=== PATIENT | male | born 1940 | race Caucasian/White ===

== ENCOUNTER 2018-10-21 11:49 | Observation (INO) | payer OTHER, MEDICARE ==
--- OUTSIDE RECORDS SUMMARY | 2018-10-21 11:51 | XMS REPORT | Clinical Summary ---
:1940 Author Organization [facility] Address [address] [place] [id number] Care Team Providers Name Role Phone Nisa Cedillo DO Primary Care Provider Allergies No Known Allergies Medications Medication Sig Dispensed Refills Start Date End Date Status metFORMIN 0 09/11/2016 Active (GLUCOPHAGE) 1000 MG tablet lisinopril 0 08/07/2016 Active (PRINIVIL,ZESTRIL) 10 MG tablet glipiZIDE (GLUCOTROL) 0 08/10/2016 Active 5 MG tablet omega-3 fatty Take by mouth. 0 Active acids-vitamin E (FISH OIL) 1,000 mg capsule cholecalciferol, Take 1,000 Units by 0 Active vitamin D3, (VITAMIN mouth daily. D3) 1,000 unit tablet FOLIC Take by mouth. 0 Active ACID/MULTIVIT-MIN/LUT EIN (CENTRUM SILVER ORAL) diclofenac (VOLTAREN) Apply topically 3 1 Tube 2 09/23/2017 Active 1 % gel (three) times a day. Apply 2 gms to affected area 3 TIMES DAILY Active Problems No known active problems Encounters Date Type Specialty Care Team Description 10/04/2018 Orders Only Orthopedic Surgery Navya Harrison, Achilles tendinitis of MA right lower extremity (Primary Dx) 09/27/2018 Office Visit Orthopedic Surgery Shai Mix II, Achilles tendinitis of right lower extremity (Primary Dx); Hx of total ankle replacement, right; Tenosynovitis of right foot after 10/20/2017 Family History Medical History Relation Name Comments Diabetes Father Heart disease Father Relation Name Status Comments Father Mother Social History Tobacco Use Types Packs/Day Years Used Date Never Smoker Smokeless Tobacco: Never Used Alcohol Use Drinks/Week oz/Week Comments No Sex Assigned at Date Recorded Not on file Job Start Date Occupation Industry Not on file Not on file Not on file Travel History Travel Start Travel End No recent travel history available. Last Filed Vital Signs Not on file Plan of Treatment Date Type Specialty Care Team Description 09/26/2019 Office [place] [address] [place] [address] [phone] Health Maintenance Due Date Last Done Comments SHINGRIX VACCINE (1 of 2) 1991 ZOSTER VACCINE 2001 PNEUMOCOCCAL POLYSACCHARIDE VACCINE AGE 65 AND OVER 2006 PNEUMOCOCCAL-13 2006 INFLUENZA VACCINE 06/23/2018 Procedures Procedure Name Priority Date/Time Associated Diagnosis Comments XR ANKLE 3+ VW Routine 09/27/2018 10:21 AM Chronic pain of Results for this RIGHT [employer] right ankle procedure are in Hx of total ankle the results replacement, right section. after 10/20/2017 Results XR Ankle 3+ Vw Right (09/27/2018 10:21 AM [employer]) Narrative Performed At Three-view images of the right ankle reveals evidence of a stemmed total HM [facility] ankle arthroplasty implant.Medial distal tibia buttressing plate and screw construct appreciated.Intramedullary Steinmann pin appreciated in the right fibula.There is a retained staple in the calcaneus. 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 Performing Organization Address City/State/Zipcode Phone Number [facility] [address] [place] [address] after 10/20/2017 Insurance Payer Benefit Plan / Group Subscriber ID Type Phone Address MEDICARE MEDICARE PART A AND B xxxxxxxxxx Medicare [place], [place] AARP AARP SUPPLEMENT xxxxxxxxxxx Commercial
[2018-10-21 12:30] LABS: Absolute Lymphocytes (CBC) 2.5 K/uL (0.7-4.9); Absolute Monocytes 0.5 K/uL (0.1-1.3); Absolute Neutrophil 2.8 K/uL (1.8-8.0); Eosinophils % 9.2 % (0-4.4); Hematocrit 34.1 % (39.6-49.0); Lymphocytes % 38.6 % (15.3-44.8); MCH 31.4 pg (27.0-35.0); MCV 91.8 fL (80-100); MPV 8.5 fL (7.6-11.3); Monocytes % 7.8 % (3.3-12.3); Protime INR 0.92; RBC Red Blood Cell Count 3.72 M/uL (4.33-5.43)
[2018-10-21 12:48] LABS: ALT/SGPT 24 U/L (12-78); AST/SGOT 14 U/L (15-37); Albumin 3.4 g/dL (3.4-5.0); Alkaline Phosphatase 53 U/L (45-117); BUN Blood Urea Nitrogen 44 mg/dL (7-18); Bicarbonate 21 mmol/L (21-32); Bilirubin Direct 0.1 mg/dL (0-0.2); Bilirubin Total 0.4 mg/dL (0.2-1.0); Glucose Level 152 mg/dL (74-106); Magnesium 1.7 mg/dL (1.8-2.4); NT PRO-BNP 23 pg/mL (<450); Potassium 5.2 mmol/L (3.5-5.1); Protein, Total 7.3 g/dL (6.4-8.2); Sodium Level 140 mmol/L (136-145); Troponin (Emerg Dept Use Only) < 0.02 ng/mL (0.0-0.045)
--- NOTE | 2018-10-21 12:58 | RAD REPORT ---
EXAM DESCRIPTION: Raissa Single View10/21/2018 12:42 pm CLINICAL HISTORY: Chest pain COMPARISON: 2007 FINDINGS: Left lateral costophrenic sulcus is not visualized and not evaluated. Visualized lungs appear clear of acute infiltrate. The heart is normal size IMPRESSION: No acute abnormalities displayed
--- NOTE | 2018-10-21 14:08 | EDPHYS ---
Physician Documentation [facility] Name: Dev Olguin Age: 78 yrs Sex: Male : 1940 Arrival Date: 10/21/2018 Time: 11:50 Bed 5 Private MD: Nisa Cedillo H ED Physician Karan Sherman HPI: 10/22 07:31 This 78 yrs old Male presents to ER via Wheelchair with complaints of Chest kdr Pain. 07:31 The patient or guardian reports chest pain that is located primarily in the substernal kdr area, anterior chest wall, left. Onset: suddenly, This has been intermittent for the past two months. He appears to get relief when he drinks soda mixture. The pain is normally preceded by pain in his left face, jaw and maxilla.. The pain radiates to left jaw. Associated signs and symptoms: Pertinent positives:. The chest pain is described as aching, burning, dull. Duration: The patient or guardian reports multiple episodes, that are intermittent, that wax and wane, with no pattern. Severity of pain: At its worst the pain was moderate in the emergency department the pain has resolved. The patient has experienced similar episodes in the past, multiple times, chronically. Today, the patient was at PT for his ankle when he had recurrence of the pain and near syncope which had not happened before.. Historical: - Allergies: 10/21 12:13 No Known Allergies; iw - Home Meds: 12:13 Metformin Oral [Active]; glipizide Oral [Active]; lisinopril 5 mg Oral tab 1 tab once iw daily [Active]; - PMHx: 12:13 Diabetes - NIDDM; iw - PSHx: 12:13 R ankle replacement; Hernia repair; iw - Immunization history:: Adult Immunizations up to date. - Social history:: Smoking status: Patient/guardian denies using tobacco. - Ebola Screening: : Patient negative for fever greater than or equal to 101.5 degrees Fahrenheit, and additional compatible Ebola Virus Disease symptoms Patient denies exposure to infectious person Patient denies travel to an Ebola-affected area in the 21 days before illness onset No symptoms or risks identified at this time. ROS: 10/22 07:31 Constitutional: Negative for fever, chills, and weight loss, Eyes: Negative for injury, kdr pain, redness, and discharge, Neck: Negative for injury, pain, and swelling, Respiratory: Negative for shortness of breath, cough, wheezing, and pleuritic chest pain, Abdomen/GI: Negative for abdominal pain, nausea, vomiting, diarrhea, and constipation, Back: Negative for injury and pain, : Negative for injury, bleeding, discharge, and swelling, MS/Extremity: Negative for injury and deformity, Skin: Negative for injury, rash, and discoloration, Neuro: Negative for headache, weakness, numbness, tingling, and seizure activity. Psych: Negative for depression, anxiety, suicide ideation, homicidal ideation, and hallucinations, Allergy/Immunology: Negative for hives, rash, and allergies, Endocrine: Negative for neck swelling, polydipsia, polyuria, polyphagia, and marked weight changes, Hematologic/Lymphatic: Negative for swollen nodes, abnormal bleeding, and unusual bruising. Cardiovascular: Positive for chest pain, Negative for edema, orthopnea, palpitations, paroxysmal nocturnal dyspnea. Neuro: Positive for near syncope, weakness, Negative for altered mental status, dizziness, gait disturbance, headache, hearing loss. Exam: 07:31 Constitutional: This is a well developed, well nourished patient who is awake, alert, kdr and in no acute distress. Head/Face: Normocephalic, atraumatic. Eyes: Pupils equal round and reactive to light, extra-ocular motions intact. Lids and lashes normal. Conjunctiva and sclera are non-icteric and not injected. Cornea within normal limits. Periorbital areas with no swelling, redness, or edema. Neck: Trachea midline, no thyromegaly or masses palpated, and no cervical lymphadenopathy. Supple, full range of motion without nuchal rigidity, or vertebral point tenderness. No Meningismus. Chest/axilla: Normal chest wall appearance and motion. Nontender with no deformity. No lesions are appreciated. Cardiovascular: Regular rate and rhythm with a normal S1 and S2. No gallops, murmurs, or rubs. Normal PMI, no JVD. No pulse deficits. Respiratory: Lungs have equal breath sounds bilaterally, clear to auscultation and percussion. No rales, rhonchi or wheezes noted. No increased work of breathing, no retractions or nasal flaring. Abdomen/GI: Soft, non-tender, with normal bowel sounds. No distension or tympany. No guarding or rebound. No evidence of tenderness throughout. Back: No spinal tenderness. No costovertebral tenderness. Full range of motion. Skin: Warm, dry with normal turgor. Normal color with no rashes, no lesions, and no evidence of cellulitis. MS/ Extremity: Pulses equal, no cyanosis. Neurovascular intact. Full, normal range of motion. Neuro: Awake and alert, GCS 15, oriented to person, place, time, and situation. Cranial nerves II-XII grossly intact. Motor strength 5/5 in all extremities. Sensory grossly intact. Cerebellar exam normal. Normal gait. Psych: Awake, alert, with orientation to person, place and time. Behavior, mood, and affect are within normal limits. Vital Signs: 10/21 12:13 BP 142 / 53; Pulse 71; Resp 16 S; Pulse Ox 100% on R/A; Weight 82.19 kg; Height 5 ft. iw 10 in. (177.80 cm); Pain 0/10; 13:04 BP 135 / 63; Pulse 69; Resp 17; Pulse Ox 100% ; bp 14:00 BP 128 / 65; Pulse 70; Resp 19; Pulse Ox 100% ; bp 16:00 BP 113 / 64; Pulse 69; Resp 17; Pulse Ox 99% ; bp 12:13 Body Mass Index 26.00 (82.19 kg, 177.80 cm) iw MDM: 14:07 Patient medically screened. kdr 10/22 07:31 Differential diagnosis: acute myocardial infarction, acute pericarditis, anxiety, kdr coronary artery disease gastroesophageal reflux disease (GERD). HEART Score: History: Highly Suspicious (2), ECG: Non specific repolarization disturbance / LBTB / PM (1), Age: > or = 65 years (2), Risk Factors: 1 or 2 risk factors (1), Troponin: < or = 1 x Normal Limit (0), Total Score =. Data reviewed: vital signs, nurses notes. Counseling: I had a detailed discussion with the patient and/or guardian regarding: the historical points, exam findings, and any diagnostic results supporting the discharge/admit diagnosis, lab results, radiology results, the need for further work-up and treatment in the hospital. 10/21 12:00 Order name: Basic Metabolic Panel; Complete Time: 13:54 kdr 10/21 12:00 Order name: CBC with Diff; Complete Time: 13:54 [facility] 10/21 12:00 Order name: LFT's; Complete Time: 13:54 [facility] 10/21 12:00 Order name: Magnesium; Complete Time: 13:54 [facility] 10/21 12:00 Order name: NT PRO-BNP; Complete Time: 13:54 [facility] 10/21 12:00 Order name: PT-INR; Complete Time: 13:54 [facility] 10/21 12:00 Order name: Troponin (emerg Dept Use Only); Complete Time: 13:54 [facility] 10/21 12:00 Order name: XRAY Chest (1 view); Complete Time: 13:54 [facility] 10/21 12:00 Order name: EKG; Complete Time: 12:01 [facility] 10/21 12:00 Order name: Cardiac monitoring; Complete Time: 12:14 [facility] 10/21 12:00 Order name: EKG - Nurse/Tech; Complete Time: 12:14 [facility] 10/21 12:00 Order name: IV Saline Lock; Complete Time: 12:28 [facility] 10/21 12:00 Order name: Labs collected and sent; Complete Time: 12:28 [facility] 10/21 12:00 Order name: O2 Per Protocol; Complete Time: 12:14 [facility] 10/21 12:00 Order name: O2 Sat Monitoring; Complete Time: 12:14 kdr Administered Medications: No medications were administered Disposition: 10/21/18 14:07 Hospitalization ordered by Yuan Cortés for Observation. Preliminary diagnosis are Chest pain, unspecified, Hyperkalemia, Renal Insufficiency. - Bed requested for Telemetry/MedSurg (observation). - Status is Observation. iw - Condition is Stable. - Problem is new. - Symptoms have improved. UTI on Admission? No Signatures: Dispatcher [employer] EDMS Karan Sherman MD MD kdr Alcira Mendoza RN RN iw Corrections: (The following items were deleted from the chart) 10/21 16: 14:07 Hospitalization Ordered by Yuan Cortés MD for Observation. Preliminary diagnosis iw is Chest pain, unspecified; Hyperkalemia; Renal Insufficiency. Bed requested for Telemetry/MedSurg (observation). Status is Observation. Condition is Stable. Problem is new. Symptoms have improved. UTI on Admission? No. kdr 17:38 16:29 10/21/2018 14:07 Hospitalization Ordered by Yuan Cortés MD for Observation. iw Preliminary diagnosis is Chest pain, unspecified; Hyperkalemia; Renal Insufficiency. Bed requested for Telemetry/MedSurg (observation). Status is Observation. Condition is Stable. Problem is new. Symptoms have improved. UTI on Admission? No. iw
--- NOTE | 2018-10-21 14:08 | ER ---
Nurse's Notes [facility] Name: Dev Olguin Age: 78 yrs Sex: Male : 1940 Arrival Date: 10/21/2018 Time: 11:50 Bed 5 Private MD: Nisa Cedillo H Diagnosis: Chest pain, unspecified;Hyperkalemia;Renal Insufficiency Presentation: 10/21 12:08 Presenting complaint: Patient states: has had episodes of CP that started several iw months ago, not every day, pt states his left tooth/jaw starts hurting and then the pain moves into his chest, pt usually can drink a diet 7up and the pain goes away, today was PT and was on the exercise machine and had a bad episode of chest pain that lasted about 10 minutes, got dizzy, went to Dr. Cedillo's office and was sent here. Transition of care: patient was not received from another setting of care. Onset of symptoms was October 21, 2018. Risk Assessment: Do you want to hurt yourself or someone else? Patient reports no desire to harm self or others. Initial Sepsis Screen: Does the patient meet any 2 criteria? No. Patient's initial sepsis screen is negative. Does the patient have a suspected source of infection? No. Patient's initial sepsis screen is negative. Care prior to arrival: None. 12:08 Method Of Arrival: Wheelchair iw 12:08 Acuity: [place] 3 iw Triage Assessment: 12:29 General: Appears in no apparent distress. comfortable, Behavior is cooperative, bp appropriate for age, anxious. Pain: Denies pain. Cardiovascular: Rhythm is sinus rhythm. Historical: - Allergies: 12:13 No Known Allergies; iw - Home Meds: 12:13 Metformin Oral [Active]; glipizide Oral [Active]; lisinopril 5 mg Oral tab 1 tab once iw daily [Active]; - PMHx: 12:13 Diabetes - NIDDM; iw - PSHx: 12:13 R ankle replacement; Hernia repair; iw - Immunization history:: Adult Immunizations up to date. - Social history:: Smoking status: Patient/guardian denies using tobacco. - Ebola Screening: : Patient negative for fever greater than or equal to 101.5 degrees Fahrenheit, and additional compatible Ebola Virus Disease symptoms Patient denies exposure to infectious person Patient denies travel to an Ebola-affected area in the 21 days before illness onset No symptoms or risks identified at this time. Screenin:14 Abuse screen: Denies threats or abuse. Denies injuries from another. Nutritional iw screening: No deficits noted. Tuberculosis screening: No symptoms or risk factors identified. Fall Risk IV access (20 points). Assessment: 12:10 General: Appears in no apparent distress. comfortable, Behavior is cooperative, bp appropriate for age, anxious. Pain: Pain radiates to left jaw Pain began CURRENTLY RESOLVED. Neuro: Level of Consciousness is awake, alert, obeys commands, Oriented to person, place, time, situation, Appropriate for age. Cardiovascular: Rhythm is sinus rhythm. Respiratory: Airway is patent Respiratory effort is even, unlabored, Respiratory pattern is regular, symmetrical. GI: No signs and/or symptoms were reported involving the gastrointestinal system. : No signs and/or symptoms were reported regarding the genitourinary system. EENT: No deficits noted. Derm: No deficits noted. Musculoskeletal: Circulation, motion, and sensation intact. Range of motion: intact in all extremities. 13:03 Reassessment: ALL CURRENT ORDERS COMPLETED, DISPO PENDING. bp 16:13 Reassessment: Patient appears in no apparent distress at this time. Patient and/or iw family updated on plan of care and expected duration. Pain level reassessed. Patient is alert, oriented x 3, equal unlabored respirations, skin warm/dry/pink. pt assisted to bathroom, placed back in bed, family at bedside, waiting on room assignment. Vital Signs: 12:13 BP 142 / 53; Pulse 71; Resp 16 S; Pulse Ox 100% on R/A; Weight 82.19 kg; Height 5 ft. iw 10 in. (177.80 cm); Pain 0/10; 13:04 BP 135 / 63; Pulse 69; Resp 17; Pulse Ox 100% ; bp 14:00 BP 128 / 65; Pulse 70; Resp 19; Pulse Ox 100% ; bp 16:00 BP 113 / 64; Pulse 69; Resp 17; Pulse Ox 99% ; bp 12:13 Body Mass Index 26.00 (82.19 kg, 177.80 cm) ED Course: 11:50 Patient arrived in ED. rg4 11:50 Karan Sherman MD is Attending Physician. kdr 11:50 Nisa Cedillo DO is Private Physician. rg4 12:02 Amarjit Middleton, RN is Primary Nurse. bp 12:09 EKG done, by quick service technician. reviewed by Karan Sherman MD. at1 12:12 Triage completed. iw 12:13 Arm band placed on. iw 12:33 No provider procedures requiring assistance completed. Patient maintains SpO2 bp saturation greater than 95% on room air. 12:33 Patient has correct armband on for positive identification. telegraphic instrument supervisor on. Pulse bp ox on. NIBP on. 12:37 X-ray completed. Portable x-ray completed in exam room. Patient tolerated procedure jb2 well. 12:40 XRAY Chest (1 view) In Process Unspecified. EDMS 14:00 Yuan Cortés MD is Hospitalizing Provider. kdr 16:53 Patient admitted, IV remains in place. bp 17:05 Inserted saline lock: 20 gauge in right forearm, using aseptic technique. bp Administered Medications: No medications were administered Outcome: 14:07 Decision to Hospitalize by Provider. kdr 16:52 Admitted to Med/surg accompanied by malaika, family with patient, via wheelchair, with bp chart, Report called to BEN RN 16:52 Condition: stable 16:52 Instructed on the need for admit. 17:38 Patient left the ED. iw Signatures: Dispatcher [employer] EDCT Karan Sherman MD MD kdr Buechter, Jesse jb2 Alcira Mendoza, RN RN iw Ara Buckley, network security engineer EKG Tat1 Josee Blue rg4 Amarjit Middleton, RN RN bp Corrections: (The following items were deleted from the chart) 12:35 12:08 Presenting complaint: Patient states: has had episodes of CP that started several iw months ago, not every day, pt states his left tooth/jaw starts hurting and then the pain moves into his chest, pt usually can drink a diet 7up and the pain goes away, today was PT and was on the machine and had a bad episode of PC that lasted about 10 minutes, got dizzy, went to Dr. Cedillo's office and was sent here iw
--- NOTE | 2018-10-21 14:34 | EKG ---
Test Date: 2018-10-21 Test Time: 11:58:53 [employer] Ax Consultant: PARMJIT MEASUREMENT RESULTS: Intervals: Rate: 71 NH: 186 QRSD: 88 QT: 348 QTc: 378 Martha: P: 28 NH: 186 QRS: 62 T: 58 INTERPRETIVE STATEMENTS: Normal sinus rhythm Normal ECG Compared to ECG 12/09/2014 20:11:19 No significant changes Electronically Signed On 10-21-18 14:33:53 FLOW NURSE by Kael Dumont
[2018-10-21] MEDS: INSULIN -REGULAR HUMAN 50 UNIT/0.5 ML ML SQ SCH ×2 (17:06→21:00)
[2018-10-21] MEDS ORDERED: D50W 25 GM/50 ML SYRINGE IV PRN (17:06)
[2018-10-21] MEDS ORDERED: GLUCAGON 1 MG/VIAL IM PRN (17:06)
[2018-10-21] MEDS ORDERED: ACETAMINOPHEN 500 MG TAB PO PRN (17:06)
[2018-10-21] MEDS: NA CHLORIDE 0.9% 1,000 ML IV SCH (17:06)
[2018-10-21 17:37] VITALS: BMI 25.9
[2018-10-21] MEDS ORDERED: SOD POLYSTYREN SUL 15 GM/60 ML UCUP PO ONE (18:00)
[2018-10-21] MEDS ORDERED: NITROGLYCERIN 0.4 MG/TAB SL PRN (18:02)
[2018-10-21] MEDS ORDERED: MORPHINE 2 MG/ML SYR IV PRN (18:07)
[2018-10-21 19:34] LABS: HDL Cholesterol 41 mg/dL (40-60); LDL Cholesterol, Calculated 89 (<130); Troponin I < 0.02 ng/mL (0.0-0.045)
[2018-10-21] MEDS: ENOXAPARIN 40 MG/0.4 ML SQ SCH ×2 (21:00→22:52)
[2018-10-21] MEDS ORDERED: ATORVASTATIN 40 MG TAB PO SCH (21:00)
[2018-10-21] MEDS: METOPROLOL TAR 25 MG TAB PO SCH (22:51)
--- NOTE | 2018-10-22 04:01 | HP ---
Date of Admission: 10/21/2018 Primary Care Physician: Dr. Cedillo. Consultants: Cardiology, Dr. Peace. Chief Complaint: Chest pain radiating to the jaw. Code Status: Full. History Of Present Illness: The patient is a 78-year-old male with past medical history of right ank le and knee repair, currently undergoing physical therapy as well as diabetes and hypertension, who w as in his usual state of health until a week prior to admission, when the patient had sudden onset of chest pain which was substernal, associated with some nausea and radiating to his jaw. The patient states that his symptoms were intermittent, mild, however, kept progressing. The patient sought a re ferral to agricultural extension agent through his primary care physician, Dr. Cedillo and was to be seen by Dr. Peace n ext week. The patient did try some 7up along with G-tube, Gatorade drink, cocktail and states that h is pain improved, however, would return promptly. The patient was at the rehab center today and afte r using the exercise bike, the patient became dizzy and had a near syncopal episode. The patient was attended to by the therapist. The patient was laid flat on the ground. His blood pressure was in t he 130s systolic. EKG was done and the patient was referred to the emergency department for further evaluation. In the ER, his vital signs were stable. He was afebrile. The patient's workup did show potassium level of 5.2. His creatinine was 1.9. Initial EKG and cardiac enzymes were negative. Ch est x-ray did not show any changes. The patient was then referred for admission. When seen in the E R, he was awake, alert, and oriented x3, in some mild distress. Past Medical History: Hypertension; diabetes mellitus, type 2, [id number]. Past Surgical History: Cholecystectomy, 25 years ago; previous heart cath, several years ago with no intervention; umbilical hernia repair in 2007; right ankle surgery, 4 years ago, using 3D printer an kle replacement. Allergies: NO KNOWN DRUG ALLERGIES. Medications: List reviewed. Social History: The patient denies any tobacco use. Will drink alcohol on rare occasion. The patie nt is , has a daughter, essentially independent in his activities of daily living. Family History: Father had first OH at age of 35, of OH at age of 75, also had diabetes. Review of Systems: Negative except as above. Physical Examination: Vital Signs: Blood pressure 142/53, pulse 71, respirations 16, O2 100% on room air. General: Awake, alert, and oriented x3, in some mild distress. Elderly male, ill appearing. HEENT: Normocephalic, atraumatic. PERRLA. EOMI. Dry mucous membranes. Oropharynx is clear. Conj unctivae are anicteric. Neck: Supple. No JVD. Trachea midline. CV: S1, S2. Regular rate and rhythm. Peripheral pulses are present. No murmurs. Respiratory: Moving air well bilaterally. No wheezing or stridor. No use of accessory muscles. Gastrointestinal: Abdomen is soft, nontender, and nondistended. Positive bowel sounds. Extremities: No clubbing, cyanosis, or edema. No calf tenderness. Neuro: Cranial nerves 2-12 intact grossly. No focal neurological deficit. Speech is normal. Stren gth is 5/5 in bilateral upper and lower extremities. Sensation intact to light touch. Skin: No rashes. Normal skin turgor. Psych: Mood is okay. Affect is full. Insight and judgment are fair. Laboratory Data: Sodium 140, potassium 5.2, chloride 112, CO2 21, BUN 44, creatinine 1.9, glucose 15 2, calcium 8.9, and magnesium 1.7. WBC 6.5, H and H 11.7 and 34.1, platelets 166, and neutrophils 43 %. INR 0.92. Chest x-ray, personally reviewed, shows no acute infiltrates or other abnormalities. EKG shows rate of 71, normal sinus rhythm, no changes from previous EKG. Assessment And Plan: A 78-year-old male with: 1.Chest pain, rule out ACS. We will start on chest pain guidelines. Hold CHAU inhibitor due to elev ated creatinine and hyperkalemia. Continue beta-nancy, aspirin, and statin. Serial cardiac enzyme s and EKG. Consult Dr. Peace with Cardiology. The patient was scheduled to see him next week. 2.Presyncopal episode. We will obtain a carotid artery ultrasound. We will check orthostatic vital signs. PT evaluation. 3.Essential hypertension. Resume home medications as appropriate. 4.GI and DVT prophylaxis addressed. 5.Diabetes mellitus, type 2, ply-dippzjg-cmbbeaebu with hyperglycemia. We will start on sliding sca le insulin and monitor Accu-Cheks. 6.Hyperkalemia. We will give Kayexalate and monitor potassium level. 7.Acute kidney injury. We will start on IV fluids. Baseline creatinine is normal. Admit the patient to Med-Surg, place as observation. /KARLA Voice ID: [id number]
[2018-10-22 05:59] LABS: Absolute Lymphocytes (CBC) 2.9 K/uL (0.7-4.9); Absolute Monocytes 0.5 K/uL (0.1-1.3); Absolute Neutrophil 2.7 K/uL (1.8-8.0); Basophils % 0.8 % (0-1.3); Eosinophils % 9.1 % (0-4.4); Hematocrit 31.9 % (39.6-49.0); Lymphocytes % 42.8 % (15.3-44.8); MCH 31.5 pg (27.0-35.0); MPV 8.2 fL (7.6-11.3); Monocytes % 6.9 % (3.3-12.3); RBC Red Blood Cell Count 3.51 M/uL (4.33-5.43)
[2018-10-22] MEDS: NA CHLORIDE 0.9% 1,000 ML IV SCH (06:12)
[2018-10-22 06:19] LABS: Potassium 5.1 mmol/L (3.5-5.1)
[2018-10-22] MEDS: INSULIN -REGULAR HUMAN 50 UNIT/0.5 ML ML SQ SCH ×2 (07:30→11:30)
[2018-10-22] MEDS ORDERED: glipiZIDE 5 MG TAB PO SCH ×2 (08:00→16:30)
[2018-10-22] MEDS ORDERED: METFORMIN HCL 500 MG TAB PO SCH (08:00)
[2018-10-22 08:03] LABS: Platelet Estimate ADEQ
[2018-10-22 08:04] LABS: Blood Morphology Comment NOT SEEN (NOT SEEN)
[2018-10-22] MEDS: METOPROLOL TAR 25 MG TAB PO SCH (08:47)
[2018-10-22] MEDS: ENOXAPARIN 40 MG/0.4 ML SQ SCH (08:48)
[2018-10-22] MEDS ORDERED: LISINOPRIL 10 MG TAB PO SCH (09:00)
[2018-10-22] MEDS ORDERED: ASPIRIN EC 81 MG TAB PO SCH (09:00)
[2018-10-22 09:40] VITALS: O2SAT 96
--- NOTE | 2018-10-22 09:45 | RAD REPORT ---
EXAM DESCRIPTION: USCarotid Artery Ngmkbrtkm20/29/2018 9:50 pm CLINICAL HISTORY: Syncope COMPARISON: None FINDINGS: The velocity of the right internal carotid artery equals 90 cm/sec. The right ICA/CCA ratio 1.3 The velocity of the left internal carotid artery equals 80 cm/sec. The left ICA/CCA ratio 1.2 Minimal plaque within the carotid arteries. Vertebral arteries demonstrate antegrade flow IMPRESSION: Minimal plaque within the carotid arteries without evidence of a hemodynamically signifi cant stenosis NASCET criteria used. Mild 0-49% stenosis Moderate 50-69% stenosis Severe 70-99% stenosis
[2018-10-22] MEDS ORDERED: REGADENOSON 0.4 MG/5 ML SYR IV ONE (10:47)
--- NOTE | 2018-10-22 12:41 | RAD REPORT ---
EXAM DESCRIPTION: NM - Rest Stress Cardiac Imaging - 10/22/2018 12:28 pm CLINICAL HISTORY: Chest pain. COMPARISON: None. TECHNIQUE: The patient was administered approximately 10mCi of Tc 99m Sestamibi prior to resting SPE CT imaging of the heart. The patient was then administered approximately 30 mCi of Tc 99m Sestamibi f ollowing exercise or pharmacologic stress. Multiplanar SPECT images were reviewed. FINDINGS: Small area of diminished radiotracer activity involves the inferior left ventricular myoc ardium on rest and stress images. The left ventricular ejection fraction equals 52% IMPRESSION: Small apparent defect involving the inferior left ventricular myocardium most likely re presents attenuation from the diaphragm. No convincing evidence of stress-induced ischemia
--- NOTE | 2018-10-22 13:07 | CON ---
Chief Complaint: Chest pain. History Of Present Illness: The patient has been having these symptoms for upwards of a year. The p ain starts in his tooth, in the left side of his jaw within a few seconds of getting it in the tooth, then he will feel it in the chest. If he drinks a diet lemon carpenter soda, about 3 swallows, it goes away immediately. The patient has never had myocardial infarction or stroke. Outpatient medication s are glipizide, metformin, and lisinopril. He has no allergies. Uses no tobacco. Quit more than 2 0 years ago. No illegal drugs. Occasional alcohol. Physical Examination: General: He is alert, oriented, pleasant, 5 feet 10 inches, 181 pounds. HEENT: Normal. Lungs: Clear. Cardiac: Normal. Abdomen: Soft. Extremities: Normal. Laboratory Data: His electrocardiogram is normal. Troponins are normal. Mildly anemic, normochromi c. Creatinine 1.9, 1.4 this morning. Total cholesterol 165, HDL 41, triglycerides 177. Impression And Plan: Mr. Olguin has very atypical chest pain. We will do a pharmacologic nuclear s tress test and echo to see if there are any findings that would warrant further workup. He is unable to walk. He has had an injury to his right leg. 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 ESTELLA/KARLA Voice ID: [id number] Report ID: [id number]
--- NOTE | 2018-10-22 13:23 | TREADPHA ---
DX: CHEST PAIN Date of Study: 10/22/18 Ht: 5 10 Wt: 181 lb 0 oz Consulting Physician: WAN MEDICATIONS: TYLENOL, ASPIRIN, LIPITOR, DEXTROSE, LOVENOX, NOVOLINE-R HISTORY: 78 YEAR OLD MALE WITH COMPLAINTS OF CHEST PAIN, HYPERKALEMIA, RENAL INSUFFIENCY, HERNIA REPAIR, NON INSULINE DEPENDENT DIABETES MELLITUS. PHYSICIAL EXAMINATION: RESTING B.P.: 156/91 RESTING H.R.: 61 RESTING EKG: NORMAL PROTOCOL: LEXISCAN EXERCISE TIME: 3:30 B.P. AT PEAK STRESS: 129/69 IMPRESSION: LEXISCAN INJECTED PER PROTOCOL, FOLLOWED BY CARDIOLITE PER PROTOCOL, SEE NUCLEAR MEDICINE REPORT. NO SUPRA VENTRICLAR TACHYCARDIA, NO VENTRICULAR TACHYCARDIA, NO CHEST PAIN REPORTED, NO PREMATURE ATRIAL COMPLEXES, NO PREMATURE VENTRICULAR COMPLEXES. NON DIAGNOSTIC EKG LEXISCAN STRESS.
--- NOTE | 2018-10-22 13:34 | ECHO ---
HEIGHT: 5 ft 10 in WEIGHT: 181 lb 0 oz DATE OF STUDY: 10/22/[address]: Yuan Cortés MD 2-DIMENSIONAL: YES M.MODE: YES DOPPLER: YES COLOR FLOW: YES TDS: PORTABLE: DEFINITY: BUBBLE STUDY: DIAGNOSIS: CHEST PAIN CARDIAC HISTORY: CATHERIZATION: NO SURGERY: NO PROSTHETIC VALVE: NO PACEMAKER: NO MEASUREMENTS (cm) DIASTOLIC (NORMALS) SYSTOLIC (NORMALS) IVSd 1.0 (0.6-1.2) LA Diam 4.0 (1.9-4.0) LVEF 60% LVIDd 4.9 (3.5-5.7) LVIDs 3.3 (2.0-3.5) %FS 32% LVPWd 1.2 (0.6-1.2) Ao Diam 3.3 (2.0-3.7) 2 DIMENSIONAL ASSESSMENT: RIGHT ATRIUM: NORMAL LEFT ATRIUM: NORMAL RIGHT VENTRICLE: NORMAL LEFT VENTRICLE: NORMAL TRICUSPID VALVE: NORMAL MITRAL VALVE: NORMAL PULMONIC VALVE: NORMAL AORTIC VALVE: NORMAL PERICARDIAL EFFUSION: NONE AORTIC ROOT: NORMAL LEFT VENTRICULAR WALL MOTION: NORMAL DOPPLER/COLOR FLOW: TRACE MITRAL REGURGITATION. COMMENTS: NORMAL TWO DIMENSIONAL ECHOCARDIOGRAM. TRACE MITRAL REGURGITATION. TECHNOLOGIST: ARJUN MUÑOZ
[2018-10-22] MEDS ORDERED: PANTOPRAZOLE 40MG TABLET PO SCH (14:00)
[2018-10-22 16:57] VITALS: BP 114/61; TEMP 97.8
--- NOTE | 2018-10-23 14:25 | DS ---
Date of Discharge: 10/22/2018 Consultants: Dr. Peace with Cardiology. Procedures: Nuclear stress test, which showed a small apparent defect involving the inferior left ve ntricular myocardium, most likely represents attenuation from the diaphragm. No convincing evidence of stress-induced ischemia. Discharge Diagnoses: 1.Chest pain, acute coronary syndrome ruled out, likely atypical chest pain. 2.Presyncopal episode. Carotid artery ultrasound negative. No further episodes likely related to d ehydration. 3.Essential hypertension, stable. 4.Diabetes mellitus type 2, non-insulin requiring with hyperglycemia. 5.Hyperkalemia, corrected. 6.Acute kidney injury, improved. 7.Hypertriglyceridemia. Hospital Course: The patient is a 78-year-old male with past medical history of diabetes, hypertensi on, comes in with presyncopal episode and chest tightness radiating to the jaw. The patient was brou ght in from physical therapy, where he had the episode for further evaluation. The patient was admit reese to rule out ACS and cardiac enzymes were negative. EKG did not show any acute changes. Cardiac stress test was done and the patient was seen by Dr. Peace, Cardiology. Stress test was negative fo r any stress-induced ischemia. His echocardiogram showed ejection fraction of 60%. Trace mitral reg urgitation. The patient was then cleared for discharge from business analyst consultant's standpoint. He did well ov era. His symptoms resolved. A carotid artery ultrasound was done, which did not show any flow-saravia iting stenosis. The patient was able to ambulate without any difficulty. The patient was then disch arged in a stable condition. Activity: As tolerated. Medications: As per medication reconciliation list. He will be discharge on trial of Protonix for 3 0 days. If he has improvement, he will need to see a GI physician for a possible scope to rule out a ny ulcers and to check for H. pylori. Followup: Follow up with saturator operator, Dr. Peace in 2 weeks. Return to ER for worsening condition. Follow up with GI in 4 weeks. Diet: Heart healthy. Activity: Fall precautions. Physical Examination: General: Awake, alert, oriented, no acute distress. CV: S1 and S2. No murmurs. Respiratory: Moving air well bilaterally. Abdomen: Abdomen is soft, nontender, nondistended. Positive bowel sounds. Extremities: No clubbing, cyanosis, edema. Neurologic: Nonfocal. SA/MODL Voice ID: [id number] Report ID: [id number]
== END 2018-10-22 15:01 | disposition home or self-care (01) ==
LOC: ER 11:49 → ERHOLD 15:18 → 4TH 17:01
PROVIDERS: ADMIT Family Medicine; ATTEND Family Medicine
DX: R07.9 Chest pain, unspecified (principal); R55 Syncope and collapse; I10 Essential (primary) hypertension; E11.65 Type 2 diabetes mellitus with hyperglycemia; E87.5 Hyperkalemia; N17.9 Acute kidney failure, unspecified; E78.1 Pure hyperglyceridemia
CPT/HCPCS: 36415; 71045; 78452; 80048 ×2; 80061; 80076; 82962 ×3; 83735; 83880; 84484 ×2; 85025 ×2; 85610; 93005; 93017; 93306; 93880; 94760 ×3; 97163; 99285; A9500; G0378 ×2; J1650; J2785; J7030 ×2

== ENCOUNTER 2019-08-02 12:08 | Emergency (ER) | payer OTHER, MEDICARE ==
--- OUTSIDE RECORDS SUMMARY | 2019-08-02 12:11 | XMS REPORT | Clinical Summary ---
:1940 Author Organization [facility] Address [address] [place] [address] Care Team Providers Name Role Phone Nisa Cedillo Primary Care Provider Allergies No Known Allergies Medications Medication Sig Dispensed Refills Start Date End Date Status metFORMIN 0 09/11/2016 Active (GLUCOPHAGE) 1000 MG tablet lisinopril 0 08/07/2016 Active (PRINIVIL,ZESTRI L) 10 MG tablet glipiZIDE 0 08/10/2016 Active (GLUCOTROL) 5 MG tablet omega-3 fatty Take by mouth. 0 Active acids-vitamin E (FISH OIL) 1,000 mg capsule cholecalciferol, Take 1,000 0 Active vitamin D3, Units by mouth (VITAMIN D3) daily. 1,000 unit tablet FOLIC Take by mouth. 0 Active ACID/MULTIVIT-IN N/LUTEIN (CENTRUM SILVER ORAL) diclofenac APPLY 2 GRAMS 1 Tube 0 02/14/2019 Active (VOLTAREN) 1 % TO AFFECTED gelIndications: AREA(S) 3 TIMES Achilles A DAY tendinitis of right lower extremity diclofenac Apply topically 1 Tube 2 09/23/2017 Discontinued (VOLTAREN) 1 % 3 (three) times 9 (Reorder) gel a day. Apply 2 gms to affected area 3 TIMES DAILY Active Problems No known active problems Encounters Date Type Specialty Care Team Description 07/27/2019 Refill Orthopedic Surgery Shai Mix II, Achilles tendinitis of right lower extremity 02/15/2019 Telephone Orthopedic Surgery Lubna Burger LVN 02/14/2019 Refill Orthopedic Surgery [facility] Achilles tendinitis of CASPER Nguyen right lower extremity (Primary Dx) 10/04/2018 Orders Only Orthopedic Surgery Navya Harrison, Achilles tendinitis of [place] right lower extremity (Primary Dx) 09/27/2018 Office Visit Orthopedic Surgery Shai Mix II, Achilles tendinitis of right lower extremity (Primary Dx); Hx of total ankle replacement, right; Tenosynovitis of right foot after 08/01/2018 Family History Medical History Relation Name Comments [...] Office Visit Orthopedic [place], [address] [place], [place] [id number] Health Maintenance Due Date Last Done Comments SHINGLES VACCINES (#1) 1991 65+ PNEUMOCOCCAL VACCINE (1 of 2 - PCV13) 2006 INFLUENZA VACCINE 06/23/2019 Procedures Procedure Name Priority Date/Time Associated Diagnosis Comments XR ANKLE 3+ VW Routine 09/27/2018 10:21 AM Chronic pain of Results for this RIGHT RECREATION INSTRUCTOR right ankle procedure are in Hx of total ankle the results replacement, right section. after 08/01/2018 Results XR Ankle 3+ Vw Right (09/27/2018 10:21 AM RECREATION INSTRUCTOR) Specimen Narrative Performed At Three-view images of the right ankle reveals evidence of a stemmed total HM [facility] ankle arthroplasty implant.Medial distal tibia buttressing plate and screw construct appreciated.Intramedullary Steinmann pin appreciated in the right fibula.There is a retained staple in the calcaneus. 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 Performing Organization Address City/State/Zipcode Phone Number [facility] [address] [place] [address] after 08/01/2018 Insurance Payer Benefit Plan / Subscriber ID Effective Dates Phone Address Type Group MEDICARE MEDICARE PART A xxxxxxxxxx 2009-Present [place], [place] Medicare AND B AARP AARP SUPPLEMENT xxxxxxxxxxx 2003-Present Commercial
--- OUTSIDE RECORDS SUMMARY | 2019-08-02 12:11 | XMS REPORT | Summary of Care ---
:1940 Author Name Mercy Najera M.A. Address Unavailable Unavailable , Care Team Providers Name Role Phone NATASHA CLARK M.D. 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 RIGHT [id number] XR FINGER(S) - 2 VWS MIN. RIGHT Images acquired, not reported on this accession number. Plan of Care Name Dates Details Planned Observations Planned Goals not documented Interventions Provided Labs/Procedures/Imaging[U] XRAY FINGER(S) - 2 VWS MIN. RIGHT [id number]; Done: 01 Mar 2019 Instructions Name Dates Details Instructions not documented Encounters Appointment; NATASHA CLARK M.D. On: 01-Mar-2019 10:00 Encounter Diagnosis: Problem not documented
[2019-08-02] MEDS ORDERED: HYDROCODONE/APAP 10/325 TAB ONE (13:41)
[2019-08-02 13:57] LABS: Absolute Lymphocytes (CBC) 1.6 K/uL (0.7-4.9); Basophils % 0.7 % (0-1.3); Hematocrit 31.8 % (39.6-49.0); Lymphocytes % 20.2 % (15.3-44.8); MPV 8.2 fL (7.6-11.3); RBC Red Blood Cell Count 3.46 M/uL (4.33-5.43)
[2019-08-02 14:14] LABS: Albumin 3.5 g/dL (3.4-5.0); Bilirubin Direct 0.1 mg/dL (0-0.2); Bilirubin Total 0.4 mg/dL (0.2-1.0); Potassium 4.8 mmol/L (3.5-5.1)
--- NOTE | 2019-08-02 14:41 | RAD REPORT ---
EXAM DESCRIPTION: CT - Pelvis Wo Cont - 08/02/2019 2:26 pm CLINICAL HISTORY: left groin pain ;Abd pain COMPARISON: None. TECHNIQUE: Axial 5 millimeter thick images of the pelvis were obtained without oral or IV contrast. The CT scan was performed using dose optimization techniques as appropriate to a performed exam incl uding one or more of the following: Automated exposure control, adjustment of the mA and/or kV accord ing to patient size (this includes techniques or standardized protocols for targeted exams where dose is matched to indication/reason for exam) and use of iterative reconstruction technique. FINDINGS: No acute bowel findings. Patient has sigmoid diverticulosis without diverticulitis. No donell e air, free fluid or inflammatory stranding. No peritoneal or retroperitoneal mass or bulky lymphaden opathy. Urinary bladder is contracted. No bladder calculus. Prostate gland is enlarged measuring 4.5 cm AP x 6.0 cm TR. No invasion of adjacent structures. Seminal vesicles are normal. Lower lumbar and SI joint degenerative changes are present. Minimal hip joint degenerative change not ed. No acute bone findings seen. Minimal fat only left inguinal hernia is present. No bowel involvement. No congested or edematous fat . No inguinal mass or lymphadenopathy. No skeletal musculature abnormality seen. IMPRESSION: Small fat only left inguinal hernia is present. No congestion or edema of the herniated fat. No left lower quadrant mass, lymphadenopathy or other suspicious finding. Enlarged prostate gland. No bladder abnormality seen. No acute GI finding. Bony degenerative change as detailed. No acute bone finding.
[2019-08-02 14:54] LABS: Urine Amorphous Sediment 1+ /HPF (NONE SEEN); Urine Bacteria 20-50 /HPF (NONE SEEN); Urine Culture Reflex Order REFLEXED; Urine RBC >50 /HPF (NONE SEEN)
[2019-08-02 15:20] LABS: Urine Blood 3+ (NEG); Urine Glucose NEGATIVE (NEG); Urine Protein 2+ (NEG); Urine Specific Gravity 1.025 (1.005-1.030)
--- NOTE | 2019-08-02 16:33 | EDPHYS ---
Physician Documentation [facility] Name: Dev Olguin Age: 79 yrs Sex: Male : 1940 Arrival Date: 08/02/2019 Time: 12:12 Bed 24 Private MD: Nisa Cedillo H ED Physician Rosibel Rae HPI: 08/02 16:29 This 79 yrs old Male presents to ER via Wheelchair with complaints of Left ma2 side pain. 16:29 Onset: The symptoms/episode began/occurred gradually, 2 day(s) ago. Associated signs ma2 and symptoms: Pertinent negatives: diarrhea, dysuria. Severity of symptoms: At their worst the symptoms were mild, in the emergency department the symptoms have resolved. The patient has not experienced similar symptoms in the past. left inguinal pain . Historical: - Allergies: 12:25 No Known Allergies; la1 - PMHx: 12:25 Diabetes - NIDDM; la1 - Immunization history:: Adult Immunizations up to date. - Social history:: Smoking status: Patient/guardian denies using tobacco, Patient/guardian denies using alcohol, street drugs, The patient lives with family. - Ebola Screening: : No symptoms or risks identified at this time. - Family history:: not pertinent. ROS: 16:29 Constitutional: Negative for fever, chills, and weight loss, Cardiovascular: Negative ma2 for chest pain, palpitations, and edema, Respiratory: Negative for shortness of breath, cough, wheezing, and pleuritic chest pain, Abdomen/GI: + left inguinal hernia that is reducible, mildly tender, no skin changes. otherwise Negative for abdominal pain, nausea, diarrhea, and constipation, Back: Negative for injury and pain, : Negative for injury, bleeding, discharge, and swelling, MS/Extremity: Negative for injury and deformity, Neuro: Negative for headache, weakness, numbness, tingling, and seizure, Psych: Negative for depression, anxiety, suicide ideation, homicidal ideation, and hallucinations. Exam: 16:29 Constitutional: This is a well developed, well nourished patient who is awake, alert, ma2 and in no acute distress. Chest/axilla: Normal chest wall appearance and motion. Nontender with no deformity. No lesions are appreciated. Cardiovascular: Regular rate and rhythm with a normal S1 and S2. No gallops, murmurs, or rubs. Normal PMI, no JVD. No pulse deficits. Respiratory: Lungs have equal breath sounds bilaterally, clear to auscultation and percussion. No rales, rhonchi or wheezes noted. No increased work of breathing, no retractions or nasal flaring. Abdomen/GI: left inguinal hernia, skin wnl, reducible, non tender Soft, non-tender, with normal bowel sounds. No distension or tympany. No guarding or rebound. No evidence of tenderness throughout. Male : Normal genitalia with no discharge or lesions. Skin: Warm, dry with normal turgor. Normal color with no rashes, no lesions, and no evidence of cellulitis. MS/ Extremity: Pulses equal, no cyanosis. Neurovascular intact. Full, normal range of motion. Neuro: Awake and alert, GCS 15, oriented to person, place, time, and situation. Cranial nerves II-XII grossly intact. Motor strength 5/5 in all extremities. Sensory grossly intact. Cerebellar exam normal. Normal gait. Vital Signs: 12:25 BP 138 / 67; Pulse 65; Resp 16; Temp 97.8; Pulse Ox 100% on R/A; Weight 79.38 kg; la1 Height 5 ft. 10 in. (177.80 cm); 13:30 BP 132 / 65; Pulse 57; Resp 17 S; Pulse Ox 97% on R/A; ca1 14:30 BP 134 / 64; Pulse 65; Resp 18 S; Pulse Ox 97% on R/A; ca1 15:30 BP 131 / 63; Pulse 65; Resp 17 S; Pulse Ox 98% on R/A; ca1 16:12 BP 123 / 61; Pulse 65; Resp 18 S; Pulse Ox 98% on R/A; ca1 12:25 Body Mass Index 25.11 (79.38 kg, 177.80 cm) la1 MDM: 12:47 Patient medically screened. ma2 16:29 Differential diagnosis: UTI, prostatitis, hernia. Data reviewed: vital signs, nurses ma2 notes. Counseling: I had a detailed discussion with the patient and/or guardian regarding: the historical points, exam findings, and any diagnostic results supporting the discharge/admit diagnosis, the presence of at least one elevated blood pressure reading (>120/80) during this emergency department visit, the need for outpatient follow up. Response to treatment: the patient's symptoms have mildly improved after treatment. 08/02 13:09 Order name: Basic Metabolic Panel; Complete Time: 15:24 ma2 08/02 13:09 Order name: CBC with Diff; Complete Time: 15:24 ma2 08/02 13:09 Order name: Creatinine for Radiology; Complete Time: 15:24 ma2 08/02 13:09 Order name: Hepatic Function; Complete Time: 15:24 ma2 08/02 13:09 Order name: Lipase; Complete Time: 15:24 ma2 08/02 14:05 Order name: Urine Microscopic Only ca1 08/02 13:09 Order name: IV Saline Lock; Complete Time: 13:49 ma2 08/02 13:09 Order name: Labs collected and sent; Complete Time: 13:49 ma2 08/02 14:09 Order name: Urine Dipstick--Ancillary (enter results); Complete Time: 15:24 bd 08/02 14:56 Order name: Urine Microscopic Only; Complete Time: 15:24 EDMS 08/02 15:25 Order name: Pelvis Wo Cont; Complete Time: 16:32 EDMS 08/02 15:42 Order name: Urine Culture EDMS 08/02 13:09 Order name: Urine Dipstick-Ancillary (obtain specimen); Complete Time: 14:36 ma2 Administered Medications: 13:20 Drug: [place] 10 mg-325 mg 1 tabs {Note: RASs - 0.} Route: PO; ca1 14:30 Follow up: Response: No adverse reaction; Pain is decreased; RASS: Alert and Calm (0) ca1 Disposition: 08/02/19 16:32 Discharged to Home. Impression: Unilateral inguinal hernia, without obstruction or gangrene. - Condition is Stable. - Discharge Instructions: Inguinal Hernia, Adult. - Prescriptions for Tylenol- Codeine #3 300-30 mg Oral Tablet - take 2 tablet by ORAL route every 6 hours As needed; 30 tablet. - Medication Reconciliation Form, Thank You Letter, Antibiotic Education, Prescription Opioid Use form. - Follow up: Antoine Marcos MD; When: Tomorrow; Reason: Continuance of care. Signatures: Dispatcher [employer] EDLA Alcira Mendoza RN RN iw Vinnie Park RN RN la1 Rosibel Rae MD MD ma2 Mira Donovan RN RN ca1 Corrections: (The following items were deleted from the chart) 15:23 13:10 Pelvis W/Cont+CT.RAD.BRZ ordered. EDMS EDMS 16:33 16:32 08/02/2019 16:32 Discharged to Home. Impression: Unilateral inguinal hernia, ma2 without obstruction or gangrene. Condition is Stable. Forms are Medication Reconciliation Form, Thank You Letter, Antibiotic Education, Prescription Opioid Use. ma2 17:38 16:33 08/02/2019 16:32 Discharged to Home. Impression: Unilateral inguinal hernia, iw without obstruction or gangrene. Condition is Stable. Discharge Instructions: Inguinal Hernia, Adult. Prescriptions for Tylenol-Codeine #3 300-30 mg Oral Tablet - take 2 tablet by ORAL route every 6 hours As needed; 30 tablet. and Forms are Medication Reconciliation Form, Thank You Letter, Antibiotic Education, Prescription Opioid Use. Follow up: Antoine Marcos; When: Tomorrow; Reason: Continuance of care. ma2
--- NOTE | 2019-08-02 16:33 | ER ---
Nurse's Notes [facility] Name: Dev Olguin Age: 79 yrs Sex: Male : 1940 Arrival Date: 08/02/2019 Time: 12:12 Bed 24 Private MD: Nisa Cedillo H Diagnosis: Unilateral inguinal hernia, without obstruction or gangrene Presentation: 08/02 12:25 Presenting complaint: Patient states: left groin area pain since this morning. la1 Transition of care: patient was not received from another setting of care. Onset of symptoms was August 02, 2019. Risk Assessment: Do you want to hurt yourself or someone else? Patient reports no desire to harm self or others. Initial Sepsis Screen: Does the patient meet any 2 criteria? No. Patient's initial sepsis screen is negative. Does the patient have a suspected source of infection? No. Patient's initial sepsis screen is negative. Care prior to arrival: None. 12:25 Method Of Arrival: Wheelchair la1 12:25 Acuity: [place] 3 la1 Historical: - Allergies: 12:25 No Known Allergies; la1 - PMHx: 12:25 Diabetes - NIDDM; la1 - Immunization history:: Adult Immunizations up to date. - Social history:: Smoking status: Patient/guardian denies using tobacco, Patient/guardian denies using alcohol, street drugs, The patient lives with family. - Ebola Screening: : No symptoms or risks identified at this time. - Family history:: not pertinent. Screenin:00 Abuse screen: Denies threats or abuse. Denies injuries from another. Nutritional ca1 screening: No deficits noted. Tuberculosis screening: No symptoms or risk factors identified. Fall Risk IV access (20 points). Assessment: 13:00 General: Appears in no apparent distress. comfortable, Behavior is calm, cooperative, ca1 appropriate for age. Pain: Complains of pain in left femoral area Pain radiates to left leg Pain currently is 8 out of 10 on a pain scale. Quality of pain is described as sharp, Pain began 4 hours ago. Is intermittent. Neuro: Level of Consciousness is awake, alert, obeys commands, Oriented to person, place, time, situation. Cardiovascular: Heart tones S1 S2 present Capillary refill < 3 seconds Patient's skin is warm and dry. Pulses are all present. Respiratory: Airway is patent Respiratory effort is even, unlabored, Respiratory pattern is regular, symmetrical, Breath sounds are clear bilaterally. GI: Abdomen is flat, non-distended, Bowel sounds present X 4 quads. Abd is soft and non tender X 4 quads. : No deficits noted. No signs and/or symptoms were reported regarding the genitourinary system. EENT: No deficits noted. No signs and/or symptoms were reported regarding the EENT system. Derm: Skin is intact, is healthy with good turgor, Skin is pink, warm \T\ dry. Musculoskeletal: Circulation, motion, and sensation intact. Capillary refill < 3 seconds, Range of motion: intact in all extremities. 14:12 Reassessment: Patient appears in no apparent distress at this time. Patient and/or ca1 family updated on plan of care and expected duration. Pain level reassessed. Patient is alert, oriented x 3, equal unlabored respirations, skin warm/dry/pink. 15:02 Reassessment: Patient appears in no apparent distress at this time. Patient and/or ca1 family updated on plan of care and expected duration. Pain level reassessed. Patient is alert, oriented x 3, equal unlabored respirations, skin warm/dry/pink. 16:10 Reassessment: Patient appears in no apparent distress at this time. Patient and/or ca1 family updated on plan of care and expected duration. Pain level reassessed. Patient is alert, oriented x 3, equal unlabored respirations, skin warm/dry/pink. Family at bedside. Vital Signs: 12:25 BP 138 / 67; Pulse 65; Resp 16; Temp 97.8; Pulse Ox 100% on R/A; Weight 79.38 kg; la1 Height 5 ft. 10 in. (177.80 cm); 13:30 BP 132 / 65; Pulse 57; Resp 17 S; Pulse Ox 97% on R/A; ca1 14:30 BP 134 / 64; Pulse 65; Resp 18 S; Pulse Ox 97% on R/A; ca1 15:30 BP 131 / 63; Pulse 65; Resp 17 S; Pulse Ox 98% on R/A; ca1 16:12 BP 123 / 61; Pulse 65; Resp 18 S; Pulse Ox 98% on R/A; ca1 12:25 Body Mass Index 25.11 (79.38 kg, 177.80 cm) la1 ED Course: 12:12 Patient arrived in ED. mr 12:13 Nisa Cedillo DO is Private Physician. mr 12:25 Triage completed. la1 12:25 Arm band placed on right wrist. la1 12:47 Rosibel Rae MD is Attending Physician. ma2 12:47 Puja Gasca, RN is Primary Nurse. aj1 13:00 Patient has correct armband on for positive identification. Placed in gown. Bed in low ca1 position. Call light in reach. Side rails up X2. Pulse ox on. NIBP on. Warm blanket given. 13:00 No provider procedures requiring assistance completed. ca1 13:49 Missed attempt(s): 20 gauge in right forearm. lt1 13:49 Initial lab(s) drawn, by me, sent to lab. Inserted saline lock: 22 gauge in left lt1 forearm, using aseptic technique. 16:33 Antoine Marcos MD is Referral Physician. ma2 17:38 IV discontinued, intact, bleeding controlled, No redness/swelling at site. Pressure iw dressing applied. Administered Medications: 13:20 Drug: Hunters 10 mg-325 mg 1 tabs {Note: RASs - 0.} Route: PO; ca1 14:30 Follow up: Response: No adverse reaction; Pain is decreased; RASS: Alert and Calm (0) ca1 Outcome: 16:32 Discharge ordered by . ma2 17:38 Discharged to home via wheelchair, with family. iw 17:38 Condition: good 17:38 Discharge instructions given to patient, family, Instructed on discharge instructions, follow up and referral plans. medication usage, Demonstrated understanding of instructions, follow-up care, medications, Prescriptions given X 1. 17:38 Patient left the ED. iw Signatures: Puja Gasca, RN RN ajLinda Dejesus mr Alcira Mendoza RN RN iw Attema, Lee, RN RN la1 Alzahri, Mohammad, MD MD flMira Brian RN RN ca1 Tran, Leah lt1
[2019-08-02 18:05] VITALS: BP 123/61; O2SAT 98
[2019-08-02 19:41] VITALS: TEMP 97.8
== END 2019-08-02 17:38 | disposition home or self-care (01) ==
LOC: ER 12:08
DX: K40.90 Unilateral inguinal hernia, without obstruction or gangrene, not specified as recurrent (principal)
CPT/HCPCS: 36415; 72192; 80048; 80076; 81003; 81015; 83690; 85025; 87077; 87086; 87088; 87186; 99284

== ENCOUNTER 2019-08-12 06:19 | Day surgery (SDC) | payer OTHER, MEDICARE ==
[2019-08-11 15:34] LABS: Hematocrit 32.3 % (39.6-49.0); Lymphocytes % 36.9 % (15.3-44.8); MPV 8.1 fL (7.6-11.3); RBC Red Blood Cell Count 3.52 M/uL (4.33-5.43)
--- NOTE | 2019-08-11 15:40 | RAD REPORT ---
EXAM DESCRIPTION: RAD - Chest Pa And Lat (2 Views) - 08/11/2019 3:33 pm CLINICAL HISTORY: preoppatient pending hernia repair COMPARISON: September 2018 TECHNIQUE: PA and lateral views of the chest were obtained. FINDINGS: The lungs are clear. Interstitial pattern is similar to comparison. Heart size is normal and central vasculature is within normal limits. No pleural effusion or pneumothorax seen. No acute bony finding noted. No aortic abnormality. IMPRESSION: No acute cardiopulmonary process. No significant interval change.
[2019-08-11 15:51] LABS: Potassium 4.7 mmol/L (3.5-5.1)
--- OUTSIDE RECORDS SUMMARY | 2019-08-12 06:27 | XMS REPORT | Clinical Summary ---
:1940 Author Organization [facility] Address [address] [place] [address] Care Team Providers Name Role Phone Nisa [...] tablet FOLIC Take by mouth. 0 Active ACID/MULTIVIT-CO N/LUTEIN (CENTRUM SILVER ORAL) diclofenac APPLY 2 [...] lower extremity 02/15/2019 Telephone Orthopedic Surgery Lubna Bugrer LVN 02/14/2019 Refill Orthopedic Surgery [place] Achilles tendinitis of CASPER Nguyen right lower extremity (Primary Dx) 10/04/2018 Orders Only Orthopedic Surgery Navya Harrison, Achilles tendinitis of [place] right lower extremity (Primary Dx) 09/27/2018 Office Visit Orthopedic Surgery Shai Mix II, Achilles tendinitis of right lower extremity (Primary Dx); Hx of total ankle replacement, right; Tenosynovitis of right foot after 08/11/2018 Family History Medical History Relation Name Comments [...] [place], [address] [place], [place] [id number] Health Maintenance Due Date Last Done Comments SHINGLES VACCINES (#1) 1991 65+ PNEUMOCOCCAL VACCINE (1 of 2 - PCV13) 2006 INFLUENZA VACCINE 06/23/2019 Procedures Procedure Name Priority Date/Time Associated Diagnosis Comments XR ANKLE 3+ VW Routine 09/27/2018 10:21 AM Chronic pain of Results for this RIGHT [employer] right ankle procedure are in Hx of total ankle the results replacement, right section. after 08/11/2018 Results XR Ankle 3+ Vw Right (09/27/2018 10:21 AM [employer]) Specimen Narrative Performed At Three-view images of the right ankle reveals evidence of a stemmed total HM [facility] ankle arthroplasty implant.Medial distal tibia buttressing plate and screw construct appreciated.Intramedullary Steinmann pin appreciated in the right fibula.There is a retained staple in the calcaneus. 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 Performing Organization Address City/State/Zipcode Phone Number [facility] [address] [place] [address] after 08/11/2018 Insurance Payer Benefit Plan / Subscriber ID Effective Dates Phone Address Type Group MEDICARE MEDICARE PART A xxxxxxxxxx 2009-Present [place], [place] Medicare AND B AARP AARP SUPPLEMENT xxxxxxxxxxx 2003-Present Commercial
[2019-08-12] MEDS ORDERED: NA CHLORIDE 0.9% 1,000 ML ONE ×2 (06:36→10:12)
[2019-08-12] MEDS ORDERED: CEFAZOLIN/SWI 1gm 1 GM/10 ML SYR ONE (06:36)
[2019-08-12] MEDS ORDERED: ROCURONIUM 50 MG/5 ML VIAL IV ONE (06:50)
[2019-08-12] MEDS ORDERED: PROPOFOL 200 MG/20 ML VIAL IV ONE (06:50)
[2019-08-12] MEDS ORDERED: MIDAZOLAM HCL 2 MG/2 ML INJ ONE (06:50)
[2019-08-12] MEDS ORDERED: ONDANSETRON 4 MG/2 ML VIAL ONE (06:50)
[2019-08-12] MEDS ORDERED: FENTANYL CITR 100 MCG/2 ML ONE (06:50)
[2019-08-12] MEDS ORDERED: LIDOCAINE 2% MPF 5 ML VIAL ONE (06:50)
[2019-08-12] MEDS ORDERED: GLYCOPYRROLATE 0.2 MG/ML SYR ONE ×2 (07:45→08:24)
[2019-08-12] MEDS ORDERED: Phenylephrine HCl 10 MG/ML 1 ML VIAL ONE (07:57)
[2019-08-12] MEDS ORDERED: NS 0.9% VIAL 30 ML ONE (07:58)
[2019-08-12] MEDS ORDERED: NEOSTIGMINE 1 MG/ML -10 ML VIAL ONE (08:24)
--- NOTE | 2019-08-12 08:28 | P.BOP ---
Preoperative diagnosis: incarcerated tender left inguinal hernia Postoperative diagnosis: same Primary procedure: Laparoscopic repair of incarcerated tender left inguinal hernia with mesh Digester Capper: Ya De Los Santos) Estimated blood loss: <10cc Specimen: none Findings: left inguinal hernia Anesthesia: General Complications: None Transferred to: Recovery Room Condition: Good
[2019-08-12] MEDS: FENTANYL CITR 100 MCG/2 ML ONE ×4 (09:31→09:48)
--- NOTE | 2019-08-12 10:33 | EKG ---
Test Date: 2019-08-11 Test Time: 15:13:43 Entry Level Software Engineer: JOSE EDUARDO MEASUREMENT RESULTS: Intervals: Rate: 63 [place]: 196 QRSD: 82 QT: 380 QTc: 388 [place]: P: 27 [place]: 196 QRS: 50 T: 54 INTERPRETIVE STATEMENTS: Normal sinus rhythm Normal ECG Compared to ECG 10/21/2018 11:58:53 No significant changes Electronically Signed On 08-12-19 10:31:40 CDT by Kael Dumont
[2019-08-12 10:36] VITALS: TEMP 97.5
[2019-08-12] MEDS ORDERED: CODEINE 30MG/APAP 300MG TAB ONE (10:51)
[2019-08-12 13:58] VITALS: O2SAT 99
[2019-08-12 13:59] VITALS: BP 122/64
[2019-08-12] MEDS ORDERED: TAMSULOSIN 0.4 MG SR CAP PO ONE (14:00)
--- NOTE | 2019-08-14 09:25 | OP ---
Surgeon: Antoine Marcos MD Dealer Sales Rep: Ya Sharpe. Preoperative Diagnosis: Incarcerated tender left inguinal hernia. Postoperative Diagnosis: Incarcerated tender left inguinal hernia. Procedures: Laparoscopic repair of incarcerated tender left inguinal hernia with mesh. Estimated Blood Loss: Less than 10 cc. Specimen: None. Findings: Left inguinal hernia. Anesthesia: General plus local. Indications: This is a case of a 79-year-old patient, comes to us with above diagnosis. Fully expla ined the benefits, alternative risks of laparoscopic, possible open left inguinal hernia repair with mesh which include, but not limited to infection, bleeding, damage to adjacent structures, anesthesia complication, recurrence, chronic pain, chronic numbness, AR, even . He also understands this may not relieve the symptoms. He might need more than one surgical intervention. He understood, sig marie a consent. Description Of Procedure: The patient was brought to the operating room, placed in supine position. Anesthesia was done without complication. Abdominal area was prepped and draped in a sterile fashio n. Marcaine 0.5% was injected for local anesthetic to every area to be incised. First incision was done in the infraumbilical region. Incision was carried down to the subcutaneous tissue until we fou nd the external oblique aponeurosis. It was opened on the left side. The anterior rectus sheath, af ter it was opened we proceeded to retract the muscle laterally to expose the posterior rectus sheath. The extraperitoneal space was developed with the blunt dissection. Then, a balloon tipped catheter was placed over the area. The space maker and then it was directed towards the previous symphysis. A laparoscope was placed in and then the balloon was inflated under direct visualization to create t he extraperitoneal space. After that, the balloon was deflated, removed, the area was insufflated. A 5 mm trocar was placed just above the pubis symphysis and another one mid way between the first and the second one. The preperitoneal space was further developed by exposing the inferior epigastric v essels and keeping them anterior. Scott's ligament was dissected laterally to the junction with the iliac veins. We continued our dissection inferiorly to the ileopubic tract avoiding damage to the f emoral branch of the genitofemoral nerve and lateral femoral cutaneous nerve. The cord structures we re identified. The hernia sac was identified, it looked like there was omentum in that area, that wa s visualized through the sac, it looks viable. It was easily reduced into the abdominal cavity. The hernia sac was then removed from the cord structures and reduced back into the abdominal cavity sreedhar pearce sure the spermatic cord structures are intact. A 3D mesh was placed through the working space thr ough one of the trocar sites. There was a line to cover direct and indirect spaces. The mesh was se cured in place with SorbaFix, tacked laterally and superior to the iliopubic tract and inferior media l to the Scott ligament. After assuring adequate hemostasis, we proceeded then to remove the trocar s under direct visualization as we also looked at the insufflation and held the mesh in place. The a nterior rectus sheath was closed with #1 Vicryl and then the skin approximated with 3-0 chromic. Eyad ri-Strips placed over the area. The patient tolerated the procedure well. At the end of the case, t he testicles were in the scrotum. The patient was sent to Recovery in stable condition. ULISES/KARLA Voice ID: [id number] Report ID: [id number]
--- NOTE | 2019-08-15 10:24 | DS ---
Date of Discharge: 08/12/2019 Diagnosis: Incarcerated tender left inguinal hernia. Procedure: Laparoscopic repair of incarcerated tender left inguinal hernia with mesh. Disposition: Home. Activity: As tolerated. No heavy lifting. Followup: Follow up in my office in 1 week. Call for appointment [phone]. Keep area dry for 48 ho urs, then may shower. Medications: See orders. ULISES/KARLA Voice ID: [id number] Report ID: [id number]
== END 2019-08-12 14:17 | disposition home or self-care (01) ==
LOC: OR 06:19
PROVIDERS: ATTEND Surgery
PROC: 0YU64JZ Supplement Left Inguinal Region with Synthetic Substitute, Percutaneous Endoscopic Approach (ICD-10-PCS; principal; 2019-08-12 07:30)
DX: K40.30 Unilateral inguinal hernia, with obstruction, without gangrene, not specified as recurrent (principal); E11.9 Type 2 diabetes mellitus without complications; I10 Essential (primary) hypertension; Z90.49 Acquired absence of other specified parts of digestive tract; Z83.3 Family history of diabetes mellitus; Z82.49 Family history of ischemic heart disease and other diseases of the circulatory system
CPT/HCPCS: 93005; 85025; 80048; 36415; 82962 ×2; 71046; 49650; J2704; J2710; J2370; J2250; J3010 ×2; J0690; J7030 ×2; J2405

== ENCOUNTER 2021-12-12 12:37 | Observation (INO) | payer OTHER, MEDICARE ==
--- OUTSIDE RECORDS SUMMARY | 2021-12-12 12:52 | XMS REPORT | Continuity of Care Document ---
:1940 Author Organization [facility] t Address [address] [place] [address] Care Team Providers Name Role Phone [place] Attending Clinician Unavailable AMBER Attending Clinician Unavailable Problems Condition Condition Condition Status Onset Resolution Last Treating Co mments Source Name Details Category Date Date Treatment Clinician Date Pain of Pain of Problem Active [facility] finger of finger of it[place] of right hand right hand [place] Phys[facility] Sprain of Sprain of Problem Active Uni vers interphala interphala it y of ngeal ngeal [place] joint of joint of Physic i right ring right ring an s finger, finger, initial initial encounter encounter Arthritis Arthritis Problem Active Uni vers of finger of finger ity of of right of right [place] hand hand Physici ans Allergies, Adverse Reactions, Alerts This patient has no known allergies or adverse reactions. Medications This patient has no known medications. Procedures This patient has no known procedures. Encounters Start End Encounter Admission Attending Care Care Encounter Source Date/Time Date/Time Type Type Clinicians Facility Department ID 2021-12-06 2021-12-06 Outpatient LADI CHOWDHURY [facility] [id number] [place] 00:00:00 00:00:[address] 2021-12-06 2021-12-06 Outpatient LADI CHOWDHURY [facility] [id number] [place] 00:00:00 00:00:[address] 2020-09-24 2020-09-24 Outpatient LADI CHOWDHURY [facility] [id number] [place] 00:00:00 00:00:[address] 2020-09-24 2020-09-24 Outpatient LADI CHOWDHURY [facility] [id number] [place] 00:00:00 00:00:[address] 2019-03-01 2019-03-01 [facility] [id number] [facility] 10:00:00 10:00:00 doroteo [facility] Martha Damon Physici M.D. ans Results Test Description Test Time Test Comments Results Result [facility] e Comments [U] XRAY 2019-03-01 Images [facility](S) - 2 VWS 09:27:00 [place]. [place] [id number] reported on [facility] ans this accession number.
[2021-12-12] MEDS ORDERED: ASPIRIN 81 MG CHEWABLE TABLET ONE (12:54)
[2021-12-12] MEDS ORDERED: METOPROLOL TAR 50 MG TAB ONE (12:54)
[2021-12-12] MEDS ORDERED: MORPHINE 2 MG/ML SYR ONE (12:55)
[2021-12-12] MEDS ORDERED: FAMOTIDINE 20 MG/2 ML VIAL IV ONE (12:55)
[2021-12-12] MEDS ORDERED: ONDANSETRON 4 MG/2 ML VIAL ONE (12:55)
[2021-12-12] MEDS ORDERED: NA CHLORIDE 0.9% 500 ML ONE (12:55)
--- NOTE | 2021-12-12 13:00 | ER ---
Nurse's Notes [facility] Name: Dev Olguin Age: 81 yrs Sex: Male : 1940 Arrival Date: 12/12/2021 Time: 12:39 Bed 5 Private MD: Diagnosis: Chest pain, unspecified;Essential (primary) hypertension;Unspecified kidney failure-chronic;Type 2 diabetes mellitus with hyperglycemia;Hypomagnesemia Presentation: 12/12 13:08 Chief complaint: Spouse and/or significant other states: chest pain that began this vg1 morning. Denies SOB or difficulty breathing. Coronavirus screen: Vaccine status: Patient reports receiving the 2nd dose of the covid vaccine. Client denies travel out of the [place] in the last 14 days. Ebola Screen: Patient negative for fever greater than or equal to 101.5 degrees Fahrenheit, and additional compatible Ebola Virus Disease symptoms. Initial Sepsis Screen: Does the patient meet any 2 criteria? No. Patient's initial sepsis screen is negative. Does the patient have a suspected source of infection? No. Patient's initial sepsis screen is negative. Risk Assessment: Do you want to hurt yourself or someone else? Patient reports no desire to harm self or others. Onset of symptoms was December 12, 2021. 13:08 Method Of Arrival: Ambulatory vg1 13:08 Acuity: INDIA 2 vg1 Historical: - Allergies: 13:00 No Known Allergies; vg1 - Home Meds: 13:00 Glipizide Oral [Active]; lisinopril 5 mg Oral tab 1 tab once daily [Active]; Metformin vg1 Oral [Active]; Fish Oil oral [Active]; - PMHx: 13:00 Diabetes - NIDDM; vg1 - PSHx: 13:00 Hernia Repair; vg1 - Immunization history:: Client reports receiving the 2nd dose of the Covid vaccine. - Family history:: pertinent for. - Social history:: Smoking status: Patient denies any tobacco usage or history of. Screenin:08 Abuse screen: Denies threats or abuse. Nutritional screening: No deficits noted. vg1 Tuberculosis screening: No symptoms or risk factors identified. Fall Risk No fall in past 12 months (0 pts). No secondary diagnosis (0 pts). IV access (20 points). Ambulatory Aid- None/Bed Rest/Nurse Assist (0 pts). Gait- Normal/Bed Rest/Wheelchair (0 pts) Mental Status- Oriented to own ability (0 pts). Total Turner Fall Scale indicates No Risk (0-24 pts). Assessment: 12:48 Reassessment: asked pt to rate level of pain from 0-10, zero being no pain and 10 being vg1 the worst pain, pt state pain 'neutral'. Asked pt to provide a number from 0-10, pt stated 'its a neutral pain'. General: Appears in no apparent distress. uncomfortable, Behavior is cooperative, anxious. Pain: Complains of pain in chest, epigastric area, right upper quadrant and left upper quadrant Pain radiates to abdomen Pain Pain began this morning. Neuro: Level of Consciousness is awake, alert, obeys commands, Oriented to person, place, time, situation. Cardiovascular: Patient's skin is warm and dry. Respiratory: Airway is patent Respiratory effort is even, unlabored, Denies shortness of breath or difficulty breathing. GI: Abdomen is flat, non-distended, Abdomen is tender to palpation in epigastric area, right upper quadrant and left upper quadrant Patient currently denies diarrhea, nausea, vomiting. : No signs and/or symptoms were reported regarding the genitourinary system. EENT: No signs and/or symptoms were reported regarding the EENT system. Derm: Skin is pink, warm \T\ dry. Musculoskeletal: Circulation, motion, and sensation intact. 14:00 Reassessment: Patient appears in no apparent distress at this time. Patient and/or vg1 family updated on plan of care and expected duration. Pain level reassessed. Patient is alert, oriented x 3, equal unlabored respirations, skin warm/dry/pink. Patient denies pain at this time. 14:39 Reassessment: Dr Shaw at bedside. vg1 Vital Signs: 12:54 BP 164 / 90 LA; Pulse 88; Resp 19; Temp 97.6; Pulse Ox 98% ; Weight 79.38 kg; Height 5 vg1 ft. 11 in. (180.34 cm); 13:00 BP 190 / 92 RA; Pulse 87; Resp 18; Pulse Ox 100% on R/A; vg1 13:01 BP 177 / 93 LA; Pulse 84; Resp 15; Pulse Ox 99% ; vg1 13:30 BP 126 / 72; Pulse 75; Resp 16; Pulse Ox 98% ; vg1 14:00 BP 130 / 67; Pulse 66; Resp 17; Pulse Ox 99% ; vg1 16:00 BP 127 / 64; Pulse 64; Resp 17; Pulse Ox 98% ; Pain 0/10; jh6 12:54 Body Mass Index 24.41 (79.38 kg, 180.34 cm) vg1 ED Course: 12:39 Patient arrived in ED. ds1 12:41 Andrew Urias MD is Attending Physician. alberto 12:44 Arm band placed on Patient placed in an exam room, on a stretcher. ll1 12:48 Daysi Blue, RN is Primary Nurse. vg1 12:48 Initial lab(s) drawn, by ny, sent to lab. Inserted saline lock: 20 gauge in right vg1 forearm, using aseptic technique. Blood collected. 12:57 Tae Shaw MD is Hospitalizing Provider. alberto 13:06 COVID swab sent to lab. vg1 13:08 Patient has correct armband on for positive identification. Placed in gown. Call light vg1 in reach. Side rails up X2. Adult w/ patient. 13:09 Triage completed. vg1 13:31 XRAY Chest (1 view) In Process Unspecified. EDMS 13:49 CT Stone Protocol In Process Unspecified. EDMS 16:16 No provider procedures requiring assistance completed. jh6 16:17 IV is intact, jh6 Administered Medications: 13:10 Drug: NS 0.9% 500 ml Route: IV; Rate: bolus; Site: right forearm; jh6 13:53 Follow up: IV Status: Completed infusion; IV Intake: 500ml vg1 13:10 Drug: Aspirin Chewable Tablet 324 mg Route: PO; jh6 13:10 Drug: morphine 2 mg Route: IVP; Site: right forearm; jh6 13:10 Drug: Zofran (Ondansetron) 4 mg Route: IVP; Site: right forearm; jh6 13:10 Drug: Lopressor (metoprolol TARTRATE) 50 mg Route: PO; jh6 13:11 Drug: Pepcid (famotidine) 20 mg Route: IVP; Site: right forearm; jh6 14:03 Drug: NS 0.9% 1000 ml Route: IV; Rate: 125 ml/hr; Site: right antecubital; jh6 14:04 Drug: Lovenox (enoxaparin) 80 mg Route: Sub-Q; Site: right lower abdomen; 6 14:04 Drug: Insulin Regular Human 8 units {Co-Signature: vg1 (Daysi Blue RN).} Route: jh6 IVP; Site: right upper arm; 14:15 Drug: LanTUS (insulin glargine) 25 units Route: Sub-Q; Site: left lower abdomen; vg1 14:20 Drug: Magnesium Sulfate 1 grams Route: IVPB; Infused Over: 1 hrs; Site: right forearm; vg1 15:04 Drug: NS 0.9% 1000 ml Route: IV; Rate: 1 bolus; Site: right forearm; 1 Intake: 13:53 IV: 500ml; Total: 500ml. vg1 Outcome: 12:59 Decision to Hospitalize by Provider. alberto 16:16 Admitted to Tele family with patient, via wheelchair, Report called to [facility] 16:16 Condition: stable 16:16 Instructed on the need for admit. 16:24 Patient left the ED. vg1 Signatures: Dispatcher [employer] EDAndrew Oneill MD MD cha Sanford, Demi ds1 Daysi Blue RN RN vg1 Prashanth Landeros RN RN Celia Norris RN RN jh6 Daysi Blue RN vg1 Corrections: (The following items were deleted from the chart) 13:02 12:54 BP 164 / 90; Pulse 88bpm; Resp 19bpm; Pulse Ox 98%; Temp 97.6F; 79.38 kg; Height vg1 5 ft. 11 in.; BMI: 24.4; vg1 15:05 14:20 Magnesium Sulfate 1 grams IVPB in left forearm over 1 hrs vg1 vg1 15:05 15:04 NS 0.9% 1000 ml IV at 1 bolus in left forearm vg1 vg1
--- NOTE | 2021-12-12 13:00 | EDPHYS ---
Physician Documentation [facility] Name: Dev Olguin Age: 81 yrs Sex: Male : 1940 Arrival Date: 12/12/2021 Time: 12:39 Bed 5 Private MD: ED Physician Andrew Urias HPI: 12/12 12:47 This 81 yrs old Male presents to ER via Unassigned with complaints of chest alberto pain. 12:47 The patient or guardian reports chest pain that is located primarily in the substernal alberto area. Onset: this morning. The pain does not radiate. Associated signs and symptoms: Pertinent positives: nausea. The chest pain is described as a pressure, squeezing. Duration: The patient or guardian reports a single episode, that is still ongoing. Severity of pain: At its worst the pain was moderate in the emergency department the pain has resolved. The patient has not experienced similar symptoms in the past. Historical: - Allergies: 13:00 No Known Allergies; vg1 - Home Meds: 13:00 Glipizide Oral [Active]; lisinopril 5 mg Oral tab 1 tab once daily [Active]; Metformin vg1 Oral [Active]; Fish Oil oral [Active]; - PMHx: 13:00 Diabetes - NIDDM; vg1 - PSHx: 13:00 Hernia Repair; vg1 - Immunization history:: Client reports receiving the 2nd dose of the Covid vaccine. - Family history:: pertinent for. - Social history:: Smoking status: Patient denies any tobacco usage or history of. ROS: 12:47 Constitutional: Negative for fever, chills, and weight loss, Eyes: Negative for injury, alberto pain, redness, and discharge, ENT: Negative for injury, pain, and discharge, Neck: Negative for injury, pain, and swelling, Respiratory: Negative for shortness of breath, cough, wheezing, and pleuritic chest pain, Abdomen/GI: Negative for abdominal pain, nausea, vomiting, diarrhea, and constipation, Back: Negative for injury and pain, : Negative for injury, bleeding, discharge, and swelling, MS/Extremity: Negative for injury and deformity, Skin: Negative for injury, rash, and discoloration, Neuro: Negative for headache, weakness, numbness, tingling, and seizure, Psych: Negative for depression, anxiety, suicide ideation, homicidal ideation, and hallucinations, Allergy/Immunology: Negative for hives, rash, and allergies, Endocrine: Negative for neck swelling, polydipsia, polyuria, polyphagia, and marked weight changes, Hematologic/Lymphatic: Negative for swollen nodes, abnormal bleeding, and unusual bruising. 12:47 Cardiovascular: Positive for chest pain, of the chest. Exam: 12:47 Constitutional: This is a well developed, well nourished patient who is awake, alert, alberto and in no acute distress. Head/Face: Normocephalic, atraumatic. Eyes: Pupils equal round and reactive to light, extra-ocular motions intact. Lids and lashes normal. Conjunctiva and sclera are non-icteric and not injected. Cornea within normal limits. Periorbital areas with no swelling, redness, or edema. ENT: Nares patent. No nasal discharge, no septal abnormalities noted. Tympanic membranes are normal and external auditory canals are clear. Oropharynx with no redness, swelling, or masses, exudates, or evidence of obstruction, uvula midline. Mucous membranes moist. Neck: Trachea midline, no thyromegaly or masses palpated, and no cervical lymphadenopathy. Supple, full range of motion without nuchal rigidity, or vertebral point tenderness. No Meningismus. Chest/axilla: Normal chest wall appearance and motion. Nontender with no deformity. No lesions are appreciated. Respiratory: Lungs have equal breath sounds bilaterally, clear to auscultation and percussion. No rales, rhonchi or wheezes noted. No increased work of breathing, no retractions or nasal flaring. Abdomen/GI: Soft, non-tender, with normal bowel sounds. No distension or tympany. No guarding or rebound. No evidence of tenderness throughout. Back: No spinal tenderness. No costovertebral tenderness. Full range of motion. Male : Normal genitalia with no discharge or lesions. Skin: Warm, dry with normal turgor. Normal color with no rashes, no lesions, and no evidence of cellulitis. MS/ Extremity: Pulses equal, no cyanosis. Neurovascular intact. Full, normal range of motion. Neuro: Awake and alert, GCS 15, oriented to person, place, time, and situation. Cranial nerves II-XII grossly intact. Motor strength 5/5 in all extremities. Sensory grossly intact. Cerebellar exam normal. Normal gait. Psych: Awake, alert, with orientation to person, place and time. Behavior, mood, and affect are within normal limits. 12:47 Cardiovascular: Rate: normal, Rhythm: regular, Pulses: Pulses are 4+ in bilateral radial, brachial, femoral, popliteal, posterior tibial and and dorsalis pedis arteries.. Heart sounds: normal, normal S1and S2, no S3 or S4, no murmur, no rub, no gallop, Edema: is not appreciated, JVD: is not appreciated. 12:47 ECG was reviewed by the Attending Physician. Vital Signs: 12:54 BP 164 / 90 LA; Pulse 88; Resp 19; Temp 97.6; Pulse Ox 98% ; Weight 79.38 kg; Height 5 vg1 ft. 11 in. (180.34 cm); 13:00 BP 190 / 92 RA; Pulse 87; Resp 18; Pulse Ox 100% on R/A; vg1 13:01 BP 177 / 93 LA; Pulse 84; Resp 15; Pulse Ox 99% ; vg1 13:30 BP 126 / 72; Pulse 75; Resp 16; Pulse Ox 98% ; vg1 14:00 BP 130 / 67; Pulse 66; Resp 17; Pulse Ox 99% ; vg1 16:00 BP 127 / 64; Pulse 64; Resp 17; Pulse Ox 98% ; Pain 0/10; jh6 12:54 Body Mass Index 24.41 (79.38 kg, 180.34 cm) vg1 MDM: 12:41 Patient medically screened. alberto 12:53 Differential diagnosis: abnormal EKG, acute myocardial infarction, acute pericarditis, alberto cholecystitis, Cholelithiasis pancreatitis, pneumothorax, pulmonary embolus, stable angina, thoracic aortic disection, unstable angina. HEART Score: History: Moderately Suspicious (1), ECG: Normal (0), Age: > or = 65 years (2). The patient was given aspirin in the Emergency Department. The patient's deep vein thrombosis risk score was calculated as follows: Total Score: 1 to 2 points. This patient was found to be at moderate risk for a deep vein thrombosis by using the Well's assessment criteria. The patient's pulmonary embolism risk score was calculated as follows: Total Score: 0-2 points. This patient was found to be at low risk for a pulmonary embolism by using the Well's assessment criteria. MATT Risk Score: 1 - patient's age is greater or equal to 65 years, 1 - Three or more CAD risk factors, 1- Known CAD, 1 - ASA use in past 7 days. Data reviewed: vital signs, nurses notes, lab test result(s), EKG, radiologic studies, plain films. Data interpreted: night monitor: rate is 90 beats/min, rhythm is regular, Pulse oximetry: on room air is 100 %. Test interpretation: by ED physician or midlevel provider: ECG, plain radiologic studies. Counseling: I had a detailed discussion with the patient and/or guardian regarding: the historical points, exam findings, and any diagnostic results supporting the discharge/admit diagnosis, lab results, radiology results, the need for further work-up and treatment in the hospital. 12/12 12:46 Order name: Basic Metabolic Panel; Complete Time: 13:32 [facility] 12/12 12:46 Order name: CBC with Diff; Complete Time: 13:32 12/12 12:46 Order name: LFT's; Complete Time: 13:32 [facility] 12/12 12:46 Order name: Magnesium; Complete Time: 13:32 [facility] 12/12 12:46 Order name: NT PRO-BNP; Complete Time: 13:32 [facility] 12/12 12:46 Order name: PT-INR; Complete Time: 13:32 [facility] 12/12 12:46 Order name: Troponin HS; Complete Time: 13:32 [facility] 12/12 12:46 Order name: XRAY Chest (1 view); Complete Time: 14:31 [facility] 12/12 12:46 Order name: Lipase; Complete Time: 13:32 [facility] 12/12 12:46 Order name: SARS-COV-2 RT PCR (Document "Date of Onset" if Symptomatic); Complete Time: [facility] 14:12/12 13:34 Order name: CT Stone Protocol; Complete Time: 14:31 [facility] 12/12 12:46 Order name: EKG; Complete Time: 12:47 [facility] 12/12 12:46 Order name: Cardiac monitoring; Complete Time: 12:48 [facility] 12/12 12:46 Order name: EKG - Nurse/Tech; Complete Time: 12:48 [facility] 12/12 12:46 Order name: IV Saline Lock; Complete Time: 12:48 [facility] 12/12 12:46 Order name: Labs collected and sent; Complete Time: 12:48 [facility] 12/12 12:46 Order name: O2 Per Protocol; Complete Time: 12:48 [facility] 12/12 12:46 Order name: O2 Sat Monitoring; Complete Time: 12:48 [facility] 12/12 12:46 Order name: Bilateral blood pressure; Complete Time: 13:09 [facility] EC:47 Rate is 90 beats/min. Rhythm is regular. QRS [place] is Normal. MI interval is normal. QRS alberto interval is normal. QT interval is normal. No Q waves. T waves are Normal. ST Segment is depressed in leads III, aVF. Interpreted by me. Reviewed by me. Administered Medications: 13:10 Drug: NS 0.9% 500 ml Route: IV; Rate: bolus; Site: right forearm; 6 13:53 Follow up: IV Status: Completed infusion; IV Intake: 500ml vg1 13:10 Drug: Aspirin Chewable Tablet 324 mg Route: PO; 6 13:10 Drug: morphine 2 mg Route: IVP; Site: right forearm; 6 13:10 Drug: Zofran (Ondansetron) 4 mg Route: IVP; Site: right forearm; 6 13:10 Drug: Lopressor (metoprolol TARTRATE) 50 mg Route: PO; 6 13:11 Drug: Pepcid (famotidine) 20 mg Route: IVP; Site: right forearm; 6 14:03 Drug: NS 0.9% 1000 ml Route: IV; Rate: 125 ml/hr; Site: right antecubital; jh6 14:04 Drug: Lovenox (enoxaparin) 80 mg Route: Sub-Q; Site: right lower abdomen; jh6 14:04 Drug: Insulin Regular Human 8 units {Co-Signature: vg1 (Daysi Blue RN).} Route: jh6 IVP; Site: right upper arm; 14:15 Drug: LanTUS (insulin glargine) 25 units Route: Sub-Q; Site: left lower abdomen; vg1 14:20 Drug: Magnesium Sulfate 1 grams Route: IVPB; Infused Over: 1 hrs; Site: right forearm; vg1 15:04 Drug: NS 0.9% 1000 ml Route: IV; Rate: 1 bolus; Site: right forearm; vg1 Disposition Summary: 12/12/21 12:59 Hospitalization Ordered Hospitalization Status: Observation [facility] Provider: Tae Shaw cha Location: Telemetry/MedSurg (observation) alberto Condition: Stable alberto Problem: new alberto Symptoms: have improved alberto Bed/Room Type: Standard alberto Room Assignment: 212(12/12/21 15:59) bd Diagnosis - Chest pain, unspecified alberto - Essential (primary) hypertension alberto - Unspecified kidney failure - chronic alberto - Type 2 diabetes mellitus with hyperglycemia alberto - Hypomagnesemia alberto Forms: - Medication Reconciliation Form alberto - SBAR form alberto Signatures: Dispatcher [employer] EDChaparrita Mitchell Corey, MD MD cha Garcia, Victoria RN RN vg1 Celia Owusu RN RN jh6 Daysi Blue RN vg1 Corrections: (The following items were deleted from the chart) 15:59 12:59 alberto bd
[2021-12-12 13:01] LABS: Absolute Lymphocytes (CBC) 2.9 K/uL (0.7-4.9); Hematocrit 41.3 % (39.6-49.0); Lymphocytes % 32.6 % (15.3-44.8); MPV 8.1 fL (7.6-11.3); Protime INR 0.92; RBC Red Blood Cell Count 4.47 M/uL (4.33-5.43)
[2021-12-12 13:23] LABS: ALT/SGPT 21 U/L (12-78); AST/SGOT 9 U/L (15-37); Albumin 3.2 g/dL (3.4-5.0); Alkaline Phosphatase 67 U/L (45-117); BUN Blood Urea Nitrogen 56 mg/dL (7-18); Bicarbonate 18 mmol/L (21-32); Bilirubin Direct < 0.1 mg/dL (0-0.2); Bilirubin Total 0.5 mg/dL (0.2-1.0); Glucose Level 326 mg/dL (74-106); Lipase 447 U/L (73-393); Magnesium 1.6 mg/dL (1.8-2.4); NT PRO-BNP 57 pg/mL (<450); Protein, Total 7.7 g/dL (6.4-8.2); Sodium Level 134 mmol/L (136-145)
--- NOTE | 2021-12-12 13:37 | RAD REPORT ---
EXAM DESCRIPTION: RAD - Chest Single View - 12/12/2021 1:31 pm CLINICAL HISTORY: CHEST PAIN Chest pain. COMPARISON: Chest Pa And Lat (2 Views) dated 08/11/2019; Chest Single View dated 10/21/2018; CHEST PA AND LAT 2 VIEW dated 03/06/2008; CHEST PA AND LAT 2 VIEW dated 11/09/1996 FINDINGS: Portable technique limits examination quality. Mild interstitial prominence is present bilaterally suggesting a viral infection. The heart is normal in size. No displaced fractures.
[2021-12-12] MEDS ORDERED: ENOXAPARIN 80 MG/0.8 ML SQ ONE (13:54)
[2021-12-12] MEDS ORDERED: NA CHLORIDE 0.9% 1,000 ML ONE ×2 (13:54→14:37)
[2021-12-12] MEDS ORDERED: INSULIN -REGULAR HUMAN 50 UNIT/0.5 ML ML ONE (13:54)
--- NOTE | 2021-12-12 13:58 | RAD REPORT ---
EXAM DESCRIPTION: CT - Stone Protocol - 12/12/2021 1:49 pm CLINICAL HISTORY: Flank pain. FLANK PAIN COMPARISON: CTSTONE PROTOCOL dated 06/17/2012 TECHNIQUE: Axial images were obtained without oral or IV contrast. Lack of contrast limits solid org an and vascular assessment. The [id number] spans the entirety of the system partially obscuring uppermost abdomen and lung bases. Coronal reformatted images were obtained and reviewed. All CT scans are performed using dose optimization technique as appropriate and may include automated exposure control or mA/KV adjustment according to patient size. FINDINGS: The lower lung gallo are clear. Cholecystectomy clips. Imaged portions of the liver and spleen show no suspicious findings on non-contrast imaging. Symmetri c adrenal glands bilaterally. Mild inflammatory changes is seen in the region of the duodenal C-loop with several small surrounding lymph nodes. This raises suspicion for possible duodenal ulcer disease or mass. Pancreatitis is anot her possibility in this region and may be clinically correlated. Pancreas contains several punctate c alcifications. Bilateral renal stones are present without hydronephrosis. No ureter stones. No bowel obstruction, free air, free fluid or abscess. Normal appendix noted.Sigmoid diverticulosis c brandin without diverticulitis. Mild lumbar degenerative changes. IMPRESSION: Mild inflammatory changes in the region of the duodenal C-loop with thickening of the wa lls of the duodenal bulb. This may indicate ulcer disease in this region or a duodenal mass. Upper en doscopy would be recommended for followup. Chronic pancreatitis is suspected. Acute pancreatitis could result in mild duodenal inflammation and thus correlation with amylase/ lipase would be recommended. Bilateral nephrolithiasis is present without hydronephrosis.
[2021-12-12] MEDS ORDERED: INSULIN GLARGINE 100 UNIT/ML SQ ONE (14:14)
[2021-12-12] MEDS ORDERED: MAGNESIUM SULFATE 1 gm IVPB 1 GM/100 ML BAG IV ONE (14:15)
--- NOTE | 2021-12-12 15:31 | P.HP ---
Certification for Inpatient Patient admitted to: Observation With expected LOS: <2 Midnights Practitioner: I am a practitioner with admitting privileges, knowledge of patient current condition, hospital course, and medical plan of care. Services: Services provided to patient in accordance with Admission requirements found in Title 42 Section 412.3 of the Code of Federal Regulations Patient History Date of Service: 12/12/21 Reason for admission: Duodenal ulcer, pancreatitis History of Present Illness: 81yo M, PMH: NIDDM2, CKD Presents to ED due to discomfort/pain from his mid chest down to his lower abdomen. Has felt his "stomach is screwed up" over the last 3-4 days. He is unable to elaborate more on his symptoms. He states the pain this morning woke him up around 3 AM, he felt like he was having a bad case of indigestion. Denies nausea/vomiting, no diarrhea. No fever/chills, no palpitations. Nothing in particular seems to worsen or alleviate the pain. Pain improved / mostly resolved on presentation to the ED. In the ED, lipase was mildly elevated and CT revealed inflammation of duodenal bulb and pancreas - concerning for ulcer vs pancreatitis. Patient reports taking >3 advil/day for > 1 month due to R foot/ankle pain - up until 1 week ago. Saw Ortho and received steroid injection and has not needed advil. ER physician requests admission for further management. Allergies No Known Drug Allergies Allergy (Verified 08/11/19 15:02) unknown Home Medications: glipiZIDE [Glipizide] 5 mg PO BID 12/12/21 lisinopriL [Lisinopril] 5 mg PO BEDTIME 12/12/21 - Past Medical/Surgical History Diabetic: Yes -: NIDDM -: Kidney Stone -: Arthritis -: R ankle surgery -: Cataract surgery -: Hernia Repair - Family History Family History: Reviewed- Non-Contributory - Social History Smoking Status: Never smoker Alcohol use: No CD- Drugs: No Caffeine use: No Place of Residence: Home Review of Systems 10-point ROS is otherwise unremarkable Physical Examination - Physical Exam General: Alert, In no apparent distress, Oriented x3 HEENT: EOMI, Sclerae nonicteric Neck: Supple, No LAD Respiratory: Clear to auscultation bilaterally, Normal air movement Cardiovascular: No edema, Regular rate/rhythm, Normal S1 S2, No murmurs Gastrointestinal: Soft and benign, Non-distended, Tenderness (mild RUQ/Epigastric tenderness) Musculoskeletal: No swelling Integumentary: No rashes Neurological: Normal speech, Normal strength at 5/5 x4 extr, Normal affect - Studies Laboratory Data (last 24 hrs) 12/12/21 12:45: PT 10.6, INR 0.92 12/12/21 12:45: WBC 8.80, Hgb 13.5 L, Hct 41.3, Plt Count 165 12/12/21 12:45: Sodium 134 L, Potassium 5.0, BUN 56 H, Creatinine 2.07 H, Glucose 326 H, Magnesium 1.6 L, Total Bilirubin 0.5, AST 9 L, ALT 21, Alkaline Phosphatase 67, Lipase 447 H Assessment and Plan - Advance Directives Does patient have a Living Will: Yes Does patient have a Durable POA for Healthcare: Yes Physician Review Additional Text: Problem List Suspected duodenal ulcer acute vs chronic pancreatitis NIDDM2 CKD3 patient with improvement of pain bring in as obs, protonix BID, carafate ordered clear liquids tonight has been taking a lot of ibuprofen for > 1 month, likely cause/contributed to ulcer possible acute pancreatitis leading to surrounding duodenal inflammation denies alcohol use, lipase minimally elevated trend lipase IVF GI consulted - Dr. Philip to see tomorrow VTE: SCDs / ambulatory Code: full Dispo: anticipate dc home tomorrow if tolerating PO Time Spent Managing Pts Care (In Minutes): 60
[2021-12-12] MEDS: NA CHLORIDE 0.9% 1,000 ML IV SCH (16:00)
[2021-12-12] MEDS ORDERED: ACETAMINOPHEN 500 MG TAB PO PRN (16:28)
[2021-12-12] MEDS ORDERED: ONDANSETRON 4 MG/2 ML VIAL IV PRN (16:28)
[2021-12-12] MEDS: INSULIN -REGULAR HUMAN 50 UNIT/0.5 ML ML SQ SCH ×2 (16:30→21:00)
[2021-12-12 16:59] VITALS: BMI 24.4
[2021-12-12] MEDS: PANTOPRAZOLE 40MG TABLET PO SCH (17:44)
[2021-12-12] MEDS: SUCRALFATE 1 GM TABLET PO SCH ×2 (17:44→21:42)
[2021-12-12] MEDS ORDERED: PNEUMOCOCCAL VACCINE 0.5 ML IMVAC ONE (19:00)
[2021-12-12 20:56] VITALS: O2SAT 99
[2021-12-13] MEDS: NA CHLORIDE 0.9% 1,000 ML IV SCH (02:00)
--- NOTE | 2021-12-13 05:56 | P.PN ---
Date of Service: 12/13/21
[2021-12-13 06:18] LABS: Absolute Lymphocytes (CBC) 2.7 K/uL (0.7-4.9); Hematocrit 31.9 % (39.6-49.0); Lymphocytes % 34.5 % (15.3-44.8); RBC Red Blood Cell Count 3.43 M/uL (4.33-5.43)
[2021-12-13 06:30] VITALS: TEMP 97.5
[2021-12-13 06:34] LABS: Albumin 2.3 g/dL (3.4-5.0); Bilirubin Total 0.6 mg/dL (0.2-1.0); Magnesium 1.7 mg/dL (1.8-2.4); Potassium 5.1 mmol/L (3.5-5.1); Protein, Total 5.8 g/dL (6.4-8.2)
[2021-12-13] MEDS ORDERED: MAGNESIUM SULFATE 1 gm IVPB 1 GM/100 ML BAG IV ONE ×2 (07:23→07:25)
[2021-12-13] MEDS ORDERED: NA CHLORIDE 0.9% 1,000 ML IV SCH (08:33)
[2021-12-13 08:39] VITALS: BP 165/78
[2021-12-13 09:58] LABS: Magnesium 1.8 mg/dL (1.8-2.4); Potassium 4.7 mmol/L (3.5-5.1)
[2021-12-13] MEDS: PANTOPRAZOLE 40MG TABLET PO SCH (10:22)
[2021-12-13] MEDS: SUCRALFATE 1 GM TABLET PO SCH (10:22)
--- NOTE | 2021-12-13 13:08 | P.DS ---
Admission Date: 12/12/21 Discharge Date: 12/13/21 Disposition: ROUTINE DISCHARGE Discharge Condition: GOOD Reason for Admission: Duodenal ulcer, pancreatitis Procedures: CT Abd/Plvis FINDINGS: The lower lung gallo are clear. Cholecystectomy clips. Imaged portions of the liver and spleen show no suspicious findings on non- contrast imaging. Symmetric adrenal glands bilaterally. Mild inflammatory changes is seen in the region of the duodenal C-loop with several small surrounding lymph nodes. This raises suspicion for possible duodenal ulcer disease or mass. Pancreatitis is another possibility in this region and may be clinically correlated. Pancreas contains several punctate calcifications. Bilateral renal stones are present without hydronephrosis. No ureter stones. No bowel obstruction, free air, free fluid or abscess. Normal appendix noted.Sigmoid diverticulosis coli without diverticulitis. Mild lumbar degenerative changes. IMPRESSION: Mild inflammatory changes in the region of the duodenal C-loop with thickening of the grewal of the duodenal bulb. This may indicate ulcer disease in this region or a duodenal mass. Upper endoscopy would be recommended for followup. Chronic pancreatitis is suspected. Acute pancreatitis could result in mild duodenal inflammation and thus correlation with amylase/ lipase would be recommended. Bilateral nephrolithiasis is present without hydronephrosis. Brief History of Present Illness: 81yo M, PMH: NIDDM2, CKD Presents to ED due to discomfort/pain from his mid chest down to his lower abdomen. Has felt his "stomach is screwed up" over the last 3-4 days. He is unable to elaborate more on his symptoms. He states the pain this morning woke him up around 3 AM, he felt like he was having a bad case of indigestion. Denies nausea/vomiting, no diarrhea. No fever/chills, no palpitations. Nothing in particular seems to worsen or alleviate the pain. Pain improved / mostly resolved on presentation to the ED. In the ED, lipase was mildly elevated and CT revealed inflammation of duodenal bulb and pancreas - concerning for ulcer vs pancreatitis. Patient reports taking >3 advil/day for > 1 month due to R foot/ankle pain - up until 1 week ago. Saw Ortho and received steroid injection and has not needed advil. ER physician requests admission for further management. Vital Signs/Physical Exam: Temp Pulse Resp BP Pulse Ox 97.5 F 76 18 165/78 H 100 12/13/21 08:00 12/13/21 08:00 12/13/21 08:00 12/13/21 08:00 12/13/21 08:00 Laboratory Data at Discharge: WBC 7.80 K/uL (4.3-10.9) 12/13/21 05:50 Hgb 10.7 g/dL (13.6-17.9) L D 12/13/21 05:50 Hct 31.9 % (39.6-49.0) L D 12/13/21 05:50 Plt Count 133 K/uL (152-406) L 12/13/21 05:50 PT 10.6 SECONDS (9.5-12.5) 12/12/21 12:45 INR 0.92 12/12/21 12:45 Sodium 137 mmol/L (136-145) 12/13/21 09:29 Potassium 4.7 mmol/L (3.5-5.1) 12/13/21 09:29 BUN 39 mg/dL (7-18) H 12/13/21 09:29 Creatinine 1.67 mg/dL (0.55-1.3) H 12/13/21 09:29 Glucose 136 mg/dL (74-106) H 12/13/21 09:29 Magnesium 1.8 mg/dL (1.8-2.4) 12/13/21 09:29 Total Bilirubin 0.6 mg/dL (0.2-1.0) 12/13/21 05:50 AST 9 U/L (15-37) L 12/13/21 05:50 ALT 16 U/L (12-78) 12/13/21 05:50 Alkaline Phosphatase 48 U/L (45-117) 12/13/21 05:50 Lipase 1012 U/L (73-393) H 12/13/21 05:50 Home Medications: glipiZIDE [Glipizide] 5 mg PO BID 12/12/21 lisinopriL [Lisinopril] 5 mg PO BEDTIME 12/12/21 Pantoprazole [Protonix Tab*] 40 mg PO BIDAC 30 Days #60 tab 12/13/21 Sucralfate [Carafate*] 1 gm PO ACHS 30 Days #120 tab 12/13/21 New Medications: Sucralfate [Carafate*] 1 gm PO ACHS 30 Days #120 tab Pantoprazole [Protonix Tab*] 40 mg PO BIDAC 30 Days #60 tab Physician Discharge Instructions: Found to have duodenal ulcer and mild pancreatitis (inflammation of your pancreas). You were able to tolerate clear liquid diet without pain/nausea. You are discharged home with prescriptions for pantoprazole and carafate to help with your ulcer Continue with liquids and slowly build back up to eating soft foods, bland. Avoid use of NSAIDs - advil/aleve Follow up with Dr. Philip - you will need to have an EGD performed in near future Diet: [place] Activity: Ad keysha Followup: Nisa Cedillo DO, DO [Primary Care Provider] - (Call to schedule appoint ment) Jignesh Philip MD [ASSOCIATE-ACTIVE - CAN ADMIT] - (Call to schedule appointment) Time spent managing pt's care (in minutes): 45
--- NOTE | 2021-12-13 16:11 | CON ---
Date of Consultation: 12/13/2021 Reason For Consultation: Acute pancreatitis and possible duodenitis, duodenal ulcer. History Of Present Illness: This patient is an 81-year-old white male with history of diabetes, arth ritis. Patient admitted to the hospital due to dyspepsia, discomfort in his chest down to his lower abdomen. Said his stomach has been bothering him over the past 3 to 4 days prior to admission. CT s can revealed possible duodenal ulcer with duodenitis versus pancreatitis or both. The patient report s using Advil 3 tablets a day for the past month for right foot and ankle pain up until 1 week ago, a lso received a steroid injection and has not needed Advil since that time. Patient was unable to div ert clearly on his symptoms describing well probably due to his early-onset dementia the patient seem s to exhibit on the interview, cannot remember multiple things like names of people and family, where he is, things of short-term memory seems to be limited. Past Medical History: Significant for diabetes, arthritis, kidney stones, right ankle surgery, catar act surgery, hernia repair, and early dementia as stated above. Hypertension. Medications: At home include glipizide, lisinopril. Allergies: NKDA. Social History: He is . He had 1 daughter. She 6 months ago for unknown reasons. The patient is very sad and has crying and remembers of his daughter. He adopted a son who is still aliv e. No tobacco. No alcohol. Family History: Father of unknown causes, though he was an alcoholic and heavy use tobacco. Hi s memories of his father that his father never improved to him and always thought he was doing someth ing wrong and can "never do anything right." His mother of unknown causes. The patient cannot remember due to his dementia. The patient does remember being sent off to school for 6th, 7 th and 8th grade in [place], [place], very traumatic for him with his relationship with his father, but he was very happy to get away from home. He said he had run away from home many times before be ing sent off, but the [employer] business analysis professional had recommended him go to the school in [facility] run by some nuns and may be some monks as well. Review of Systems: The patient states he feels totally normal now. He has no complaints, but on admission, he had pain in the abdomen at the top and bottom right and left and going into his chest. He had no nausea, vomi ting, fevers, chills, night sweats, melena, hematochezia, hematemesis, coffee-ground hematuria, dysur ia, polydipsia. 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 The patient is sad about his daughter 6 months ago and does not know why she no r why his mother , very forgetful. Physical Examination: Vital Signs: Patient is 5 foot 11 inches, 135 pounds. BMI 24.4 kg/m2. Temperature 97.5 degrees Fah renheit, pulse 76, respiratory rate 18, blood pressure 165/70, O2 saturation 100%. General: He is an elderly male lying in bed, in no acute distress with poor memory. HEENT: Normocephalic, atraumatic. Anicteric. Pupils equal, round, and reactive to light. Extraocu lar movements intact. Oropharynx clear. Neck: Supple. No masses. Respirations: Clear to auscultation bilaterally. Cardiac: Regular rate and rhythm. No gallops. Gastrointestinal: Positive bowel sounds. Soft, nontender, nondistended. No hepatosplenomegaly. No peritoneal or Meyers sign. No rebound. No guarding. Extremities: No clubbing, cyanosis, or edema. 2+ pulses. Neuro: Alert and oriented times 1-2 is to person, just took him a while but he finally got it and li mited on place, but otherwise, he seems to have limited memory and capabilities. HCG negative. Laboratory Data: The patient has a white count of 7.8, hemoglobin of 10.7, hematocrit 31.9, MCV of 9 3, platelet count of 133, polys of 52%, lymphocytes 35%, monocytes 7%, eosinophils 5%. The patient h as a PT of 10.6, INR of 1.92. The patient has sodium 137, potassium 4.7, chloride 112, bicarb 21, BU N 39, creatinine of 1.67, down from 2.07 yesterday, glucose 136, calcium 8.6, magnesium 1.8, total bi lirubin of 3.6, AST 9, ALT 16, and alkaline phosphatase 48, and troponin I was elevated at 9.7 yester day. B-type natriuretic peptide normal at 57, total protein 5.8, albumin 2.3, lipase 1112. COVID-19 testing, negative. CT abdomen pelvis revealed duodenitis and possible duodenal ulcer in the C-loop with pancreatitis. Upper endoscopy may be recommended for further evaluation. Chronic pancreatitis suspected with possible acute pancreatitis as well and has bilateral nephrolithiasis present without hydronephrosis. Impression: 1.Acute pancreatitis midepigastric. The patient feels fine now. He did have a CT scan revealed inf lammation in the C-loop of pancreas. 2.Duodenitis or duodenal ulcer. CT scan reveals duodenitis with possible ulcer in the bulb, C-loop of duodenum with possible slight pancreatitis unclear which was first pancreatitis or duodenitis or d uodenal ulcer back in the pancreas. He was on Advil 3 times a day for right ankle and foot pain, how ever, stopped 1 week ago with injection by Ortho, steroids. Need to investigate either inpatient or outpatient EGD. 3.History of diabetes, hypertension, arthritis, kidney stones, right ankle surgery, cataract surgery , hernia repair and dementia. 4.Acute on chronic renal failure with a creatinine of 2.07, improving to 1.67 since admission. Recommendation: 1.Continue IV fluids. 2.P.r.n. pain medicines and antiemetics. 3.PPI therapy. 4.GI Clinic followup and EGD. BLAKE/KARLA Voice ID: [id number] Report ID: [id number]
--- NOTE | 2021-12-14 15:19 | EKG ---
Test Date: 2021-12-12 Test Time: 12:39:17 Russian Teacher: TP MEASUREMENT RESULTS: Intervals: Rate: 90 [place]: 176 QRSD: 76 QT: 318 QTc: 389 [place]: P: 49 [place]: 176 QRS: 52 T: 9 INTERPRETIVE STATEMENTS: Normal sinus rhythm Minimal voltage criteria for LVH, may be normal variant Borderline ECG Compared to ECG 08/11/2019 15:13:43 Left ventricular hypertrophy now present Electronically Signed On 12-14-21 15:15:07 [employer] DEL[employer] by Kael Dumont
== END 2021-12-13 13:41 | disposition home or self-care (01) ==
LOC: ER 12:37 → ERHOLD 15:20 → 2ND 16:14
PROVIDERS: ADMIT Hospitalist; ATTEND Hospitalist
DX: K26.9 Duodenal ulcer, unspecified as acute or chronic, without hemorrhage or perforation (principal); K85.90 Acute pancreatitis without necrosis or infection, unspecified; K29.80 Duodenitis without bleeding; E11.22 Type 2 diabetes mellitus with diabetic chronic kidney disease; I12.9 Hypertensive chronic kidney disease with stage 1 through stage 4 chronic kidney disease, or unspecified chronic kidney disease; N18.30 Chronic kidney disease, stage 3 unspecified; N17.9 Acute kidney failure, unspecified; E11.65 Type 2 diabetes mellitus with hyperglycemia; N20.0 Calculus of kidney; E83.42 Hypomagnesemia; F03.90 Unspecified dementia, unspecified severity, without behavioral disturbance, psychotic disturbance, mood disturbance, and anxiety; M19.90 Unspecified osteoarthritis, unspecified site; Z20.822 Contact with and (suspected) exposure to COVID-19
CPT/HCPCS: 93005; 85025 ×2; 80048 ×2; 36415; 83735 ×3; 85610; 82947 ×3; 80076; 84484; 83690 ×2; 80053; 83880; 76377; 74176; 71045; 94760; 96372; 99285; U0003; J3475 ×2; J2270; J7040; J7030 ×4; J2405; G0378 ×3

== ENCOUNTER 2022-06-23 20:18 | Inpatient (IN) | payer OTHER, MEDICARE ==
[2022-06-23] MEDS ORDERED: ONDANSETRON 4 MG/2 ML VIAL ONE (20:53)
[2022-06-23] MEDS ORDERED: MORPHINE 4 MG/ML SYR ONE ×2 (20:53→21:45)
[2022-06-23 21:16] LABS: Hematocrit 31.2 % (39.6-49.0); Lymphocytes % 31.8 % (15.3-44.8); MPV 7.9 fL (7.6-11.3); RBC Red Blood Cell Count 3.43 M/uL (4.33-5.43)
[2022-06-23 21:17] LABS: Protime INR 1.04
[2022-06-23 21:23] LABS: Potassium 5.1 mmol/L (3.5-5.1)
--- NOTE | 2022-06-23 21:57 | RAD REPORT ---
EXAM DESCRIPTION: RAD - Pelvis - 06/23/2022 9:30 pm CLINICAL HISTORY: hip pain COMPARISON: No comparisons FINDINGS: Proximal right femur fracture is seen with varus angulation. No additional fracture eviden t.
--- NOTE | 2022-06-23 21:58 | RAD REPORT ---
EXAM DESCRIPTION: RAD - Hip Right 2 View - 06/23/2022 9:30 pm CLINICAL HISTORY: PAIN COMPARISON: No comparisons FINDINGS: Proximal right femur fracture is identified predominately involving base of and with signi ficant varus angulation.
[2022-06-23 22:00] LABS: SARS-CoV-2 Antigen Rapid Res Negative (Negative)
[2022-06-23] MEDS ORDERED: FENTANYL CITR 100 MCG/2 ML ONE (22:07)
--- NOTE | 2022-06-23 23:14 | P.HP ---
Certification for Inpatient Patient admitted to: Inpatient With expected LOS: >2 Midnights Patient will require the following post-hospital care: None Practitioner: I am a practitioner with admitting privileges, knowledge of patient current condition, hospital course, and medical plan of care. Services: Services provided to patient in accordance with Admission requirements found in Title 42 Section 412.3 of the Code of Federal Regulations <Vinnie Park - Last Filed: 06/23/22 23:07> Patient History Date of Service: 06/23/22 Primary Care Provider: Dr. Benjamin Reason for admission: Right hip fracture History of Present Illness: 82-year-old male with history of diabetes mellitus type [id number] presents emergency department after mechanical fall with injury to his right lower extremity. He reports that he was pushing a garrison when he lost his footing and sustained an injury to that leg. He was evaluated in the emergency department his labs were significant for creatinine of 1.88 GFR 35, glucose 159 hemoglobin 10.7 hematocrit 31.2 he had an x-ray of his right hip as well as p roxy which identified intertrochanteric fracture with significant varus angulation. ED provider discussed case with orthopedics who will see patient in the hospital, wishes to admit under hospitalist service. - Past Medical/Surgical History Diabetic: Yes -: NIDDM -: Kidney Stone -: Arthritis -: R ankle surgery -: Cataract surgery -: Hernia Repair Psychosocial/ Personal History: Patient lives at home with his - Family History Father -: Diabetes - Social History Smoking Status: Never smoker Alcohol use: No CD- Drugs: No Caffeine use: No Place of Residence: Home <Vinnie Park - Last Filed: 06/23/22 23:07> Date of Service: 06/24/22 <Jabari Voss - Last Filed: 06/24/22 17:59> Allergies No Known Drug Allergies Allergy (Verified 06/24/22 01:53) unknown Home Medications: RX: glipiZIDE [Glipizide] 10 mg PO BID 12/12/21 RX: lisinopriL [Lisinopril] 10 mg PO BEDTIME 12/12/21 RX: Pantoprazole [Protonix Tab*] 40 mg PO BIDAC 30 Days #60 tab 12/13/21 RX: Sucralfate [Carafate*] 1 gm PO ACHS 30 Days #120 tab 12/13/21 RX: Donepezil [Aricept*] 5 mg PO BEDTIME 06/24/22 RX: Famotidine 20 mg PO BEDTIME 06/24/22 RX: Pregabalin 75 mg PO BEDTIME 06/24/22 Review of Systems 10-point ROS is otherwise unremarkable Musculoskeletal: Leg Pain (Right leg pain) <Vinnie Park - Last Filed: 06/23/22 23:07> Physical Examination - Physical Exam General: Alert, In no apparent distress, Oriented x3 HEENT: Atraumatic, PERRLA, Mucous membr. moist/pink, EOMI, Sclerae nonicteric Neck: Supple, 2+ carotid pulse no bruit, No LAD, Without JVD or thyroid abnormality Respiratory: Clear to auscultation bilaterally, Normal air movement Cardiovascular: Regular rate/rhythm, Normal S1 S2 Capillary refill: <2 Seconds Gastrointestinal: Normal bowel sounds, No tenderness Musculoskeletal: No tenderness, Other (Deformity Right Hip/thigh with internal rotation of RLE, CMS intact, 2+ PT/DP pulses. ) Integumentary: No rashes Neurological: Normal speech, Normal strength at 5/5 x4 extr, Normal tone, Normal affect - Studies Laboratory Data (last 24 hrs) 06/23/22 20:54: PT 11.4, INR 1.04 06/23/22 20:54: Sodium 143, Potassium 5.1, BUN 36 H, Creatinine 1.88 H, Glucose 159 H 06/23/22 20:54: WBC 6.2, Hgb 10.7 L, Hct 31.2 L, Plt Count 104 L <Vinnie Park - Last Filed: 06/23/22 23:07> - Studies Laboratory Data (last 24 hrs) 06/23/22 20:54: PT 11.4, INR 1.04 06/23/22 20:54: Sodium 143, Potassium 5.1, BUN 36 H, Creatinine 1.88 H, Glucose 159 H 06/23/22 20:54: WBC 6.2, Hgb 10.7 L, Hct 31.2 L, Plt Count 104 L <Jabari Voss - Last Filed: 06/24/22 17:59> Assessment and Plan - Plan Assessment: Right intertrochanteric femur fracture Diabetes mellitus type [id number]-[id number] Plan: Right intertrochanteric femur fracture: N.p.o., IVF, orthopedic consult in place notified in the emergency department. Continue gentle IV fluids, as needed pain medications, CMS intact 2+ PT/DP pulses. EKG, troponin, chest x-ray ordered. Diabetes mellitus type [id number]: Every 6 hours Accu-Chek, mild sliding scale insulin. Takes glyburide at home, will hold at this time. DVT PPX: SCD Code status: Full Discharge Plan: Home Plan to discharge in: Greater than 2 days - Advance Directives Does patient have a Living Will: Yes Does patient have a Durable POA for Healthcare: Yes - Code Status/Comfort Care Code Status Assessed: Yes (Full code) Critical Care: No Time Spent Managing Pts Care (In Minutes): 70 <Vinnie Park - Last Filed: 06/23/22 23:07> Physician Review: Patient Assessed, Agree with Above Assessment and Plan <Jabari Voss - Last Filed: 06/24/22 17:59>
[2022-06-23] MEDS ORDERED: HYDROMORPHONE HCL 0.5 MG/0.5 ML INJ ONE (23:49)
[2022-06-24] MEDS ORDERED: NA CHLORIDE 0.9% 1,000 ML IV SCH (00:30)
[2022-06-24 01:51] VITALS: BMI 24.3
[2022-06-24 02:54] LABS: Absolute Lymphocytes (CBC) 1.9 K/uL (0.7-4.9); Hematocrit 32.5 % (39.6-49.0); Lymphocytes % 19.2 % (15.3-44.8); MCV 91.5 fL (80-100); MPV 8.4 fL (7.6-11.3); RBC Red Blood Cell Count 3.55 M/uL (4.33-5.43)
[2022-06-24] MEDS ORDERED: ONDANSETRON 4 MG/2 ML VIAL IV PRN (03:00)
[2022-06-24 03:10] LABS: Albumin 3.5 g/dL (3.4-5.0); Bilirubin Total 0.4 mg/dL (0.2-1.0); Protein, Total 7.2 g/dL (6.4-8.2)
[2022-06-24 03:12] LABS: Potassium 5.9 mmol/L (3.5-5.1)
[2022-06-24] MEDS ORDERED: GLUCAGON 1 MG/VIAL IM PRN (03:52)
[2022-06-24] MEDS ORDERED: FUROSEMIDE 20 MG/ 2ML VIAL IV ONE (03:52)
[2022-06-24] MEDS ORDERED: CALCIUM GLUC 10% INJ 4.65 MEQ in NA CHLORIDE 0.9% 100 ML IV ONE (03:52)
[2022-06-24] MEDS ORDERED: D50W 25 GM/50 ML SYRINGE IV PRN (03:52)
[2022-06-24] MEDS ORDERED: INSULIN -REGULAR HUMAN 50 UNIT/0.5 ML ML IV ONE (03:54)
[2022-06-24] MEDS ORDERED: D10W 250 ML IV SCH (04:00)
[2022-06-24] MEDS ORDERED: NACHLORIDE 0.45% 1,000 ML IV SCH (04:00)
[2022-06-24] MEDS: INSULIN -REGULAR HUMAN 50 UNIT/0.5 ML ML SQ SCH ×4 (04:00→22:00)
[2022-06-24] MEDS ORDERED: DEXTROSE 10%-WATER 500 ML IV ONE (04:28)
[2022-06-24] MEDS ORDERED: INSULIN -REGULAR HUMAN 50 UNIT/0.5 ML ML ONE (04:32)
[2022-06-24] MEDS ORDERED: NA CHLORIDE 0.9% 100 ML ONE (04:33)
[2022-06-24] MEDS ORDERED: FUROSEMIDE 20 MG/ 2ML VIAL ONE (04:33)
[2022-06-24] MEDS ORDERED: CALCIUM GLUCONATE 1 GM IVPB 1 GM/50 ML BAG IV ONE (04:33)
[2022-06-24] MEDS ORDERED: NACHLORIDE 0.45% 1,000 ML IV ONE (05:19)
[2022-06-24] MEDS ORDERED: INSULIN -REGULAR HUMAN 50 UNIT/0.5 ML ML SQ SCH (07:30)
[2022-06-24] MEDS: MORPHINE 2 MG/ML SYR IV PRN ×4 (08:24→23:22)
[2022-06-24] MEDS ORDERED: MORPHINE 2 MG/ML SYR ONE ×3 (08:28→16:40)
--- NOTE | 2022-06-24 08:48 | EKG ---
Test Date: 2022-06-23 Test Time: 23:51:51 Instrument Lens Generator: MEASUREMENT RESULTS: Intervals: Rate: 72 IN: 190 QRSD: 92 QT: 368 QTc: 402 [place]: P: 52 IN: 190 QRS: 53 T: 7 INTERPRETIVE STATEMENTS: Sinus rhythm with occasional premature ventricular complexes Otherwise normal ECG Compared to ECG 12/12/2021 12:39:17 Ventricular premature complex(es) now present Left ventricular hypertrophy no longer present Electronically Signed On 06-24-22 08:46:37 CDT by Kael Dumont
--- NOTE | 2022-06-24 09:58 | RAD REPORT ---
EXAM DESCRIPTION: CT - CTHCSPWOC - 06/24/2022 4:08 am CLINICAL HISTORY: 82 years Male, fall r hip pain TECHNIQUE: Helical CT axial images are obtained of the brain and cervical spine without IV contrast. Multiplanar reconstruction. This exam was performed according to our departmental dose-optimization program, which includes automated exposure control, adjustment of the mA and/or kV according to patie nt size and/or use of iterative reconstruction technique. COMPARISON: CT brain 12/09/2014 FINDINGS: Motion artifact limits this exam. BRAIN: BRAIN: No infarcts. No parenchymal hemorrhage, intra-axial mass, mass effect, or midline shift. No ab normal extra-axial fluid collections. VENTRICLES: Ventricles are normal in size and configuration for patient's stated age. No hydrocephalu s. CALVARIUM: Bone windows show no skull fracture or calvarial lesions. PARANASAL SINUSES AND MASTOIDS: Mild right maxillary sinus disease. Remaining paranasal sinuses are clear. Mastoid air cells are clear. CERVICAL SPINE: VERTEBRA: A 2 mm anterolisthesis C7 upon T1. Remainder of the cervical alignment is otherwise within normal limits. No acute fracture or subluxation. Cervical vertebra are normal in height. Craniocervic al junction is intact. Moderate to severe anterior marginal osteophytes C3-C7. Severe degenerative changes atlantodental interval. Posterior discogenic osteophytosis C2-C3, C3-C4 and moderate posteri or discogenic osteophytosis C5-C6 level. DISCS: Moderate disc space during C5-C6. LEVELS: From the C2-C3 through the C7-T1 levels, no critical/acute canal or foraminal stenosis. SOFT TISSUES: Paravertebral soft tissues are unremarkable. IMPRESSION: 1. No acute intracranial disease. 2. Mild right maxillary sinus disease. 3. No acute fracture or CT evidence of traumatic injury to cervical spine. 4. Moderate cervical spondylosis most pronounced at C5-C6 levels.. Electronically signed by: Chase Guzman MD 06/23/2022 10:58 PM CDT Due to temporary technical issues with the PACS/Fluency reporting system, reports are being signed by the in house radiologists without review as a courtesy to insure prompt reporting. The interpreting radiologist is fully responsible for the content of the report.
--- NOTE | 2022-06-24 10:18 | RAD REPORT ---
EXAM DESCRIPTION: RAD - Chest Single View - 06/23/2022 11:25 pm CLINICAL HISTORY: 2 years Male, fall, cardiac clearance COMPARISON: Chest radiograph dated 12/12/2021 FINDINGS: No focal lung consolidation. No pleural effusion. No pneumothorax. Cardiomediastinal silhouette is within normal limits. No acute osseous abnormality. IMPRESSION: No acute cardiopulmonary disease. Electronically signed by: Alpesh Mcarthur DO 06/23/2022 11:47 PM CDT Due to temporary technical issues with the PACS/Fluency reporting system, reports are being signed by the in house radiologists without review as a courtesy to insure prompt reporting. The interpreting radiologist is fully responsible for the content of the report.
--- OUTSIDE RECORDS SUMMARY | 2022-06-24 11:18 | XMS REPORT | Continuity of Care Document ---
:1940 Author Organization [facility] t Address [address] [place] [address] Care Team Providers Name Role Phone LADI CHOWDHURY Attending Clinician Unavailable NATASHA CLARK M.D. Attending Clinician Unavailable Problems Condition Condition Condition Status Onset Resolution Last Treating Co mments Source Name Details Category Date Date Treatment Clinician Date Pain of Pain of Problem Active [facility] finger of finger of Phys ici right hand right hand an s Sprain of Sprain of Problem Active [facility] interphala interphala Ph ysici ngeal ngeal ans joint of joint of right ring right ring finger, finger, initial initial encounter encounter Arthritis Arthritis Problem Active [facility] of finger of finger Phys ici of right of right ans hand hand Allergies, Adverse Reactions, Alerts This patient has no known allergies or adverse reactions. Medications This patient has no known medications. Procedures This patient has no known procedures. Encounters Start End Encounter Admission Attending Care Care Encounter Source Date/Time Date/Time Type Type Clinicians Facility Department ID 2022-01-20 2022-01-20 Outpatient LADI CHOWDHURY [facility] [id number] [place] 00:00:00 00:00:[address] 2022-01-20 2022-01-20 Outpatient LADI CHOWDHURY [facility] [id number] [place] 00:00:00 00:00:[address] 2022-01-20 2022-01-20 Outpatient LADI CHOWDHURY [facility] [id number] [place] 00:00:00 00:00:[address] 2021-12-06 2021-12-06 Outpatient LADI CHOWDHURY [facility] [id number] [place] 00:00:00 00:00:[address] 2021-12-06 2021-12-06 Outpatient LADI CHOWDHURY [facility] [id number] [place] 00:00:00 00:00:[address] 2020-09-24 2020-09-24 Outpatient LADI CHOWDHURY [facility] [id number] [place] 00:00:00 00:00:[address] 2020-09-24 2020-09-24 Outpatient LADI CHOWDHURY [facility] [id number] [place] 00:00:00 00:00:[address] 2019-03-01 2019-03-01 [facility] [id number] [place] 10:00:00 10:00:00 t; doroteo [facility] Martha Jones M.D. Results Test Description Test Time Test Comments Results Result Sour e Comments [U] XRAY FINGER(S) 2019-03-01 [facility] - 2 VWS MIN. RIGHT 09:27:00 acquired, not [id number] reported on this accession number.
[2022-06-24 11:39] LABS: Potassium 5.5 mmol/L (3.5-5.1)
--- NOTE | 2022-06-24 12:38 | RAD REPORT ---
EXAM DESCRIPTION: US - Renal Ultrasound-Complete - 06/24/2022 12:28 pm CLINICAL HISTORY: decreased renal function Flank pain COMPARISON: No comparisons FINDINGS: Both kidneys are normal in size, shape and echotexture. The right kidney measures 8.8 x 4.8 x 4.0 cm. No hydronephrosis, focal mass or perinephric fluid. The left kidney measures 9.2 x 4.6 x 4.1 cm. No hydronephrosis, focal mass or perinephric fluid. The urinary bladder is incompletely distended without gross abnormality seen. IMPRESSION: Unremarkable renal sonogram.
[2022-06-24] MEDS: NACHLORIDE 0.45% 1,000 ML IV SCH ×2 (13:00→23:00)
[2022-06-24 13:08] LABS: Uric Acid 6.9 mg/dL (3.5-7.2)
[2022-06-24 13:42] LABS: UR PROTEIN 96.8 mg/dL (<11.9); Urine Protein/Creatinine Ratio 0.39 ratio (<0.15)
--- NOTE | 2022-06-24 14:00 | CON ---
Date of Consultation: 06/24/2022 Reason For Consultation: Elevated BUN and creatinine, fluid management. History Of Present Illness: This is a pleasant 82-year-old gentleman with significant past medical history of diabetes for more than 15 years, complicated with neuropathy, no retinopathy, hypertension, hyperlipidemia, obstructive uropathy status post procedure 1 and half years ago, complicated with incident of bad Costello placement required Costello with leg bag and then self-catheterization for almost 6 months, recovered, the patient came to the hospital that he tripped and fell down. For that reason, brought to the hospital. Upon arrival to the hospital, found to have elevation in BUN and creatinine and hyperkalemia. For that reason, we have been consulted. The patient admits that he used to take nonsteroidal 3-4 tablets daily, stopped 6 month ago. According to the family, the patient had acute kidney injury when the obstruction happened and at that time was treated, recovered. They do not know the baseline creatinine after. The patient denied change in his medications. The patient upon arrival to the hospital found to have low blood pressure and hyperkalemia, received the cocktail for the hyperkalemia, and received hydration and Lasix. The patient received total of 1 L. Past Medical History: Includes; 1. Diabetes complicated with neuropathy, no retinopathy. 2. Hypertension. 3. Hyperlipidemia. 4. Kidney stone. 5. Obstructive uropathy with prostate enlargement, status post surgery and self-catheterization. 6. Acute kidney injury 1 and half year ago. Home Medications: Include glipizide, lisinopril, pantoprazole, Carafate. Allergies: NO KNOWN DRUGS ALLERGY. Past Surgical History: Includes prostate surgery, cataract, cystoscopy, hernia repair, right ankle surgery. Family History: Positive for diabetes. Social History: Denied smoking, denied drinking, denied drug abuse. Review of Systems: Head and Neck: No red eye. No ear pain. GI: No nausea. No vomiting. : No polyuria. No dysuria. No hematuria. Foundation Relations Manager: Not applicable. Respiratory: No shortness of breath. Cardiovascular: No chest pain. Endocrine: No polydipsia. Skin: No rash. Neuro: Has fall. Musculoskeletal: Has leg pain. Has a fracture. Physical Examination: General: When I saw the patient; the patient lying in bed, comfortable. Mild pain distress. Vital Signs: Blood pressure 121/53, pulse of 76, afebrile. Chest: Clear to auscultation. Heart: S1, S2. Regular. Abdomen: Soft, nontender. Extremity: No edema. Neuro: Alert, oriented. No focality. Laboratory Data: WBC 10.1, H and H 11/32.5. Sodium 141, potassium down to 5.5, bicarb 22, BUN 40, creatinine 2.1, GFR of 30, calcium 8.6. Upon presentation to the hospital; creatinine 1.8, potassium 5.9. Reviewing the data for the patient back in 2019; creatinine 1.5, GFR 45. Assessment And Plan: 1. Acute kidney injury on chronic kidney disease. The acute kidney injury is secondary to poor perfusion, ATN secondary to low blood pressure, superimposed with CHAU inhibitor. The patient looked to me still on the dry side. I am going to continue IV hydration. I am going to go ahead and increase the rate to 100 and we will continue to monitor the patient. 2. Hypertension with the presence of low blood pressure and hyperkalemia and acute kidney injury. Hold CHAU inhibitor and we will monitor. 3. Hyperkalemia secondary to renal failure, superimposed with CHAU inhibitor. Hold CHAU inhibitor. Continue hydration. Place the patient on low-potassium diet. 4. Chronic kidney disease, multifactorial, secondary to obstructive uropathy, BRENDA secondary to nonsteroidal use and diabetes nephropathy. We will send for renal ultrasound and we will get PC ratio and we will get protein and creatinine, and we will follow up with the patient. 5. Fall with a fracture. We will follow up with Orthopedic. We will try to avoid any surgery given the presence of hyperkalemia. Currently after resolving the hyperkalemia, the patient may be cleared for general anesthesia if needed. 6. Diabetes as by primary. Time spent examining the patient [id number], reviewing the data, placing order, discussing with by bedside, discussing with staff member including charge nurse and nursing and hospitalist 35 minutes. ANNETTE Voice ID: [id number] Report ID: [id number] CHEO
[2022-06-24] MEDS: HYDROCODONE/APAP 7.5/325 MG TAB PO PRN (17:07)
[2022-06-24] MEDS ORDERED: D10W 125 ML IV PRN (17:13)
--- NOTE | 2022-06-24 18:05 | P.PN ---
Subjective Date of Service: 06/24/22 Primary Care Provider: Dr. Benjamin Chief Complaint: Right hip fracture Subjective: No new changes No new changes since admission. Reports significant pain in his right thigh. Denies any other symptoms at this time. Review of Systems 10-point ROS is otherwise unremarkable Musculoskeletal: Leg Pain (right thigh) Physical Examination - Vital Signs Temperature: 99.0 F Blood Pressure: 130/52 Pulse: 85 Respirations: 18 Pulse Ox (%): 100 - Physical Exam General: Alert, Oriented x3, Mild distress HEENT: Atraumatic, PERRLA, Mucous membr. moist/pink, EOMI, Sclerae nonicteric Neck: Supple, JVD not distended Respiratory: Clear to auscultation bilaterally, Normal air movement Cardiovascular: Regular rate/rhythm, Normal S1 S2, No gallops, No rubs, No murmurs Gastrointestinal: Normal bowel sounds, Soft and benign, Non-distended, No tenderness, No rebound, No guarding Musculoskeletal: No clubbing, Swelling, Tenderness (right thigh) Integumentary: No rashes Neurological: Normal speech, Normal affect - Studies Laboratory Data (last 24 hrs) 06/23/22 20:54: PT 11.4, INR 1.04 06/23/22 20:54: Sodium 143, Potassium 5.1, BUN 36 H, Creatinine 1.88 H, Glucose 159 H 06/23/22 20:54: WBC 6.2, Hgb 10.7 L, Hct 31.2 L, Plt Count 104 L Assessment And Plan - Plan # Traumatic Ground-Level Fall complicated by Right Intertrochanteric Femur Fracture with Significant Varus Angulation # Mild Thrombocytopenia, unclear etiology - Consulted Orthopedic Surgery and spoke with Dr. Sanchez - recommendations appreciated - Plan for surgery tomorrow if potassium and creatinine are stabilized - NPO after midnight - Hold VTE pharmacologic anticoagulation - ordered SCDs - Ordered pre-op type & screen - Anticipate that he will need PT post-op # KDIGO Stage I Acute Kidney Injury on Chronic Kidney Disease Stage III # Mild Hyperkalemia - Creatinine = 2.17 (baseline creatinine ~1.6-1.7) - Urinalysis = pending - Renal Ultrasound = "unremarkable renal sonogram." - Nephrology consulted - recommendations appreciated - Monitor creatinine and urine output - Renally dose medications # Type II Diabetes Mellitus - Correction scale insulin # 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 Discharge Plan: Home Plan to discharge in: Greater than 2 days Physician Review: Patient Assessed, Agree with Above Assessment and Plan
[2022-06-24] MEDS ORDERED: methocarbamoL 500 MG TAB PO PRN (19:46)
[2022-06-25] MEDS: HYDROCODONE/APAP 7.5/325 MG TAB PO PRN ×3 (02:24→22:38)
[2022-06-25] MEDS: NACHLORIDE 0.45% 1,000 ML IV SCH ×2 (02:36→15:18)
[2022-06-25 03:20] LABS: Absolute Lymphocytes (CBC) 1.7 K/uL (0.7-4.9); Hematocrit 25.9 % (39.6-49.0); Lymphocytes % 20.2 % (15.3-44.8); MCV 92.8 fL (80-100); RBC Red Blood Cell Count 2.79 M/uL (4.33-5.43)
--- NOTE | 2022-06-25 03:27 | CON ---
Date of Consultation: 06/24/2022 Reason For Consultation: Right hip pain. History Of Present Illness: Dev is an 82-year-old male who presented to the ER yesterday after sustaining a fall onto his right side with subsequent pain at the right hip and inability to bear weight. Prior to the fall, the patient did not use any assist devices. He denies any other musculoskeletal complaints at this time. He reports pain in the right groin at this time. Review of Systems: As above, otherwise negative. Past Medical History: Includes chronic kidney disease and diabetes. Past Surgical History: Includes right ankle replacement, cataract surgery, and hernia repair. Family History: Reviewed and noncontributory. Social History: Denies tobacco or alcohol use. Lives at home. Physical Examination: General: No apparent distress. HEENT: Normocephalic, atraumatic. Neck: Supple. Cardiovascular: Brisk cap refill to all digits. Chest: Nonlabored breathing. Abdomen: Nondistended. Psychiatric: Responsive to exam. Musculoskeletal: Bilateral upper extremities with functional range of motion without pain. No gross deformities. No obvious dislocations. Left lower extremity with functional range of motion without pain. No gross deformities. No obvious dislocations. Right lower extremity with pain with range of motion of the right hip. Tenderness to palpation over the right hip. No tenderness to palpation over the knee, tibia or ankle. Neurovascularly intact distally. Imaging: X-rays of the right hip demonstrate a right intertrochanteric femur fracture with displacement. Assessment And Plan: Dev is an 82-year-old male with a right intertrochanteric femur fracture. I discussed with the patient and his at length his diagnosis as well as treatment plan. We will proceed with operative treatment including cephalomedullary fixation tomorrow. He will be n.p.o. after midnight. The risks and benefits associated with the procedure were discussed with the patient at length and they expressed understanding. Physical Therapy will be consulted to aid with mobilization postoperatively. CV/MODL Voice ID: [id number] Report ID: [id number] CHEO
[2022-06-25] MEDS: MORPHINE 2 MG/ML SYR IV PRN ×3 (03:42→14:43)
[2022-06-25] MEDS: INSULIN -REGULAR HUMAN 50 UNIT/0.5 ML ML SQ SCH ×4 (04:00→20:27)
[2022-06-25 04:12] LABS: ALT/SGPT 18 U/L (12-78); AST/SGOT 19 U/L (15-37); Albumin 3.1 g/dL (3.4-5.0); Alkaline Phosphatase 40 U/L (45-117); BUN Blood Urea Nitrogen 43 mg/dL (7-18); Bicarbonate 20 mmol/L (21-32); Bilirubin Total 0.5 mg/dL (0.2-1.0); Ferritin 58.1 ng/mL (26-388); Folic Acid, (Folate) > 20.0 ng/mL (3.1-17.5); Glomerular Filtration Rate 26 ml/min (=/>90); Glucose Level 230 mg/dL (74-106); Protein, Total 6.5 g/dL (6.4-8.2); Sodium Level 140 mmol/L (136-145); Transferrin 218 mg/dL (200-360)
[2022-06-25 04:29] LABS: Potassium 5.7 mmol/L (3.5-5.1)
[2022-06-25] MEDS ORDERED: FUROSEMIDE 20 MG/ 2ML VIAL IV ONE (04:47)
[2022-06-25] MEDS ORDERED: D50W 25 GM/50 ML SYRINGE IV PRN (04:47)
[2022-06-25] MEDS ORDERED: INSULIN -REGULAR HUMAN 50 UNIT/0.5 ML ML IV ONE (04:47)
[2022-06-25] MEDS ORDERED: CALCIUM GLUC 10% INJ 4.65 MEQ in NA CHLORIDE 0.9% 100 ML IV ONE (04:47)
[2022-06-25 04:58] LABS: Blood Morphology Comment NOT SEEN (NOT SEEN); Platelet Estimate DECR
[2022-06-25] MEDS ORDERED: CALCIUM GLUCONATE 1 GM IVPB 1 GM/50 ML BAG IV ONE (05:00)
[2022-06-25] MEDS ORDERED: NA CHLORIDE 0.9% 1,000 ML IV ONE (09:13)
--- NOTE | 2022-06-25 09:51 | EDPHYS ---
Physician Documentation [facility] Name: Dev Olguin Age: 82 yrs Sex: Male : 1940 Arrival Date: 06/23/2022 Time: 20:28 Bed 19 Private MD: ED Physician Karan Sherman HPI: 06/23 23:43 This 82 yrs old Male presents to ER via EMS with complaints of Hip pain right. kdr 23:43 Patient was pushing a cart earlier today along a sidewalk when he fell on his right kdr hip. Subsequently has been unable to stand or bear weight. He is neurologically intact distally. He is otherwise. nonacute and nontoxic.. Onset: The symptoms/episode began/occurred suddenly, just prior to arrival, today. Severity of symptoms: At their worst the symptoms were severe incapacitating. The patient has not experienced similar symptoms in the past. The patient has not recently seen a physician. Historical: - Allergies: 20:33 No Known Allergies; ll3 - PMHx: 20:33 Diabetes - NIDDM; ll3 - PSHx: 20:33 hernia repair; ll3 - Immunization history:: Client reports receiving the 2nd dose of the Covid vaccine. - Social history:: Smoking status: Patient/guardian denies using tobacco. ROS: 23:43 Constitutional: Negative for fever, chills, and weight loss, Eyes: Negative for injury, kdr pain, redness, and discharge, ENT: Negative for injury, pain, and discharge, Neck: Negative for injury, pain, and swelling, Cardiovascular: Negative for chest pain, palpitations, and edema, Respiratory: Negative for shortness of breath, cough, wheezing, and pleuritic chest pain, Abdomen/GI: Negative for abdominal pain, nausea, vomiting, diarrhea, and constipation, Back: Negative for injury and pain, : Negative for injury, bleeding, discharge, and swelling, Skin: Negative for injury, rash, and discoloration, Neuro: Negative for headache, weakness, numbness, tingling, and seizure activity. Psych: Negative for depression, anxiety, suicide ideation, homicidal ideation, and hallucinations, Allergy/Immunology: Negative for hives, rash, and allergies, Endocrine: Negative for neck swelling, polydipsia, polyuria, polyphagia, and marked weight changes, Hematologic/Lymphatic: Negative for swollen nodes, abnormal bleeding, and unusual bruising. 23:43 MS/extremity: Positive for injury or acute deformity, decreased range of motion, pain, tenderness, of the right hip. Exam: 23:43 Constitutional: This is a well developed, well nourished patient who is awake, alert, kdr and in no acute distress. Head/Face: Normocephalic, atraumatic. Eyes: Pupils equal round and reactive to light, extra-ocular motions intact. Lids and lashes normal. Conjunctiva and sclera are non-icteric and not injected. Cornea within normal limits. Periorbital areas with no swelling, redness, or edema. Neck: Trachea midline, no thyromegaly or masses palpated, and no cervical lymphadenopathy. Supple, full range of motion without nuchal rigidity, or vertebral point tenderness. No Meningismus. Chest/axilla: Normal chest wall appearance and motion. Nontender with no deformity. No lesions are appreciated. Cardiovascular: Regular rate and rhythm with a normal S1 and S2. No gallops, murmurs, or rubs. Normal PMI, no JVD. No pulse deficits. Respiratory: Lungs have equal breath sounds bilaterally, clear to auscultation and percussion. No rales, rhonchi or wheezes noted. No increased work of breathing, no retractions or nasal flaring. Abdomen/GI: Soft, non-tender, with normal bowel sounds. No distension or tympany. No guarding or rebound. No evidence of tenderness throughout. Back: No spinal tenderness. No costovertebral tenderness. Full range of motion. Skin: Warm, dry with normal turgor. Normal color with no rashes, no lesions, and no evidence of cellulitis. Neuro: Awake and alert, GCS 15, oriented to person, place, time, and situation. Cranial nerves II-XII grossly intact. Motor strength 5/5 in all extremities. Sensory grossly intact. Cerebellar exam normal. Normal gait. Psych: Awake, alert, with orientation to person, place and time. Behavior, mood, and affect are within normal limits. 23:43 Musculoskeletal/extremity: Extremities: grossly normal except: noted in the right hip: decreased ROM, pain, swelling, tenderness. 23:59 ECG was reviewed by the Attending Physician. kdr Vital Signs: 20:30 BP 192 / 87; Pulse 77; Resp 20; Temp 98.3(O); Pulse Ox 97% on R/A; Weight 72.57 kg (R); ll3 Height 5 ft. 8 in. (172.72 cm) (R); Pain 10/10; 21:46 BP 162 / 82; Pulse 70; Resp 17; Pulse Ox 97% on R/A; ll3 23:59 BP 155 / 59; Pulse 71; Resp 20; Pulse Ox 95% on R/A; ll3 20:30 Body Mass Index 24.33 (72.57 kg, 172.72 cm) ll3 MDM: 22:17 Patient medically screened. kdr 23:43 Data reviewed: vital signs, nurses notes, lab test result(s). Counseling: I had a kdr detailed discussion with the patient and/or guardian regarding: the historical points, exam findings, and any diagnostic results supporting the discharge/admit diagnosis, lab results, radiology results, the need for further work-up and treatment in the hospital. 06/23 20:41 Order name: CBC with Diff; Complete Time: 22:04 kdr 06/23 20:41 Order name: Chem 7; Complete Time: 22:04 kdr 06/23 20:41 Order name: PT-INR; Complete Time: 22:04 kdr 06/23 21:23 Order name: SARS RAPID; Complete Time: 22:04 ll3 06/23 23:02 Order name: Troponin High Sensitivity; Complete Time: 03:52 la1 06/24 01:52 Order name: Glucose, Ancillary Testing; Complete Time: 03:52 EDMS 06/24 02:57 Order name: CBC with Automated Diff; Complete Time: 03:52 EDMS 06/24 03:13 Order name: Comprehensive Metabolic Panel; Complete Time: 03:52 EDMS 06/24 03:15 Order name: Potassium ll3 06/24 03:44 Order name: Potassium; Complete Time: 03:52 EDMS 06/24 04:45 Order name: Glucose, Ancillary Testing EDMS 06/24 11:40 Order name: Basic Metabolic Panel EDMS 06/24 13:09 Order name: Uric Acid EDMS 06/24 13:09 Order name: Creatine Phosphokinase EDMS 06/23 20:41 Order name: Pelvis XRAY; Complete Time: 22:04 kdr 06/23 20:41 Order name: Hip Right 2 View XRAY; Complete Time: 22:18 kdr 06/23 21:03 Order name: CT Head C Spine kdr 06/23 23:02 Order name: Chest Single View XRAY la1 06/23 23:02 Order name: EKG - Nurse/Tech; Complete Time: 23:46 la1 06/24 12:39 Order name: US EDMS 06/24 13:43 Order name: [facility] EDMS EC:59 Rate is 72 beats/min. Rhythm is regular, Sinus Rhythm with PACs. QRS [place] is Normal. [place] kdr interval is normal. QRS interval is normal. Clinical impression: NSR w/ Non-specific ST/T Changes and Sinus arrythmia. Administered Medications: 21:00 Drug: morphine 4 mg Route: IVP; Infused Over: 4 mins; Site: right forearm; ll3 21:00 Drug: Zofran (Ondansetron) 4 mg Route: IVP; Site: right forearm; ll3 21:41 Drug: morphine 4 mg Route: IVP; Infused Over: 4 mins; Site: right forearm; ll3 22:03 Drug: fentaNYL (PF) 25 mcg Route: IVP; Site: right forearm; ll3 22:53 Drug: fentaNYL (PF) 50 mcg Route: IVP; Site: right forearm; ll3 23:45 Drug: Dilaudid (HYDROmorphone) 0.5 mg Route: IVP; Site: right forearm; ll3 0802 02:29 Drug: Dilaudid (HYDROmorphone) 0.5 mg Route: IVP; Site: right forearm; ll3 Disposition Summary: 06/23/22 22:17 Hospitalization Ordered Hospitalization Status: Inpatient Admission kdr Provider: Jabari Voss Condition: Fair kdr Problem: new kdr Symptoms: have improved kdr Bed/Room Type: Standard kdr Location: Telemetry/MedSurg (Inpatient)(06/24/22 16:26) bd Room Assignment: 220(06/24/22 16:26) bd Diagnosis - Right hip fracture - closed kdr Forms: - Medication Reconciliation Form kdr - SBAR form kdr Signatures: Dispatcher [employer] EDMS Chaparrita Le Kevin, MD MD kdr Therese Michael, CHIQUITA RN bb Vinnie Park, CHILD DEVELOPMENT CONSULTANT-C CHILD DEVELOPMENT CONSULTANT-Jesica Todd RN RN ll3 Corrections: (The following items were deleted from the chart) 06/23 23: 22:17 Telemetry/MedSurg (observation) kdr bb 22:17 kdr bb 06/24 16:26 06/23 23:04 [facility] ER HOLD [facility] 06/24 16:06/23 23:04 ERHOLD- [facility]
--- NOTE | 2022-06-25 09:51 | ER ---
Nurse's Notes [facility] Name: Dev Olguin Age: 82 yrs Sex: Male : 1940 Arrival Date: 06/23/2022 Time: 20:28 Bed 19 Private MD: Diagnosis: Right hip fracture - closed Presentation: 06/23 20:30 Chief complaint: EMS states: Toned out for fall, pt states he was pushing a wagon and ll3 fell on right side, denies LOC, denies hitting head, denies taking blood thinners. Coronavirus screen: Vaccine status: Patient reports receiving the 2nd dose of the covid vaccine. At this time, the client does not indicate any symptoms associated with coronavirus-19. Ebola Screen: No symptoms or risks identified at this time. Initial Sepsis Screen: Does the patient meet any 2 criteria? No. Patient's initial sepsis screen is negative. Does the patient have a suspected source of infection? No. Patient's initial sepsis screen is negative. Risk Assessment: Do you want to hurt yourself or someone else? Patient reports no desire to harm self or others. Onset of symptoms was June 23, 2022. 20:30 Method Of Arrival: EMS: [facility] 20:30 Acuity: [place] 2 ll3 20:33 Care prior to arrival: Medication(s) given: Fentanyl 100 MCG IM. Mechanism of Injury: ll3 Fall from standing position. Triage Assessment: 20:33 General: Appears uncomfortable, Behavior is cooperative, anxious. Pain: Complains of ll3 pain in right femoral area Pain currently is 10 out of 10 on a pain scale. Pain began 30 min ago. Is continuous. Neuro: Level of Consciousness is awake, alert, obeys commands, Oriented to person, place, time, situation. Respiratory: Respiratory effort is even, unlabored, Respiratory pattern is regular, symmetrical. Derm: Skin is pink, warm \T\ dry. Musculoskeletal: Reports pain in right femoral area since fall. Pain is 10 out of 10 on a pain scale. Historical: - Allergies: 20:33 No Known Allergies; ll3 - PMHx: 20:33 Diabetes - NIDDM; ll3 - PSHx: 20:33 hernia repair; ll3 - Immunization history:: Client reports receiving the 2nd dose of the Covid vaccine. - Social history:: Smoking status: Patient/guardian denies using tobacco. Screenin/02 00:00 Abuse screen: Denies threats or abuse. Nutritional screening: No deficits noted. ll3 Tuberculosis screening: No symptoms or risk factors identified. Fall Risk Fall in past 12 months (25 points). No secondary diagnosis (0 pts). IV access (20 points). Ambulatory Aid- None/Bed Rest/Nurse Assist (0 pts). Gait- Impaired (20 pts.). Mental Status- Oriented to own ability (0 pts). Total Turner Fall Scale indicates High Risk Score (45 or more points). Fall prevention measures have been instituted. Side Rails Up X 2 Placed Close to Nursing Station Frequent Obs/Assessments Occuring Family Present and informed to notify staff if the need to leave the bedside As available patient and family educated on Fall Prevention Program and Strategies. Assessment: 06/23 20:36 General: See triage assessment. ll3 21:46 Reassessment: Pt c/o of pelvic pain after xray, ERP notified, medicated as ordered. ll3 22:36 Reassessment: No changes from previously documented assessment. Patient and/or family ll3 updated on plan of care and expected duration. Pain level reassessed. Patient is alert, oriented x 3, equal unlabored respirations, skin warm/dry/pink. 23:59 Reassessment: No changes from previously documented assessment. Patient and/or family ll3 updated on plan of care and expected duration. Pain level reassessed. Patient is alert, oriented x 3, equal unlabored respirations, skin warm/dry/pink. Vital Signs: 20:30 BP 192 / 87; Pulse 77; Resp 20; Temp 98.3(O); Pulse Ox 97% on R/A; Weight 72.57 kg (R); ll3 Height 5 ft. 8 in. (172.72 cm) (R); Pain 10/10; 21:46 BP 162 / 82; Pulse 70; Resp 17; Pulse Ox 97% on R/A; ll3 23:59 BP 155 / 59; Pulse 71; Resp 20; Pulse Ox 95% on R/A; ll3 20:30 Body Mass Index 24.33 (72.57 kg, 172.72 cm) ll3 ED Course: 20:28 Patient arrived in ED. mw2 20:30 Jesica Garay RN is Primary Nurse. ll3 20:33 Triage completed. ll3 20:34 Karan Sherman MD is Attending Physician. kdr 20:36 Arm band placed on Patient placed in an exam room, on a stretcher, on pulse oximetry. ll3 21:31 Pelvis XRAY In Process Unspecified. EDMS 21:32 Hip Right 2 View XRAY In Process Unspecified. EDMS 22:16 Jabari Voss MD is Hospitalizing Provider. kdr 22:24 CT Head C Spine In Process Unspecified. EDMS 23:27 Chest Single View XRAY In Process Unspecified. EDMS 06/24 00:00 Patient has correct armband on for positive identification. Bed in low position. Call ll3 light in reach. Side rails up X 1. 03:12 Notified ED physician of Notified the Hospitalist of a critical lab result(s), ll3 Potassium 5.9. 07:44 Primary Nurse role handed off by Jesica Garay RN bd Administered Medications: 06/23 21:00 Drug: morphine 4 mg Route: IVP; Infused Over: 4 mins; Site: right forearm; ll3 21:00 Drug: Zofran (Ondansetron) 4 mg Route: IVP; Site: right forearm; ll3 21:41 Drug: morphine 4 mg Route: IVP; Infused Over: 4 mins; Site: right forearm; ll3 22:03 Drug: fentaNYL (PF) 25 mcg Route: IVP; Site: right forearm; ll3 22:53 Drug: fentaNYL (PF) 50 mcg Route: IVP; Site: right forearm; ll3 23:45 Drug: Dilaudid (HYDROmorphone) 0.5 mg Route: IVP; Site: right forearm; ll3 06/24 02:29 Drug: Dilaudid (HYDROmorphone) 0.5 mg Route: IVP; Site: right forearm; ll3 Medication: 00:00 VIS not applicable for this client. ll3 Outcome: 06/23 22:17 Decision to Hospitalize by Provider. kdr 06/24 17:10 Patient left the ED. jd3 Signatures: Dispatcher [employer] EDMS Chaparrita Le bd Karan Sherman MD MD kdr Ken Gnozalez RN RN jd3 Lalitha Chaney mw2 Jesica Garay, RN RN ll3
[2022-06-25] MEDS ORDERED: FUROSEMIDE 40 MG/4 ML VIAL IV ONE (10:00)
[2022-06-25 10:27] LABS: Potassium 5.6 mmol/L (3.5-5.1)
--- NOTE | 2022-06-25 13:48 | PN ---
Date of Progress Note: 06/25/2022 Subjective: The patient was admitted with acute kidney injury on chronic kidney disease. His acute kidney injury was secondary to prerenal, poor perfusion, ATN, complicated with hyperkalemia. The patient had melena. The patient supposed to have surgery today, but because of the hyperkalemia, surgery has been postponed. The patient denied any nausea, any vomiting. More awake today. The patient had a traumatic mechanical fall and hip fracture. Physical Examination: General: When I saw the patient; the patient lying in bed comfortable. Vital Signs: Blood pressure 114/60, pulse of 83, afebrile. Chest: Clear to auscultation. Heart: S1, S2. Regular. Abdomen: Soft, nontender. Extremities: No edema. Neurologic: Alert. No focality. Laboratory Data: Sodium 140, potassium 5.7, bicarb 20, BUN 43, creatinine 2.4. Iron saturation 7.9, ferritin 58. Serum protein electrophoresis not done. Vitamin D still pending. PTH 78. H and H 8.8/25.9, dropped from 10.7. Urinalysis; PC ratio 0.3. Current Medications: The patient on include; 1. IV fluid. 2. Methocarbamol. 3. Morphine. Assessment And Plan: 1. Acute kidney injury on chronic kidney disease. No recent baseline on the patient. Obstructive uropathy has been ruled out. Back in November 2021, creatinine 1.6. Chronic kidney disease 8.8/9.2, small size kidney secondary to hypertension nephrosclerosis, proteinuric, nonnephrotic secondary to hypertension nephrosclerosis with acute kidney injury secondary to prerenal, complicated with hyperkalemia. I am going to go ahead and increase IV fluid to 100 per hour. We will bolus the patient with 1 L and we will give a dose of Lasix to establish better potassium diuresis and we will follow up. We will start the patient on Lokelma for better control of the hyperkalemia. 2. Hypertension, currently blood pressure on the lower side. Keep holding all blood pressure medications. 3. Hyperkalemia secondary to renal failure, questionable secondary to CHAU inhibitor. Keep holding CHAU inhibitor, especially with the presence of acute kidney injury and hyperkalemia. We will bolus the patient with 1 L normal saline. We will send for fecal occult given the presence of iron deficiency anemia. We will monitor the patient. 4. Iron deficiency anemia secondary to blood loss. We will send for fecal occult. We will follow up with the primary. Start the patient on IV iron. 5. Hip fracture, unfortunately could not clear for surgery because of the hyperkalemia. We will treat the hyperkalemia. If potassium normalized, the patient cleared from the Renal standpoint for surgery under general anesthesia. 6. Diabetes as by primary. Time spent examining the patient [id number], reviewing the data, placing order, discussing with by bedside, discussing with staff member including charge nurse and nursing and hospitalist 35 minutes. ANNETTE Voice ID: [id number] Report ID: [id number] MTDStacy
--- NOTE | 2022-06-25 14:45 | P.PN ---
Subjective Date of Service: 06/25/22 Primary Care Provider: Dr. Benjamin Chief Complaint: Right hip fracture Subjective: No new changes No acute events overnight. He reports that he continues to have significant pain in his right thigh. His current pain medication regimen does appear to alleviate his symptoms. Review of Systems 10-point ROS is otherwise unremarkable Musculoskeletal: Leg Pain (right thigh) Physical Examination - Vital Signs Temperature: 98.5 F Blood Pressure: 137/59 Pulse: 94 Respirations: 16 Pulse Ox (%): 98 Assessment And Plan - Plan - Physical Exam General: Alert, Oriented x3, Mild distress HEENT: Atraumatic, PERRLA, Mucous membr. moist/pink, EOMI, Sclerae nonicteric Neck: Supple, JVD not distended Respiratory: Clear to auscultation bilaterally, Normal air movement Cardiovascular: Regular rate/rhythm, Normal S1 S2, No gallops, No rubs, No murmurs Gastrointestinal: Normal bowel sounds, Soft and benign, Non-distended, No tenderness, No rebound, No guarding Musculoskeletal: No clubbing, Swelling, Tenderness (right thigh) Integumentary: No rashes Neurological: Normal speech, Normal affect # Traumatic Ground-Level Fall complicated by Right Intertrochanteric Femur Fracture with Significant Varus Angulation # Mild Thrombocytopenia, unclear etiology - Consulted Orthopedic Surgery and spoke with Dr. Sanchez - recommendations appreciated - Surgery delayed today due to worsening creatiunine and persistent hyperkalemia - Plan for surgery tomorrow if potassium and creatinine are stabilized - NPO after midnight - Hold VTE pharmacologic anticoagulation - ordered SCDs - Anticipate that he will need PT post-op # KDIGO Stage I Acute Kidney Injury on Chronic Kidney Disease Stage III # Mild Hyperkalemia - Creatinine = 2.44 (baseline creatinine ~1.6-1.7) - Urinalysis = pending - Renal Ultrasound = "unremarkable renal sonogram." - Nephrology consulted - recommendations appreciated - Monitor creatinine and urine output - Renally dose medications # Type II Diabetes Mellitus - Correction scale insulin # 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 Physician Review: Patient Assessed, Agree with Above Assessment and Plan
[2022-06-25] MEDS: SOD FERRIC GLUC COMPLX/SUCROSE 250 MG in NA CHLORIDE 0.9% 250 ML IV SCH (15:16)
[2022-06-25 16:16] LABS: Potassium 5.3 mmol/L (3.5-5.1)
[2022-06-26] MEDS: MORPHINE 2 MG/ML SYR IV PRN ×5 (02:42→23:51)
[2022-06-26] MEDS: NACHLORIDE 0.45% 1,000 ML IV SCH ×3 (02:48→23:52)
[2022-06-26 03:41] LABS: Absolute Lymphocytes (CBC) 1.2 K/uL (0.7-4.9); Hematocrit 23.1 % (39.6-49.0); MPV 8.3 fL (7.6-11.3); RBC Red Blood Cell Count 2.51 M/uL (4.33-5.43)
[2022-06-26 03:59] LABS: Albumin 2.7 g/dL (3.4-5.0); Bilirubin Total 0.5 mg/dL (0.2-1.0); Phosphorus 2.6 mg/dL (2.5-4.9); Protein, Total 6.1 g/dL (6.4-8.2)
[2022-06-26] MEDS: INSULIN -REGULAR HUMAN 50 UNIT/0.5 ML ML SQ SCH ×4 (04:00→23:46)
[2022-06-26 04:07] LABS: Potassium 5.6 mmol/L (3.5-5.1)
[2022-06-26] MEDS ORDERED: SODIUM ZIRCONIUM CYCLOSILICATE 10 GM/PKT PO ONE (06:43)
[2022-06-26] MEDS ORDERED: FUROSEMIDE 40 MG/4 ML VIAL IV ONE (06:43)
[2022-06-26] MEDS ORDERED: NA CHLORIDE 0.9% 1,000 ML IV ONE (06:43)
--- NOTE | 2022-06-26 07:37 | P.PN ---
Subjective Date of Service: 06/26/22 Primary Care Provider: Dr. Benjamin Chief Complaint: Right hip fracture Overnight, he has had worsening pain in his right thigh. His Hgb and platelet count have been downtrended. His potassium has remained elevated, but his creatinine has improved. Review of Systems 10-point ROS is otherwise unremarkable Musculoskeletal: Leg Pain (right thigh pain) Physical Examination - Vital Signs Temperature: 97.7 F Blood Pressure: 137/64 Pulse: 104 Respirations: 18 Pulse Ox (%): 97 Assessment And Plan - Plan - Physical Exam General: Alert, Oriented x3, Mild distress HEENT: Atraumatic, PERRLA, Mucous membr. moist/pink, EOMI, Sclerae nonicteric Neck: Supple, JVD not distended Respiratory: Clear to auscultation bilaterally, Normal air movement Cardiovascular: Regular rate/rhythm, Normal S1 S2, No gallops, No rubs, No murmurs Gastrointestinal: Normal bowel sounds, Soft and benign, Non-distended, No tenderness, No rebound, No guarding Musculoskeletal: No clubbing, Swelling, Tenderness (right thigh), Thigh is soft without evidence of compartment syndrome Integumentary: No rashes Neurological: Normal speech, Normal affect # Traumatic Ground-Level Fall complicated by Right Intertrochanteric Femur Fracture with Significant Varus Angulation # Concern for Acute Blood Loss Anemia with possible Right Thigh Hematoma # Slightly Worsening Thrombocytopenia, unclear etiology - Consulted Orthopedic Surgery and spoke with Dr. Sanchez - recommendations appreciated - Plan for surgery today - Ordered STAT RLE ultrasound to evaluate for hematoma - 1 unit pRBC ordered per Ortho recs - In regards, to his hyperkalemia, spoke with Nephrology, he recommended Lokelma, 1 L NS, and furosemide 40 mg x 1 - Hold VTE pharmacologic anticoagulation - ordered SCDs - Anticipate that he will need PT post-op # KDIGO Stage I Acute Kidney Injury on Chronic Kidney Disease Stage III # Mild Hyperkalemia - Creatinine = 1.85 (baseline creatinine ~1.6-1.7) - Urinalysis = pending - Renal Ultrasound = "unremarkable renal sonogram." - Nephrology consulted - recommendations appreciated - Monitor creatinine and urine output - Renally dose medications # Type II Diabetes Mellitus - Correction scale insulin # 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 Discharge Plan: Transfer Physician Review: Patient Assessed, Agree with Above Assessment and Plan
[2022-06-26 07:50] LABS: Creatine Phosphokinase 534 U/L (39-308)
--- NOTE | 2022-06-26 08:50 | RAD REPORT ---
EXAM DESCRIPTION: US - Extremity Nonvascular Complete - 06/26/2022 8:17 am CLINICAL HISTORY: Right Thigh Hematoma? Pain and swelling right thigh COMPARISON: EXT VENOUS W COMPRESSION RACHELE dated 12/09/2014 TECHNIQUE: Real-time sonographic evaluation of the area of interest was performed. FINDINGS: Skin and subcutaneous tissues appear edematous. No localized fluid collection is seen.
[2022-06-26 09:59] LABS: Potassium 5.3 mmol/L (3.5-5.1)
[2022-06-26] MEDS ORDERED: NA CHLORIDE 0.9% 0 ML ONE (10:47)
[2022-06-26] MEDS ORDERED: NA CHLORIDE 0.9% 250 ML ONE (11:08)
[2022-06-26] MEDS ORDERED: NA CHLORIDE 0.9% 1,000 ML ONE (11:08)
[2022-06-26] MEDS ORDERED: LIDOCAINE 1% W/EPI 1:100,000 MDV 50 ML VIAL ONE (11:11)
[2022-06-26] MEDS ORDERED: LIDOCAINE 1% MPF 5 ML VIAL ONE (11:17)
[2022-06-26] MEDS ORDERED: BUPIVACAINE 0.75% (PF) 2 ML SP ONE (11:18)
[2022-06-26] MEDS ORDERED: EPINEPHRINE/PF 1 MG/ML AMP ONE (11:18)
[2022-06-26] MEDS ORDERED: NS 0.9% VIAL 20 ML ONE (11:19)
[2022-06-26] MEDS ORDERED: KETAMINE HCL 500 MG/5 ML VIAL ONE (11:19)
[2022-06-26] MEDS ORDERED: FENTANYL CITR 100 MCG/2 ML ONE (11:22)
[2022-06-26] MEDS ORDERED: propofoL 200 MG/20 ML VIAL IV ONE ×3 (11:22→12:49)
[2022-06-26] MEDS ORDERED: LIDOCAINE 2% MPF 5 ML VIAL ONE (11:22)
[2022-06-26] MEDS ORDERED: TRANEXAMIC ACID 1,000 MG/10 ML VIAL IV ONE (11:41)
[2022-06-26] MEDS ORDERED: Phenylephrine HCl 10 MG/ML 1 ML VIAL ONE ×2 (11:52→13:53)
[2022-06-26] MEDS ORDERED: NS 0.9% VIAL 10 ML ONE (11:52)
[2022-06-26] MEDS ORDERED: CEFAZOLIN SODIUM 1 GM/VIAL ONE (12:02)
[2022-06-26] MEDS ORDERED: NA CHLORIDE 0.9% 500 ML ONE (13:00)
--- NOTE | 2022-06-26 13:34 | P.BOP ---
Preoperative diagnosis: right intertrochanteric femur fracture Postoperative diagnosis: same Primary procedure: cephallomedullary fixation of right intertrochanteric femur fracture Accountant Controller: NONE,NONE Estimated blood loss: 100 cc Findings: see dictation Anesthesia: Spinal Drain(s): Urinary catheter Implants: Biomet Affixus nail, 11 x 180 mm 130 degree nail Fluids & blood products: per anesthesia Transferred to: Recovery Room Condition: Good
[2022-06-26] MEDS ORDERED: TRAMADOL HCL 50 MG TAB PO PRN (13:58)
[2022-06-26] MEDS ORDERED: ALBUMIN HUM 5% 250 ML IV ONE (14:00)
--- NOTE | 2022-06-26 14:02 | RAD REPORT ---
EXAM DESCRIPTION: - Hip in OR Right 2 View - 06/26/2022 1:56 pm FINDINGS: There were 18 portable C-arm views obtained during fluoroscopic assisted placement of righ t hip fracture fixation hardware. Images show cereal placement of the hardware with no suspicious or unexpected finding. Fluoro time was 1.8 minutes with a 29.3 mGy cumulative dose.
[2022-06-26 14:40] LABS: Hematocrit 23.3 % (39.6-49.0)
--- NOTE | 2022-06-26 14:55 | RAD REPORT ---
EXAM DESCRIPTION: RAD - Hip Right 2 View - 06/26/2022 2:41 pm CLINICAL HISTORY: postopright femur fracture fixation COMPARISON: Hip Right 2 View dated 06/23/2022 FINDINGS: Postop AP and cross-table lateral views were obtained following placement of surgical frac ture fixation hardware. Hardware appears well positioned with no suspicious or unexpected finding.
--- NOTE | 2022-06-26 16:00 | PN ---
Date of Progress Note: 06/26/2022 Subjective: The patient was admitted with fall, fracture, had acute kidney injury and hyperkalemia. The patient was initiated on treatment. Kidney function has been improved, but hyperkalemia persisted. The patient found to have iron deficiency anemia, was started on IV iron. Physical Examination: Vital Signs: When I saw the patient; blood pressure 153/84, pulse of 103, afebrile. Chest: Clear to auscultation. Heart: S1, S2. Systolic murmur. Abdomen: Soft, nontender. Extremities: No edema. Laboratory Data: WBC 6.1, H and H 7.8/23.1. Sodium 141, potassium 5.3, earlier was 5.6, bicarb 23, BUN 37, creatinine 1.7 trending down, calcium 7.6, phosphorus 2.6. Albumin 2.7. Corrected calcium is 8.5. Current Medications: The patient received bolus with Lasix and normal saline and IV fluid, IV iron, hydromorphone, pain medication. Assessment And Plan: 1. Acute kidney injury secondary to prerenal, dehydration, superimposed with rhabdomyolysis secondary to the fracture and fall. The patient is getting closer to his baseline. His baseline is 1.6, currently down to 1.7. I am going to continue to monitor the patient. 2. Hyperkalemia, resolved. I am going to start the patient on Lokelma as maintenance to avoid further hyperkalemia and we will monitor. 3. Hypertension, controlled, optimal. Continue current treatment. 4. Diabetes as by primary. 5. Hip fracture, currently potassium on acceptable range. Okay from the Renal standpoint for general anesthesia. We will follow up with Ortho. 6. Persistent hyperkalemia secondary to CHAU inhibitor, renal failure. We will send for TSH and LDH with repeated CK to evaluate if persistent rhabdomyolysis. We will follow up. Time spent examining the patient [id number], reviewing the data, placing order, discussing with by bedside, discussing with staff member including charge nurse and nursing and hospitalist 35 minutes. ANNETTE Voice ID: [id number] Report ID: [id number] CHEO
[2022-06-26] MEDS: CEFAZOLIN SODIUM 2 GM in NA CHLORIDE 0.9% 100 ML IVPB SCH ×2 (17:46→23:45)
[2022-06-26] MEDS ORDERED: HYDROMORPHONE HCL 0.5 MG/0.5 ML INJ IV ONE (19:00)
[2022-06-27] MEDS: HYDROCODONE/APAP 7.5/325 MG TAB PO PRN ×2 (02:22→20:52)
[2022-06-27] MEDS: INSULIN -REGULAR HUMAN 50 UNIT/0.5 ML ML SQ SCH ×4 (04:00→20:51)
[2022-06-27] MEDS: MORPHINE 2 MG/ML SYR IV PRN ×3 (06:14→14:37)
[2022-06-27] MEDS: CEFAZOLIN SODIUM 2 GM in NA CHLORIDE 0.9% 100 ML IVPB SCH (06:15)
[2022-06-27 06:21] LABS: Absolute Lymphocytes (CBC) 1.5 K/uL (0.7-4.9); Hematocrit 21.4 % (39.6-49.0); Lymphocytes % 23.9 % (15.3-44.8); MCV 92.5 fL (80-100); MPV 8.5 fL (7.6-11.3); RBC Red Blood Cell Count 2.31 M/uL (4.33-5.43)
[2022-06-27 06:50] LABS: Albumin 2.4 g/dL (3.4-5.0); Bilirubin Total 0.5 mg/dL (0.2-1.0); Phosphorus 2.8 mg/dL (2.5-4.9); Potassium 4.5 mmol/L (3.5-5.1); Protein, Total 5.5 g/dL (6.4-8.2)
--- NOTE | 2022-06-27 09:23 | P.PN ---
Subjective Date of Service: 06/27/22 Primary Care Provider: Dr. Benjamin Chief Complaint: s/p R hip nail Subjective: Doing well pain controlled Physical Examination - Vital Signs Temperature: 99.2 F Blood Pressure: 134/60 Pulse: 84 Respirations: 16 Pulse Ox (%): 94 - Physical Exam General: Alert, In no apparent distress Musculoskeletal: Other (RLE: dressing c/d/i; +EHL/FHL/GSC/TA; sensation grossly intact distally) Assessment And Plan - Plan Dev is an 82 yo male s/p IMN of right hip fracture POD#1 -PT to mobilize; WBAT RLE -acute expected postoperative blood loss anemia on chronic anemia; continue to monitor H/H -IPR consult -lovenox for DVT prophylaxis Physician Review: Patient Assessed, Agree with Above Assessment and Plan
[2022-06-27] MEDS: ENOXAPARIN 30 MG/0.3 ML SQ SCH (10:04)
[2022-06-27] MEDS: NACHLORIDE 0.45% 1,000 ML IV SCH ×2 (10:04→20:19)
[2022-06-27] MEDS: SODIUM ZIRCONIUM CYCLOSILICATE 10 GM/PKT PO SCH (10:05)
--- NOTE | 2022-06-27 12:45 | P.PN ---
Subjective Date of Service: 06/27/22 Primary Care Provider: Dr. Benjamin Chief Complaint: s/p R hip nail Subjective: No new changes Physical Examination - Vital Signs Temperature: 99.1 F Blood Pressure: 151/86 Pulse: 113 Respirations: 18 Pulse Ox (%): 98 - Physical Exam General: Other (appears as his stated age) HEENT: Atraumatic, Normocephalic Neck: Supple, JVD not distended Respiratory: Other (symmetric chest expansion) Cardiovascular: No rubs, No murmurs Gastrointestinal: Soft and benign, No rebound Musculoskeletal: No clubbing Integumentary: No warmth Neurological: Normal tone Urinary: Other (no bladder distention) External genitalia: Deferred Rectal: Deferred Assessment And Plan - Plan 1. Acute kidney injury secondary to prerenal, dehydration, superimposed with rhabdomyolysis secondary to the fracture and fall. The patient is getting closer to his baseline. His baseline SCr is 1.6. SCr improved to 1.7. Monitor renal panel. 2. Hyperkalemia 2/2 renal failure + ACEI, improved. Continue Lokelma. 3. Hypertension. BP controlled. Cont current med regimen. 4. DM2. Mngt per primary team. Physician Review: Patient Assessed, Agree with Above Assessment and Plan
--- NOTE | 2022-06-27 13:04 | P.PN ---
Subjective Date of Service: 06/27/22 Primary Care Provider: Dr. Benjamin Chief Complaint: s/p R hip nail Physical Examination - Vital Signs Temperature: 99.1 F Blood Pressure: 151/86 Pulse: 113 Respirations: 18 Pulse Ox (%): 98 Assessment And Plan - Plan 1. Acute kidney injury secondary to prerenal, dehydration, superimposed with rhabdomyolysis secondary to the fracture and fall. The patient is getting closer to his baseline. His baseline is 1.6, currently down to 1.7. I am going to continue to monitor the patient. 2. Hyperkalemia, resolved. I am going to start the patient on Lokelma as maintenance to avoid further hyperkalemia and we will monitor. 3. Hypertension, controlled, optimal. Continue current treatment. 4. Diabetes as by primary. 5. Hip fracture, currently potassium on acceptable range. Okay from the Renal standpoint for general anesthesia. We will follow up with Ortho. 6. Persistent hyperkalemia secondary to CHAU inhibitor, renal failure. We will send for TSH and LDH with repeated CK to evaluate if persistent rhabdomyolysis. We will follow up. Physician Review: Patient Assessed, Agree with Above Assessment and Plan
[2022-06-27] MEDS: DOCUSATE NA 100 MG CAP PO PRN (14:37)
--- NOTE | 2022-06-27 16:19 | P.PN ---
Subjective Date of Service: 06/27/22 Primary Care Provider: Dr. Benjamin Chief Complaint: s/p R hip nail He underwent cephalic medullary fixation of his right intertrochanteric femur fracture yesterday, without any apparent complications. He states that his pain is well controlled on his current pain regimen. He was able to ambulate from the bed to the chair today, with minimal difficulty. Review of Systems 10-point ROS is otherwise unremarkable Musculoskeletal: Leg Pain (right hip) Physical Examination - Vital Signs Temperature: 99.6 F Blood Pressure: 150/68 Pulse: 105 Respirations: 16 Pulse Ox (%): 94 Assessment And Plan - Plan - Physical Exam General: Alert, Oriented x3, Mild distress HEENT: Atraumatic, PERRLA, Mucous membr. moist/pink, EOMI, Sclerae nonicteric Neck: Supple, JVD not distended Respiratory: Clear to auscultation bilaterally, Normal air movement Cardiovascular: Regular rate/rhythm, Normal S1 S2, No gallops, No rubs, No murmurs Gastrointestinal: Normal bowel sounds, Soft and benign, Non-distended, No tenderness, No rebound, No guarding Musculoskeletal: No clubbing, Swelling, Tenderness (right thigh), Thigh is soft without evidence of compartment syndrome Integumentary: No rashes Neurological: Normal speech, Normal affect # Traumatic Ground-Level Fall complicated by Right Intertrochanteric Femur Fracture with Significant Varus Angulation s/p Cephallomedullary Fixation of Right Intertrochanteric Femur Fracture (06/26/2022) # Concern for Acute Blood Loss Anemia, stable # Thrombocytopenia, unclear etiology - Consulted Orthopedic Surgery and spoke with Dr. Sanchez - recommendations appreciated - RLE ultrasound to evaluate for hematoma = "skin and subcutaneous tissues appear edematous. 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 Discharge Plan: Transfer (Inpatient Rehab) Plan to discharge in: 24 Hours
[2022-06-27 16:30] LABS: Hematocrit 22.6 % (39.6-49.0)
[2022-06-28] MEDS: NACHLORIDE 0.45% 1,000 ML IV SCH ×4 (05:57→19:25)
[2022-06-28 06:18] LABS: Absolute Lymphocytes (CBC) 1.5 K/uL (0.7-4.9); Hematocrit 19.5 % (39.6-49.0); Lymphocytes % 24.4 % (15.3-44.8); MCV 91.1 fL (80-100); MPV 8.4 fL (7.6-11.3); RBC Red Blood Cell Count 2.14 M/uL (4.33-5.43)
[2022-06-28 06:40] LABS: Albumin 2.2 g/dL (3.4-5.0); Bilirubin Total 0.8 mg/dL (0.2-1.0); Phosphorus 1.9 mg/dL (2.5-4.9); Potassium 4.1 mmol/L (3.5-5.1); Protein, Total 5.5 g/dL (6.4-8.2)
[2022-06-28] MEDS ORDERED: NA CHLORIDE 0.9% 250 ML IV SCH (07:00)
[2022-06-28] MEDS: INSULIN -REGULAR HUMAN 50 UNIT/0.5 ML ML SQ SCH ×4 (07:30→21:08)
[2022-06-28] MEDS: ENOXAPARIN 30 MG/0.3 ML SQ SCH (07:41)
[2022-06-28] MEDS: SODIUM ZIRCONIUM CYCLOSILICATE 10 GM/PKT PO SCH (07:49)
[2022-06-28] MEDS: DOCUSATE NA 100 MG CAP PO PRN (07:49)
[2022-06-28] MEDS: MORPHINE 2 MG/ML SYR IV PRN ×3 (07:49→20:49)
[2022-06-28 08:07] LABS: Blood Morphology Comment NOT SEEN (NOT SEEN); Platelet Estimate DECR; White Blood Cell Scan OK (OK)
--- NOTE | 2022-06-28 16:01 | P.PN ---
Subjective Date of Service: 06/28/22 Primary Care Provider: Dr. Benjamin Chief Complaint: s/p R hip nail Subjective hb <7.0, plan for 2 PRBC Cr down to 1.3, will reduce IVF pain control Physical exam General: AAOx3, in distress HEENT PERRLA, moist mucose membrane neck: supple, no elevated JVD CHEST; CTAB, no wheezes or rales HEART : RRR. Normal S1,2 no murmur or rub Abd: soft, Nt Ext: no edema , Rt leg pain Skin : No rash 1.Acute kidney injury secondary to prerenal, dehydration, + rhabdomyolysis baseline SCr is 1.6. Monitor renal panel. avoid NSAID will reduce IVF rate, cont for one more day 2.Hyperkalemia resolved 2/2 renal failure + ACEI, improved. Continue Lokelma. 3> anemia of chronic disease cont IV iron plan for 2 PRBC today 4. rt femur fracture S/p ORIF pain control Total time spent 45 minutes including documentation, reviewing labs , placing orders and discussing with medical team Physical Examination - Vital Signs Temperature: 98.2 F Blood Pressure: 169/72 Pulse: 82 Respirations: 18 Pulse Ox (%): 96 Assessment And Plan Physician Review: Patient Assessed, Agree with Above Assessment and Plan
--- NOTE | 2022-06-28 17:47 | P.PN ---
Subjective Date of Service: 06/28/22 Primary Care Provider: Dr. Benjamin Chief Complaint: s/p R hip nail Subjective: Improving Post-op day # 1 from cephallomedullary fixation of his right intertrochanteric femur fracture. He is doing well this morning. He states that his pain is well controlled on his current pain regimen. Review of Systems 10-point ROS is otherwise unremarkable Musculoskeletal: Leg Pain (right thigh) Physical Examination - Vital Signs Temperature: 98.2 F Blood Pressure: 169/72 Pulse: 82 Respirations: 18 Pulse Ox (%): 97 Assessment And Plan - Plan - Physical Exam General: Alert, Oriented x3, Mild distress HEENT: Atraumatic, PERRLA, Mucous membr. moist/pink, EOMI, Sclerae nonicteric Neck: Supple, JVD not distended Respiratory: Clear to auscultation bilaterally, Normal air movement Cardiovascular: Regular rate/rhythm, Normal S1 S2, No gallops, No rubs, No murmurs Gastrointestinal: Normal bowel sounds, Soft and benign, Non-distended, No tenderness, No rebound, No guarding Musculoskeletal: No clubbing, Swelling, Tenderness (right thigh), Thigh is soft without evidence of compartment syndrome Integumentary: No rashes Neurological: Normal speech, Normal affect # Traumatic Ground-Level Fall complicated by Right Intertrochanteric Femur Fracture with Significant Varus Angulation s/p Cephallomedullary Fixation of Right Intertrochanteric Femur Fracture (06/26/2022) # Thrombocytopenia, unclear etiology - Consulted Orthopedic Surgery and spoke with Dr. Sanchez - recommendations appreciated - POD#1 - RLE ultrasound to evaluate for hematoma = "skin and subcutaneous tissues appear edematous. No localized fluid collection is seen." - Consult PT - recommendations appreciated - Plan for acute inpatient rehab once hemoglobin stabilized # Acute Blood Loss Anemia likely due to recent surgery # Post-Operative Anemia - Ordered 2 units pRBCs - Monitor H&H and transfuse for Hgb < 7.0 # KDIGO Stage I Acute Kidney Injury on Chronic Kidney Disease Stage III, resolved # Mild Hyperkalemia - Creatinine today = 1.38 (lab error?) - (baseline creatinine ~1.6-1.7) - Urinalysis = pending - Renal Ultrasound = "unremarkable renal sonogram." - Nephrology consulted - recommendations appreciated - Monitor creatinine and urine output - Renally dose medications # Type II Diabetes Mellitus - Correction scale insulin # 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 Discharge Plan: Transfer (inpatient rehab) Plan to discharge in: 24 Hours
[2022-06-28] MEDS: SOD FERRIC GLUC COMPLX/SUCROSE 250 MG in NA CHLORIDE 0.9% 250 ML IV SCH (19:26)
[2022-06-28] MEDS: HYDROCODONE/APAP 7.5/325 MG TAB PO PRN (19:26)
[2022-06-28 21:15] LABS: Hematocrit 24.8 % (39.6-49.0)
[2022-06-28 22:10] VITALS: O2SAT 97
[2022-06-29] MEDS: HYDROCODONE/APAP 7.5/325 MG TAB PO PRN ×2 (03:22→09:47)
[2022-06-29] MEDS: MORPHINE 2 MG/ML SYR IV PRN (04:03)
[2022-06-29 06:09] LABS: Absolute Lymphocytes (CBC) 1.3 K/uL (0.7-4.9); Hematocrit 24.5 % (39.6-49.0); Lymphocytes % 22.3 % (15.3-44.8); MCV 85.6 fL (80-100); MPV 8.1 fL (7.6-11.3); RBC Red Blood Cell Count 2.86 M/uL (4.33-5.43)
[2022-06-29 06:28] LABS: Albumin 2.2 g/dL (3.4-5.0); Bilirubin Total 0.9 mg/dL (0.2-1.0); Phosphorus 2.1 mg/dL (2.5-4.9); Potassium 3.7 mmol/L (3.5-5.1); Protein, Total 5.5 g/dL (6.4-8.2)
--- NOTE | 2022-06-29 06:38 | P.DS ---
Admission Date: 06/24/22 Discharge Date: 06/29/22 Primary Care Provider: Dr. Cedillo Disposition: TRANSFER TO INPATIENT REHAB Discharge Condition: GOOD Reason for Admission: s/p R hip nail Consultations: 1. Orthopedic Surgery 2. 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 Dev Olguin is a pleasant 82 year old male with a past medical history significant for chronic kidney disease stage III and type II diabetes mellitus who was admitted to the [facility] on 06/24/2022 following a traumatic-ground level mechanical fall. Upon further evaluation, he was found to have a proximal right intertrochanteric femur fracture with significant varus angulation as well as an acute kidney injury and hyperkalemia. He was admitted to the Medicine service and Orthopedic Surgery was consulted. CT of his cervical spine revealed, "no acute fracture or CT evidence of traumatic injury to cervical spine." Orthopedic Surgery planned on surgery but wanted to optimize his creatinine and potassium prior. With Nephrology assistance, he was stabilized for surgery. On 06/26/2022, he underwent successful cephallomedually fixation of his right intertrochanteric femur fracture. Post-operatively, he was cleared for discharge to inpatient rehab; however, he developed anemia, requiring 2 units of pRBCs. His H&H was monitored and he was cleared for discharge from an Orthopedic standpoint. With the assistance of case management, he was accepted to [facility] facility. On 06/29/2022, he was seen on morning rounds and deemed medically stable for discharge. He was discharged with instructions to schedule follow-up appointments with his PCP (Dr. Cedillo) and Orthopedic Surgery (Dr. Sanchez) about 1 week following discharge from rehab. He and his were given the opportunity to ask questions and reported no further questions. Furthermore, all questions were answered to the best of my ability. Today, I personally spent 20 minutes on his case, of which greater than 50% of the time was spent in patient education, counseling, and coordination of care as described above. - Physical Exam General: Alert, Oriented x3, In no acute distress HEENT: Atraumatic, PERRLA, Mucous membr. moist/pink, EOMI, Sclerae nonicteric Neck: Supple, JVD not distended Respiratory: Clear to auscultation bilaterally, Normal air movement Cardiovascular: Regular rate/rhythm, Normal S1 S2, No gallops, No rubs, No murmurs Gastrointestinal: Normal bowel sounds, Soft and benign, Non-distended, No tenderness, No rebound, No guarding Musculoskeletal: No clubbing, Swelling, Minimal tenderness (right thigh) Integumentary: No rashes Neurological: Normal speech, Normal affect Vital Signs/Physical Exam: Temp Pulse Resp BP Pulse Ox 98.8 F 79 16 153/95 H 95 06/29/22 05:00 06/29/22 05:00 06/29/22 05:00 06/29/22 05:00 06/29/22 05:00 Laboratory Data at Discharge: WBC 5.8 K/uL (4.3-10.9) 06/29/22 05:20 Hgb 8.5 g/dL (13.6-17.9) L 06/29/22 05:20 Hct 24.5 % (39.6-49.0) L 06/29/22 05:20 Plt Count 91 K/uL (152-406) L 06/29/22 05:20 PT 11.4 SECONDS (9.5-12.5) 06/23/22 20:54 INR 1.04 06/23/22 20:54 Sodium 140 mmol/L (136-145) 06/29/22 05:20 Potassium 3.7 mmol/L (3.5-5.1) 06/29/22 05:20 BUN 25 mg/dL (7-18) H 06/29/22 05:20 Creatinine 1.23 mg/dL (0.55-1.3) 06/29/22 05:20 Glucose 196 mg/dL (74-106) H 06/29/22 05:20 Uric Acid 6.9 mg/dL (3.5-7.2) 06/24/22 10:42 Phosphorus 2.1 mg/dL (2.5-4.9) L 06/29/22 05:20 Total Bilirubin 0.9 mg/dL (0.2-1.0) 06/29/22 05:20 AST 18 U/L (15-37) 06/29/22 05:20 ALT 14 U/L (12-78) 06/29/22 05:20 Alkaline Phosphatase 33 U/L (45-117) L 06/29/22 05:20 Home Medications: RX: glipiZIDE [Glipizide] 10 mg PO BID 12/12/21 RX: lisinopriL [Lisinopril] 10 mg PO BEDTIME 12/12/21 RX: Cetirizine HCl 10 mg PO DAILY 06/28/22 RX: Cholecalciferol (Vitamin D3) [Vitamin D3] 1,000 unit PO DAILY 06/28/22 RX: Donepezil [Aricept*] 5 mg PO BEDTIME 06/28/22 RX: Multivit,Ther Iron,Ca,FA & Min [Centrum Tablet*] 1 tab PO DAILY 06/28/22 RX: [place]-3S/Dha/Epa/Fish Oil [Fish Oil 1,200 mg Softgel] 2 cap PO BID 06/28/22 RX: Docusate [Colace Cap*] 200 mg PO DAILY PRN cap 06/29/22 RX: Hydrocodone 7.5/APAP 325 [[place] 7.5/325 mg*] 1 tab PO Q6H PRN tab 06/29/22 RX: methocarbamoL [Robaxin*] 500 mg PO TID PRN tab 06/29/22 RX: traMADol HCL [Ultram*] 50 mg PO Q6H PRN tab 06/29/22 Physician Discharge Instructions: You are being discharged to [facility]. Following discharge from rehab: 1. Please schedule a follow-up with your PCP (Dr. Cedillo) in 3-5 days 2. Please schedule a follow-up with Orthopedic Surgery (Dr. Sanchez) in 1-2 weeks Diet: Regular Activity: Ad keysha Followup: Nisa Cedillo DO, DO [Primary Care Provider] - (call to schedule appointment) Time spent managing pt's care (in minutes): 20
[2022-06-29] MEDS: INSULIN -REGULAR HUMAN 50 UNIT/0.5 ML ML SQ SCH (07:30)
[2022-06-29] MEDS ORDERED: POTASSIUM CL SA 10 MEQ TAB PO ONE (09:00)
[2022-06-29] MEDS: SODIUM ZIRCONIUM CYCLOSILICATE 10 GM/PKT PO SCH (09:00)
[2022-06-29 09:21] VITALS: BP 152/73; TEMP 98.6
[2022-06-29] MEDS: ENOXAPARIN 30 MG/0.3 ML SQ SCH (09:37)
--- NOTE | 2022-06-29 11:14 | P.PN ---
Subjective Date of Service: 06/29/22 Primary Care Provider: Dr. Benjamin Chief Complaint: s/p R hip nail Subjective: Improving, Working w/ PT pain controlled Physical Examination - Vital Signs Temperature: 98.6 F Blood Pressure: 152/73 Pulse: 71 Respirations: 20 Pulse Ox (%): 94 - Physical Exam General: Alert, In no apparent distress Musculoskeletal: Other (RLE: dressing c/d/i; mild swelling of thigh; +EHL/FHL/GSC/TA; sensation grossly intact distally) Assessment And Plan - Plan Dev is an 82 yo male s/p IMN of right hip fracture POD#3 -PT to mobilize; WBAT RLE -acute expected postoperative blood loss anemia on chronic anemia; h/h stabilized -d/c [facility] -[facility] Physician Review: Patient Assessed, Agree with Above Assessment and Plan
--- NOTE | 2022-06-29 21:39 | OP ---
Date of Procedure: 06/26/2022 Surgeon: Jose Sanchez MD Preoperative Diagnosis: Right intertrochanteric femur fracture. Postoperative Diagnosis: Right intertrochanteric femur fracture. Procedure Performed: Cephalomedullary fixation of right intertrochanteric femur fracture. Anesthesia: Spinal. Implants: A [employer]omet Affixus nail, 11 x 180 mm, 130 degree nail, 105 mm lag screw. Complications: None. Indication For Procedure: Dev is an 82-year-old male presented to the ER after sustaining a fall onto his right side with subsequent pain to the right hip and inability to bear weight. X-rays demo nstrated a right intertrochanteric femur fracture. He was admitted to the floor for pain control whe re hospitalist and Nephrology was consulted given his chronic kidney disease. The patient was noted to have hyperkalemia on admission and surgery was held until the hyperkalemia was better controlled a nd safe to proceed with surgery. I discussed with the patient and his family risks and benefits asso ciated with operative and nonoperative treatment. He expressed understanding and elected to proceed with operative treatment. Description Of Procedure: After informed consent was obtained, the patient was identified in the pre operative holding area. The right lower extremity was marked. The patient was then brought back to the operating room, transferred to the operating table in a supine fashion, was then placed under spi nal anesthesia for his right lower extremity. He was then placed on the fracture table with his extr emities well padded. The right lower extremity was then gently manipulated with traction and interna l rotation and adduction to help reduce the fracture. Fluoroscopy was used to ensure proper reductio n of the fracture. The right lower extremity was then prepped and draped in usual sterile fashion. A time-out was initiated. The correct patient and procedure were confirmed and identified. The ari ent did receive his preoperative prophylactic antibiotics. Attention was first taken to, approximate ly a 6 cm longitudinal incision was made just proximal to the greater trochanter. Dissection was the n taken down through the tensor fascia riccardo. A guide pin was placed in the tip of the greater trocha nter, placed on the femoral shaft in an antegrade fashion. Once in the center-center position confir med by fluoroscopy, was then placed followed by a ball-tip guidewire down the femoral deborah l. The femoral canal was then reamed from size 8 mm reamer to a size 13 mm reamer. X-rays were then reviewed and 130-degree nail was selected with 11 mm. It was placed over the guidewire. The guidew keena was removed. Once in proper position, a triple sleeve was then placed over the lateral thigh and a second incision was made and a guide pin was placed in a center-center position of the femoral hea d. It was measured and a size 105 mm lag screw was then selected. The lag screw was then ranged ove r the guide pin, 105 mm lag screw was then placed. There was compression placed on the jig and there was compression was noted at the fracture site. It was then locked into position and a distal inter locking screw was placed without complication. Wounds were then irrigated thoroughly with normal deon ine. Traction was removed. Deep tissue was approximated using 0 Vicryl. Subcutaneous tissue was ap proximated using a 2-0 Vicryl. Skin was approximated using david. Sterile dressings applied. The patient was awakened and transferred to PACU in stable condition. Postoperative Plan: The patient will be weightbearing as tolerated. Physical Therapy will be consul reese for immobilization. He will likely be transferred to inpatient rehab after his vital signs remai n stable. CV/MODL Voice ID: [id number] Report ID: [id number]
[2022-06-30 23:58] LABS: Vitamin D 1,25-Dihydroxy Total 21 pg/mL (18-72); Vitamin D,1,25-OH2, D2 <8 pg/mL
== END 2022-06-29 11:45 | DRG 480 ==
LOC: ER 20:18 → ERHOLD 06-24 00:16 → 2ND 06-24 16:47
PROVIDERS: ADMIT Internal Medicine; ATTEND Internal Medicine
PROC: 30233N1 Transfusion of Nonautologous Red Blood Cells into Peripheral Vein, Percutaneous Approach (ICD-10-PCS; 2022-06-26)
PROC: 0QH606Z Insertion of Intramedullary Internal Fixation Device into Right Upper Femur, Open Approach (ICD-10-PCS; principal; 2022-06-26 11:30)
DX: S72.141A Displaced intertrochanteric fracture of right femur, initial encounter for closed fracture (principal); N17.0 Acute kidney failure with tubular necrosis; M62.82 Rhabdomyolysis; D62 Acute posthemorrhagic anemia; E87.5 Hyperkalemia; E11.40 Type 2 diabetes mellitus with diabetic neuropathy, unspecified; E78.5 Hyperlipidemia, unspecified; D69.6 Thrombocytopenia, unspecified; I12.9 Hypertensive chronic kidney disease with stage 1 through stage 4 chronic kidney disease, or unspecified chronic kidney disease; E11.22 Type 2 diabetes mellitus with diabetic chronic kidney disease; N18.30 Chronic kidney disease, stage 3 unspecified; J32.0 Chronic maxillary sinusitis; M47.812 Spondylosis without myelopathy or radiculopathy, cervical region; W01.0XXA Fall on same level from slipping, tripping and stumbling without subsequent striking against object, initial encounter; Y92.009 Unspecified place in unspecified non-institutional (private) residence as the place of occurrence of the external cause; Z20.822 Contact with and (suspected) exposure to COVID-19
CPT/HCPCS: 36415; 36430; 70450; 71045; 72125; 72170; 76770; 76881; 80048; 80053; 80069; 82550; 82570; 82607; 82652; 82728; 82746; 82947; 83540; 83615; 83970; 84132; 84156; 84443; 84466; 84484; 84550; 85014; 85018; 85025; 85044; 85610; 86850; 86900; 86901; 87811; 93005; 94010; 96374; 96375; 97110; 97161; 97530; 99284; J0171; J0610; J0690; J1170; J1650; J1815; J1940; J2270; J2370; J2405; J2704; J2916; J3010; J7030; J7040; J7050; P9016; P9045; U0003

== ENCOUNTER 2022-06-28 12:00 | Inpatient (IN) | payer OTHER, MEDICARE ==
--- NOTE | 2022-06-27 13:38 | R.PREADM ---
PRE-ADMISSION SCREENING FORM SCREENING DATE AND TIME 06/27/2022 12:14 (CDT) ANTICIPATED REHAB ADMISSION DATE 06/29/2022 REFERRING FACILITY [facility] REFERRAL DATE AND TIME 06/27/2022 12:14 (CDT) ACUTE ADMIT DATE 06/24/2022 Previous Rehabilitation(s): No. REFERRING PHYSICIAN Jabari Voss REHAB FACILITY [facility] PHYSICIAN REVIEWER Dr. Rosibel Geiger MR# [id number] NAME SONIA BARRIENTOS ADDRESS [address] [facility] [place], [facility] BY [facility] PHONE [facility] [address] DATE OF 1940 AGE 82 SSN# [id number] GENDER male MARITAL STATUS unknown race ADMIT FROM 02 - [facility] PRE-HOSPITAL LIVING SETTING 01 - Home (private home/apt. board/care, assisted living, fdc, transitional living) HOME TYPE AND DETAILS Type of home: single family house # of levels in the residence: 1 # of steps within the residence: 0 # of steps to enter the residence: 0 PRE-HOSPITAL LIVING WITH Family/Relatives FAMILY SUPPORT Yes PHONE PRIMARY FAMILY CONTACT ON ADM.? no IS PRIMARY FAMILY CONTACT AUTH. REP.? no PHONE 1ST CONTACT ON ADM. no IS 1ST CONTACT AUTH. REP.? no PHONE 2ND CONTACT ON ADM.? no PATIENT EMPLOYMENT STATUS Retired (for age) PATIENT EMPLOYER No Employer PAYOR INFORMATION: 1ST PAYOR NAME MEDICARE 1ST PAYOR PHONE INJURY/ILLNESS DUE TO ACCIDENT? No ANOTHER CONSTITUTION PARTY RESPONSIBLE? No PRIMARY REHAB/ACUTE DIAGNOSIS: Right Femur Fracture ONSET DATE 06/24/2022 REHAB IMPAIRMENT CATEGORY (IRASEMA): 07 Fracture of LE (FracLE) MEETS 60% rule AFFECTED EXTREMITIES: RLE PRIMARY DIAGNOSIS-RELATED SURGERIES: Emergency Unilateral Hip Fracture - performed by Jose Sanchez on 06/26/2022 COMORBID REHAB/ACUTE DIAGNOSES: - Tier 3 Acute kidney failure, unspecified (N17.9) - Non-Tiered Hyperkalemia (E87.5) Iron deficiency anemia (D50) Essential (primary) hypertension (I10) Type 2 diabetes mellitus (E11) Rhabdomyolysis (M62.82) INTERVENTIONS: - Rhabdomyolysis Administer prescribed medications to alleviate muscular pain Assess patient's degree of fatigability and explore limitations to physical activity Assess pt v/s and characteristics of pain after administration of medication Educate patient on relaxation techniques and deep breathing - Type 2 Diabetes Assess LE for temperature, pulses, color, and sensation. Monitor blood glucose and effectiveness of medications/Insulin Weight daily. Promote proper diet Monitor pt BP - Hyperkalemia Assess/Monitor cardiac, respiratory, neuromuscular, renal, and GI status Administer medications as indicated Monitor pt labs - Anemia Monitor for bleeding Treat with IV medications and PENNIE Monitor pt labs - Hypertension Assess/ Monitor patient B/P and treat with prescribed medications Implement healthy diet Increase physical activity - Right Hip Fracture Aggressive PT/OT RISK FOR COMPLICATIONS: - DVT Active and Passive ROM exercises Administer medications per MD order Assist patient with frequent position changes Elevate BLE - Skin Breakdown Encourage ambulation as tolerated Repositioning q 2 hours Use of pillows or foam wedges while in bed - Pain Anticipate the need for pain medication for optimal pain managment Assess pt for pain and Administer prescribed pain medication as needed Assist patient with frequent position changes at least every 2 hours Educate patient on relaxation and deep breathing techniques - Falls Assess for medication side effects Maintain call light within patient reach for easy access to nursing assistance Provide assistance getting out of bed and with ambulation Provide assistive devices - Stroke Assess/ Monitor and maintain patient pain level Assess/ Monitor patient blood pressure - Seizure Identify risk factors Monitor for headaches Provide safety measures SUMMARY OF ACUTE HOSPITALIZATION: On 06/24/2022 he was admitted to [facility] and underwent emergency surgery for Right Femu r Fracture (Unilateral Hip Fracture) by Jabari Voss. Pt. is a 82 yo male of unknown race. Pre-morbidly, Pt. was independent/mod-I in Locomotion and Self-Care; and he had good Safety Awareness , Balance, Transfers Control, and Endurance. Currently, he has deficits of Locomotion, Safety Awareness, Balance, Transfers Control, Self-Care, an d Endurance. Pt. is now referred to [facility] for acute in-patient rehabilitation in order to maximize patient's functional independence in activities of daily living, strength, ROM, and mobi lity. Patient has realistic goal of being discharged at assistance level 6-Waqar to reside at Home with Fam lucia/Relatives. PAST MEDICAL HISTORY Acute kidney failure, unspecified (N17.9) Essential (primary) hypertension (I10) Hyperkalemia (E87.5) Iron deficiency anemia (D50) Rhabdomyolysis (M62.82) Type 2 diabetes mellitus (E11) PAST SURGICAL HISTORY: Right Ankle Replacement Hernia Repair Cataract Surgery MEDICATION ALLERGIES: No Known Drug Allergies (NKDA) ENVIRONMENTAL ALLERGIES: - Substance Allergies None Known - Other Allergies None Known CODE STATUS: Full code WEIGHT/HEIGHT/BMI: WEIGHT 160 lbs HEIGHT 5' 8" BMI 24.3 DIET: - Diet Type Regular - Diet - Solid Texture Regular - Diet - Liquid Texture Regular - Tube Feed N/A SKIN DIAGRAM: Incision on Right hip; extent - small; stage - NS(Not Stageable). Treatment - Per Physician's Orders. Unknown Right hip pain; level - 5. REVIEW OF SYSTEMS: - Gen Alert and awake Lying in bed No apparent distress Oriented to: person, time, and place - Vital Signs Temperature: 99.2 F SBP/DBP: 134/60 Pulse: 84 Resp: 16 Vital signs stable, afebrile - CVS RRR VITAL SIGNS Temperature: 99.2 F SBP/DBP: 134/60 Pulse: 84 Resp: 16 Vital signs stable, afebrile 06/27/22 MEDICATIONS/TREATMENT: Other- See attached MAR (Medication Administration Record). CURRENT SPHINCTER CONTROL: Pre-hospital bladder status: unspecified # of bladder accidents in the last 7 days prior to screenin Pre-hospital bowel status: unspecified # of bowel accidents in the last 7 days prior to screenin Last Bowel Movement Date: 06/27/2022 CURRENT LOCOMOTION STATUS: distance walked 0 feet DETAILED CURRENT FUNCTIONAL STATUS: - Bladder accident frequency: 7-Ind - No accidents in the past 7 days - Bowel accident frequency: 7-Ind - No accidents in the past 7 days - Walking score based on distance walked: 0(N/A) - Wheelchair score based on distance traveled: 0(N/A) QI SCORES: - Self-Care A. Eating 05-Setup or clean-up assistance B. Oral hygiene 05-Setup or clean-up assistance C. Toileting hygiene 04-Supervision or touching assistance E. Shower/bathe self 04-Supervision or touching assistance F. Upper body dressing 05-Setup or clean-up assistance G. Lower body dressing 02-Substantial/maximal assistance H. Putting on/taking off footwear 02-Substantial/maximal assistance - Mobility A. Roll left and right 02-Substantial/maximal assistance B. Sit to lying 02-Substantial/maximal assistance C. Lying to sitting on side of bed 02-Substantial/maximal assistance D. Sit to stand 02-Substantial/maximal assistance E. Chair/[id number] transfer 02-Substantial/maximal assistance F. Toilet transfer 02-Substantial/maximal assistance G. Car transfer 88-Not attempted due to medical condition or safety concerns I. Walk 10 feet 88-Not attempted due to medical condition or safety concerns J. Walk 50 feet with two turns 88-Not attempted due to medical condition or safety concerns K. Walk 150 feet 88-Not attempted due to medical condition or safety concerns L. Walking 10 feet on uneven surfaces 88-Not attempted due to medical condition or safety concerns M. 1 step (curb) 88-Not attempted due to medical condition or safety concerns N. 4 steps 88-Not attempted due to medical condition or safety concerns O. 12 steps 88-Not attempted due to medical condition or safety concerns P. Picking up object 88-Not attempted due to medical condition or safety concerns R. Wheel 50 feet with two turns 09-Not applicable S. Wheel 150 feet 09-Not applicable - Bladder and Bowel Bladder continence 0-Always continent Bowel continence 0-Always continent - Endurance Fair - Balance Fair - Safety Awareness Fair CURRENT FUNC. DEFICITS: Self-Care, Mobility, Endurance, Balance, and Safety Awareness HISTORY OF FALLS. HAS THE PATIENT HAD TWO OR MORE FALLS IN THE PAST YEAR OR ANY FALL WITH INJURY IN T HE PAST YEAR?: Yes PRIOR SURGERY. DID THE PATIENT HAVE MAJOR SURGERY DURING THE 100 DAYS PRIOR TO ADMISSION?: No THERAPY NOTES FROM ACUTE CARE: Attached. SPECIAL NEEDS: - Safety Concerns Skin breakdown, Fall, and Weight Bearing precautions needed due to skin breakdown risk, Risk of injur y, Fall history, High fall risk, and Poor balance - Fall Precautions Due to poor balance PRECAUTIONS: - Anterior Hip Precaution No abduction No active extension No adduction across midline No external rotation No hip flexion >90 degrees No internal rotation - Posterior Hip Precaution No adduction across midline No external rotation No hip flexion >90 degrees No internal rotation No wheel chair propulsion - Weight Bearing Precaution WBAT right LE - Fall Precaution Bed alarm TABS alarm Wheel chair alarm - DVT Risk due to restricted mobility and age - Skin Breakdown Risk due to restricted mobility and age PATIENT NEEDS ACTIVE AND ONGOING THERAPEUTIC INTERVENTION OF MULTIPLE THERAPY DISCIPLINES, INCLUDING: - Dietary and Nutrition Adequate Nutrition. Nutritional Education. Nutritional Supplements. - Occupational Therapy Cognitive Retraining. Patient needs Occupational Therapy for a daily minimum of 1.5 hours at least 5 out of 7 days, to improve Activities of Daily Living, including: Eating, Grooming, Bathing, Dressing, Toileting, Toilet Transfers, Community Reintegration, Higher functional activities, Adaptive Equipme nt, Splinting, Household Tasks, and Other activities as determined. Visual Perceptual Training. - Physical Therapy Patient needs Physical Therapy for a daily minimum of 1.5 hours at least 5 out of 7 days, to improve: Mobility, Strengthening, Transfers, Stretching, ROM, Endurance, Ability to manage stairs, Gait, and Balance. PATIENT NEEDS CLOSE MEDICAL SUPERVISION BY A REHABILITATION PHYSICIAN FOR: Coordination of Treatment Team Diabetes Management Medical and Co-Morbidity Management Post-Op Complications Wound Care Pain Management Bowel and Bladder Management PATIENT REQUIRES 24X7 REHAB NURSING FOR MEDICAL AND FUNCTIONAL MGT. OF THE FOLLOWING DEFICITS: Patient requires 24x7 Rehabilitation Nursing for: Pain Issues, Identifying and preventing risk factor s, Monitoring and reporting current medical conditions, Assisting with ambulation and transfer, Mattie ting with all ADL-s, Teaching patients about disease process and medications, Family teaching, Provid ing safe environment, Bowel and Bladder Issues, Skin Integrity, and Medication Management PATIENT REQUIRES INTENSIVE, COORDINATED INTERDISCIPLINARY APPROACH TO REHAB: Patient needs Dietary and Nutrition Services for: Adequate Nutrition, Nutritional Supplements, and Nu tritional Education Patient needs Television Audio Engineer and/or Case Management for: Discharge Planning, Arranging Home Equipmen t or Services, and Family Interventions PATIENT REHAB POTENTIAL: Janina BARRIENTOS is able and expected to receive 3 hours of individualized therapy daily on at least 5 of e very 7 days Janina Mi prognosis for significant practical improvement within a reasonable period of time appea rs Good Expected level of measurable improvement will be of a practical value to Janina BARRIENTOS's functional capa city or adaptations to impairments Has a viable Discharge Plan Medically appropriate; condition is sufficiently stable to participate in intensive rehab program DISCHARGE PLAN: - Estimated Length of Stay (days) 14. - Consensus on plan Discharge plan has been discussed with primary caregiver. Patient/Family is in agreement with the yaquelin n. Primary caregiver is in agreement with the plan. - Patient/Family Goals Return home independently. - Planned Living Setting Upon Discharge Home, to live with Family/Relatives. Transitional Living. RECOMMENDED CARE LEVEL: IRF RECOMMENDATION DETAILS: Recommended Admission to Comprehensive Rehabilitation Program to Increase Functional [place] PHYSICIANS REVIEW AND ADMISSION DETERMINATION Admit - Based on my review of the Pre-Admission Screening results, in my medical judgment and experie nce, I concur with the findings and recommend admission to [facility], as this patient requires an IRF level of care. SIGNATURE PANEL: Clinical Liaison - [electronically] signed by Susie Padilla on 06/27/2022 at 13:30 (CDT) Physician Reviewer - [electronically] signed by Dr. Rosibel Geiger on 06/27/2022 at 13:38 (CDT)
--- NOTE | 2022-06-28 13:42 | R.PREADM ---
PRE-ADMISSION SCREENING FORM SCREENING DATE AND TIME 06/28/2022 13:30 (CDT) ANTICIPATED REHAB ADMISSION DATE 06/29/2022 REFERRING FACILITY [facility] REFERRAL DATE AND TIME 06/28/2022 13:31 (CDT) ACUTE ADMIT DATE 06/24/2022 Previous Rehabilitation(s): No. REFERRING PHYSICIAN Jabari Voss REHAB FACILITY [facility] CLINICAL LIAISON Susie Padilla PHYSICIAN REVIEWER Dr. Ras Mcclain M.D. [id number] NAME SONIA BARRIENTOS [address]ESS [address] [place] [address] DATE OF 1940 AGE 82 SSN# [id number] GENDER male MARITAL STATUS unknown race ADMIT FROM 02 - [facility] PRE-HOSPITAL LIVING SETTING 01 - Home (private home/apt. board/care, assisted living, care home, transitional living) HOME TYPE AND DETAILS Type of home: single family house # of levels in the residence: 1 # of steps within the residence: 0 # of steps to enter the residence: 0 PRE-HOSPITAL LIVING WITH Family/Relatives FAMILY SUPPORT Yes PHONE PRIMARY FAMILY CONTACT ON ADM.? no IS PRIMARY FAMILY CONTACT AUTH. REP.? no PHONE 1ST CONTACT ON ADM. no IS 1ST CONTACT AUTH. REP.? no PHONE 2ND CONTACT ON ADM.? no PATIENT EMPLOYMENT STATUS Retired (for age) PATIENT EMPLOYER No Employer PAYOR INFORMATION: 1ST PAYOR NAME MEDICARE 1ST PAYOR PHONE 1ST PAYOR INJURY/ILLNESS DUE TO ACCIDENT? No ANOTHER LIBERTARIAN RESPONSIBLE? No PRIMARY REHAB/ACUTE DIAGNOSIS: Right Femur Fracture ONSET DATE 06/24/2022 REHAB IMPAIRMENT CATEGORY (IRASEMA): 07 Fracture of LE (FracLE) MEETS 60% rule AFFECTED EXTREMITIES: RLE PRIMARY DIAGNOSIS-RELATED SURGERIES: Emergency Unilateral Hip Fracture - performed by Jose Sanchez on 06/26/2022 COMORBID REHAB/ACUTE DIAGNOSES: - Tier 3 Acute kidney failure, unspecified (N17.9) - Non-Tiered Hyperkalemia (E87.5) Iron deficiency anemia (D50) Essential (primary) hypertension (I10) Type 2 diabetes mellitus (E11) Rhabdomyolysis (M62.82) INTERVENTIONS: - Rhabdomyolysis Administer prescribed medications to alleviate muscular pain Assess patient's degree of fatigability and explore limitations to physical activity Assess pt v/s and characteristics of pain after administration of medication Educate patient on relaxation techniques and deep breathing - Type 2 Diabetes Assess LE for temperature, pulses, color, and sensation. Monitor blood glucose and effectiveness of medications/Insulin Weight daily. Promote proper diet Monitor pt BP - Hyperkalemia Assess/Monitor cardiac, respiratory, neuromuscular, renal, and GI status Administer medications as indicated Monitor pt labs - Anemia Monitor for bleeding Treat with IV medications and PENNIE Monitor pt labs - Hypertension Assess/ Monitor patient B/P and treat with prescribed medications Implement healthy diet Increase physical activity - Right Hip Fracture Aggressive PT/OT RISK FOR COMPLICATIONS: - DVT Active and Passive ROM exercises Administer medications per MD order Assist patient with frequent position changes Elevate BLE - Skin Breakdown Encourage ambulation as tolerated Repositioning q 2 hours Use of pillows or foam wedges while in bed - Pain Anticipate the need for pain medication for optimal pain managment Assess pt for pain and Administer prescribed pain medication as needed Assist patient with frequent position changes at least every 2 hours Educate patient on relaxation and deep breathing techniques - Falls Assess for medication side effects Maintain call light within patient reach for easy access to nursing assistance Provide assistance getting out of bed and with ambulation Provide assistive devices - Stroke Assess/ Monitor and maintain patient pain level Assess/ Monitor patient blood pressure - Seizure Identify risk factors Monitor for headaches Provide safety measures SUMMARY OF ACUTE HOSPITALIZATION: On 06/24/2022 he was admitted to [facility] and underwent emergency surgery for Right Femu r Fracture (Unilateral Hip Fracture) by Jabari Voss. Pt. is a 82 yo male of unknown race. Pre-morbidly, Pt. was independent/mod-I in Locomotion and Self-Care; and he had good Safety Awareness , Balance, Transfers Control, and Endurance. Currently, he has deficits of Locomotion, Safety Awareness, Balance, Transfers Control, Self-Care, an d Endurance. Pt. is now referred to [facility] for acute in-patient rehabilitation in order to maximize patient's functional independence in activities of daily living, strength, ROM, and mobi lity. Patient has realistic goal of being discharged at assistance level 6-Waqar to reside at Home with Fam lucia/Relatives. PAST MEDICAL HISTORY Acute kidney failure, unspecified (N17.9) Essential (primary) hypertension (I10) Hyperkalemia (E87.5) Iron deficiency anemia (D50) Rhabdomyolysis (M62.82) Type 2 diabetes mellitus (E11) PAST SURGICAL HISTORY: Right Ankle Replacement Hernia Repair Cataract Surgery MEDICATION ALLERGIES: No Known Drug Allergies (NKDA) ENVIRONMENTAL ALLERGIES: - Substance Allergies None Known - Other Allergies None Known CODE STATUS: Full code WEIGHT/HEIGHT/BMI: WEIGHT 160 lbs HEIGHT 5' 8" BMI 24.3 DIET: - Diet Type Regular - Diet - Solid Texture Regular - Diet - Liquid Texture Regular - Tube Feed N/A SKIN DIAGRAM: Incision on Right hip; extent - small; stage - NS(Not Stageable). Treatment - Per Physician's Orders. Unknown Right hip pain; level - 5. REVIEW OF SYSTEMS: - Gen Alert and awake Lying in bed No apparent distress Oriented to: person, time, and place - Vital Signs Temperature: 99.2 F SBP/DBP: 134/60 Pulse: 84 Resp: 16 Vital signs stable, afebrile - CVS RRR VITAL SIGNS Temperature: 99.2 F SBP/DBP: 134/60 Pulse: 84 Resp: 16 Vital signs stable, afebrile 06/27/22 MEDICATIONS/TREATMENT: Other- See attached MAR (Medication Administration Record). CURRENT SPHINCTER CONTROL: Pre-hospital bladder status: unspecified # of bladder accidents in the last 7 days prior to screenin Pre-hospital bowel status: unspecified # of bowel accidents in the last 7 days prior to screenin Last Bowel Movement Date: 06/27/2022 CURRENT LOCOMOTION STATUS: distance walked 0 feet DETAILED CURRENT FUNCTIONAL STATUS: - Bladder accident frequency: 7-Ind - No accidents in the past 7 days - Bowel accident frequency: 7-Ind - No accidents in the past 7 days - Walking score based on distance walked: 0(N/A) - Wheelchair score based on distance traveled: 0(N/A) QI SCORES: - Self-Care A. Eating 05-Setup or clean-up assistance B. Oral hygiene 05-Setup or clean-up assistance C. Toileting hygiene 04-Supervision or touching assistance E. Shower/bathe self 04-Supervision or touching assistance F. Upper body dressing 05-Setup or clean-up assistance G. Lower body dressing 02-Substantial/maximal assistance H. Putting on/taking off footwear 02-Substantial/maximal assistance - Mobility A. Roll left and right 02-Substantial/maximal assistance B. Sit to lying 02-Substantial/maximal assistance C. Lying to sitting on side of bed 02-Substantial/maximal assistance D. Sit to stand 02-Substantial/maximal assistance E. Chair/[id number] transfer 02-Substantial/maximal assistance F. Toilet transfer 02-Substantial/maximal assistance G. Car transfer 88-Not attempted due to medical condition or safety concerns I. Walk 10 feet 88-Not attempted due to medical condition or safety concerns J. Walk 50 feet with two turns 88-Not attempted due to medical condition or safety concerns K. Walk 150 feet 88-Not attempted due to medical condition or safety concerns L. Walking 10 feet on uneven surfaces 88-Not attempted due to medical condition or safety concerns M. 1 step (curb) 88-Not attempted due to medical condition or safety concerns N. 4 steps 88-Not attempted due to medical condition or safety concerns O. 12 steps 88-Not attempted due to medical condition or safety concerns P. Picking up object 88-Not attempted due to medical condition or safety concerns R. Wheel 50 feet with two turns 09-Not applicable S. Wheel 150 feet 09-Not applicable - Bladder and Bowel Bladder continence 0-Always continent Bowel continence 0-Always continent - Endurance Fair - Balance Fair - Safety Awareness Fair CURRENT FUNC. DEFICITS: Self-Care, Mobility, Endurance, Balance, and Safety Awareness HISTORY OF FALLS. HAS THE PATIENT HAD TWO OR MORE FALLS IN THE PAST YEAR OR ANY FALL WITH INJURY IN T HE PAST YEAR?: Yes PRIOR SURGERY. DID THE PATIENT HAVE MAJOR SURGERY DURING THE 100 DAYS PRIOR TO ADMISSION?: No THERAPY NOTES FROM ACUTE CARE: Attached. SPECIAL NEEDS: - Safety Concerns Skin breakdown, Fall, and Weight Bearing precautions needed due to skin breakdown risk, Risk of injur y, Fall history, High fall risk, and Poor balance - Fall Precautions Due to poor balance PRECAUTIONS: - Anterior Hip Precaution No abduction No active extension No adduction across midline No external rotation No hip flexion >90 degrees No internal rotation - Posterior Hip Precaution No adduction across midline No external rotation No hip flexion >90 degrees No internal rotation No wheel chair propulsion - Weight Bearing Precaution WBAT right LE - Fall Precaution Bed alarm TABS alarm Wheel chair alarm - DVT Risk due to restricted mobility and age - Skin Breakdown Risk due to restricted mobility and age PATIENT NEEDS ACTIVE AND ONGOING THERAPEUTIC INTERVENTION OF MULTIPLE THERAPY DISCIPLINES, INCLUDING: - Dietary and Nutrition Adequate Nutrition. Nutritional Education. Nutritional Supplements. - Occupational Therapy Cognitive Retraining. Patient needs Occupational Therapy for a daily minimum of 1.5 hours at least 5 out of 7 days, to improve Activities of Daily Living, including: Eating, Grooming, Bathing, Dressing, Toileting, Toilet Transfers, Community Reintegration, Higher functional activities, Adaptive Equipme nt, Splinting, Household Tasks, and Other activities as determined. Visual Perceptual Training. - Physical Therapy Patient needs Physical Therapy for a daily minimum of 1.5 hours at least 5 out of 7 days, to improve: Mobility, Strengthening, Transfers, Stretching, ROM, Endurance, Ability to manage stairs, Gait, and Balance. PATIENT NEEDS CLOSE MEDICAL SUPERVISION BY A REHABILITATION PHYSICIAN FOR: Coordination of Treatment Team Diabetes Management Medical and Co-Morbidity Management Post-Op Complications Wound Care Pain Management Bowel and Bladder Management PATIENT REQUIRES 24X7 REHAB NURSING FOR MEDICAL AND FUNCTIONAL MGT. OF THE FOLLOWING DEFICITS: Patient requires 24x7 Rehabilitation Nursing for: Pain Issues, Identifying and preventing risk factor s, Monitoring and reporting current medical conditions, Assisting with ambulation and transfer, Mattie ting with all ADL-s, Teaching patients about disease process and medications, Family teaching, Provid ing safe environment, Bowel and Bladder Issues, Skin Integrity, and Medication Management PATIENT REQUIRES INTENSIVE, COORDINATED INTERDISCIPLINARY APPROACH TO REHAB: Patient needs Dietary and Nutrition Services for: Adequate Nutrition, Nutritional Supplements, and Nu tritional Education Patient needs Card Runner and/or Case Management for: Discharge Planning, Arranging Home Equipmen t or Services, and Family Interventions PATIENT REHAB POTENTIAL: Janina BARRIENTOS is able and expected to receive 3 hours of individualized therapy daily on at least 5 of e very 7 days Janina MCHUGHs prognosis for significant practical improvement within a reasonable period of time appea rs Good Expected level of measurable improvement will be of a practical value to Janina BARRIENTOS's functional capa city or adaptations to impairments Has a viable Discharge Plan Medically appropriate; condition is sufficiently stable to participate in intensive rehab program DISCHARGE PLAN: - Estimated Length of Stay (days) 14. - Consensus on plan Discharge plan has been discussed with primary caregiver. Patient/Family is in agreement with the yaquelin n. Primary caregiver is in agreement with the plan. - Patient/Family Goals Return home independently. - Planned Living Setting Upon Discharge Home, to live with Family/Relatives. Transitional Living. RECOMMENDED CARE LEVEL: IRF RECOMMENDATION DETAILS: Recommended Admission to Comprehensive Rehabilitation Program to Increase Functional [place] SCREENER'S COMPLETENESS CONFIRMATION: - Screening Confirmation The patient data collection on this preadmission screening form is finished PHYSICIANS REVIEW AND ADMISSION DETERMINATION Admit - Based on my review of the Pre-Admission Screening results, in my medical judgment and experie nce, I concur with the findings and recommend admission to [facility], as this patient requires an IRF level of care. SIGNATURE PANEL: Scrap Carrier - [electronically] signed by Bean Herrera PT on 06/28/2022 at 13:34 (CDT) Physician Reviewer - [electronically] signed by Dr. Ras Mcclain M.D. on 06/28/2022 at 13:41 (CDT )
--- OUTSIDE RECORDS SUMMARY | 2022-06-29 11:39 | XMS REPORT | Continuity of Care Document ---
:1940 Author Organization [facility] t Address [address] [place] [address] Care Team Providers Name Role Phone LDAI CHOWDHURY Attending Clinician Unavailable NATASHA CLARK M.D. [...] Department ID 2022-01-20 2022-01-20 Outpatient LADI CHOWDHURY [facility] 2100 [id number] [place] 00:00:00 00:00:[address] 2022-01-20 2022-01-20 Outpatient LADI CHOWDHURY [facility] 2100 [id number] [place] 00:00:00 00:00:[address] 2022-01-20 2022-01-20 Outpatient LADI CHOWDHURY [facility] 2100 [id number] [place] 00:00:00 00:00:[address] 2021-12-06 2021-12-06 Outpatient LADI CHOWDHURY [facility] 2100 [id number] [place] 00:00:00 00:00:[address] 2021-12-06 2021-12-06 Outpatient LADI CHOWDHURY [facility] 2100 [id number] [place] 00:00:00 00:00:[address] 2020-09-24 2020-09-24 Outpatient LADI CHOWDHURY [facility] 2100 [id number] [place] 00:00:00 00:00:[address] 2020-09-24 2020-09-24 Outpatient LADI CHOWDHURY [facility] 2100 [id number] [place] 00:00:00 00:00:[address] 2019-03-01 2019-03-01 [facility] [id number] [place] 10:00:00 10:00:00 t; NATASHA at [facility] Physic Martha Jones M.D. Results Test Description Test Time Test Comments Results Result Sour e Comments [U] XRAY FINGER(S) 2019-03-01 [facility] - 2 VWS MIN. RIGHT 09:27:00 acquired, not [id number] reported on this accession number.
[2022-06-29 11:46] VITALS: BMI 28.3
[2022-06-29] MEDS ORDERED: DOCUSATE NA 100 MG CAP PO PRN (12:23)
[2022-06-29] MEDS: HYDROCODONE/APAP 7.5/325 MG TAB PO PRN ×2 (13:15→18:31)
[2022-06-29] MEDS ORDERED: DOCUSATE NA/SENNA CONC 1 TAB PO PRN (13:51)
--- NOTE | 2022-06-29 14:46 | P.CNS ---
Date of Consult: 06/29/22 Reason for Consult: BETTIE, Anemia Chief Complaint: S/P Fall History of Present Illness: A 82-year-old gentleman with significant past medical history of diabetes for more than 15 years, complicated with neuropathy, no retinopathy, hypertension, hyperlipidemia, obstructive uropathy status post procedure 1 and half years ago, Pt presented after fall, had hip fracture, nephrology consulted for BETTIE , Cr 1.7 that improved with IVF , Pt is S/p ORIF now transferred for rehabilitation ROS General : denies fever, chills, WT change weakness, insomnia HEENT: Denies dry, vision changes and headache Resp: denies SOB, cough or wheezes Cardiovascular: denied chest pain, palpitation , no SOB GI: denies abdominal pain, diarrhea or constipation : denies dysuria, urgency, foamy urine or blood tinged urine Musculoskeletal: rt leg pain Endo: denies polyuria and and polydipsia Extre: denies pain numbness and swelling Physical exam General: AAOx3, NAD, obese HEENT PERRLA, moist mucose membrane neck: supple, no elevated JVD CHEST; CTAB, no wheezes or rales HEART : RRR. Normal S1,2 no murmur or rub Abd: soft, Nt Ext: no edema Skin : No rash 1.Acute kidney injury secondary to prerenal, dehydration, + rhabdomyolysis Cr improved to 1.2 Monitor renal panel. avoid NSAID 2.Hyperkalemia resolved 2/2 renal failure + ACEI, improved. Continue Lokelma. 3> anemia of chronic disease cont IV iron S/P 2 PRBC 4. rt femur fracture S/p ORIF pain control Total time spent 45 minutes including documentation, reviewing labs , placing orders and discussing with medical team Allergies No Known Drug Allergies Allergy (Verified 06/24/22 01:53) unknown Home Medications: glipiZIDE [Glipizide] 10 mg PO BID 12/12/21 lisinopriL [Lisinopril] 10 mg PO BEDTIME 12/12/21 Cetirizine HCl 10 mg PO DAILY 06/28/22 Cholecalciferol (Vitamin D3) [Vitamin D3] 1,000 unit PO DAILY 06/28/22 Donepezil [Aricept*] 5 mg PO BEDTIME 06/28/22 Multivit,Ther Iron,Ca,FA & Min [Centrum Tablet*] 1 tab PO DAILY 06/28/22 [place]-3S/Dha/Epa/Fish Oil [Fish Oil 1,200 mg Softgel] 2 cap PO BID 06/28/22 Docusate [Colace Cap*] 200 mg PO DAILY PRN cap 06/29/22 Hydrocodone 7.5/APAP 325 [[place] 7.5/325 mg*] 1 tab PO Q6H PRN 06/29/22 Melatonin 3 mg PO BEDTIME PRN 06/29/22 methocarbamoL [Robaxin*] 500 mg PO TID PRN tab 06/29/22 traMADol HCL [Ultram*] 50 mg PO Q6H PRN tab 06/29/22 - Past Medical/Surgical History Diabetic: Yes -: NIDDM -: Kidney Stone -: Arthritis -: R ankle surgery -: Cataract surgery -: Hernia Repair Psychosocial/ Personal History: Patient lives at home with his - Family History Father Medical History: Diabetes - Social History Alcohol use: No CD- Drugs: Yes Caffeine use: No Place of Residence: Home Physical Examination Temp Pulse Resp BP Pulse Ox 98.0 F 79 18 169/74 H 95 06/29/22 11:46 06/29/22 13:15 06/29/22 14:15 06/29/22 13:15 06/29/22 14:15
[2022-06-29] MEDS ORDERED: GLUCAGON 1 MG/VIAL IM PRN (15:25)
[2022-06-29] MEDS ORDERED: D50W 25 GM/50 ML SYRINGE IV PRN (15:25)
[2022-06-29] MEDS: INSULIN -REGULAR HUMAN 50 UNIT/0.5 ML ML SQ SCH ×2 (17:05→19:57)
[2022-06-29 18:04] LABS: Urine Bilirubin Negative (Negative); Urine Blood 2+ (Negative); Urine Clarity Clear (Clear); Urine Color Yellow (Yellow); Urine Glucose Trace (Negative); Urine Protein 2+ (Negative); Urine Urobilinogen 0.2 mg/dL (0.2-1.0)
[2022-06-29 18:30] LABS: Urine Bacteria <20 /HPF (<20)
[2022-06-29] MEDS: DONEPEZIL HCL 5 MG TAB PO SCH (19:57)
[2022-06-29] MEDS: DOCOSAHEXANOIC AC/EPA 1000 MG PO SCH (19:57)
[2022-06-29] MEDS: glipiZIDE 5 MG TAB PO SCH (19:58)
[2022-06-29] MEDS ORDERED: lisinopriL 10 MG TAB PO SCH (21:00)
[2022-06-30] MEDS: HYDROCODONE/APAP 7.5/325 MG TAB PO PRN ×4 (02:42→21:48)
[2022-06-30 04:38] LABS: Absolute Lymphocytes (CBC) 1.2 K/uL (0.7-4.9); Hematocrit 29.1 % (39.6-49.0); Lymphocytes % 20.5 % (15.3-44.8); MCV 85.9 fL (80-100); MPV 8.2 fL (7.6-11.3); RBC Red Blood Cell Count 3.39 M/uL (4.33-5.43)
[2022-06-30 04:47] LABS: Albumin 2.5 g/dL (3.4-5.0); Magnesium 1.7 mg/dL (1.8-2.4); Potassium 3.8 mmol/L (3.5-5.1); Prealbumin 12.4 mg/dL (20-40)
[2022-06-30] MEDS: INSULIN -REGULAR HUMAN 50 UNIT/0.5 ML ML SQ SCH ×4 (07:30→20:54)
[2022-06-30] MEDS ORDERED: SOD FERRIC GLUC COMPLX/SUCROSE 250 MG in NA CHLORIDE 0.9% 250 ML IV SCH (08:00)
[2022-06-30] MEDS: ENOXAPARIN 30 MG/0.3 ML SQ SCH (08:19)
[2022-06-30] MEDS: FE SULF/FA/VIT B COMP & C TAB PO SCH (08:20)
[2022-06-30] MEDS: VITAMIN D 1000 UNIT TAB PO SCH (08:20)
[2022-06-30] MEDS: CETIRIZINE HCL 5 MG TABLET PO SCH (08:20)
[2022-06-30] MEDS: FERROUS SULFATE 325 MG TAB PO SCH (08:21)
[2022-06-30] MEDS: DOCOSAHEXANOIC AC/EPA 1000 MG PO SCH ×2 (08:21→20:53)
[2022-06-30] MEDS: glipiZIDE 5 MG TAB PO SCH ×2 (08:22→20:53)
[2022-06-30] MEDS: MULTIVITAMIN TAB PO SCH (08:22)
[2022-06-30] MEDS ORDERED: D10W 125 ML IV PRN (10:44)
[2022-06-30] MEDS: lisinopriL 10 MG TAB PO SCH ×2 (10:55→20:53)
[2022-06-30] MEDS: methocarbamoL 500 MG TAB PO PRN (12:40)
--- NOTE | 2022-06-30 16:48 | R.HP ---
HISTORY AND PHYSICAL FACILITY: [facility] ENCOUNTER DATE AND TIME: 06/30/2022 11:00 (CDT) MR#: [id number] NAME SONIA BARRIENTOS ADDRESS: [address] [place] [address]: [place] [address]IP [id number] PHONE: DATE OF : 1940 AGE: 82 SSN# [id number] GENDER: Male DEXTERITY Unknown dexterity MARITAL STATUS Unknown race PRE-HOSPITAL LIVING SETTING 01 - Home (private home/apt. board/care, assisted living, alf, transitional living) PRE-HOSPITAL LIVING WITH Family/Relatives ENCOUNTER PHYSICIAN: Dr. Ras Mcclain M.D. REFERRING DOCTOR: bob Voss DATE OF ADMISSION: 06/29/2022 11:36 (CDT) REFERRING FACILITY COUNT INCLUDES THE [facility] HOME TYPE AND DETAILS: Type of home: single family house # of levels in the residence: 1 # of steps within the residence: 0 # of steps to enter the residence: 0 ONSET DATE: 06/24/2022 PRIMARY DIAGNOSIS-RELATED SURGERIES: Emergency Unilateral Hip Fracture - performed by Jose Sanchez on 06/26/2022 SECONDARY/COMORBID DIAGNOSES (TIERED): - Tier 3 Acute kidney failure, unspecified (N17.9) - Non-Tiered Hyperkalemia (E87.5) Iron deficiency anemia (D50) Essential (primary) hypertension (I10) Type 2 diabetes mellitus (E11) Rhabdomyolysis (M62.82) HISTORY OF PRESENT ILLNESS (HPI): On 06/24/2022 he was admitted to COUNT [facility] THE [facility] and underwent emergency surgery for Right Femu r Fracture (Unilateral Hip Fracture) by Bob Voss. Pt. is a 82 yo male of unknown race. Pre-morbidly, Pt. was independent/mod-I in Locomotion and Self-Care; and he had good Safety Awareness , Balance, Transfers Control, and Endurance. Currently, he has deficits of Locomotion, Safety Awareness, Balance, Transfers Control, Self-Care, an d Endurance. Pt. is now referred to [facility] for acute in-patient rehabilitation in order to maximize patient's functional independence in activities of daily living, strength, ROM, and mobi lity. Patient has realistic goal of being discharged at assistance level 6-Waqar to reside at Home with Fam lucia/Relatives. MEDICATION ALLERGIES: No Known Drug Allergies (NKDA) ENVIRONMENTAL ALLERGIES: - Substance Allergies None Known - Other Allergies None Known PAST MEDICAL HISTORY: Acute kidney failure, unspecified (N17.9) Essential (primary) hypertension (I10) Hyperkalemia (E87.5) Iron deficiency anemia (D50) Rhabdomyolysis (M62.82) Type 2 diabetes mellitus (E11) PAST SURGICAL HISTORY: Right Ankle Replacement Hernia Repair Cataract Surgery SOCIAL HISTORY: - Home Living Family/Relatives REVIEW OF SYSTEMS: - Gen No Chills Fatigue No Fever - Eyes No Double Vision No itchiness - ENMT No Difficulty Swallowing - CVS No Chest Discomfort No Chest Pain Fatigue No Weight Gain - Resp No Cough No Shortness of Breath - GI Continent No Abdominal Pain No Constipation No Diarrhea - Continent No Kidney Pain No Painful Urination No Urinary Urgency - MSK No Joint Pain Muscle Cramps Stiffness - Skin No Itching No Rash No Suspicious Lesions - Neuro Coordination Difficulty No Difficulty with Concentration No Memory Loss No Seizures Weakness - Psych No Anxiety No Depression No HIV Exposure No Persistent Infections No Seasonal Allergies - Endo No Cold/Heat Intolerance No Excessive Hunger No Excessive Thirst No Excessive Urination PHYSICAL EXAM - Gen Alert and awake Lying in bed No apparent distress Oriented to: person, time, and place - Skin No skin breakdown. No abnormalities - Eyes No abnormalities - ENMT No abnormalities - Neck No abnormalities - CVS RRR - Chest No abnormalities - Resp No wheezing - Abd Soft - GI + bowel sounds Deferred - No abnormalities - Ext Right hip surgical site has good hemostasis. - MSK 4+/5 weakness in left lower extremity - Neuro 4/5 strength right lower extremity. - Psych No abnormalities VITAL SIGNS Temperature: 97.6 F SBP/DBP: 182/70 Pulse: 79 Resp: 15 NURSING: - Shower allowing shower - Lab Results blood Sugar Check ACHS - Skin care per protocol PRECAUTIONS: - Anterior Hip Precaution No abduction No active extension No adduction across midline No external rotation No hip flexion >90 degrees No internal rotation - Posterior Hip Precaution No adduction across midline No external rotation No hip flexion >90 degrees No internal rotation No wheel chair propulsion - Weight Bearing Precaution WBAT right LE - Fall Precaution Bed alarm TABS alarm Wheel chair alarm - DVT Risk due to restricted mobility and age - Skin Breakdown Risk due to restricted mobility and age ACTIVITIES OOB only with supervision QI SCORES: - Self-Care A. Eating 05-Setup or clean-up assistance B. Oral hygiene 05-Setup or clean-up assistance C. Toileting hygiene 04-Supervision or touching assistance E. Shower/bathe self 04-Supervision or touching assistance F. Upper body dressing 05-Setup or clean-up assistance G. Lower body dressing 02-Substantial/maximal assistance H. Putting on/taking off footwear 02-Substantial/maximal assistance - Mobility A. Roll left and right 02-Substantial/maximal assistance B. Sit to lying 02-Substantial/maximal assistance C. Lying to sitting on side of bed 02-Substantial/maximal assistance D. Sit to stand 02-Substantial/maximal assistance E. Chair/zwc-iy-bqdja transfer 02-Substantial/maximal assistance F. Toilet transfer 02-Substantial/maximal assistance G. Car transfer 88-Not attempted due to medical condition or safety concerns I. Walk 10 feet 88-Not attempted due to medical condition or safety concerns J. Walk 50 feet with two turns 88-Not attempted due to medical condition or safety concerns K. Walk 150 feet 88-Not attempted due to medical condition or safety concerns L. Walking 10 feet on uneven surfaces 88-Not attempted due to medical condition or safety concerns M. 1 step (curb) 88-Not attempted due to medical condition or safety concerns N. 4 steps 88-Not attempted due to medical condition or safety concerns O. 12 steps 88-Not attempted due to medical condition or safety concerns P. Picking up object 88-Not attempted due to medical condition or safety concerns R. Wheel 50 feet with two turns 09-Not applicable S. Wheel 150 feet 09-Not applicable - Bladder and Bowel Bladder continence 0-Always continent Bowel continence 0-Always continent - Endurance Fair - Balance Fair - Safety Awareness Fair CURRENT FUNC. DEFICITS: Self-Care, Mobility, Endurance, Balance, and Safety Awareness MEDICATIONS: - Other See attached MAR (Medication Administration Record) ASSESSMENT: On 06/24/2022 he was admitted to [facility] and underwent emergency surgery for Right Femu r Fracture (Unilateral Hip Fracture) by Bob Voss.Pt. is a 82 yo male of unknown race.Pre-morbidl y, Pt. was independent/mod-I in Locomotion and Self-Care; and he had good Safety Awareness, Balance, Transfers Control, and Endurance.Currently, he has deficits of Locomotion, Safety Awareness, Balance, Transfers Control, Self-Care, and Endurance.Pt. is now referred to [facility] for acute in-patient rehabilitation in order to maximize patient's functional independence in activi ties of daily living, strength, ROM, and mobility.- Rehab Goal Patient has realistic goal of being discharged at assistance level 6-Waqar to reside at Home with Fam lucia/Relatives. - Physical Therapy Decreased range of motion - to improve, our physical therapists will perform initial evaluation of pt 's status upon admission and devise an individualized program for increasing patient's Range of Motio n. Gait dysfunction - to improve, our physical therapists will perform initial evaluation of pt's status upon admission and devise an individualized program for Gait Training, and Wheel Chair mobility Inability to transfer - to improve, our physical therapists will perform initial evaluation of pt's s tatus upon admission and devise an individualized program for Bed mobility Need for home safety evaluation - to improve, our physical therapists will perform initial evaluation of pt's status upon admission and devise an individualized program for Home Evaluation Need in caregiver upon discharge - to improve, our physical therapists will perform initial evaluatio n of pt's status upon admission and devise an individualized program for Caregiver Training New precaution - to improve, our physical therapists will perform initial evaluation of pt's status [place] admission and devise an individualized program for Patient precaution education Poor balance - to improve, our physical therapists will perform initial evaluation of pt's status upo n admission and devise an individualized program for Balance Training Poor endurance - to improve, our physical therapists will perform initial evaluation of pt's status [place] admission and devise an individualized program for Endurance Training Weakness - to improve, our physical therapists will perform initial evaluation of pt's status upon ad mission and devise an individualized program for Aquatic Therapy, Neuromuscular Reeducation, and Stre ngthening Achieving independence - to improve, our physical therapists will perform initial evaluation of pt's status upon admission and devise an individualized program for Community Reintegration Activities - Occupational Therapy ADL deficits - to improve, our occupation therapists will perform initial evaluation of pt's status [place] admission and devise an individualized program for Bathing, Bed mobility, Community Reintegration , Cooking, Dressing, Eating, Fine Motor Skills, Grooming, Homemaking, Kitchen Mobility, Laundry, Joanie ent Education, Safety Awareness, Splinting - Positioning, Transfers(Toilet, Tub, Shower), and Wheel C hair Management Need for childcare attendant - to improve, our occupation therapists will perform initial evaluation of pt's s tatus upon admission and devise an individualized program for Caregiver Training Weakness - to improve, our occupation therapists will perform initial evaluation of pt's status upon admission and devise an individualized program for Aquatic Therapy, Balance, Endurance, UE ROM, and U E strengthening MEDICAL PLAN: - Anterior Hip Precaution No abduction No active extension No adduction across midline No external rotation No hip flexion >90 degrees No internal rotation - Diet - Liquid Texture Start Regular - Tube Feed Start N/A - Diet Type Start Regular - Posterior Hip Precaution No adduction across midline No external rotation No hip flexion >90 degrees No internal rotation No wheel chair propulsion - Lab Results blood Sugar Check ACHS - DVT Risk due to restricted mobility and age - Skin Breakdown Risk due to restricted mobility and age - Weight Bearing Precaution WBAT right LE - Fall Precaution Bed alarm TABS alarm Wheel chair alarm - Skin care per protocol - Other See attached MAR (Medication Administration Record) - Diet - Solid Texture Regular - Shower shower DISCHARGE PLAN: - Estimated Length of Stay (days) 14. - Consensus on plan Discharge plan has been discussed with primary caregiver. Patient/Family is in agreement with the yaquelin n. Primary caregiver is in agreement with the plan. - Patient/Family Goals Return home independently. - Planned Living Setting Upon Discharge Home, to live with Family/Relatives. Transitional Living. SIGNATURE PANEL: (CDT)
--- NOTE | 2022-06-30 16:49 | PAPE ---
POST ADMISSION PHYSICIAN EVALUATION PATIENT: [facility] MR# [id number] REFERRING DOCTOR bob Voss EVALUATION DATE AND TIME 06/30/2022 16:47 (CDT) NAME SONIA BARRIENTOS DATE OF 1940 AGE 82 PHONE N# [id number] GENDER male EVALUATING PHYSICIAN Dr. Ras Mcclain M.D. ADMISSION DIAGNOSIS: Right Femur Fracture ONSET DATE 06/24/2022 SECONDARY/COMORBID DIAGNOSES TIERED: - Tier 3 Acute kidney failure, unspecified (N17.9) - Non-Tiered Hyperkalemia (E87.5) Iron deficiency anemia (D50) Essential (primary) hypertension (I10) Type 2 diabetes mellitus (E11) Rhabdomyolysis (M62.82) POST-ADMISSION FUNCTIONAL/MEDICAL STATUS: - Bladder Same accident frequency: 7-Ind - No accidents in the past 7 days - Bowel Same accident frequency: 7-Ind - No accidents in the past 7 days - Walking Same score based on distance walked: 0(N/A) - Wheelchair Same score based on distance traveled: 0(N/A) STATUS CHANGE EVALUATION: No change in Functional or Medical Status is identified compared with Pre-Admission screening. PATIENT NEEDS CLOSE MEDICAL SUPERVISION BY A REHABILITATION PHYSICIAN FOR: Coordination of Treatment Team Diabetes Management Medical and Co-Morbidity Management Post-Op Complications Wound Care Pain Management Bowel and Bladder Management PATIENT REQUIRES 24X7 REHAB NURSING FOR MEDICAL AND FUNCTIONAL MGT. OF THE FOLLOWING DEFICITS: Patient requires 24x7 Rehabilitation Nursing for: Pain Issues, Identifying and preventing risk factor s, Monitoring and reporting current medical conditions, Assisting with ambulation and transfer, Mattie ting with all ADL-s, Teaching patients about disease process and medications, Family teaching, Provid ing safe environment, Bowel and Bladder Issues, Skin Integrity, and Medication Management PATIENT REQUIRES INTENSIVE, COORDINATED INTERDISCIPLINARY APPROACH TO REHAB: Patient needs Dietary and Nutrition Services for: Adequate Nutrition, Nutritional Supplements, and Nu tritional Education Patient needs Nurseryman Assistant and/or Case Management for: Discharge Planning, Arranging Home Equipmen t or Services, and Family Interventions LIST OF IDENTIFIED AND POTENTIAL PROBLEMS: Alteration in leisure activities Bladder, Incontinence Blood Pressure, Hypertension/hypotension Issues Bowel, Incontinence Diabetes, Hyperglycemia/hypoglycemia Issues Falls, Actual or Potential Infection, Actual or Potential Mobility Impaired Pain, Alteration in Comfort Self Care Deficit Skin Integrity, Actual or Potential Urinary Tract Infection (UTI), Actual or Potential RISK FOR COMPLICATIONS - DVT Active and Passive ROM exercises. Administer medications per MD order. Assist patient with frequent p osition changes. Elevate BLE. - Skin Breakdown Encourage ambulation as tolerated. Repositioning q 2 hours. Use of pillows or foam wedges while in be d. - Pain Anticipate the need for pain medication for optimal pain managment. Assess pt for pain and Administer prescribed pain medication as needed. Assist patient with frequent position changes at least every 2 hours. Educate patient on relaxation and deep breathing techniques. - Falls Assess for medication side effects. Maintain call light within patient reach for easy access to nursi ng assistance. Provide assistance getting out of bed and with ambulation. Provide assistive devices. - Stroke Assess/ Monitor and maintain patient pain level. Assess/ Monitor patient blood pressure. - Seizure Identify risk factors. Monitor for headaches. Provide safety measures. INTERVENTIONS - Rhabdomyolysis Administer prescribed medications to alleviate muscular pain. Assess patient's degree of fatigability and explore limitations to physical activity. Assess pt v/s and characteristics of pain after admini stration of medication. Educate patient on relaxation techniques and deep breathing. - Type 2 Diabetes Assess LE for temperature, pulses, color, and sensation. Monitor blood glucose and effectiveness of m edications/Insulin. Weight daily. Promote proper diet. Monitor pt BP. - Hyperkalemia - Anemia Monitor for bleeding. Treat with IV medications and PENNIE. Monitor pt labs. - Hypertension Assess/ Monitor patient B/P and treat with prescribed medications. Implement healthy diet. Increase p hysical activity. - Right Hip Fracture Aggressive PT/OT. PATIENT COULD BE AT RISK FOR COMPLICATIONS FROM ADVERSE MEDICAL CONDITIONS DUE TO HIS/HER COMORBIDITI ES AND THE RIGORS OF THE INTENSIVE REHABILLITATION PROGRAM. METHODS OR INTERVENTIONS TO AVOID COMPLIC ATIONS INCLUDE: - Bleeding Assess lab values and manage abnormalities. Nursing to teach precautions for anti-coagulation therapy . Wound to be assessed every shift. - Infection Clinical staff to assess and manage the signs and symptoms of infection including fever, redness, war mth, etc. - Urinary Tract Infection - Falls Patient will be evaluated for Fall Precautions and will be placed on Fall Precautions as indicated pe r protocol. - Skin Breakdown Nursing will assess skin daily using assessment tool and will place on Skin Breakdown Precautions as indicated per protocol. - Pain Clinical staff may employ non-medication methods such as massage, distraction, decrease stimulus, etc . as needed. Clinical staff will assess patient's pain level every shift per protocol to assess and e nsure pain management effectiveness. Medications will be given and the pain level re-assessed. PRELIMINARY PLAN OF CARE: - Physical Therapy Patient needs Physical Therapy for a daily minimum of 1.5 hours at least 5 out of 7 days, to improve: Mobility, Strengthening, Transfers, Stretching, ROM, Endurance, Ability to manage stairs, Gait, and Balance. - Rehabilitation Nursing Patient requires 24x7 Rehabilitation Nursing for: Pain Issues, Identifying and preventing risk factor s, Monitoring and reporting current medical conditions, Assisting with ambulation and transfer, Mattie ting with all ADL-s, Teaching patients about disease process and medications, Family teaching, Provid ing safe environment, Bowel and Bladder Issues, Skin Integrity, and Medication Management. Patient needs Nurseryman Assistant and/or Case Management for: Discharge Planning, Arranging Home Equipmen t or Services, and Family Interventions. - Dietary and Nutrition Services Patient needs Dietary and Nutrition Services for: Adequate Nutrition, Nutritional Supplements, and Nu tritional Education. - Occupational Therapy Patient needs Occupational Therapy for a daily minimum of 1.5 hours at least 5 out of 7 days, to impr ove Activities of Daily Living, including: Eating, Grooming, Bathing, Dressing, Toileting, Toilet Tra nsfers, Community Reintegration, Higher functional activities, Adaptive Equipment, Splinting, Househo ld Tasks, and Other activities as determined. QI SCORES: - Self-Care A. Eating 05-Setup or clean-up assistance B. Oral hygiene 05-Setup or clean-up assistance C. Toileting hygiene 04-Supervision or touching assistance E. Shower/bathe self 04-Supervision or touching assistance F. Upper body dressing 05-Setup or clean-up assistance G. Lower body dressing 02-Substantial/maximal assistance H. Putting on/taking off footwear 02-Substantial/maximal assistance - Mobility A. Roll left and right 02-Substantial/maximal assistance B. Sit to lying 02-Substantial/maximal assistance C. Lying to sitting on side of bed 02-Substantial/maximal assistance D. Sit to stand 02-Substantial/maximal assistance E. Chair/iew-kz-iwpna transfer 02-Substantial/maximal assistance F. Toilet transfer 02-Substantial/maximal assistance G. Car transfer 88-Not attempted due to medical condition or safety concerns I. Walk 10 feet 88-Not attempted due to medical condition or safety concerns J. Walk 50 feet with two turns 88-Not attempted due to medical condition or safety concerns K. Walk 150 feet 88-Not attempted due to medical condition or safety concerns L. Walking 10 feet on uneven surfaces 88-Not attempted due to medical condition or safety concerns M. 1 step (curb) 88-Not attempted due to medical condition or safety concerns N. 4 steps 88-Not attempted due to medical condition or safety concerns O. 12 steps 88-Not attempted due to medical condition or safety concerns P. Picking up object 88-Not attempted due to medical condition or safety concerns R. Wheel 50 feet with two turns 09-Not applicable S. Wheel 150 feet 09-Not applicable - Bladder and Bowel Bladder continence 0-Always continent Bowel continence 0-Always continent - Endurance Fair - Balance Fair - Safety Awareness Fair POTENTIAL FUNCTIONAL GOALS FOR PATIENT TO ACHIEVE BY DISCHARGE: - Safety Precaution Patient will remain free from falls or injury at time of discharge. - Bed Mobility Patient will perform bed mobility at 4-Miles level of assistance. - Transfers Patient will complete transfers from bed to chair at 4-Miles level of assistance. - Mobility Patient will ambulate 150 ft with 4-Miles level of assistance with RW. PATIENT REHAB POTENTIAL Janina BARRIENTOS is able and expected to receive 3 hours of individualized therapy daily on at least 5 of e very 7 days Janina Mi prognosis for significant practical improvement within a reasonable period of time appea rs Good Expected level of measurable improvement will be of a practical value to Janina BARRIENTOS's functional capa city or adaptations to impairments Has a viable Discharge Plan Medically appropriate; condition is sufficiently stable to participate in intensive rehab program DISCHARGE PLAN: - Estimated Length of Stay (days) 14. - Consensus on plan Discharge plan has been discussed with primary caregiver. Patient/Family is in agreement with the yaquelin n. Primary caregiver is in agreement with the plan. - Patient/Family Goals Return home independently. - Planned Living Setting Upon Discharge Home, to live with Family/Relatives. Transitional Living. CONCLUSION ON REHABILITATION NECESSITY: I have evaluated patient's pre-admission functional status and, comparing it to the patient's post-ad mission functional status now, I conclude that the pre-admission assessment was accurate. Patient's c ondition on admission supports the medical necessity of admission to IRF. It is safe to proceed with patient's therapy program. SIGNATURE PANEL: (CDT)
[2022-06-30] MEDS: GABAPENTIN 100 MG CAP PO SCH (20:53)
[2022-06-30] MEDS: DONEPEZIL HCL 5 MG TAB PO SCH (20:53)
[2022-06-30] MEDS: MAGNESIUM OXIDE 400 MG TAB PO SCH (20:53)
--- NOTE | 2022-07-01 03:25 | PN ---
Date of Progress Note: 06/30/2022 Chief Complaint: Acute kidney injury, anemia. History Of Present Illness: The patient is an 82-year-old man with significant past medical history and has a history of diabetes mellitus for longer than 15 years complicated with neuropathy, but he d enies retinopathy. He has history of hypertension, hyperlipidemia, obstructive uropathy and previous ly he had a procedure for prostate problems. Review of Systems: Patient denies fever, chills. Physical Examination: Lungs: Clear to auscultation bilaterally. Heart: S1, S2. Abdomen: Soft, benign. Extremities: Slight edema. Impression And Plan: 1.Acute kidney injury. Renal function somewhat improved. 2.Hyperkalemia. Continue Lokelma. Monitor potassium level. 3.Anemia of chronic kidney disease. Continue IV iron. Patient received 2 units of packed red blood cell transfusion. 4.Status post right femur fracture and history of open reduction and internal fixation. Continue pa in control and avoid nonsteroidal anti-inflammatory medication. 5.Hypertension. Patient previously was found to have prerenal azotemia, dehydration, and nonoliguri c acute tubular necrosis with rhabdomyolysis and serum creatinine level improved to 1.2. Continue blood pressure medication. Avoid nonsteroidal anti-inflammatory medication. EB/MODL Voice ID: [id number] Report ID: [id number]
[2022-07-01] MEDS: ENOXAPARIN 30 MG/0.3 ML SQ SCH (07:04)
[2022-07-01] MEDS: LIDOCAINE 4% PATCH TOP SCH (07:04)
[2022-07-01] MEDS: INSULIN -REGULAR HUMAN 50 UNIT/0.5 ML ML SQ SCH ×4 (07:30→20:13)
[2022-07-01] MEDS: GABAPENTIN 100 MG CAP PO SCH ×2 (08:48→20:14)
[2022-07-01] MEDS: CETIRIZINE HCL 5 MG TABLET PO SCH (08:48)
[2022-07-01] MEDS: glipiZIDE 5 MG TAB PO SCH ×2 (08:48→20:14)
[2022-07-01] MEDS: VITAMIN D 1000 UNIT TAB PO SCH (08:49)
[2022-07-01] MEDS: HYDROCODONE/APAP 7.5/325 MG TAB PO PRN ×3 (08:49→23:00)
[2022-07-01] MEDS: FERROUS SULFATE 325 MG TAB PO SCH (08:49)
[2022-07-01] MEDS: FE SULF/FA/VIT B COMP & C TAB PO SCH (08:49)
[2022-07-01] MEDS: MULTIVITAMIN TAB PO SCH (08:50)
[2022-07-01] MEDS: DOCOSAHEXANOIC AC/EPA 1000 MG PO SCH ×2 (08:50→20:14)
[2022-07-01] MEDS: MAGNESIUM OXIDE 400 MG TAB PO SCH ×2 (08:50→20:14)
[2022-07-01] MEDS: lisinopriL 10 MG TAB PO SCH ×2 (08:50→20:15)
[2022-07-01] MEDS: methocarbamoL 500 MG TAB PO PRN (11:12)
[2022-07-01] MEDS: MELATONIN 3 MG TABLET PO PRN (20:14)
[2022-07-01] MEDS: DONEPEZIL HCL 5 MG TAB PO SCH (20:14)
--- NOTE | 2022-07-01 20:46 | R.PN ---
PROGRESS NOTES ENCOUNTER DATE AND TIME: 07/01/2022 20:42 (CDT) NAME SONIA BARRIENTOS DATE OF : 1940 DATE OF ADMISSION: 06/29/2022 11:36 (CDT) Right Femur FractureCHIEF COMPLAINT: Right femur fracture SUBJECTIVE: Pt denied any Shortness of Breath. Pt denied any depression. WBC 6.0, Hgb 10.0, glucose 171 to 235, covid-19 is negative. Ambulated 20' in the parallel bars with min assistance. VITAL SIGNS Temperature: 97.6 F SBP/DBP: 182/70 Pulse: 79 Resp: 15 MEDICATION ALLERGIES: No Known Drug Allergies (NKDA) ENVIRONMENTAL ALLERGIES: - Substance Allergies None Known - Other Allergies None Known NURSING: - Shower allowing shower - Lab Results blood Sugar Check ACHS - Skin care per protocol PRECAUTIONS: - Anterior Hip Precaution No abduction No active extension No adduction across midline No external rotation No hip flexion >90 degrees No internal rotation - Posterior Hip Precaution No adduction across midline No external rotation No hip flexion >90 degrees No internal rotation No wheel chair propulsion - Weight Bearing Precaution WBAT right LE - Fall Precaution Bed alarm TABS alarm Wheel chair alarm - DVT Risk due to restricted mobility and age - Skin Breakdown Risk due to restricted mobility and age ACTIVITIES OOB only with supervision THERAPIES: - Dietary and Nutrition Adequate Nutrition. Nutritional Education. Nutritional Supplements. - Occupational Therapy Cognitive Retraining. Patient needs Occupational Therapy for a daily minimum of 1.5 hours at least 5 out of 7 days, to improve Activities of Daily Living, including: Eating, Grooming, Bathing, Dressing, Toileting, Toilet Transfers, Community Reintegration, Higher functional activities, Adaptive Equipme nt, Splinting, Household Tasks, and Other activities as determined. Visual Perceptual Training. - Physical Therapy Patient needs Physical Therapy for a daily minimum of 1.5 hours at least 5 out of 7 days, to improve: Mobility, Strengthening, Transfers, Stretching, ROM, Endurance, Ability to manage stairs, Gait, and Balance. PHYSICAL EXAM - Gen Alert and awake Lying in bed No apparent distress Oriented to: person, time, and place - Skin No skin breakdown. No abnormalities - Eyes No abnormalities - ENMT No abnormalities - Neck No abnormalities - CVS RRR - Chest No abnormalities - Resp No wheezing - Abd Soft - GI + bowel sounds Deferred - No abnormalities - Ext Right hip surgical site has good hemostasis. - MSK 4+/5 weakness in left lower extremity - Neuro 4/5 strength right lower extremity. - Psych No abnormalities ASSESSMENT: On 06/24/2022 he was admitted to [facility] and underwent emergency surgery for Right Femu r Fracture (Unilateral Hip Fracture) by Jabari Vsos.Pt. is a 82 yo male of unknown race.Pre-morbidl y, Pt. was independent/mod-I in Locomotion and Self-Care; and he had good Safety Awareness, Balance, Transfers Control, and Endurance.Currently, he has deficits of Locomotion, Safety Awareness, Balance, Transfers Control, Self-Care, and Endurance.Pt. is now referred to [facility] for acute in-patient rehabilitation in order to maximize patient's functional independence in activi ties of daily living, strength, ROM, and mobility.- Rehab Goal Patient has realistic goal of being discharged at assistance level 6-Waqar to reside at Home with Fam lucia/Relatives. MDM/PLAN: - Physical Therapy Decreased range of motion - to improve, our physical therapists will perform initial evaluation of p t's status upon admission and devise an individualized program for increasing patient's Range of Yoni on. Gait dysfunction - to improve, our physical therapists will perform initial evaluation of pt's statu s upon admission and devise an individualized program for Gait Training, and Wheel Chair mobility Inability to transfer - to improve, our physical therapists will perform initial evaluation of pt's status upon admission and devise an individualized program for Bed mobility Need for home safety evaluation - to improve, our physical therapists will perform initial evaluatio n of pt's status upon admission and devise an individualized program for Home Evaluation Need in caregiver upon discharge - to improve, our physical therapists will perform initial evaluati on of pt's status upon admission and devise an individualized program for Caregiver Training New precaution - to improve, our physical therapists will perform initial evaluation of pt's status upon admission and devise an individualized program for Patient precaution education Poor balance - to improve, our physical therapists will perform initial evaluation of pt's status up on admission and devise an individualized program for Balance Training Poor endurance - to improve, our physical therapists will perform initial evaluation of pt's status upon admission and devise an individualized program for Endurance Training Weakness - to improve, our physical therapists will perform initial evaluation of pt's status upon a dmission and devise an individualized program for Aquatic Therapy, Neuromuscular Reeducation, and Str engthening Achieving independence - to improve, our physical therapists will perform initial evaluation of pt's status upon admission and devise an individualized program for Community Reintegration Activities - Occupational Therapy ADL deficits - to improve, our occupation therapists will perform initial evaluation of pt's status upon admission and devise an individualized program for Bathing, Bed mobility, Community Reintegratio n, Cooking, Dressing, Eating, Fine Motor Skills, Grooming, Homemaking, Kitchen Mobility, Laundry, Pat ient Education, Safety Awareness, Splinting - Positioning, Transfers(Toilet, Tub, Shower), and Wheel Chair Management Need for healthcare prof - to improve, our occupation therapists will perform initial evaluation of pt's status upon admission and devise an individualized program for Caregiver Training Weakness - to improve, our occupation therapists will perform initial evaluation of pt's status upon admission and devise an individualized program for Aquatic Therapy, Balance, Endurance, UE ROM, and UE strengthening - Other See attached MAR (Medication Administration Record) - Anterior Hip Precaution No abduction No active extension No adduction across midline No external rotation No hip flexion >90 degrees No internal rotation - Diet - Liquid Texture Continue Regular - Tube Feed Continue N/A - Diet Type Continue Regular - Posterior Hip Precaution No adduction across midline No external rotation No hip flexion >90 degrees No internal rotation No wheel chair propulsion - Lab Results blood Sugar Check ACHS - DVT Risk due to restricted mobility and age - Skin Breakdown Risk due to restricted mobility and age - Weight Bearing Precaution WBAT right LE - Fall Precaution Bed alarm TABS alarm Wheel chair alarm - Skin care per protocol - Diet - Solid Texture Continue Regular - Shower allowing shower FUNCTIONAL STATUS: UPDATED AT WEEKLY TEAM CONFERENCE - Bladder Same accident frequency: 7-Ind - No accidents in the past 7 days - Bowel Same accident frequency: 7-Ind - No accidents in the past 7 days - Walking Same score based on distance walked: 0(N/A) - Wheelchair Same score based on distance traveled: 0(N/A) FUNCTIONAL STATUS: - Self-Care A. Eating Ind B. Grooming Ind C. Bathing modA D. Dressing - Upper [place] E. Dressing - Lower modA F. Toileting sup - Sphincter Control G. Bladder control Waqar H. Bowel control Waqar - Transfers Control I. Bed/Chair/Wheelchair modA J. Toilet modA K. Tub/Shower modA - Locomotion L. Walk/Wheelchair (B) modA M. Stairs ADNO - Communication N. Comprehension (B) Waqar O. Expression (B) Waqar - Social Cognition P. Social Interaction Ind Q. Problem Solving Waqar R. Memory Ind - Endurance Poor - Balance Fair - Safety Awareness Fair QI SCORES: - Self-Care A. Eating 05-Setup or clean-up assistance B. Oral hygiene 05-Setup or clean-up assistance C. Toileting hygiene 04-Supervision or touching assistance E. Shower/bathe self 04-Supervision or touching assistance F. Upper body dressing 05-Setup or clean-up assistance G. Lower body dressing 02-Substantial/maximal assistance H. Putting on/taking off footwear 02-Substantial/maximal assistance - Mobility A. Roll left and right 02-Substantial/maximal assistance B. Sit to lying 02-Substantial/maximal assistance C. Lying to sitting on side of bed 02-Substantial/maximal assistance D. Sit to stand 02-Substantial/maximal assistance E. Chair/[id number] transfer 02-Substantial/maximal assistance F. Toilet transfer 02-Substantial/maximal assistance G. Car transfer 88-Not attempted due to medical condition or safety concerns I. Walk 10 feet 88-Not attempted due to medical condition or safety concerns J. Walk 50 feet with two turns 88-Not attempted due to medical condition or safety concerns K. Walk 150 feet 88-Not attempted due to medical condition or safety concerns L. Walking 10 feet on uneven surfaces 88-Not attempted due to medical condition or safety concerns M. 1 step (curb) 88-Not attempted due to medical condition or safety concerns N. 4 steps 88-Not attempted due to medical condition or safety concerns O. 12 steps 88-Not attempted due to medical condition or safety concerns P. Picking up object 88-Not attempted due to medical condition or safety concerns R. Wheel 50 feet with two turns 09-Not applicable S. Wheel 150 feet 09-Not applicable - Bladder and Bowel Bladder continence 0-Always continent Bowel continence 0-Always continent - Endurance Fair - Balance Fair - Safety Awareness Fair CURRENT FUNC. DEFICITS: Self-Care, Mobility, Endurance, Balance, and Safety Awareness SIGNATURE PANEL: (CDT)
[2022-07-02] MEDS: METOPROLOL TAR 25 MG TAB PO SCH (05:28)
[2022-07-02] MEDS: ENOXAPARIN 30 MG/0.3 ML SQ SCH (07:28)
[2022-07-02] MEDS: INSULIN -REGULAR HUMAN 50 UNIT/0.5 ML ML SQ SCH ×4 (07:29→20:05)
[2022-07-02] MEDS: glipiZIDE 5 MG TAB PO SCH ×2 (07:48→20:06)
[2022-07-02] MEDS: DOCOSAHEXANOIC AC/EPA 1000 MG PO SCH ×2 (07:48→20:06)
[2022-07-02] MEDS: LIDOCAINE 4% PATCH TOP SCH (07:48)
[2022-07-02] MEDS: FE SULF/FA/VIT B COMP & C TAB PO SCH (07:48)
[2022-07-02] MEDS: CETIRIZINE HCL 5 MG TABLET PO SCH (07:49)
[2022-07-02] MEDS: MAGNESIUM OXIDE 400 MG TAB PO SCH ×2 (07:49→20:07)
[2022-07-02] MEDS: FERROUS SULFATE 325 MG TAB PO SCH (07:49)
[2022-07-02] MEDS: lisinopriL 10 MG TAB PO SCH ×2 (07:49→20:07)
[2022-07-02] MEDS: GABAPENTIN 100 MG CAP PO SCH ×2 (07:49→20:06)
[2022-07-02] MEDS: MULTIVITAMIN TAB PO SCH (07:49)
[2022-07-02] MEDS: VITAMIN D 1000 UNIT TAB PO SCH (07:49)
[2022-07-02] MEDS: TRAMADOL HCL 50 MG TAB PO PRN ×2 (07:50→13:42)
[2022-07-02] MEDS: HYDROCODONE/APAP 7.5/325 MG TAB PO PRN ×3 (11:19→22:11)
[2022-07-02] MEDS: methocarbamoL 500 MG TAB PO PRN (12:11)
--- NOTE | 2022-07-02 15:34 | PN ---
Date of Progress Note: 07/02/2022 Subjective: The patient was admitted to the hospital with acute kidney injury, treated, recovered. The patient had hyperkalemia and hip fracture. Hyperkalemia treated with Lokelma, recovered, status post hip fracture. The patient was transferred to rehab to continue physical therapy. Physical Examination: Vital Signs: When I saw the patient; blood pressure 156/66, pulse of 65. Chest: Clear to auscultation. Heart: S1, S2. Regular. Abdomen: Soft, nontender. Extremities: No edema. Neuro: Alert. No focality. Laboratory Data: H and H 09/20.1. Sodium 139, potassium 3.8, bicarb 29, BUN 22, creatinine 1.2. Ca lcium 8.4. Current Medications: The patient on include: 1.Ferrous sulfate. 2.Lisinopril 10 mg b.i.d. 3.Metoprolol. 4.Magnesium oxide. Assessment And Plan: 1.Acute kidney injury secondary to prerenal, dehydration, and rhabdomyolysis, recovered, resolved, b ack to baseline. We will continue to monitor. 2.Hyperkalemia secondary to muscle break down, treated with Lokelma, recovered. 3.Started on lisinopril, tolerated well. 4.Hypertension, controlled, optimal. Continue current treatment. 5.Diabetes. Follow up with primary. 6.Hip fracture, status post repair. Will follow up with rehab and Ortho. MARIA L/KARLA Voice ID: [id number] Report ID: [id number]
--- NOTE | 2022-07-02 17:00 | R.PN ---
PROGRESS NOTES ENCOUNTER DATE AND TIME: 07/02/2022 16:44 (CDT) NAME SONIA BARRIENTOS DATE OF : 1940 DATE OF ADMISSION: 06/29/2022 11:36 (CDT) Right Femur FractureCHIEF COMPLAINT: Right femur fracture SUBJECTIVE: Pt denied any Shortness of Breath. Pt denied any depression. WBC 6.0, Hgb 10.0, glucose 143 to 198, covid-19 is negative. Ambulated 100' with rolling walker and minimum assistance. Self-propelled wheelchair 250' with SBA. VITAL SIGNS Temperature: 97.3 F SBP/DBP: 156/66 Pulse: 65 Resp: 16 MEDICATION ALLERGIES: No Known Drug Allergies (NKDA) ENVIRONMENTAL ALLERGIES: - Substance Allergies None Known - Other Allergies None Known NURSING: - Shower allowing shower - Lab Results blood Sugar Check ACHS - Skin care per protocol PRECAUTIONS: - Anterior Hip Precaution No abduction No active extension No adduction across midline No external rotation No hip flexion >90 degrees No internal rotation - Posterior Hip Precaution No adduction across midline No external rotation No hip flexion >90 degrees No internal rotation No wheel chair propulsion - Weight Bearing Precaution WBAT right LE - Fall Precaution Bed alarm TABS alarm Wheel chair alarm - DVT Risk due to restricted mobility and age - Skin Breakdown Risk due to restricted mobility and age ACTIVITIES OOB only with supervision THERAPIES: - Dietary and Nutrition Adequate Nutrition. Nutritional Education. Nutritional Supplements. - Occupational Therapy Cognitive Retraining. Patient needs Occupational Therapy for a daily minimum of 1.5 hours at least 5 out of 7 days, to improve Activities of Daily Living, including: Eating, Grooming, Bathing, Dressing, Toileting, Toilet Transfers, Community Reintegration, Higher functional activities, Adaptive Equipme nt, Splinting, Household Tasks, and Other activities as determined. Visual Perceptual Training. - Physical Therapy Patient needs Physical Therapy for a daily minimum of 1.5 hours at least 5 out of 7 days, to improve: Mobility, Strengthening, Transfers, Stretching, ROM, Endurance, Ability to manage stairs, Gait, and Balance. PHYSICAL EXAM - Gen Alert and awake Lying in bed No apparent distress Oriented to: person, time, and place - Skin No skin breakdown. No abnormalities - Eyes No abnormalities - ENMT No abnormalities - Neck No abnormalities - CVS RRR - Chest No abnormalities - Resp No wheezing - Abd Soft - GI + bowel sounds Deferred - No abnormalities - Ext Right hip surgical site has good hemostasis. - MSK 4+/5 weakness in left lower extremity - Neuro 4/5 strength right lower extremity. - Psych No abnormalities ASSESSMENT: On 06/24/2022 he was admitted to [facility] and underwent emergency surgery for Right Femu r Fracture (Unilateral Hip Fracture) by Jabari Voss.Pt. is a 82 yo male of unknown race.Pre-morbidl y, Pt. was independent/mod-I in Locomotion and Self-Care; and he had good Safety Awareness, Balance, Transfers Control, and Endurance.Currently, he has deficits of Locomotion, Safety Awareness, Balance, Transfers Control, Self-Care, and Endurance.Pt. is now referred to [facility] for acute in-patient rehabilitation in order to maximize patient's functional independence in activi ties of daily living, strength, ROM, and mobility.- Rehab Goal Patient has realistic goal of being discharged at assistance level 6-Waqar to reside at Home with Fam lucia/Relatives. MDM/PLAN: - Physical Therapy Decreased range of motion - to improve, our physical therapists will perform initial evaluation of p t's status upon admission and devise an individualized program for increasing patient's Range of Yoni on. Gait dysfunction - to improve, our physical therapists will perform initial evaluation of pt's statu s upon admission and devise an individualized program for Gait Training, and Wheel Chair mobility Inability to transfer - to improve, our physical therapists will perform initial evaluation of pt's status upon admission and devise an individualized program for Bed mobility Need for home safety evaluation - to improve, our physical therapists will perform initial evaluatio n of pt's status upon admission and devise an individualized program for Home Evaluation Need in caregiver upon discharge - to improve, our physical therapists will perform initial evaluati on of pt's status upon admission and devise an individualized program for Caregiver Training New precaution - to improve, our physical therapists will perform initial evaluation of pt's status upon admission and devise an individualized program for Patient precaution education Poor balance - to improve, our physical therapists will perform initial evaluation of pt's status up on admission and devise an individualized program for Balance Training Poor endurance - to improve, our physical therapists will perform initial evaluation of pt's status upon admission and devise an individualized program for Endurance Training Weakness - to improve, our physical therapists will perform initial evaluation of pt's status upon a dmission and devise an individualized program for Aquatic Therapy, Neuromuscular Reeducation, and Str engthening Achieving independence - to improve, our physical therapists will perform initial evaluation of pt's status upon admission and devise an individualized program for Community Reintegration Activities - Occupational Therapy ADL deficits - to improve, our occupation therapists will perform initial evaluation of pt's status upon admission and devise an individualized program for Bathing, Bed mobility, Community Reintegratio n, Cooking, Dressing, Eating, Fine Motor Skills, Grooming, Homemaking, Kitchen Mobility, Laundry, Pat ient Education, Safety Awareness, Splinting - Positioning, Transfers(Toilet, Tub, Shower), and Wheel Chair Management Need for animal daycare provider - to improve, our occupation therapists will perform initial evaluation of pt's status upon admission and devise an individualized program for Caregiver Training Weakness - to improve, our occupation therapists will perform initial evaluation of pt's status upon admission and devise an individualized program for Aquatic Therapy, Balance, Endurance, UE ROM, and UE strengthening - Other See attached MAR (Medication Administration Record) - Anterior Hip Precaution No abduction No active extension No adduction across midline No external rotation No hip flexion >90 degrees No internal rotation - Diet - Liquid Texture Continue Regular - Tube Feed Continue N/A - Diet Type Continue Regular - Posterior Hip Precaution No adduction across midline No external rotation No hip flexion >90 degrees No internal rotation No wheel chair propulsion - Lab Results blood Sugar Check ACHS - DVT Risk due to restricted mobility and age - Skin Breakdown Risk due to restricted mobility and age - Weight Bearing Precaution WBAT right LE - Fall Precaution Bed alarm TABS alarm Wheel chair alarm - Skin care per protocol - Diet - Solid Texture Continue Regular - Shower allowing shower FUNCTIONAL STATUS: UPDATED AT WEEKLY TEAM CONFERENCE - Bladder Same accident frequency: 7-Ind - No accidents in the past 7 days - Bowel Same accident frequency: 7-Ind - No accidents in the past 7 days - Walking Same score based on distance walked: 0(N/A) - Wheelchair Same score based on distance traveled: 0(N/A) FUNCTIONAL STATUS: - Self-Care A. Eating Ind B. Grooming Ind C. Bathing modA D. Dressing - Upper [place] E. Dressing - Lower modA F. Toileting sup - Sphincter Control G. Bladder control Waqar H. Bowel control Waqar - Transfers Control I. Bed/Chair/Wheelchair modA J. Toilet modA K. Tub/Shower modA - Locomotion L. Walk/Wheelchair (B) modA M. Stairs ADNO - Communication N. Comprehension (B) Waqar O. Expression (B) Waqar - Social Cognition P. Social Interaction Ind Q. Problem Solving Waqar R. Memory Ind - Endurance Poor - Balance Fair - Safety Awareness Fair QI SCORES: - Self-Care A. Eating 05-Setup or clean-up assistance B. Oral hygiene 05-Setup or clean-up assistance C. Toileting hygiene 04-Supervision or touching assistance E. Shower/bathe self 04-Supervision or touching assistance F. Upper body dressing 05-Setup or clean-up assistance G. Lower body dressing 02-Substantial/maximal assistance H. Putting on/taking off footwear 02-Substantial/maximal assistance - Mobility A. Roll left and right 02-Substantial/maximal assistance B. Sit to lying 02-Substantial/maximal assistance C. Lying to sitting on side of bed 02-Substantial/maximal assistance D. Sit to stand 02-Substantial/maximal assistance E. Chair/[id number] transfer 02-Substantial/maximal assistance F. Toilet transfer 02-Substantial/maximal assistance G. Car transfer 88-Not attempted due to medical condition or safety concerns I. Walk 10 feet 88-Not attempted due to medical condition or safety concerns J. Walk 50 feet with two turns 88-Not attempted due to medical condition or safety concerns K. Walk 150 feet 88-Not attempted due to medical condition or safety concerns L. Walking 10 feet on uneven surfaces 88-Not attempted due to medical condition or safety concerns M. 1 step (curb) 88-Not attempted due to medical condition or safety concerns N. 4 steps 88-Not attempted due to medical condition or safety concerns O. 12 steps 88-Not attempted due to medical condition or safety concerns P. Picking up object 88-Not attempted due to medical condition or safety concerns R. Wheel 50 feet with two turns 09-Not applicable S. Wheel 150 feet 09-Not applicable - Bladder and Bowel Bladder continence 0-Always continent Bowel continence 0-Always continent - Endurance Fair - Balance Fair - Safety Awareness Fair CURRENT FUNC. DEFICITS: Self-Care, Mobility, Endurance, Balance, and Safety Awareness SIGNATURE PANEL: (CDT)
[2022-07-02] MEDS: DONEPEZIL HCL 5 MG TAB PO SCH (20:07)
[2022-07-03] MEDS: METOPROLOL TAR 25 MG TAB PO SCH (05:33)
[2022-07-03 06:47] LABS: Absolute Lymphocytes (CBC) 1.8 K/uL (0.7-4.9); Hematocrit 26.1 % (39.6-49.0); Lymphocytes % 29.9 % (15.3-44.8); MCV 85.7 fL (80-100); MPV 7.5 fL (7.6-11.3); RBC Red Blood Cell Count 3.05 M/uL (4.33-5.43)
[2022-07-03 07:03] LABS: Albumin 2.4 g/dL (3.4-5.0); Magnesium 1.7 mg/dL (1.8-2.4); Potassium 4.2 mmol/L (3.5-5.1); Prealbumin 18.5 mg/dL (20-40)
[2022-07-03] MEDS: INSULIN -REGULAR HUMAN 50 UNIT/0.5 ML ML SQ SCH ×4 (07:30→19:34)
[2022-07-03] MEDS: glipiZIDE 5 MG TAB PO SCH ×2 (07:45→19:33)
[2022-07-03] MEDS: LIDOCAINE 4% PATCH TOP SCH (07:45)
[2022-07-03] MEDS: ENOXAPARIN 30 MG/0.3 ML SQ SCH (07:45)
[2022-07-03] MEDS: MULTIVITAMIN TAB PO SCH (07:45)
[2022-07-03] MEDS: MAGNESIUM OXIDE 400 MG TAB PO SCH ×2 (07:45→19:34)
[2022-07-03] MEDS: CETIRIZINE HCL 5 MG TABLET PO SCH (07:45)
[2022-07-03] MEDS: FE SULF/FA/VIT B COMP & C TAB PO SCH (07:46)
[2022-07-03] MEDS: DOCOSAHEXANOIC AC/EPA 1000 MG PO SCH ×2 (07:46→19:33)
[2022-07-03] MEDS: lisinopriL 10 MG TAB PO SCH ×2 (07:46→19:34)
[2022-07-03] MEDS: FERROUS SULFATE 325 MG TAB PO SCH (07:46)
[2022-07-03] MEDS: GABAPENTIN 100 MG CAP PO SCH ×2 (07:46→19:34)
[2022-07-03] MEDS: VITAMIN D 1000 UNIT TAB PO SCH (07:46)
[2022-07-03] MEDS: HYDROCODONE/APAP 7.5/325 MG TAB PO PRN ×2 (08:25→16:44)
[2022-07-03] MEDS: TRAMADOL HCL 50 MG TAB PO PRN (11:59)
--- NOTE | 2022-07-03 17:03 | R.PN ---
PROGRESS NOTES ENCOUNTER DATE AND TIME: 07/03/2022 16:59 (CDT) NAME SONIA BARRIENTOS DATE OF : 1940 DATE OF ADMISSION: 06/29/2022 11:36 (CDT) Right Femur FractureCHIEF COMPLAINT: Right femur fracture SUBJECTIVE: Pt denied any Shortness of Breath. Pt denied any depression. Ambulated 250' with rolling walker and minimum assistance. Self-propelled wheelchair 250' with SBA. Blood work was reviewed and are stable. VITAL SIGNS Temperature: 97.5 F SBP/DBP: 150/57 Pulse: 67 Resp: 15 MEDICATION ALLERGIES: No Known Drug Allergies (NKDA) ENVIRONMENTAL ALLERGIES: - Substance Allergies None Known - Other Allergies None Known NURSING: - Shower allowing shower - Lab Results blood Sugar Check ACHS - Skin care per protocol PRECAUTIONS: - Anterior Hip Precaution No abduction No active extension No adduction across midline No external rotation No hip flexion >90 degrees No internal rotation - Posterior Hip Precaution No adduction across midline No external rotation No hip flexion >90 degrees No internal rotation No wheel chair propulsion - Weight Bearing Precaution WBAT right LE - Fall Precaution Bed alarm TABS alarm Wheel chair alarm - DVT Risk due to restricted mobility and age - Skin Breakdown Risk due to restricted mobility and age ACTIVITIES OOB only with supervision THERAPIES: - Dietary and Nutrition Adequate Nutrition. Nutritional Education. Nutritional Supplements. - Occupational Therapy Cognitive Retraining. Patient needs Occupational Therapy for a daily minimum of 1.5 hours at least 5 out of 7 days, to improve Activities of Daily Living, including: Eating, Grooming, Bathing, Dressing, Toileting, Toilet Transfers, Community Reintegration, Higher functional activities, Adaptive Equipme nt, Splinting, Household Tasks, and Other activities as determined. Visual Perceptual Training. - Physical Therapy Patient needs Physical Therapy for a daily minimum of 1.5 hours at least 5 out of 7 days, to improve: Mobility, Strengthening, Transfers, Stretching, ROM, Endurance, Ability to manage stairs, Gait, and Balance. PHYSICAL EXAM - Gen Alert and awake Lying in bed No apparent distress Oriented to: person, time, and place - Skin No skin breakdown. No abnormalities - Eyes No abnormalities - ENMT No abnormalities - Neck No abnormalities - CVS RRR - Chest No abnormalities - Resp No wheezing - Abd Soft - GI + bowel sounds Deferred - No abnormalities - Ext Right hip surgical site has good hemostasis. - MSK 4+/5 weakness in left lower extremity - Neuro 4/5 strength right lower extremity. - Psych No abnormalities ASSESSMENT: On 06/24/2022 he was admitted to [facility] and underwent emergency surgery for Right Femu r Fracture (Unilateral Hip Fracture) by Jabari Voss.Pt. is a 82 yo male of unknown race.Pre-morbidl y, Pt. was independent/mod-I in Locomotion and Self-Care; and he had good Safety Awareness, Balance, Transfers Control, and Endurance.Currently, he has deficits of Locomotion, Safety Awareness, Balance, Transfers Control, Self-Care, and Endurance.Pt. is now referred to [facility] for acute in-patient rehabilitation in order to maximize patient's functional independence in activi ties of daily living, strength, ROM, and mobility.- Rehab Goal Patient has realistic goal of being discharged at assistance level 6-Waqar to reside at Home with Fam lucia/Relatives. MDM/PLAN: - Physical Therapy Decreased range of motion - to improve, our physical therapists will perform initial evaluation of p t's status upon admission and devise an individualized program for increasing patient's Range of Yoni on. Gait dysfunction - to improve, our physical therapists will perform initial evaluation of pt's statu s upon admission and devise an individualized program for Gait Training, and Wheel Chair mobility Inability to transfer - to improve, our physical therapists will perform initial evaluation of pt's status upon admission and devise an individualized program for Bed mobility Need for home safety evaluation - to improve, our physical therapists will perform initial evaluatio n of pt's status upon admission and devise an individualized program for Home Evaluation Need in caregiver upon discharge - to improve, our physical therapists will perform initial evaluati on of pt's status upon admission and devise an individualized program for Caregiver Training New precaution - to improve, our physical therapists will perform initial evaluation of pt's status upon admission and devise an individualized program for Patient precaution education Poor balance - to improve, our physical therapists will perform initial evaluation of pt's status up on admission and devise an individualized program for Balance Training Poor endurance - to improve, our physical therapists will perform initial evaluation of pt's status upon admission and devise an individualized program for Endurance Training Weakness - to improve, our physical therapists will perform initial evaluation of pt's status upon a dmission and devise an individualized program for Aquatic Therapy, Neuromuscular Reeducation, and Str engthening Achieving independence - to improve, our physical therapists will perform initial evaluation of pt's status upon admission and devise an individualized program for Community Reintegration Activities - Occupational Therapy ADL deficits - to improve, our occupation therapists will perform initial evaluation of pt's status upon admission and devise an individualized program for Bathing, Bed mobility, Community Reintegratio n, Cooking, Dressing, Eating, Fine Motor Skills, Grooming, Homemaking, Kitchen Mobility, Laundry, Pat ient Education, Safety Awareness, Splinting - Positioning, Transfers(Toilet, Tub, Shower), and Wheel Chair Management Need for career resource specialist - to improve, our occupation therapists will perform initial evaluation of pt's status upon admission and devise an individualized program for Caregiver Training Weakness - to improve, our occupation therapists will perform initial evaluation of pt's status upon admission and devise an individualized program for Aquatic Therapy, Balance, Endurance, UE ROM, and UE strengthening - Other See attached MAR (Medication Administration Record) - Anterior Hip Precaution No abduction No active extension No adduction across midline No external rotation No hip flexion >90 degrees No internal rotation - Diet - Liquid Texture Continue Regular - Tube Feed Continue N/A - Diet Type Continue Regular - Posterior Hip Precaution No adduction across midline No external rotation No hip flexion >90 degrees No internal rotation No wheel chair propulsion - Lab Results blood Sugar Check ACHS - DVT Risk due to restricted mobility and age - Skin Breakdown Risk due to restricted mobility and age - Weight Bearing Precaution WBAT right LE - Fall Precaution Bed alarm TABS alarm Wheel chair alarm - Skin care per protocol - Diet - Solid Texture Continue Regular - Shower allowing shower FUNCTIONAL STATUS: UPDATED AT WEEKLY TEAM CONFERENCE - Bladder Same accident frequency: 7-Ind - No accidents in the past 7 days - Bowel Same accident frequency: 7-Ind - No accidents in the past 7 days - Walking Same score based on distance walked: 0(N/A) - Wheelchair Same score based on distance traveled: 0(N/A) FUNCTIONAL STATUS: - Self-Care A. Eating Ind B. Grooming Ind C. Bathing modA D. Dressing - [place] E. Dressing - Lower modA F. Toileting sup - Sphincter Control G. Bladder control Waqar H. Bowel control Waqar - Transfers Control I. Bed/Chair/Wheelchair modA J. Toilet modA K. Tub/Shower modA - Locomotion L. Walk/Wheelchair (B) modA M. Stairs ADNO - Communication N. Comprehension (B) Waqar O. Expression (B) Waqar - Social Cognition P. Social Interaction Ind Q. Problem Solving Waqar R. Memory Ind - Endurance Poor - Balance Fair - Safety Awareness Fair QI SCORES: - Self-Care A. Eating 05-Setup or clean-up assistance B. Oral hygiene 05-Setup or clean-up assistance C. Toileting hygiene 04-Supervision or touching assistance E. Shower/bathe self 04-Supervision or touching assistance F. Upper body dressing 05-Setup or clean-up assistance G. Lower body dressing 02-Substantial/maximal assistance H. Putting on/taking off footwear 02-Substantial/maximal assistance - Mobility A. Roll left and right 02-Substantial/maximal assistance B. Sit to lying 02-Substantial/maximal assistance C. Lying to sitting on side of bed 02-Substantial/maximal assistance D. Sit to stand 02-Substantial/maximal assistance E. Chair/[id number] transfer 02-Substantial/maximal assistance F. Toilet transfer 02-Substantial/maximal assistance G. Car transfer 88-Not attempted due to medical condition or safety concerns I. Walk 10 feet 88-Not attempted due to medical condition or safety concerns J. Walk 50 feet with two turns 88-Not attempted due to medical condition or safety concerns K. Walk 150 feet 88-Not attempted due to medical condition or safety concerns L. Walking 10 feet on uneven surfaces 88-Not attempted due to medical condition or safety concerns M. 1 step (curb) 88-Not attempted due to medical condition or safety concerns N. 4 steps 88-Not attempted due to medical condition or safety concerns O. 12 steps 88-Not attempted due to medical condition or safety concerns P. Picking up object 88-Not attempted due to medical condition or safety concerns R. Wheel 50 feet with two turns 09-Not applicable S. Wheel 150 feet 09-Not applicable - Bladder and Bowel Bladder continence 0-Always continent Bowel continence 0-Always continent - Endurance Fair - Balance Fair - Safety Awareness Fair CURRENT FUNC. DEFICITS: Self-Care, Mobility, Endurance, Balance, and Safety Awareness SIGNATURE PANEL: (CDT)
[2022-07-03] MEDS: ENSURE HIGH PROTEIN 237 ML CAN PO SCH (19:33)
[2022-07-03] MEDS: DONEPEZIL HCL 5 MG TAB PO SCH (19:34)
[2022-07-04] MEDS: METOPROLOL TAR 25 MG TAB PO SCH (05:24)
[2022-07-04] MEDS: HYDROCODONE/APAP 7.5/325 MG TAB PO PRN ×2 (06:36→19:33)
[2022-07-04] MEDS: ENSURE HIGH PROTEIN 237 ML CAN PO SCH (08:00)
[2022-07-04] MEDS: ENOXAPARIN 30 MG/0.3 ML SQ SCH (08:10)
[2022-07-04] MEDS: FERROUS SULFATE 325 MG TAB PO SCH (08:11)
[2022-07-04] MEDS: glipiZIDE 5 MG TAB PO SCH ×2 (08:11→19:33)
[2022-07-04] MEDS: lisinopriL 10 MG TAB PO SCH ×2 (08:11→19:33)
[2022-07-04] MEDS: MAGNESIUM OXIDE 400 MG TAB PO SCH ×2 (08:11→19:34)
[2022-07-04] MEDS: MULTIVITAMIN TAB PO SCH (08:12)
[2022-07-04] MEDS: GABAPENTIN 100 MG CAP PO SCH ×2 (08:12→19:33)
[2022-07-04] MEDS: VITAMIN D 1000 UNIT TAB PO SCH (08:12)
[2022-07-04] MEDS: FE SULF/FA/VIT B COMP & C TAB PO SCH (08:12)
[2022-07-04] MEDS: CETIRIZINE HCL 5 MG TABLET PO SCH (08:13)
[2022-07-04] MEDS: LIDOCAINE 4% PATCH TOP SCH (08:13)
[2022-07-04] MEDS: DOCOSAHEXANOIC AC/EPA 1000 MG PO SCH ×2 (08:13→19:33)
[2022-07-04] MEDS: INSULIN -REGULAR HUMAN 50 UNIT/0.5 ML ML SQ SCH ×4 (08:14→19:39)
[2022-07-04] MEDS ORDERED: METFORMIN HCL 500 MG TAB PO ONE (09:50)
--- NOTE | 2022-07-04 09:53 | P.RH.PN ---
Estimated Length of Stay: 12 Expected Discharge Date: 07/11/22 Discharge Disposition Plan: Home Family Support: Yes Prison Goal: Mobility, Transfers, Self Care Vital Signs: Last Vital Signs Temp 98.4 F 07/04/22 07:01 Pulse 81 07/04/22 08:11 Resp 18 07/04/22 07:36 BP 176/74 H 07/04/22 08:11 Pulse Ox 94 07/04/22 07:36 Laboratory: Laboratory Last Values WBC 5.9 K/uL (4.3-10.9) 07/03/22 06:23 RBC 3.05 M/uL (4.33-5.43) L 07/03/22 06:23 Hgb 9.3 g/dL (13.6-17.9) L 07/03/22 06:23 Hct 26.1 % (39.6-49.0) L 07/03/22 06:23 MCV 85.7 fL (80-100) 07/03/22 06:23 MCH 30.5 pg (27.0-35.0) 07/03/22 06:23 MCHC 35.6 g/dL (32.0-36.0) 07/03/22 06:23 RDW 15.9 % (12.1-15.2) H 07/03/22 06:23 Plt Count 171 K/uL (152-406) D 07/03/22 06:23 MPV 7.5 fL (7.6-11.3) L 07/03/22 06:23 Neutrophils % 54.3 % (41.7-73.7) 07/03/22 06:23 Lymphocytes % 29.9 % (15.3-44.8) 07/03/22 06:23 Monocytes % 10.6 % (3.3-12.3) 07/03/22 06:23 Eosinophils % 4.4 % (0-4.4) 07/03/22 06:23 Basophils % 0.8 % (0-1.3) 07/03/22 06:23 Absolute Neutrophils 3.2 K/uL (1.8-8.0) 07/03/22 06:23 Absolute Lymphocytes 1.8 K/uL (0.7-4.9) 07/03/22 06:23 Absolute Monocytes 0.6 K/uL (0.1-1.3) 07/03/22 06:23 Absolute Eosinophils 0.3 K/uL (0-0.5) 07/03/22 06:23 Absolute Basophils 0.0 K/uL (0-0.5) 07/03/22 06:23 Sodium 142 mmol/L (136-145) 07/03/22 06:23 Potassium 4.2 mmol/L (3.5-5.1) 07/03/22 06:23 Chloride 113 mmol/L (98-107) H 07/03/22 06:23 Carbon Dioxide 25 mmol/L (21-32) 07/03/22 06:23 Anion Gap 8.2 mEq/L (5.0-15.0) 07/03/22 06:23 BUN 36 mg/dL (7-18) H 07/03/22 06:23 Creatinine 1.30 mg/dL (0.55-1.3) 07/03/22 06:23 Est GFR (CKD-EPI) 55 ml/min (=/>90) L 07/03/22 06:23 Glucose 189 mg/dL (74-106) H 07/03/22 06:23 POC Glucose 221 mg/dL (65-120) H 07/04/22 06:41 Calcium 8.5 mg/dL (8.5-10.1) 07/03/22 06:23 Magnesium 1.7 mg/dL (1.8-2.4) L 07/03/22 06:23 Albumin 2.4 g/dL (3.4-5.0) L 07/03/22 06:23 Prealbumin 18.5 mg/dL (20-40) L 07/03/22 06:23 Urine Color Yellow (Yellow) 06/29/22 18:01 Urine Clarity Clear (Clear) 06/29/22 18:01 Urine pH 6.0 (5.0-7.0) 06/29/22 18:01 Ur Specific [place] 1.020 (1.005-1.030) 06/29/22 18:01 Glucose (UA)(Auto) Trace (Negative) 06/29/22 18:01 Urine Ketones Negative (Negative) 06/29/22 18:01 Urine Blood 2+ (Negative) H 06/29/22 18:01 Urine Nitrite Negative (Negative) 06/29/22 18:01 Urine Bilirubin Negative (Negative) 06/29/22 18:01 Urine Urobilinogen 0.2 mg/dL (0.2-1.0) 06/29/22 18:01 Ur Leukocyte Esterase Negative (Negative) 06/29/22 18:01 Urine RBC 11-20 /HPF (None Seen) H 06/29/22 18:01 Urine Red Cell Clumps Cancelled 06/29/22 17:45 Urine WBC <5 /HPF (<5) 06/29/22 18:01 Urine WBC Clumps Cancelled 06/29/22 17:45 Ur Squamous Epith Cells <5 /HPF (None Seen) 06/29/22 18:01 U Non-Squamous Epi Cells Cancelled 06/29/22 17:45 Ur Transition Epith Cell Cancelled 06/29/22 17:45 Ur Renal Epithelial Cell Cancelled 06/29/22 17:45 Calcium Carbonate Cryst Cancelled 06/29/22 17:45 Calcium Oxalate Crystal Cancelled 06/29/22 17:45 Leucine Crystals Cancelled 06/29/22 17:45 Cystine Crystals Cancelled 06/29/22 17:45 Uric Acid Crystals Cancelled 06/29/22 17:45 Triple Phos Crystals Cancelled 06/29/22 17:45 Tyrosine Crystals Cancelled 06/29/22 17:45 Unidentified Crystals Cancelled 06/29/22 17:45 Amorphous Crystals Cancelled 06/29/22 17:45 Urine Bacteria <20 /HPF (<20) 06/29/22 18:01 Hyaline Casts Cancelled 06/29/22 17:45 Granular Casts Cancelled 06/29/22 17:45 Waxy Casts Cancelled 06/29/22 17:45 RBC Casts Cancelled 06/29/22 17:45 WBC Casts Cancelled 06/29/22 17:45 Urine Mucus Cancelled 06/29/22 17:45 Urine Trichomonas Cancelled 06/29/22 17:45 Ur Yeast w Hyphae Cancelled 06/29/22 17:45 Urine Yeast (Budding) Cancelled 06/29/22 17:45 Urine Sperm Cancelled 06/29/22 17:45 Ur Oval Fat Bodies Cancelled 06/29/22 17:45 Urine Total Protein 2+ (Negative) H 06/29/22 18:01 Urine Ascorbic Acid Cancelled 06/29/22 17:45 Urine Fat Cancelled 06/29/22 17:45 SARS-CoV-2 Rap RNA(RT-PCR) Negative (NEGATIVE) 07/01/22 11:20 Weight: 186 lb Wound Present: No Closed Surgical Incision Present: Yes Negative Pressure Wound Therapy Present: No Physician Update: Labs were reviewed and are stable except glucose is chronically elevated. Will add metformin 250 mg daily. Bed mobility min assist, transfers SBA, 180' with RW at SBA, min assistance with upper and lower body dressing. Pain is less every day Functional Improvement: Patient is progressing well toward goals, and presents w/ a good attitude toward therapy. Patient continues to improve his strength, and technique when performing tasks. Summary: Patient's care plan and terminal carman goals have been reviewed and revised as necessary. Please see the Rehabilitation Signature page for all necessary signatures.
[2022-07-04] MEDS: TRAMADOL HCL 50 MG TAB PO PRN (10:55)
[2022-07-04] MEDS: methocarbamoL 500 MG TAB PO PRN (16:02)
[2022-07-04] MEDS: DONEPEZIL HCL 5 MG TAB PO SCH (19:34)
[2022-07-04] MEDS: MELATONIN 3 MG TABLET PO PRN (19:34)
[2022-07-04] MEDS: GLUCERNA SHAKE 237 ML CAN PO SCH (19:34)
[2022-07-05] MEDS: INSULIN -REGULAR HUMAN 50 UNIT/0.5 ML ML SQ SCH ×4 (07:30→20:01)
[2022-07-05] MEDS: glipiZIDE 5 MG TAB PO SCH ×2 (08:53→20:02)
[2022-07-05] MEDS: ENOXAPARIN 30 MG/0.3 ML SQ SCH (08:53)
[2022-07-05] MEDS: DOCOSAHEXANOIC AC/EPA 1000 MG PO SCH ×2 (08:53→20:02)
[2022-07-05] MEDS: VITAMIN D 1000 UNIT TAB PO SCH (08:53)
[2022-07-05] MEDS: FE SULF/FA/VIT B COMP & C TAB PO SCH (08:53)
[2022-07-05] MEDS: CETIRIZINE HCL 5 MG TABLET PO SCH (08:54)
[2022-07-05] MEDS: GABAPENTIN 100 MG CAP PO SCH ×2 (08:54→20:01)
[2022-07-05] MEDS: FERROUS SULFATE 325 MG TAB PO SCH (08:54)
[2022-07-05] MEDS: MULTIVITAMIN TAB PO SCH (08:54)
[2022-07-05] MEDS: lisinopriL 10 MG TAB PO SCH ×2 (08:54→20:02)
[2022-07-05] MEDS: MAGNESIUM OXIDE 400 MG TAB PO SCH ×2 (08:55→20:02)
[2022-07-05] MEDS: METOPROLOL TAR 25 MG TAB PO SCH (08:55)
[2022-07-05] MEDS: GLUCERNA SHAKE 237 ML CAN PO SCH ×2 (08:55→20:03)
[2022-07-05] MEDS: LIDOCAINE 4% PATCH TOP SCH (08:56)
[2022-07-05] MEDS: HYDROCODONE/APAP 7.5/325 MG TAB PO PRN ×3 (09:07→21:07)
[2022-07-05] MEDS: TRAMADOL HCL 50 MG TAB PO PRN (11:57)
[2022-07-05] MEDS: [UNRECOGNIZED DRUG - OTHER] PO SCH (16:38)
[2022-07-05] MEDS: DONEPEZIL HCL 5 MG TAB PO SCH (20:01)
[2022-07-05] MEDS: methocarbamoL 500 MG TAB PO PRN (20:02)
[2022-07-05] MEDS: MELATONIN 3 MG TABLET PO PRN (20:03)
[2022-07-06 07:11] LABS: Absolute Lymphocytes (CBC) 1.8 K/uL (0.7-4.9); Hematocrit 27.3 % (39.6-49.0); Lymphocytes % 30.7 % (15.3-44.8); MCV 89.6 fL (80-100); MPV 7.8 fL (7.6-11.3); RBC Red Blood Cell Count 3.05 M/uL (4.33-5.43)
[2022-07-06 07:15] LABS: Magnesium 1.9 mg/dL (1.8-2.4); Potassium 4.5 mmol/L (3.5-5.1)
[2022-07-06] MEDS: HYDROCODONE/APAP 7.5/325 MG TAB PO PRN ×3 (07:21→20:44)
[2022-07-06] MEDS: ENOXAPARIN 30 MG/0.3 ML SQ SCH (07:22)
[2022-07-06] MEDS: LIDOCAINE 4% PATCH TOP SCH (07:22)
[2022-07-06] MEDS: INSULIN -REGULAR HUMAN 50 UNIT/0.5 ML ML SQ SCH ×4 (07:30→19:41)
[2022-07-06] MEDS: GLUCERNA SHAKE 237 ML CAN PO SCH ×2 (07:38→19:41)
[2022-07-06] MEDS: METOPROLOL TAR 25 MG TAB PO SCH (07:38)
[2022-07-06] MEDS: [UNRECOGNIZED DRUG - OTHER] PO SCH ×2 (07:38→16:41)
[2022-07-06] MEDS: lisinopriL 10 MG TAB PO SCH ×2 (07:39→19:40)
[2022-07-06] MEDS: FE SULF/FA/VIT B COMP & C TAB PO SCH (07:39)
[2022-07-06] MEDS: MAGNESIUM OXIDE 400 MG TAB PO SCH ×2 (07:39→19:40)
[2022-07-06] MEDS: VITAMIN D 1000 UNIT TAB PO SCH (07:39)
[2022-07-06] MEDS: CETIRIZINE HCL 5 MG TABLET PO SCH (07:39)
[2022-07-06] MEDS: DOCOSAHEXANOIC AC/EPA 1000 MG PO SCH ×2 (07:39→19:40)
[2022-07-06] MEDS: glipiZIDE 5 MG TAB PO SCH ×2 (07:40→19:40)
[2022-07-06] MEDS: FERROUS SULFATE 325 MG TAB PO SCH (07:40)
[2022-07-06] MEDS: MULTIVITAMIN TAB PO SCH (07:40)
[2022-07-06] MEDS: GABAPENTIN 100 MG CAP PO SCH ×2 (07:40→19:40)
[2022-07-06] MEDS: TRAMADOL HCL 50 MG TAB PO PRN (10:42)
[2022-07-06] MEDS: DONEPEZIL HCL 5 MG TAB PO SCH (19:40)
[2022-07-06] MEDS: clonazePAM 0.5 MG TAB PO PRN (19:41)
[2022-07-07] MEDS: INSULIN -REGULAR HUMAN 50 UNIT/0.5 ML ML SQ SCH ×4 (07:30→20:09)
[2022-07-07] MEDS: ENOXAPARIN 30 MG/0.3 ML SQ SCH (07:35)
[2022-07-07] MEDS: [UNRECOGNIZED DRUG - OTHER] PO SCH ×2 (07:36→17:09)
[2022-07-07] MEDS: METOPROLOL TAR 25 MG TAB PO SCH (07:36)
[2022-07-07] MEDS: VITAMIN D 1000 UNIT TAB PO SCH (07:37)
[2022-07-07] MEDS: GLUCERNA SHAKE 237 ML CAN PO SCH ×2 (07:37→20:11)
[2022-07-07] MEDS: GABAPENTIN 100 MG CAP PO SCH ×2 (07:37→20:11)
[2022-07-07] MEDS: FE SULF/FA/VIT B COMP & C TAB PO SCH (07:37)
[2022-07-07] MEDS: DOCOSAHEXANOIC AC/EPA 1000 MG PO SCH ×2 (07:37→20:11)
[2022-07-07] MEDS: MAGNESIUM OXIDE 400 MG TAB PO SCH ×2 (07:37→20:11)
[2022-07-07] MEDS: lisinopriL 10 MG TAB PO SCH ×2 (07:37→20:10)
[2022-07-07] MEDS: FERROUS SULFATE 325 MG TAB PO SCH (07:38)
[2022-07-07] MEDS: MULTIVITAMIN TAB PO SCH (07:38)
[2022-07-07] MEDS: CETIRIZINE HCL 5 MG TABLET PO SCH (07:38)
[2022-07-07] MEDS: glipiZIDE 5 MG TAB PO SCH ×2 (07:39→20:10)
[2022-07-07] MEDS: HYDROCODONE/APAP 7.5/325 MG TAB PO PRN ×2 (07:48→17:53)
[2022-07-07] MEDS: LIDOCAINE 4% PATCH TOP SCH (09:11)
[2022-07-07] MEDS: TRAMADOL HCL 50 MG TAB PO PRN (09:52)
[2022-07-07] MEDS: methocarbamoL 500 MG TAB PO PRN (12:11)
--- NOTE | 2022-07-07 18:14 | R.PN ---
PROGRESS NOTES ENCOUNTER DATE AND TIME: 07/07/2022 18:09 (CDT) NAME SONIA BARRIENTOS DATE OF : 1940 DATE OF ADMISSION: 06/29/2022 11:36 (CDT) Right Femur FractureCHIEF COMPLAINT: Right femur fracture SUBJECTIVE: Pt denied any Shortness of Breath. Pt denied any depression. Ambulated 250' with standby assistance using a rolling walker. Blood work was reviewed and are stable except Hgb is mildly low at 9.2. Glucose 152 to 218. Covid-1 9 is negative on 07/01/22. VITAL SIGNS Temperature: 97.8 F SBP/DBP: 161/68 Pulse: 72 Resp: 16 MEDICATION ALLERGIES: No Known Drug Allergies (NKDA) ENVIRONMENTAL ALLERGIES: - Substance Allergies None Known - Other Allergies None Known NURSING: - Shower allowing shower - Lab Results blood Sugar Check ACHS - Skin care per protocol PRECAUTIONS: - Anterior Hip Precaution No abduction No active extension No adduction across midline No external rotation No hip flexion >90 degrees No internal rotation - Posterior Hip Precaution No adduction across midline No external rotation No hip flexion >90 degrees No internal rotation No wheel chair propulsion - Weight Bearing Precaution WBAT right LE - Fall Precaution Bed alarm TABS alarm Wheel chair alarm - DVT Risk due to restricted mobility and age - Skin Breakdown Risk due to restricted mobility and age ACTIVITIES OOB only with supervision THERAPIES: - Dietary and Nutrition Adequate Nutrition. Nutritional Education. Nutritional Supplements. - Occupational Therapy Cognitive Retraining. Patient needs Occupational Therapy for a daily minimum of 1.5 hours at least 5 out of 7 days, to improve Activities of Daily Living, including: Eating, Grooming, Bathing, Dressing, Toileting, Toilet Transfers, Community Reintegration, Higher functional activities, Adaptive Equipme nt, Splinting, Household Tasks, and Other activities as determined. Visual Perceptual Training. - Physical Therapy Patient needs Physical Therapy for a daily minimum of 1.5 hours at least 5 out of 7 days, to improve: Mobility, Strengthening, Transfers, Stretching, ROM, Endurance, Ability to manage stairs, Gait, and Balance. PHYSICAL EXAM - Gen Alert and awake Lying in bed No apparent distress Oriented to: person, time, and place - Skin No skin breakdown. No abnormalities - Eyes No abnormalities - ENMT No abnormalities - Neck No abnormalities - CVS RRR - Chest No abnormalities - Resp No wheezing - Abd Soft - GI + bowel sounds Deferred - No abnormalities - Ext Right hip surgical site has good hemostasis. - MSK 4+/5 weakness in left lower extremity - Neuro 4/5 strength right lower extremity. - Psych No abnormalities ASSESSMENT: On 06/24/2022 he was admitted to [facility] and underwent emergency surgery for Right Femu r Fracture (Unilateral Hip Fracture) by Jabari Voss.Pt. is a 82 yo male of unknown race.Pre-morbidl y, Pt. was independent/mod-I in Locomotion and Self-Care; and he had good Safety Awareness, Balance, Transfers Control, and Endurance.Currently, he has deficits of Locomotion, Safety Awareness, Balance, Transfers Control, Self-Care, and Endurance.Pt. is now referred to [facility] for acute in-patient rehabilitation in order to maximize patient's functional independence in activi ties of daily living, strength, ROM, and mobility.- Rehab Goal Patient has realistic goal of being discharged at assistance level 6-Waqar to reside at Home with Fam lucia/Relatives. MDM/PLAN: - Physical Therapy Decreased range of motion - to improve, our physical therapists will perform initial evaluation of p t's status upon admission and devise an individualized program for increasing patient's Range of Yoni on. Gait dysfunction - to improve, our physical therapists will perform initial evaluation of pt's statu s upon admission and devise an individualized program for Gait Training, and Wheel Chair mobility Inability to transfer - to improve, our physical therapists will perform initial evaluation of pt's status upon admission and devise an individualized program for Bed mobility Need for home safety evaluation - to improve, our physical therapists will perform initial evaluatio n of pt's status upon admission and devise an individualized program for Home Evaluation Need in caregiver upon discharge - to improve, our physical therapists will perform initial evaluati on of pt's status upon admission and devise an individualized program for Caregiver Training New precaution - to improve, our physical therapists will perform initial evaluation of pt's status upon admission and devise an individualized program for Patient precaution education Poor balance - to improve, our physical therapists will perform initial evaluation of pt's status up on admission and devise an individualized program for Balance Training Poor endurance - to improve, our physical therapists will perform initial evaluation of pt's status upon admission and devise an individualized program for Endurance Training Weakness - to improve, our physical therapists will perform initial evaluation of pt's status upon a dmission and devise an individualized program for Aquatic Therapy, Neuromuscular Reeducation, and Str engthening Achieving independence - to improve, our physical therapists will perform initial evaluation of pt's status upon admission and devise an individualized program for Community Reintegration Activities - Occupational Therapy ADL deficits - to improve, our occupation therapists will perform initial evaluation of pt's status upon admission and devise an individualized program for Bathing, Bed mobility, Community Reintegratio n, Cooking, Dressing, Eating, Fine Motor Skills, Grooming, Homemaking, Kitchen Mobility, Laundry, Pat ient Education, Safety Awareness, Splinting - Positioning, Transfers(Toilet, Tub, Shower), and Wheel Chair Management Need for healthcare project manager - to improve, our occupation therapists will perform initial evaluation of pt's status upon admission and devise an individualized program for Caregiver Training Weakness - to improve, our occupation therapists will perform initial evaluation of pt's status upon admission and devise an individualized program for Aquatic Therapy, Balance, Endurance, UE ROM, and UE strengthening - Other See attached MAR (Medication Administration Record) - Anterior Hip Precaution No abduction No active extension No adduction across midline No external rotation No hip flexion >90 degrees No internal rotation - Diet - Liquid Texture Continue Regular - Tube Feed Continue N/A - Diet Type Continue Regular - Posterior Hip Precaution No adduction across midline No external rotation No hip flexion >90 degrees No internal rotation No wheel chair propulsion - Lab Results blood Sugar Check ACHS - DVT Risk due to restricted mobility and age - Skin Breakdown Risk due to restricted mobility and age - Weight Bearing Precaution WBAT right LE - Fall Precaution Bed alarm TABS alarm Wheel chair alarm - Skin care per protocol - Diet - Solid Texture Continue Regular - Shower allowing shower FUNCTIONAL STATUS: UPDATED AT WEEKLY TEAM CONFERENCE - Bladder Same accident frequency: 7-Ind - No accidents in the past 7 days - Bowel Same accident frequency: 7-Ind - No accidents in the past 7 days - Walking Same score based on distance walked: 0(N/A) - Wheelchair Same score based on distance traveled: 0(N/A) FUNCTIONAL STATUS: - Self-Care A. Eating Ind B. Grooming Ind C. Bathing modA D. Dressing - [place] E. Dressing - Lower modA F. Toileting sup - Sphincter Control G. Bladder control Waqar H. Bowel control Waqar - Transfers Control I. Bed/Chair/Wheelchair modA J. Toilet modA K. Tub/Shower modA - Locomotion L. Walk/Wheelchair (B) modA M. Stairs ADNO - Communication N. Comprehension (B) Waqar O. Expression (B) Waqar - Social Cognition P. Social Interaction Ind Q. Problem Solving Waqar R. Memory Ind - Endurance Poor - Balance Fair - Safety Awareness Fair QI SCORES: - Self-Care A. Eating 05-Setup or clean-up assistance B. Oral hygiene 05-Setup or clean-up assistance C. Toileting hygiene 04-Supervision or touching assistance E. Shower/bathe self 04-Supervision or touching assistance F. Upper body dressing 05-Setup or clean-up assistance G. Lower body dressing 02-Substantial/maximal assistance H. Putting on/taking off footwear 02-Substantial/maximal assistance - Mobility A. Roll left and right 02-Substantial/maximal assistance B. Sit to lying 02-Substantial/maximal assistance C. Lying to sitting on side of bed 02-Substantial/maximal assistance D. Sit to stand 02-Substantial/maximal assistance E. Chair/[id number]-[id number] transfer 02-Substantial/maximal assistance F. Toilet transfer 02-Substantial/maximal assistance G. Car transfer 88-Not attempted due to medical condition or safety concerns I. Walk 10 feet 88-Not attempted due to medical condition or safety concerns J. Walk 50 feet with two turns 88-Not attempted due to medical condition or safety concerns K. Walk 150 feet 88-Not attempted due to medical condition or safety concerns L. Walking 10 feet on uneven surfaces 88-Not attempted due to medical condition or safety concerns M. 1 step (curb) 88-Not attempted due to medical condition or safety concerns N. 4 steps 88-Not attempted due to medical condition or safety concerns O. 12 steps 88-Not attempted due to medical condition or safety concerns P. Picking up object 88-Not attempted due to medical condition or safety concerns R. Wheel 50 feet with two turns 09-Not applicable S. Wheel 150 feet 09-Not applicable - Bladder and Bowel Bladder continence 0-Always continent Bowel continence 0-Always continent - Endurance Fair - Balance Fair - Safety Awareness Fair CURRENT FUNC. DEFICITS: Self-Care, Mobility, Endurance, Balance, and Safety Awareness SIGNATURE PANEL: (CDT)
[2022-07-07] MEDS: BACLOFEN 10 MG TAB PO SCH (20:10)
[2022-07-07] MEDS: DONEPEZIL HCL 5 MG TAB PO SCH (20:11)
--- NOTE | 2022-07-08 03:09 | PN ---
Date of Progress Note: 07/07/2022 Chief Complaint: Acute kidney injury. Subjective: The patient developed prerenal azotemia, nonoliguric ATN associated with hyperkalemia. He was treated with Lokelma and potassium level has improved. The patient had a hip fracture and is undergoing rehab. Review of Systems: Denies fever or chills. Objective: Lungs: Clear to auscultation bilaterally. Heart: S1 and S2. Extremities: No edema. Impression And Plan: 1.Acute kidney injury secondary to prerenal azotemia, volume depletion associated with rhabdomyolysi s. Renal function has improved. Lab work was done today to re-evaluate kidney function. Serum crea tinine level is fluctuating. Continue to monitor. Avoid nonsteroidal anti-inflammatory medication. 2.Hyperkalemia secondary to rhabdomyolysis, treated with Lokelma and potassium level has improved. Monitor potassium level. 3.The patient has hypertension. Continue current blood pressure medication. DOUG/KARLA Voice ID: [id number] Report ID: [id number]
[2022-07-08] MEDS: ENOXAPARIN 30 MG/0.3 ML SQ SCH (07:13)
[2022-07-08] MEDS: LIDOCAINE 4% PATCH TOP SCH (07:13)
[2022-07-08] MEDS: INSULIN -REGULAR HUMAN 50 UNIT/0.5 ML ML SQ SCH ×4 (07:32→19:54)
[2022-07-08] MEDS: [UNRECOGNIZED DRUG - OTHER] PO SCH ×2 (07:32→16:58)
[2022-07-08] MEDS: glipiZIDE 5 MG TAB PO SCH ×2 (07:33→16:24)
[2022-07-08] MEDS: DOCOSAHEXANOIC AC/EPA 1000 MG PO SCH ×2 (07:33→19:55)
[2022-07-08] MEDS: GABAPENTIN 100 MG CAP PO SCH ×2 (07:33→19:55)
[2022-07-08] MEDS: MULTIVITAMIN TAB PO SCH (07:33)
[2022-07-08] MEDS: CETIRIZINE HCL 5 MG TABLET PO SCH (07:34)
[2022-07-08] MEDS: MAGNESIUM OXIDE 400 MG TAB PO SCH ×2 (07:34→19:55)
[2022-07-08] MEDS: METOPROLOL TAR 25 MG TAB PO SCH ×2 (07:34→16:58)
[2022-07-08] MEDS: HYDROCODONE/APAP 7.5/325 MG TAB PO PRN ×3 (07:35→20:59)
[2022-07-08] MEDS: lisinopriL 10 MG TAB PO SCH ×2 (07:35→19:55)
[2022-07-08] MEDS: FERROUS SULFATE 325 MG TAB PO SCH (07:35)
[2022-07-08] MEDS: VITAMIN D 1000 UNIT TAB PO SCH (07:35)
[2022-07-08] MEDS: FE SULF/FA/VIT B COMP & C TAB PO SCH (07:35)
[2022-07-08] MEDS: GLUCERNA SHAKE 237 ML CAN PO SCH ×2 (07:37→19:55)
[2022-07-08] MEDS: methocarbamoL 500 MG TAB PO PRN (10:47)
--- NOTE | 2022-07-08 11:10 | P.PN ---
Subjective Date of Service: 07/08/22 Chief Complaint: S/P Fall A 82-year-old gentleman with significant past medical history of diabetes for more than 15 years, complicated with neuropathy, no retinopathy, hypertension, hyperlipidemia, obstructive uropathy status post procedure 1 and half years ago, Pt presented after fall, had hip fracture, nephrology consulted for BETTIE , Cr 1.7 that improved with IVF , Pt is S/p ORIF today seen and examined during physical therapy Bp elevated , will increase metoprolol to bid encouraged to increase fluid intake Physical exam General: AAOx3, NAD HEENT PERRLA, moist mucose membrane neck: supple, no elevated JVD CHEST; CTAB, no wheezes or rales HEART : RRR. Normal S1,2 no murmur or rub Abd: soft, Nt Ext: Rt leg swelling, lt no edema Skin : No rash 1.Acute kidney injury secondary to prerenal, dehydration, + rhabdomyolysis Cr improved to 1.2 , now 1.4 encouraged to increase fluid inatke Monitor renal panel. avoid NSAID cont lisinopril for now 2.Hyperkalemia resolved 2/2 renal failure + ACEI, improved. Continue Lokelma. 3> anemia of chronic disease cont IV iron S/P 2 PRBC 4. rt femur fracture S/p ORIF pain control PT/OT 5> HTN Bp elevated will increase metoprolol to bid cont lisinopril for now Total time spent 45 minutes including documentation, reviewing labs , placing orders and discussing with medical team Physical Examination - Vital Signs Temperature: 99.0 F Blood Pressure: 162/78 Pulse: 77 Respirations: 18 Pulse Ox (%): 95
[2022-07-08] MEDS: TRAMADOL HCL 50 MG TAB PO PRN (12:10)
--- NOTE | 2022-07-08 15:17 | R.PN ---
PROGRESS NOTES ENCOUNTER DATE AND TIME: 07/08/2022 15:10 (CDT) NAME SONIA BARRIENTOS DATE OF : 1940 DATE OF ADMISSION: 06/29/2022 11:36 (CDT) Right Femur FractureCHIEF COMPLAINT: Right femur fracture SUBJECTIVE: Pt denied any Shortness of Breath. Pt denied any depression. Ambulated 250' with standby assistance using a rolling walker and no loss of balance. Blood work was reviewed and are stable except Hgb is mildly low at 9.2. Glucose 204 to 256. Increase d glipizide to15 mg bid. Covid-19 is negative on 07/01/22. VITAL SIGNS Temperature: 99.0 F SBP/DBP: 162/78 Pulse: 77 Resp: 14 MEDICATION ALLERGIES: No Known Drug Allergies (NKDA) ENVIRONMENTAL ALLERGIES: - Substance Allergies None Known - Other Allergies None Known NURSING: - Shower allowing shower - Lab Results blood Sugar Check ACHS - Skin care per protocol PRECAUTIONS: - Anterior Hip Precaution No abduction No active extension No adduction across midline No external rotation No hip flexion >90 degrees No internal rotation - Posterior Hip Precaution No adduction across midline No external rotation No hip flexion >90 degrees No internal rotation No wheel chair propulsion - Weight Bearing Precaution WBAT right LE - Fall Precaution Bed alarm TABS alarm Wheel chair alarm - DVT Risk due to restricted mobility and age - Skin Breakdown Risk due to restricted mobility and age ACTIVITIES OOB only with supervision THERAPIES: - Dietary and Nutrition Adequate Nutrition. Nutritional Education. Nutritional Supplements. - Occupational Therapy Cognitive Retraining. Patient needs Occupational Therapy for a daily minimum of 1.5 hours at least 5 out of 7 days, to improve Activities of Daily Living, including: Eating, Grooming, Bathing, Dressing, Toileting, Toilet Transfers, Community Reintegration, Higher functional activities, Adaptive Equipme nt, Splinting, Household Tasks, and Other activities as determined. Visual Perceptual Training. - Physical Therapy Patient needs Physical Therapy for a daily minimum of 1.5 hours at least 5 out of 7 days, to improve: Mobility, Strengthening, Transfers, Stretching, ROM, Endurance, Ability to manage stairs, Gait, and Balance. PHYSICAL EXAM - Gen Alert and awake Lying in bed No apparent distress Oriented to: person, time, and place - Skin No skin breakdown. No abnormalities - Eyes No abnormalities - ENMT No abnormalities - Neck No abnormalities - CVS RRR - Chest No abnormalities - Resp No wheezing - Abd Soft - GI + bowel sounds Deferred - No abnormalities - Ext Right hip surgical site has good hemostasis. - MSK 4+/5 weakness in left lower extremity - Neuro 4/5 strength right lower extremity. - Psych No abnormalities ASSESSMENT: On 06/24/2022 he was admitted to [facility] and underwent emergency surgery for Right Femu r Fracture (Unilateral Hip Fracture) by Jabari Voss.Pt. is a 82 yo male of unknown race.Pre-morbidl y, Pt. was independent/mod-I in Locomotion and Self-Care; and he had good Safety Awareness, Balance, Transfers Control, and Endurance.Currently, he has deficits of Locomotion, Safety Awareness, Balance, Transfers Control, Self-Care, and Endurance.Pt. is now referred to [facility] for acute in-patient rehabilitation in order to maximize patient's functional independence in activi ties of daily living, strength, ROM, and mobility.- Rehab Goal Patient has realistic goal of being discharged at assistance level 6-Waqar to reside at Home with Fam lucia/Relatives. MDM/PLAN: - Physical Therapy Decreased range of motion - to improve, our physical therapists will perform initial evaluation of p t's status upon admission and devise an individualized program for increasing patient's Range of Yoni on. Gait dysfunction - to improve, our physical therapists will perform initial evaluation of pt's statu s upon admission and devise an individualized program for Gait Training, and Wheel Chair mobility Inability to transfer - to improve, our physical therapists will perform initial evaluation of pt's status upon admission and devise an individualized program for Bed mobility Need for home safety evaluation - to improve, our physical therapists will perform initial evaluatio n of pt's status upon admission and devise an individualized program for Home Evaluation Need in caregiver upon discharge - to improve, our physical therapists will perform initial evaluati on of pt's status upon admission and devise an individualized program for Caregiver Training New precaution - to improve, our physical therapists will perform initial evaluation of pt's status upon admission and devise an individualized program for Patient precaution education Poor balance - to improve, our physical therapists will perform initial evaluation of pt's status up on admission and devise an individualized program for Balance Training Poor endurance - to improve, our physical therapists will perform initial evaluation of pt's status upon admission and devise an individualized program for Endurance Training Weakness - to improve, our physical therapists will perform initial evaluation of pt's status upon a dmission and devise an individualized program for Aquatic Therapy, Neuromuscular Reeducation, and Str engthening Achieving independence - to improve, our physical therapists will perform initial evaluation of pt's status upon admission and devise an individualized program for Community Reintegration Activities - Occupational Therapy ADL deficits - to improve, our occupation therapists will perform initial evaluation of pt's status upon admission and devise an individualized program for Bathing, Bed mobility, Community Reintegratio n, Cooking, Dressing, Eating, Fine Motor Skills, Grooming, Homemaking, Kitchen Mobility, Laundry, Pat ient Education, Safety Awareness, Splinting - Positioning, Transfers(Toilet, Tub, Shower), and Wheel Chair Management Need for medicare biller - to improve, our occupation therapists will perform initial evaluation of pt's status upon admission and devise an individualized program for Caregiver Training Weakness - to improve, our occupation therapists will perform initial evaluation of pt's status upon admission and devise an individualized program for Aquatic Therapy, Balance, Endurance, UE ROM, and UE strengthening - Other See attached MAR (Medication Administration Record) - Anterior Hip Precaution No abduction No active extension No adduction across midline No external rotation No hip flexion >90 degrees No internal rotation - Diet - Liquid Texture Continue Regular - Tube Feed Continue N/A - Diet Type Continue Regular - Posterior Hip Precaution No adduction across midline No external rotation No hip flexion >90 degrees No internal rotation No wheel chair propulsion - Lab Results blood Sugar Check ACHS - DVT Risk due to restricted mobility and age - Skin Breakdown Risk due to restricted mobility and age - Weight Bearing Precaution WBAT right LE - Fall Precaution Bed alarm TABS alarm Wheel chair alarm - Skin care per protocol - Diet - Solid Texture Continue Regular - Shower allowing shower FUNCTIONAL STATUS: UPDATED AT WEEKLY TEAM CONFERENCE - Bladder Same accident frequency: 7-Ind - No accidents in the past 7 days - Bowel Same accident frequency: 7-Ind - No accidents in the past 7 days - Walking Same score based on distance walked: 0(N/A) - Wheelchair Same score based on distance traveled: 0(N/A) FUNCTIONAL STATUS: - Self-Care A. Eating Ind B. Grooming Ind C. Bathing modA D. Dressing - [place] E. Dressing - Lower modA F. Toileting sup - Sphincter Control G. Bladder control Waqar H. Bowel control Waqar - Transfers Control I. Bed/Chair/Wheelchair modA J. Toilet modA K. Tub/Shower modA - Locomotion L. Walk/Wheelchair (B) modA M. Stairs ADNO - Communication N. Comprehension (B) Waqar O. Expression (B) Waqar - Social Cognition P. Social Interaction Ind Q. Problem Solving Waqar R. Memory Ind - Endurance Poor - Balance Fair - Safety Awareness Fair QI SCORES: - Self-Care A. Eating 05-Setup or clean-up assistance B. Oral hygiene 05-Setup or clean-up assistance C. Toileting hygiene 04-Supervision or touching assistance E. Shower/bathe self 04-Supervision or touching assistance F. Upper body dressing 05-Setup or clean-up assistance G. Lower body dressing 02-Substantial/maximal assistance H. Putting on/taking off footwear 02-Substantial/maximal assistance - Mobility A. Roll left and right 02-Substantial/maximal assistance B. Sit to lying 02-Substantial/maximal assistance C. Lying to sitting on side of bed 02-Substantial/maximal assistance D. Sit to stand 02-Substantial/maximal assistance E. Chair/[id number]-dc-hisvq transfer 02-Substantial/maximal assistance F. Toilet transfer 02-Substantial/maximal assistance G. Car transfer 88-Not attempted due to medical condition or safety concerns I. Walk 10 feet 88-Not attempted due to medical condition or safety concerns J. Walk 50 feet with two turns 88-Not attempted due to medical condition or safety concerns K. Walk 150 feet 88-Not attempted due to medical condition or safety concerns L. Walking 10 feet on uneven surfaces 88-Not attempted due to medical condition or safety concerns M. 1 step (curb) 88-Not attempted due to medical condition or safety concerns N. 4 steps 88-Not attempted due to medical condition or safety concerns O. 12 steps 88-Not attempted due to medical condition or safety concerns P. Picking up object 88-Not attempted due to medical condition or safety concerns R. Wheel 50 feet with two turns 09-Not applicable S. Wheel 150 feet 09-Not applicable - Bladder and Bowel Bladder continence 0-Always continent Bowel continence 0-Always continent - Endurance Fair - Balance Fair - Safety Awareness Fair [facility]. DEFICITS: Self-Care, Mobility, Endurance, Balance, and Safety Awareness SIGNATURE PANEL: (CDT)
[2022-07-08] MEDS: DONEPEZIL HCL 5 MG TAB PO SCH (19:55)
[2022-07-08] MEDS: BACLOFEN 10 MG TAB PO SCH (19:55)
[2022-07-09] MEDS: HYDROCODONE/APAP 7.5/325 MG TAB PO PRN ×3 (05:29→19:21)
[2022-07-09] MEDS: METOPROLOL TAR 25 MG TAB PO SCH ×2 (05:30→17:30)
[2022-07-09] MEDS: ENOXAPARIN 30 MG/0.3 ML SQ SCH (07:26)
[2022-07-09] MEDS: INSULIN -REGULAR HUMAN 50 UNIT/0.5 ML ML SQ SCH ×4 (07:27→20:29)
[2022-07-09] MEDS: FE SULF/FA/VIT B COMP & C TAB PO SCH (08:35)
[2022-07-09] MEDS: GABAPENTIN 100 MG CAP PO SCH ×2 (08:35→19:21)
[2022-07-09] MEDS: CETIRIZINE HCL 5 MG TABLET PO SCH (08:36)
[2022-07-09] MEDS: VITAMIN D 1000 UNIT TAB PO SCH (08:36)
[2022-07-09] MEDS: MULTIVITAMIN TAB PO SCH (08:37)
[2022-07-09] MEDS: glipiZIDE 5 MG TAB PO SCH ×2 (08:37→17:16)
[2022-07-09] MEDS: FERROUS SULFATE 325 MG TAB PO SCH (08:37)
[2022-07-09] MEDS: DOCOSAHEXANOIC AC/EPA 1000 MG PO SCH ×2 (08:38→19:21)
[2022-07-09] MEDS: MAGNESIUM OXIDE 400 MG TAB PO SCH ×2 (08:38→19:22)
[2022-07-09] MEDS: lisinopriL 10 MG TAB PO SCH ×2 (08:38→19:22)
[2022-07-09] MEDS: methocarbamoL 500 MG TAB PO PRN (08:41)
[2022-07-09] MEDS: LIDOCAINE 4% PATCH TOP SCH (09:58)
[2022-07-09] MEDS: GLUCERNA SHAKE 237 ML CAN PO SCH ×2 (09:59→19:23)
[2022-07-09] MEDS: [UNRECOGNIZED DRUG - OTHER] PO SCH ×2 (10:00→17:16)
--- NOTE | 2022-07-09 17:16 | PN ---
Date of Progress Note: 07/09/2022 Subjective: The patient was admitted with acute kidney injury secondary to rhabdo, poor perfusion, ATN, recovered. The patient had hip fracture, status post repair, transferred to rehab. Physical Examination: Vital Signs: Blood pressure 130/58, pulse of 60. Chest: Clear to auscultation. Heart: S1, S2. Regular. Abdomen: Soft, nontender. Extremity: No edema. Neurologic: Alert. No focality. Laboratory Data: WBC 5.9, H and H 9.2/27.3. Sodium 139, potassium 4.5, bicarb 27, BUN 35, creatinine 1.4, GFR of 50. Current Medications: The patient on include; 1. Lisinopril 10 mg b.i.d. 2. Metoprolol. 3. Gabapentin. 4. Glipizide. 5. Magnesium. 6. Melatonin. Assessment And Plan: 1. Acute kidney injury secondary to prerenal/rhabdomyolysis, recovered, resolved, back to baseline. 2. Hypertension, controlled, optimal. Continue current medication. Agree with CHAU inhibitor. 3. Rhabdomyolysis, recovered, resolved. 4. Hip fracture, status post repair. Continue PT/OT. Time spent examining the patient [id number], reviewing the data lab and radiology, placing orders, discussing with the patient, explaining risks, benefits, alternatives, discussing with the staff member including nursing discussing with the hospitalist more than 35 minutes. ANNETTE Voice ID: [id number] Report ID: [id number] MTDD
[2022-07-09] MEDS: BACLOFEN 10 MG TAB PO SCH (19:21)
[2022-07-09] MEDS: DONEPEZIL HCL 5 MG TAB PO SCH (19:21)
--- NOTE | 2022-07-09 19:42 | R.PN ---
PROGRESS NOTES ENCOUNTER DATE AND TIME: 07/09/2022 19:38 (CDT) NAME SONIA BARRIENTOS DATE OF : 1940 DATE OF ADMISSION: 06/29/2022 11:36 (CDT) Right Femur FractureCHIEF COMPLAINT: Right femur fracture SUBJECTIVE: Pt denied any Shortness of Breath. Pt denied any depression. Ambulated 150' with standby assistance using a rolling walker and no loss of balance. Up and down 20 steps with CGA using both hand rails. Blood work was reviewed and are stable except Hgb is mildly low at 9.2. Glucose 175 to 237 Increased glipizide to15 mg bid. Covid-19 was negative on 07/01/22. VITAL SIGNS Temperature: 97.8 F SBP/DBP: 140/61 Pulse: 71 Resp: 15 MEDICATION ALLERGIES: No Known Drug Allergies (NKDA) ENVIRONMENTAL ALLERGIES: - Substance Allergies None Known - Other Allergies None Known NURSING: - Shower allowing shower - Lab Results blood Sugar Check ACHS - Skin care per protocol PRECAUTIONS: - Anterior Hip Precaution No abduction No active extension No adduction across midline No external rotation No hip flexion >90 degrees No internal rotation - Posterior Hip Precaution No adduction across midline No external rotation No hip flexion >90 degrees No internal rotation No wheel chair propulsion - Weight Bearing Precaution WBAT right LE - Fall Precaution Bed alarm TABS alarm Wheel chair alarm - DVT Risk due to restricted mobility and age - Skin Breakdown Risk due to restricted mobility and age ACTIVITIES OOB only with supervision THERAPIES: - Dietary and Nutrition Adequate Nutrition. Nutritional Education. Nutritional Supplements. - Occupational Therapy Cognitive Retraining. Patient needs Occupational Therapy for a daily minimum of 1.5 hours at least 5 out of 7 days, to improve Activities of Daily Living, including: Eating, Grooming, Bathing, Dressing, Toileting, Toilet Transfers, Community Reintegration, Higher functional activities, Adaptive Equipme nt, Splinting, Household Tasks, and Other activities as determined. Visual Perceptual Training. - Physical Therapy Patient needs Physical Therapy for a daily minimum of 1.5 hours at least 5 out of 7 days, to improve: Mobility, Strengthening, Transfers, Stretching, ROM, Endurance, Ability to manage stairs, Gait, and Balance. PHYSICAL EXAM - Gen Alert and awake Lying in bed No apparent distress Oriented to: person, time, and place - Skin No skin breakdown. No abnormalities - Eyes No abnormalities - ENMT No abnormalities - Neck No abnormalities - CVS RRR - Chest No abnormalities - Resp No wheezing - Abd Soft - GI + bowel sounds Deferred - No abnormalities - Ext Right hip surgical site has good hemostasis. - MSK 4+/5 weakness in left lower extremity - Neuro 4/5 strength right lower extremity. - Psych No abnormalities ASSESSMENT: On 06/24/2022 he was admitted to [facility] and underwent emergency surgery for Right Femu r Fracture (Unilateral Hip Fracture) by Jabari Voss.Pt. is a 82 yo male of unknown race.Pre-morbidl y, Pt. was independent/mod-I in Locomotion and Self-Care; and he had good Safety Awareness, Balance, Transfers Control, and Endurance.Currently, he has deficits of Locomotion, Safety Awareness, Balance, Transfers Control, Self-Care, and Endurance.Pt. is now referred to [facility] for acute in-patient rehabilitation in order to maximize patient's functional independence in activi ties of daily living, strength, ROM, and mobility.- Rehab Goal Patient has realistic goal of being discharged at assistance level 6-Waqar to reside at Home with Fam lucia/Relatives. MDM/PLAN: - Physical Therapy Decreased range of motion - to improve, our physical therapists will perform initial evaluation of p t's status upon admission and devise an individualized program for increasing patient's Range of Yoni on. Gait dysfunction - to improve, our physical therapists will perform initial evaluation of pt's statu s upon admission and devise an individualized program for Gait Training, and Wheel Chair mobility Inability to transfer - to improve, our physical therapists will perform initial evaluation of pt's status upon admission and devise an individualized program for Bed mobility Need for home safety evaluation - to improve, our physical therapists will perform initial evaluatio n of pt's status upon admission and devise an individualized program for Home Evaluation Need in caregiver upon discharge - to improve, our physical therapists will perform initial evaluati on of pt's status upon admission and devise an individualized program for Caregiver Training New precaution - to improve, our physical therapists will perform initial evaluation of pt's status upon admission and devise an individualized program for Patient precaution education Poor balance - to improve, our physical therapists will perform initial evaluation of pt's status up on admission and devise an individualized program for Balance Training Poor endurance - to improve, our physical therapists will perform initial evaluation of pt's status upon admission and devise an individualized program for Endurance Training Weakness - to improve, our physical therapists will perform initial evaluation of pt's status upon a dmission and devise an individualized program for Aquatic Therapy, Neuromuscular Reeducation, and Str engthening Achieving independence - to improve, our physical therapists will perform initial evaluation of pt's status upon admission and devise an individualized program for Community Reintegration Activities - Occupational Therapy ADL deficits - to improve, our occupation therapists will perform initial evaluation of pt's status upon admission and devise an individualized program for Bathing, Bed mobility, Community Reintegratio n, Cooking, Dressing, Eating, Fine Motor Skills, Grooming, Homemaking, Kitchen Mobility, Laundry, Pat ient Education, Safety Awareness, Splinting - Positioning, Transfers(Toilet, Tub, Shower), and Wheel Chair Management 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 - to 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, our occupation therapists will perform initial evaluation of pt's status upon admission and devise an individualized program for Caregiver Training Weakness - to improve, our occupation therapists will perform initial evaluation of pt's status upon admission and devise an individualized program for Aquatic Therapy, Balance, Endurance, UE ROM, and UE strengthening - Other See attached MAR (Medication Administration Record) - Anterior Hip Precaution No abduction No active extension No adduction across midline No external rotation No hip flexion >90 degrees No internal rotation - Diet - Liquid Texture Continue Regular - Tube Feed Continue N/A - Diet Type Continue Regular - Posterior Hip Precaution No adduction across midline No external rotation No hip flexion >90 degrees No internal rotation No wheel chair propulsion - Lab Results blood Sugar Check ACHS - DVT Risk due to restricted mobility and age - Skin Breakdown Risk due to restricted mobility and age - Weight Bearing Precaution WBAT right LE - Fall Precaution Bed alarm TABS alarm Wheel chair alarm - Skin care per protocol - Diet - Solid Texture Continue Regular - Shower allowing shower FUNCTIONAL STATUS: UPDATED AT WEEKLY TEAM CONFERENCE - Bladder Same accident frequency: 7-Ind - No accidents in the past 7 days - Bowel Same accident frequency: 7-Ind - No accidents in the past 7 days - Walking Same score based on distance walked: 0(N/A) - Wheelchair Same score based on distance traveled: 0(N/A) FUNCTIONAL STATUS: - Self-Care A. Eating Ind B. Grooming Ind C. Bathing modA D. Dressing - [place] E. Dressing - Lower modA F. Toileting sup - Sphincter Control G. Bladder control Waqar H. Bowel control Waqar - Transfers Control I. Bed/Chair/Wheelchair modA J. Toilet modA K. Tub/Shower modA - Locomotion L. Walk/Wheelchair (B) modA M. Stairs ADNO - Communication N. Comprehension (B) Waaqr O. Expression (B) Waqar - Social Cognition P. Social Interaction Ind Q. Problem Solving Waqar R. Memory Ind - Endurance Poor - Balance Fair - Safety Awareness Fair QI SCORES: - Self-Care A. Eating 05-Setup or clean-up assistance B. Oral hygiene 05-Setup or clean-up assistance C. Toileting hygiene 04-Supervision or touching assistance E. Shower/bathe self 04-Supervision or touching assistance F. Upper body dressing 05-Setup or clean-up assistance G. Lower body dressing 02-Substantial/maximal assistance H. Putting on/taking off footwear 02-Substantial/maximal assistance - Mobility A. Roll left and right 02-Substantial/maximal assistance B. Sit to lying 02-Substantial/maximal assistance C. Lying to sitting on side of bed 02-Substantial/maximal assistance D. Sit to stand 02-Substantial/maximal assistance E. Chair/wln-lr-[id number] transfer 02-Substantial/maximal assistance F. Toilet transfer 02-Substantial/maximal assistance G. Car transfer 88-Not attempted due to medical condition or safety concerns I. Walk 10 feet 88-Not attempted due to medical condition or safety concerns J. Walk 50 feet with two turns 88-Not attempted due to medical condition or safety concerns K. Walk 150 feet 88-Not attempted due to medical condition or safety concerns L. Walking 10 feet on uneven surfaces 88-Not attempted due to medical condition or safety concerns M. 1 step (curb) 88-Not attempted due to medical condition or safety concerns N. 4 steps 88-Not attempted due to medical condition or safety concerns O. 12 steps 88-Not attempted due to medical condition or safety concerns P. Picking up object 88-Not attempted due to medical condition or safety concerns R. Wheel 50 feet with two turns 09-Not applicable S. Wheel 150 feet 09-Not applicable - Bladder and Bowel Bladder continence 0-Always continent Bowel continence 0-Always continent - Endurance Fair - Balance Fair - Safety Awareness Fair CURRENT [facility]. DEFICITS: Self-Care, Mobility, Endurance, Balance, and Safety Awareness SIGNATURE PANEL: (CDT)
[2022-07-10 04:31] LABS: Absolute Lymphocytes (CBC) 1.8 K/uL (0.7-4.9); Hematocrit 29.8 % (39.6-49.0); Lymphocytes % 22.3 % (15.3-44.8); MCV 90.3 fL (80-100)
[2022-07-10 04:51] LABS: Albumin 2.6 g/dL (3.4-5.0); Magnesium 2.2 mg/dL (1.8-2.4); Potassium 4.7 mmol/L (3.5-5.1); Prealbumin 22.4 mg/dL (20-40)
[2022-07-10] MEDS: METOPROLOL TAR 25 MG TAB PO SCH ×2 (05:39→17:29)
[2022-07-10] MEDS: LIDOCAINE 4% PATCH TOP SCH (06:59)
[2022-07-10] MEDS: ENOXAPARIN 40 MG/0.4 ML SQ SCH (07:25)
[2022-07-10] MEDS: [UNRECOGNIZED DRUG - OTHER] PO SCH ×2 (07:57→17:29)
[2022-07-10] MEDS: FE SULF/FA/VIT B COMP & C TAB PO SCH (07:57)
[2022-07-10] MEDS: FERROUS SULFATE 325 MG TAB PO SCH (07:57)
[2022-07-10] MEDS: glipiZIDE 5 MG TAB PO SCH ×2 (07:57→17:28)
[2022-07-10] MEDS: MAGNESIUM OXIDE 400 MG TAB PO SCH ×2 (07:58→20:28)
[2022-07-10] MEDS: CETIRIZINE HCL 5 MG TABLET PO SCH (07:58)
[2022-07-10] MEDS: VITAMIN D 1000 UNIT TAB PO SCH (07:58)
[2022-07-10] MEDS: GABAPENTIN 100 MG CAP PO SCH ×2 (07:58→20:28)
[2022-07-10] MEDS: lisinopriL 10 MG TAB PO SCH (07:59)
[2022-07-10] MEDS: HYDROCODONE/APAP 7.5/325 MG TAB PO PRN ×2 (08:00→13:35)
[2022-07-10] MEDS: GLUCERNA SHAKE 237 ML CAN PO SCH ×2 (08:00→20:00)
[2022-07-10] MEDS: MULTIVITAMIN TAB PO SCH (08:00)
[2022-07-10] MEDS: DOCOSAHEXANOIC AC/EPA 1000 MG PO SCH ×2 (08:00→20:28)
[2022-07-10] MEDS: INSULIN -REGULAR HUMAN 50 UNIT/0.5 ML ML SQ SCH ×4 (09:01→20:28)
--- NOTE | 2022-07-10 14:26 | PN ---
Date of Progress Note: 07/10/2022 Subjective: The patient was admitted with acute kidney injury secondary to rhabdo, treated, recovered. The patient transferred to rehab after hip replacement surgery. Physical Examination: Vital Signs: Blood pressure 153/67, pulse of 62. Chest: Clear to auscultation. Heart: S1, S2. Regular. Abdomen: Soft, nontender. Extremity: Trace edema. Neurologic: Alert. No focality. Laboratory Data: H and H 09/20.8. Sodium 142, potassium 4.7, bicarb 27, BUN 44, creatinine 1.6, GFR 41, calcium 8.5, magnesium 2.2. Current Medications: The patient on include; 1. Baclofen. 2. Donepezil. 3. Lovenox. 4. Lisinopril 10 b.i.d. 5. Metoprolol. 6. Gabapentin. 7. Glipizide. Assessment And Plan: 1. Acute kidney injury, multifactorial, secondary to prerenal/rhabdomyolysis. Continue to recover, but today labs showing worsening on the kidney function, but is still around his baseline. I am going to go ahead and hold on the lisinopril to avoid worsening kidney function for the time being. 2. Hypertension with the presence of acute kidney injury. Hold lisinopril. Start the patient on amlodipine. Continue metoprolol. 3. Rhabdomyolysis, status post treatment, recovered. 4. Hip fracture. Continue PT/OT. Time spent examining the patient [id number], reviewing the data lab and radiology, placing orders, discussing with the patient, explaining risks, benefits, alternatives, discussing with the staff member including nursing discussing with the hospitalist more than 35 minutes. ANNETTE Voice ID: [id number] Report ID: [id number] CHEO
[2022-07-10 19:05] LABS: Specific Gravity 1.015 (1.005-1.030); Urine Bilirubin Negative (Negative); Urine Blood 2+ (Negative); Urine Clarity Clear (Clear); Urine Color Yellow (Yellow); Urine Glucose Negative (Negative); Urine Protein 2+ (Negative); Urine Urobilinogen 0.2 mg/dL (0.2-1.0); Urine pH 6.5 (5.0-7.0)
[2022-07-10 19:17] LABS: Urine Bacteria 20-50 /HPF (<20); Urine Mucus 1+ /HPF (None Seen)
--- NOTE | 2022-07-10 19:39 | R.PN ---
PROGRESS NOTES ENCOUNTER DATE AND TIME: 07/10/2022 19:35 (CDT) NAME SONIA BARRIENTOS DATE OF : 1940 DATE OF ADMISSION: 06/29/2022 11:36 (CDT) Right Femur FractureCHIEF COMPLAINT: Right femur fracture SUBJECTIVE: Pt denied any Shortness of Breath. Pt denied any depression. Ambulated 500' with modified independence using a rolling walker and no loss of balance. Up and down the curb x 5 with CGA. Blood work was reviewed and are stable except Hgb is mildly low at 10.0. Glucose 144 to 210. Increas ed glipizide to15 mg bid. Covid-19 was negative on 07/01/22. Prealbumin 22.4. VITAL SIGNS Temperature: 98.2 F SBP/DBP: 141/62 Pulse: 62 Resp: 16 MEDICATION ALLERGIES: No Known Drug Allergies (NKDA) ENVIRONMENTAL ALLERGIES: - Substance Allergies None Known - Other Allergies None Known NURSING: - Shower allowing shower - Lab Results blood Sugar Check ACHS - Skin care per protocol PRECAUTIONS: - Anterior Hip Precaution No abduction No active extension No adduction across midline No external rotation No hip flexion >90 degrees No internal rotation - Posterior Hip Precaution No adduction across midline No external rotation No hip flexion >90 degrees No internal rotation No wheel chair propulsion - Weight Bearing Precaution WBAT right LE - Fall Precaution Bed alarm TABS alarm Wheel chair alarm - DVT Risk due to restricted mobility and age - Skin Breakdown Risk due to restricted mobility and age ACTIVITIES OOB only with supervision THERAPIES: - Dietary and Nutrition Adequate Nutrition. Nutritional Education. Nutritional Supplements. - Occupational Therapy Cognitive Retraining. Patient needs Occupational Therapy for a daily minimum of 1.5 hours at least 5 out of 7 days, to improve Activities of Daily Living, including: Eating, Grooming, Bathing, Dressing, Toileting, Toilet Transfers, Community Reintegration, Higher functional activities, Adaptive Equipme nt, Splinting, Household Tasks, and Other activities as determined. Visual Perceptual Training. - Physical Therapy Patient needs Physical Therapy for a daily minimum of 1.5 hours at least 5 out of 7 days, to improve: Mobility, Strengthening, Transfers, Stretching, ROM, Endurance, Ability to manage stairs, Gait, and Balance. PHYSICAL EXAM - Gen Alert and awake Lying in bed No apparent distress Oriented to: person, time, and place - Skin No skin breakdown. No abnormalities - Eyes No abnormalities - ENMT No abnormalities - Neck No abnormalities - CVS RRR - Chest No abnormalities - Resp No wheezing - Abd Soft - GI + bowel sounds Deferred - No abnormalities - Ext Right hip surgical site has good hemostasis. - MSK 4+/5 weakness in left lower extremity - Neuro 4/5 strength right lower extremity. - Psych No abnormalities ASSESSMENT: On 06/24/2022 he was admitted to [facility] and underwent emergency surgery for Right Femu r Fracture (Unilateral Hip Fracture) by Jabari Voss.Pt. is a 82 yo male of unknown race.Pre-morbidl y, Pt. was independent/mod-I in Locomotion and Self-Care; and he had good Safety Awareness, Balance, Transfers Control, and Endurance.Currently, he has deficits of Locomotion, Safety Awareness, Balance, Transfers Control, Self-Care, and Endurance.Pt. is now referred to [facility] for acute in-patient rehabilitation in order to maximize patient's functional independence in activi ties of daily living, strength, ROM, and mobility.- Rehab Goal Patient has realistic goal of being discharged at assistance level 6-Waqar to reside at Home with Fam lucia/Relatives. MDM/PLAN: - Physical Therapy Decreased range of motion - to improve, our physical therapists will perform initial evaluation of p t's status upon admission and devise an individualized program for increasing patient's Range of Yoni on. Gait dysfunction - to improve, our physical therapists will perform initial evaluation of pt's statu s upon admission and devise an individualized program for Gait Training, and Wheel Chair mobility Inability to transfer - to improve, our physical therapists will perform initial evaluation of pt's status upon admission and devise an individualized program for Bed mobility Need for home safety evaluation - to improve, our physical therapists will perform initial evaluatio n of pt's status upon admission and devise an individualized program for Home Evaluation Need in caregiver upon discharge - to improve, our physical therapists will perform initial evaluati on of pt's status upon admission and devise an individualized program for Caregiver Training New precaution - to improve, our physical therapists will perform initial evaluation of pt's status upon admission and devise an individualized program for Patient precaution education Poor balance - to improve, our physical therapists will perform initial evaluation of pt's status up on admission and devise an individualized program for Balance Training Poor endurance - to improve, our physical therapists will perform initial evaluation of pt's status upon admission and devise an individualized program for Endurance Training Weakness - to improve, our physical therapists will perform initial evaluation of pt's status upon a dmission and devise an individualized program for Aquatic Therapy, Neuromuscular Reeducation, and Str engthening Achieving independence - to improve, our physical therapists will perform initial evaluation of pt's status upon admission and devise an individualized program for Community Reintegration Activities - Occupational Therapy ADL deficits - to improve, our occupation therapists will perform initial evaluation of pt's status upon admission and devise an individualized program for Bathing, Bed mobility, Community Reintegratio n, Cooking, Dressing, Eating, Fine Motor Skills, Grooming, Homemaking, Kitchen Mobility, Laundry, Pat ient Education, Safety Awareness, Splinting - Positioning, Transfers(Toilet, Tub, Shower), and Wheel Chair Management Need for health care specialist - to improve, our occupation therapists will perform initial evaluation of pt's status upon admission and devise an individualized program for Caregiver Training Weakness - to improve, our occupation therapists will perform initial evaluation of pt's status upon admission and devise an individualized program for Aquatic Therapy, Balance, Endurance, UE ROM, and UE strengthening - Other See attached MAR (Medication Administration Record) - Anterior Hip Precaution No abduction No active extension No adduction across midline No external rotation No hip flexion >90 degrees No internal rotation - Diet - Liquid Texture Continue Regular - Tube Feed Continue N/A - Diet Type Continue Regular - Posterior Hip Precaution No adduction across midline No external rotation No hip flexion >90 degrees No internal rotation No wheel chair propulsion - Lab Results blood Sugar Check ACHS - DVT Risk due to restricted mobility and age - Skin Breakdown Risk due to restricted mobility and age - Weight Bearing Precaution WBAT right LE - Fall Precaution Bed alarm TABS alarm Wheel chair alarm - Skin care per protocol - Diet - Solid Texture Continue Regular - Shower allowing shower FUNCTIONAL STATUS: UPDATED AT WEEKLY TEAM CONFERENCE - Bladder Same accident frequency: 7-Ind - No accidents in the past 7 days - Bowel Same accident frequency: 7-Ind - No accidents in the past 7 days - Walking Same score based on distance walked: 0(N/A) - Wheelchair Same score based on distance traveled: 0(N/A) FUNCTIONAL STATUS: - Self-Care A. Eating Ind B. Grooming Ind C. Bathing modA D. Dressing - [place] E. Dressing - Lower modA F. Toileting sup - Sphincter Control G. Bladder control Waqar H. Bowel control Waqar - Transfers Control I. Bed/Chair/Wheelchair modA J. Toilet modA K. Tub/Shower modA - Locomotion L. Walk/Wheelchair (B) modA M. Stairs ADNO - Communication N. Comprehension (B) Waqar O. Expression (B) Waqar - Social Cognition P. Social Interaction Ind Q. Problem Solving Waqar R. Memory Ind - Endurance Poor - Balance Fair - Safety Awareness Fair QI SCORES: - Self-Care A. Eating 05-Setup or clean-up assistance B. Oral hygiene 05-Setup or clean-up assistance C. Toileting hygiene 04-Supervision or touching assistance E. Shower/bathe self 04-Supervision or touching assistance F. Upper body dressing 05-Setup or clean-up assistance G. Lower body dressing 02-Substantial/maximal assistance H. Putting on/taking off footwear 02-Substantial/maximal assistance - Mobility A. Roll left and right 02-Substantial/maximal assistance B. Sit to lying 02-Substantial/maximal assistance C. Lying to sitting on side of bed 02-Substantial/maximal assistance D. Sit to stand 02-Substantial/maximal assistance E. Chair/jwt-xs-[id number] transfer 02-Substantial/maximal assistance F. Toilet transfer 02-Substantial/maximal assistance G. Car transfer 88-Not attempted due to medical condition or safety concerns I. Walk 10 feet 88-Not attempted due to medical condition or safety concerns J. Walk 50 feet with two turns 88-Not attempted due to medical condition or safety concerns K. Walk 150 feet 88-Not attempted due to medical condition or safety concerns L. Walking 10 feet on uneven surfaces 88-Not attempted due to medical condition or safety concerns M. 1 step (curb) 88-Not attempted due to medical condition or safety concerns N. 4 steps 88-Not attempted due to medical condition or safety concerns O. 12 steps 88-Not attempted due to medical condition or safety concerns P. Picking up object 88-Not attempted due to medical condition or safety concerns R. Wheel 50 feet with two turns 09-Not applicable S. Wheel 150 feet 09-Not applicable - Bladder and Bowel Bladder continence 0-Always continent Bowel continence 0-Always continent - Endurance Fair - Balance Fair - Safety Awareness Fair CURRENT [facility]. DEFICITS: Self-Care, Mobility, Endurance, Balance, and Safety Awareness SIGNATURE PANEL: (CDT)
[2022-07-10] MEDS: CRANBERRY FRUIT EXTRACT 200 MG CAP PO SCH (20:28)
[2022-07-10] MEDS: BACLOFEN 10 MG TAB PO SCH (20:28)
[2022-07-10] MEDS: DONEPEZIL HCL 5 MG TAB PO SCH (20:29)
[2022-07-10] MEDS: clonazePAM 0.5 MG TAB PO PRN (20:29)
[2022-07-11] MEDS: METOPROLOL TAR 25 MG TAB PO SCH (06:21)
[2022-07-11] MEDS: ENOXAPARIN 40 MG/0.4 ML SQ SCH ×2 (07:08→07:19)
[2022-07-11] MEDS: HYDROCODONE/APAP 7.5/325 MG TAB PO PRN (07:24)
[2022-07-11] MEDS: INSULIN -REGULAR HUMAN 50 UNIT/0.5 ML ML SQ SCH ×2 (07:33→11:30)
[2022-07-11] MEDS: CRANBERRY FRUIT EXTRACT 200 MG CAP PO SCH (07:34)
[2022-07-11] MEDS: CETIRIZINE HCL 5 MG TABLET PO SCH (07:34)
[2022-07-11] MEDS: glipiZIDE 5 MG TAB PO SCH (07:34)
[2022-07-11] MEDS: DOCOSAHEXANOIC AC/EPA 1000 MG PO SCH (07:35)
[2022-07-11] MEDS: FERROUS SULFATE 325 MG TAB PO SCH (07:35)
[2022-07-11] MEDS: MAGNESIUM OXIDE 400 MG TAB PO SCH (07:35)
[2022-07-11] MEDS: VITAMIN D 1000 UNIT TAB PO SCH (07:36)
[2022-07-11] MEDS: GLUCERNA SHAKE 237 ML CAN PO SCH (07:36)
[2022-07-11] MEDS: GABAPENTIN 100 MG CAP PO SCH (07:36)
[2022-07-11] MEDS: FE SULF/FA/VIT B COMP & C TAB PO SCH (07:37)
[2022-07-11] MEDS: [UNRECOGNIZED DRUG - OTHER] PO SCH (07:38)
[2022-07-11] MEDS: MULTIVITAMIN TAB PO SCH (07:38)
[2022-07-11 07:39] VITALS: BP 144/61
[2022-07-11 07:45] VITALS: TEMP 97.8
[2022-07-11] MEDS ORDERED: AMLODIPINE 5 MG TAB PO SCH (08:00)
[2022-07-11] MEDS: LIDOCAINE 4% PATCH TOP SCH (08:53)
--- NOTE | 2022-07-11 09:54 | P.RH.PN ---
Estimated Length of Stay: 13 Expected Discharge Date: 07/11/22 Discharge Disposition Plan: Home Family Support: Yes Retirement Goal: Mobility, Transfers, Self Care Vital Signs: Last Vital Signs Temp 97.8 F 07/11/22 07:44 Pulse 78 07/11/22 07:44 Resp 18 07/11/22 08:24 BP 144/61 H 07/11/22 07:44 Pulse Ox 93 07/11/22 08:24 Laboratory: Laboratory Last Values WBC 8.00 K/uL (4.3-10.9) D 07/10/22 04:19 RBC 3.30 M/uL (4.33-5.43) L 07/10/22 04:19 Hgb 10.0 g/dL (13.6-17.9) L 07/10/22 04:19 Hct 29.8 % (39.6-49.0) L 07/10/22 04:19 MCV 90.3 fL (80-100) 07/10/22 04:19 MCH 30.5 pg (27.0-35.0) 07/10/22 04:19 MCHC 33.7 g/dL (32.0-36.0) 07/10/22 04:19 RDW 17.0 % (12.1-15.2) H 07/10/22 04:19 Plt Count 175 K/uL (152-406) 07/10/22 04:19 MPV 8.0 fL (7.6-11.3) 07/10/22 04:19 Neutrophils % 67.1 % (41.7-73.7) 07/10/22 04:19 Lymphocytes % 22.3 % (15.3-44.8) 07/10/22 04:19 Monocytes % 7.1 % (3.3-12.3) 07/10/22 04:19 Eosinophils % 2.5 % (0-4.4) 07/10/22 04:19 Basophils % 1.0 % (0-1.3) 07/10/22 04:19 Absolute Neutrophils 5.4 K/uL (1.8-8.0) 07/10/22 04:19 Absolute Lymphocytes 1.8 K/uL (0.7-4.9) 07/10/22 04:19 Absolute Monocytes 0.6 K/uL (0.1-1.3) 07/10/22 04:19 Absolute Eosinophils 0.2 K/uL (0-0.5) 07/10/22 04:19 Absolute Basophils 0.1 K/uL (0-0.5) 07/10/22 04:19 Sodium 142 mmol/L (136-145) 07/10/22 04:19 Potassium 4.7 mmol/L (3.5-5.1) 07/10/22 04:19 Chloride 113 mmol/L (98-107) H 07/10/22 04:19 Carbon Dioxide 27 mmol/L (21-32) 07/10/22 04:19 Anion Gap 6.7 mEq/L (5.0-15.0) 07/10/22 04:19 BUN 44 mg/dL (7-18) H 07/10/22 04:19 Creatinine 1.66 mg/dL (0.55-1.3) H 07/10/22 04:19 Est GFR (CKD-EPI) 41 ml/min (=/>90) L 07/10/22 04:19 Glucose 222 mg/dL (74-106) H 07/10/22 04:19 POC Glucose 212 mg/dL (65-120) H 07/11/22 07:32 Calcium 8.5 mg/dL (8.5-10.1) 07/10/22 04:19 Magnesium 2.2 mg/dL (1.8-2.4) 07/10/22 04:19 Albumin 2.6 g/dL (3.4-5.0) L 07/10/22 04:19 Prealbumin 22.4 mg/dL (20-40) 07/10/22 04:19 Urine Color Yellow (Yellow) 07/10/22 19:02 Urine Clarity Clear (Clear) 07/10/22 19:02 Urine pH 6.5 (5.0-7.0) 07/10/22 19:02 Ur Specific [place] 1.015 (1.005-1.030) 07/10/22 19:02 Glucose (UA)(Auto) Negative (Negative) 07/10/22 19:02 Urine Ketones Negative (Negative) 07/10/22 19:02 Urine Blood 2+ (Negative) H 07/10/22 19:02 Urine Nitrite Negative (Negative) 07/10/22 19:02 Urine Bilirubin Negative (Negative) 07/10/22 19:02 Urine Urobilinogen 0.2 mg/dL (0.2-1.0) 07/10/22 19:02 Ur Leukocyte Esterase 2+ (Negative) H 07/10/22 19:02 Urine RBC 5-10 /HPF (None Seen) H 07/10/22 19:02 Urine Red Cell Clumps Cancelled 07/10/22 18:00 Urine WBC 21-50 /HPF (<5) H 07/10/22 19:02 Urine WBC Clumps Cancelled 07/10/22 18:00 Ur Squamous Epith Cells <5 /HPF (None Seen) 07/10/22 19:02 U Non-Squamous Epi Cells Cancelled 07/10/22 18:00 Ur Transition Epith Cell Cancelled 07/10/22 18:00 Ur Renal Epithelial Cell Cancelled 07/10/22 18:00 Calcium Carbonate Cryst Cancelled 07/10/22 18:00 Calcium Oxalate Crystal Cancelled 07/10/22 18:00 Leucine Crystals Cancelled 07/10/22 18:00 Cystine Crystals Cancelled 07/10/22 18:00 Uric Acid Crystals Cancelled 07/10/22 18:00 Triple Phos Crystals Cancelled 07/10/22 18:00 Tyrosine Crystals Cancelled 07/10/22 18:00 Unidentified Crystals Cancelled 07/10/22 18:00 Amorphous Crystals Cancelled 07/10/22 18:00 Urine Bacteria 20-50 /HPF (<20) H 07/10/22 19:02 Hyaline Casts Cancelled 07/10/22 18:00 Granular Casts Cancelled 07/10/22 18:00 Waxy Casts Cancelled 07/10/22 18:00 RBC Casts Cancelled 07/10/22 18:00 WBC Casts Cancelled 07/10/22 18:00 Urine Mucus 1+ /HPF (None Seen) 07/10/22 19:02 Urine Trichomonas Cancelled 07/10/22 18:00 Ur Yeast w Hyphae Cancelled 07/10/22 18:00 Urine Yeast (Budding) Cancelled 07/10/22 18:00 Urine Sperm Cancelled 07/10/22 18:00 Ur Oval Fat Bodies Cancelled 07/10/22 18:00 Urine Total Protein 2+ (Negative) H 07/10/22 19:02 Urine Ascorbic Acid Cancelled 07/10/22 18:00 Urine Fat Cancelled 07/10/22 18:00 SARS-CoV-2 Rap RNA(RT-PCR) Negative (NEGATIVE) 07/08/22 03:45 Weight: 186 lb Wound Present: No Closed Surgical Incision Present: Yes Negative Pressure Wound Therapy Present: No Physician Update: Labs reviewed. Mod I for sit to stand, transfers, 250' with supervision, Wheelchair 250' with Mod I, Steps are SBA. Set up assistance grooming, lower body dression, SBA for shower. Functional Improvement: Patient is progressing well toward goals, and presents w/ a good attitude toward therapy. Patient continues to improve his strength, and technique when performing tasks. Summary: Patient's care plan and terminal superintendent goals have been reviewed and revised as necessary. Please see the Rehabilitation Signature page for all necessary signatures.
[2022-07-11] MEDS: TRAMADOL HCL 50 MG TAB PO PRN (12:59)
== END 2022-07-11 13:30 | disposition home health service (06) | DRG 560 ==
LOC: 5TH 06-29 11:36
PROVIDERS: ADMIT Psychiatry & Neurology Neurology with Special Qualifications in Child Neurology; ATTEND Psychiatry & Neurology Neurology with Special Qualifications in Child Neurology
DX: S72.141D Displaced intertrochanteric fracture of right femur, subsequent encounter for closed fracture with routine healing (principal); N17.9 Acute kidney failure, unspecified; M62.82 Rhabdomyolysis; I10 Essential (primary) hypertension; E11.40 Type 2 diabetes mellitus with diabetic neuropathy, unspecified; E87.5 Hyperkalemia; D63.8 Anemia in other chronic diseases classified elsewhere; Z20.822 Contact with and (suspected) exposure to COVID-19
CPT/HCPCS: 36415; 80048; 81001; 82040; 82947; 83735; 84134; 85025; 87077; 87086; 87088; 87186; 97110; 97116; 97161; 97165; 97530; 97542; J1650; J1815; J2001; J2916; J7050; U0003

== ENCOUNTER 2022-12-27 18:48 | Emergency (ER) | payer OTHER, MEDICARE ==
--- OUTSIDE RECORDS SUMMARY | 2022-12-27 18:52 | XMS REPORT | Continuity of Care Document ---
:1940 Author Organization [facility] t Address [address] [place] [address] Care Team Providers Name Role Phone Nisa Cedillo DO Primary Care Physician Benjie Salazar Attending Clinician Ladi Mix MD Attending Clinician NATASHA CLARK M.D. Attending Clinician Unavailable Payers Payer Name Policy Type Policy Number Effective Date Expiration Date S ource Problems Condition Condition Condition Status Onset Resolution Last Treating Co mments Source Name Details Category Date Date Treatment Clinician Date Arthritis Arthritis Problem Active [place] of finger of finger Phys ici of right of right ans hand hand Amnesia Amnesia Problem Active 2022-11-24 M emoria (finding) (finding) 10:34:09 l Active [place] Problem 11/24/2022 [facility] Diabetes Diabetes Problem Active 2022-11-24 Memoria mellitus mellitus 10:34:09 l (disorder) (disorder) He rmann Active Problem 11/24/2022 [facility] Impaired Impaired Problem Active 2022-11-24 Memoria cognition cognition 10:34:09 l (finding) (finding) Herm kathia Active Problem 11/24/2022 [facility] Headache Headache Problem Active 2022-11-24 Memoria (finding) (finding) 10:34:09 l Active [place] Problem 11/24/2022 [facility] Dizziness Dizziness Problem Active 2022-11-24 Memoria (finding) (finding) 10:34:09 l Active [place] Problem 11/24/2022 [facility] Pain of Pain of Problem Active [place] finger of finger of Phys ici right hand right hand an s Sprain of Sprain of Problem Active UT interphala interphala Ph ysici ngeal ngeal ans joint of joint of right ring right ring finger, finger, initial initial encounter encounter Allergies, Adverse Reactions, Alerts This patient has no known allergies or adverse reactions. Family History Family Member Diagnosis Comments Start Date Stop Date Source Natural father Diabetes [facility] Natural father Heart disease [facility] mother [facility] Social History Social Habit Start Date Stop Date Quantity Comments Source Alcohol intake 2022-10-06 2022-10-06 Current Hindu 00:00:00 00:00:00 non-drinker of Hospital alcohol (finding) Social History 2022-01-21 2022-01-21 [facility] skyler 20:49:26 20:49:26 Tobacco use and 2018-09-27 2018-09-27 Smokeless tobacco Me [facility] exposure 00:00:00 00:00:00 non-user Hospital Sex Assigned At [birth year] [facility] 00:00:00 00:00:00 Hospital Smoking Status Start Date Stop Date Source Tobacco smoking status 2022-11-21 20:46:54 2022-11-21 20:46:54 M andrew Segura Never smoked tobacco [facility] Medications Ordered Filled Start Stop Current Ordering Indication Dosage Frequency Signature Comments Components Source Medication Medication Date Date Medication? Clinician (SIG) Name Name Aricept Yes 10 mg = 1 Me moria mg oral 9-30 tab, PO, l tablet 20:19: Daily, # [place] 00 90 tab, 1 Refill(s), Pharmacy: [facility] #[id number], 175.26, cm, 08/22/22 15:07:00 CDT, Height, 77.273, kg, 08/22/22 15:07:00 CDT, Weight Aricept Yes 10 mg = 1 Me moria mg oral 9-30 tab, PO, l tablet 20:19: Daily, # [place] 00 90 tab, 1 Refill(s), Pharmacy: [facility] #[id number], 175.26, cm, 08/22/22 15:07:00 CDT, Height, 77.273, kg, 08/22/22 15:07:00 CDT, Weight gabapentin 2021-0 No 0 Memoria 100 mg oral 9-30 Refill(s) l capsule 20:08: [place] gabapentin 2021-0 No 0 Memoria 100 mg oral 9-30 Refill(s) l capsule 20:08: [place] Lyrica 75 2021-0 Yes 75 mg = 1 Mem oria mg oral 5-04 cap, PO, l capsule 22:36: Bedtime, # Herm kathia 00 30 cap, 2 Refill(s), Pharmacy: [facility] #[id number], 172.72, cm, 02/19/22 15:04:00 CDT, Height, 82.273, kg, 02/19/22 15:04:00 CDT, Weight Lyrica 75 2021-0 Yes 75 mg = 1 Mem oria mg oral 5-04 cap, PO, l capsule 22:36: Bedtime, # Herm kathia 00 30 cap, 2 Refill(s), Pharmacy: [facility] #[id number], 172.72, cm, 02/19/22 15:04:00 CDT, Height, 82.273, kg, 02/19/22 15:04:00 CDT, Weight Aricept 5 2021-0 Yes 5 mg = 1 Yinka gabriel mg oral 3-31 tab, PO, l tablet 13:28: Bedtime, # Sarah nn 00 90 tab, 3 Refill(s), Pharmacy: [facility] #[id number], 172.72, cm, 02/19/22 15:04:00 CDT, Height, 82.273, kg, 02/19/22 15:04:00 CDT, Weight Aricept 5 2021-0 Yes 5 mg = 1 Yinka gabriel mg oral 3-31 tab, PO, l tablet 13:28: Bedtime, # Sarah nn 00 90 tab, 3 Refill(s), Pharmacy: [facility] #[id number], 172.72, cm, 02/19/22 15:04:00 CDT, Height, 82.273, kg, 02/19/22 15:04:00 CDT, Weight Donepezil 2021-0 No 5 mg = 1 Yinka gabriel hydrochlori 3-30 tab, PO, l de 5 MG 20:53: Bedtime, X Herm kathia Oral Tablet 00 30 day, # [Aricept] 30 tab, 3 Refill(s), [id number], 172.72, cm, 02/19/22 15:04:00 CDT, Height, 82.273, kg, 02/19/22 15:04:00 CDT, Weight Donepezil 0 No 5 mg = 1 Yinka gabriel hydrochlori 3-30 tab, PO, l de 5 MG 20:53: Bedtime, X Herm kathia Oral Tablet , # [Aricept] 30 tab, 3 Refill(s), Pharmacy: [facility] #[id number], 172.72, cm, 02/19/22 15:04:00 CDT, Height, 82.273, kg, 02/19/22 15:04:00 CDT, Weight Glipizide 5 Yes TAKE 2 Yinka gabriel MG Oral 3-01 TABLETS BY l Tablet 20:58: MOUTH [place] 00 TWICE A DAY pantoprazol Yes 40 mg = 1 M emoria e 40 mg 3-01 tab, PO, l oral 20:58: Daily, # [place] enteric 00 30 tab, 0 coated Refill(s) tablet glipiZIDE 5 Yes TAKE 2 Yinka gabriel mg oral 3-01 TABLETS BY l tablet 20:58: MOUTH [place] 00 TWICE A DAY lisinopril 0 Yes TAKE 1 Memor ia 10 mg oral 3-01 TABLET BY l tablet 20:58: MOUTH [place] 00 EVERY DAY sucralfate 0 Yes 1 gm = 1 Mem oria 1 g oral 3-01 tab, PO, l tablet 20:58: QID-Before Sarah nn 00 Meals, 0 Refill(s) Glipizide 5 Yes TAKE 2 Yinka gabriel MG Oral 3-01 TABLETS BY l Tablet 20:58: MOUTH [place] 00 TWICE A DAY lisinopril 2021-0 Yes TAKE 1 Memor ia 10 mg oral 3-01 TABLET BY l tablet 20:58: MOUTH [place] 00 EVERY DAY sucralfate 2021-0 Yes 1 gm = 1 Mem oria 1 g oral 3-01 tab, PO, l tablet 20:58: QID-Before Sarah nn 00 Meals, 0 Refill(s) pantoprazol Yes 40 mg = 1 M emoria e 40 mg 3-01 tab, PO, l oral 20:58: Daily, # [place] enteric 00 30 tab, 0 coated Refill(s) tablet Centrum Yes 1 tab, PO, Yinka gabriel Silver oral 3-01 Daily, # l tablet 20:57: 30 tab, 0 Sergey n 00 Refill(s) cetirizine Yes 10 mg = 1 Me moria 10 mg oral 3-01 cap, PO, l capsule 20:57: Daily, 0 Sergey n 00 Refill(s) Centrum Yes 1 tab, PO, Yinka gabriel Silver oral 3-01 Daily, # l tablet 20:57: 30 tab, 0 Sergey n 00 Refill(s) cetirizine Yes 10 mg = 1 Me moria 10 mg oral 3-01 cap, PO, l capsule 20:57: Daily, 0 Sergey n 00 Refill(s) Vitamin D3 Yes 25 Memoria 1000 intl 3-01 microgram l units oral 20:56: = 1 cap, Her aly capsule 00 PO, Daily, # 100 cap, 0 Refill(s) Fish Oil Yes 1,200 mg = Mem oria 1200 mg 3-01 1 cap, PO, l oral 20:56: TID, 0 [place] capsule 00 Refill(s) Vitamin D3 Yes 25 Memoria 1000 intl 3-01 microgram l units oral 20:56: = 1 cap, Her aly capsule 00 PO, Daily, # 100 cap, 0 Refill(s) Fish Oil 0 Yes 1,200 mg = Mem oria 1200 mg 3-01 1 cap, PO, l oral 20:56: TID, 0 [place] capsule 00 Refill(s) Vitamin D3 Yes 25 Memoria 1000 intl 3-01 microgram l units oral 20:56: = 1 cap, Her aly capsule 00 PO, Daily, # 100 cap, 0 Refill(s) Prevagen Yes 50 Memoria 3-01 microgram, l 20:55: PO, Daily, [place] 00 0 Refill(s) Prevagen Yes 50 Memoria 3-01 microgram, l 20:55: PO, Daily, [place] 00 0 Refill(s) methylPREDN 2021- No [id number] 4mg Take 1 [facility] ISolone 2-28 03-06 26114 tablet (4 st (MEDROL 00:00: 05:59 mg total) Hosp mira DOSEPAK) 4 00 :00 by mouth l mg tablet See Admin Instructio ns for 5 days. Use as directed by package instructio ns omega-3 Yes Take by [facility] fatty 1-[address] acids-vitam 14:20: Hospit a in E (FISH 55 l OIL) 1,000 mg capsule cholecalcif Yes 1000U QD Take 1,000 [facility] hollie, 1-[address] vitamin D3, 14:20: mouth Hospi ta (VITAMIN 55 daily. l D3) 1,000 unit tablet FOLIC Yes Take by [facility] ACID/MULTIV 1-[address] IT-MIN/LUTE 14:20: Hospit a IN (CENTRUM 55 l SILVER ORAL) diclofenac 2018-11 Yes [id number] Q.25D Apply [facility] (VOLTAREN) 1-[address] 1 % gel 00:00: 4 (four) Hospit a 00 times a l day. Dispense voltaren 1% or diclofenac 1% gel - apply 2 grams diclofenac Yes [id number] APPLY 2 [facility] (VOLTAREN) 3-[address] 1 % gel 00:00: AFFECTED Hospit a 00 AREA(S) 3 l TIMES A DAY metFORMIN 2015-11 Yes [facility] (GLUCOPHAGE 0-20 st ) 1000 MG 00:00: Hospita tablet 00 l glipiZIDE Yes [facility] (GLUCOTROL) 9-18 st 5 MG tablet 00:00: Hospit a 00 l lisinopril Yes [facility] (PRINIVIL,Z 9-15 st ESTRIL) 10 00:00: Hospita MG tablet 00 l Vital Signs Vital Name Observation Time Observation Value Comments Source Systolic (mm Hg) 2022-11-21 20:46:00 Yinka rial [place] Diastolic (mm Hg) 2022-11-21 20:46:00 Mem orial [place] Heart Rate 2022-11-21 20:46:00 [facility] [place] Height 2022-11-21 20:46:00 5 [ft_i] [facility] [place] Weight 2022-11-21 20:46:00 [facility] [place] BMI Calculated 2022-11-21 20:46:00 Memori al [place] Systolic (mm Hg) 2022-08-22 19:51:00 Yinka rial [place] Diastolic (mm Hg) 2022-08-22 19:51:00 Mem orial [place] Heart Rate 2022-08-22 19:51:00 [facility] [place] Respitory Rate 2022-08-22 19:51:00 Memori al [place] Height 2022-08-22 19:51:00 175.26 cm [facility] [place] Weight 2022-08-22 19:51:00 [facility] [place] BMI Calculated 2022-08-22 19:51:00 Memori al [place] Systolic (mm Hg) 2022-05-22 20:00:00 Yinka rial [place] Diastolic (mm Hg) 2022-05-22 20:00:00 Mem orial [place] Heart Rate 2022-05-22 20:00:00 [facility] [place] Respitory Rate 2022-05-22 20:00:00 Memori al [place] Height 2022-05-22 20:00:00 172.72 cm [facility] [place] Weight 2022-05-22 20:00:00 [facility] [place] BMI Calculated 2022-05-22 20:00:00 Memori al [place] Systolic (mm Hg) 2022-02-19 20:04:00 Yinka rial [place] Diastolic (mm Hg) 2022-02-19 20:04:00 Mem orial [place] Heart Rate 2022-02-19 20:04:00 [facility] [place] Respitory Rate 2022-02-19 20:04:00 Memori al [place] Height 2022-02-19 20:04:00 172.72 cm [facility] [place] Weight 2022-02-19 20:04:00 [facility] [place] BMI Calculated 2022-02-19 20:04:00 Memori al [place] Systolic (mm Hg) 2022-01-21 20:46:00 Yinka rial [place] Diastolic (mm Hg) 2022-01-21 20:46:00 Mem orial [place] Heart Rate 2022-01-21 20:46:00 [facility] [place] Respitory Rate 2022-01-21 20:46:00 Asya Gustafson Height 2022-01-21 20:46:00 172.72 cm [facility] Weight 2022-01-21 20:46:00 [facility] BMI Calculated 2022-01-21 20:46:00 Asya Gustafson Procedures Procedure Date / Time Performing Clinician Source Performed XR ANKLE 3+ VW RIGHT 2022-10-06 17:28:06 Ladi Mix [facility] [place] ARTHROCENTESIS 2022-10-06 17:00:00 Dominguez Ladi Dipesh [facility] ASPIR&/INJ INTERM JT/BURS W/O US XR ANKLE 3+ VW RIGHT 2022-01-20 20:59:56 Ladi Mix [facility] XR FOOT 3+ VW RIGHT 2022-01-20 20:56:36 Ladi Mix [facility] Hernia repair<sup>1</sup> Asya Gustafson Plan of Care Planned Activity Planned Date Details Comments Source Future Scheduled 2022-11-05 SHINGLES VACCINES (1 Met [facility] Test 04:55:19 of 2) [code = SHINGLES VACCINES (1 of 2)] Future Scheduled 2022-11-05 65+ PNEUMOCOCCAL [facility] Test 04:55:19 VACCINE (1 - PCV) [code = 65+ PNEUMOCOCCAL VACCINE (1 - PCV)] Future Scheduled 2022-11-05 COVID-19 VACCINE (3 - [facility] Test 04:55:19 Booster for Pfizer series) [code = COVID-19 VACCINE (3 - Booster for Pfizer series)] Future Scheduled 2022-11-05 INFLUENZA VACCINE [facility] Test 04:55:19 [code = INFLUENZA VACCINE] Encounters Start End Encounter Admission Attending Care Care Encounter Source Date/Time Date/Time Type Type Clinicians Facility Department ID 2023-01-02 2023-01-02 Outpatient LAURA SANCHEZ [id number] [place] 15:15:00 15:15:00 05 l [place] 2022-11-21 2022-11-22 Outpatient LAURA DAI [id number] [facility] 21:00:00 05:59:59 Neurology 04 l Srinivasa Segura 2022-11-21 2022-11-21 Outpatient DEMETRIA SalazarER [id number] 15:00:00 23:59:59 Benjie 04 Jignesh 2022-11-21 2022-11-21 Outpatient MHIE MHIE [id number] Memoria 15:00:00 15:00:00 04 andreia Segura 2022-11-21 2022-11-21 Outpatient MHIE MHIE [id number] Memoria 15:00:00 15:00:00 04 andreia [place] 2022-10-06 2022-10-06 Office Ladi Mix 1.2.840.1 [id number] [facility] 11:00:00 12:49:49 [place].1.[address] 3.430.2.7 Hospit a .3.869008 l .8 2022-10-06 2022-10-06 Travel 1.2.840.1 1.2.308.495 [id number] [facility] 00:00:00 00:00:[address] 3.430.2.7 0.2.7.3.698 Ho spita .3.927239 084.8 l .8 2022-10-06 2022-10-06 Outpatient LADI MIX [facility] [id number] [place] 00:00:00 00:00:00 115 Method i 2022-10-06 2022-10-06 Outpatient LADI MIX [facility] [id number] [place] 00:00:00 00:00:00 189 Method i 2022-08-22 2022-08-23 Outpatient nullFlavo MNA [id number] Memoria 20:00:00 04:59:59 r Neurology 03 l Sweet Grassjohan Garzaann 2022-08-22 2022-08-23 Outpatient nullFlavo MNA [id number] Memoria 20:00:00 04:59:59 r Neurology 03 l [place] Grassjohan Segura 2022-08-22 2022-08-22 [facility] [id number] 15:00:00 23:59:59 Benjie Helen Egan 2022-08-22 2022-08-22 Outpatient MHIE MHIE [id number] Memoria 15:00:00 15:00:00 03 andreia Segura 2022-05-22 2022-05-23 Outpatient nullFlavo MNA [id number] Memoria 20:00:00 04:59:59 r Neurology 02 l Srinivasa Segura 2022-05-22 2022-05-23 Outpatient nullFlavo MNA [id number] Memoria 20:00:00 04:59:59 r Neurology 02 l Srinivasa Garzaann 2022-05-22 2022-05-22 [id number] 15:00:00 23:59:59 Benjie Jignesh 2022-05-22 2022-05-22 Outpatient MHIE MHIE [id number] Memoria 15:00:00 15:00:00 02 andreia [place] 2022-02-19 2022-02-20 Outpatient nullFlavo MNA [id number] Memoria 20:15:00 04:59:59 r Neurology 01 l Srinivasa [place] 2022-02-19 2022-02-20 Outpatient nullFlavo MNA [id number] Memoria 20:15:00 04:59:59 r Neurology 01 l Srinivasa [place] 2022-02-19 2022-02-19 [facility] [id number] 15:15:00 23:59:59 Benjie Jignesh 2022-02-19 2022-02-19 Outpatient MHIE MHIE [id number] Memoria 15:15:00 15:15:00 01 andreia [place] 2022-01-21 2022-01-22 Outpatient nullFlavo MNA [id number] Memoria 21:00:00 05:59:59 r Neurology 00 l Srinivasa Segura 2022-01-21 2022-01-22 Outpatient nullFlavo MNA [id number] Memoria 21:00:00 05:59:59 r Neurology 00 l Srinivasa Garzaann 2022-01-21 2022-01-21 [facility] [id number] 15:00:00 23:59:59 Benjie Jignesh 2022-01-21 2022-01-21 Outpatient MHIE MHIE [id number] Memoria 15:00:00 15:00:00 00 l [place] 2022-01-20 2022-01-20 Office Ladi Mix 1.2.840.1 [id number] [facility] 14:50:00 16:47:[address]452[address]1.[address] 3.430.2.7 Hospit a .3.581440 l .8 2022-01-20 2022-01-20 Outpatient LADI MIX [facility] [id number] [place] 00:00:00 00:00:[address] 2022-01-20 2022-01-20 Travel 1.2.840.1 1.2.694.279 [id number] [facility] 00:00:00 00:00:[address] 3.430.2.7 0.2.7.3.698 Ho spita .3.258592 084.8 l .8 2022-01-20 2022-01-20 Outpatient LADI MIX [facility] [id number] [place] 00:00:00 00:00:[address] 2022-01-20 2022-01-20 Outpatient LADI MIX [facility] [id number] [place] 00:00:00 00:00:[address] 2021-12-06 2021-12-06 Outpatient LADI MIX [facility] [id number] [place] 00:00:00 00:00:[address] 2021-12-06 2021-12-06 Outpatient LADI MIX [facility] [id number] [place] 00:00:00 00:00:[address] 2020-09-24 2020-09-24 Outpatient LADI MIX [facility] [id number] [place] 00:00:00 00:00:[address] 2020-09-24 2020-09-24 Outpatient LADI MIX [facility] [id number] [place] 00:00:00 00:00:[address] 2019-03-01 2019-03-01 [facility] [id number] [place] 10:00:00 10:00:00 doroteo [facility] Martha Jones M.D. Results Test Description Test Time Test Comments Results Result Comments Source ANEMIA STUDY 2022-04-08 15:29:00 Test Item Value Reference Range Interpretation Comme nts Vitamin B12 Lvl (test code = Vitamin B12 Lvl) 583 977-4861 [facility] [id number] 15:29:00 Test Item Value Reference Range Interpretation Comments BUN (test code = BUN) 55 7-25 [facility] [id number] 15:29:00 Test Item Value Reference Range Interpretation Comments Creatinine Lvl (test code = Creatinine 1.96 0.70-1.11 Lvl) [facility] [id number] 15:29:00 Test Item Value Reference Range Interpretation Comments eGFR NON-AFR. JAPANESE (test code = 31 eGFR NON-AFR. JAPANESE) [facility] [id number] 15:29:00 Test Item Value Reference Range Interpretation Comments eGFR (test code = eGFR 36 ) [facility] [id number] 15:29:00 Test Item Value Reference Range Interpretation Comments B/C Ratio (test code = B/C Ratio) 28 6-22 [facility] [id number] 15:29:00 Test Item Value Reference Range Interpretation Comments VITAMIN B1 (THIAMINE) WHOLE BLOOD (test 153 78-185 code = VITAMIN B1 (THIAMINE) WHOLE BLOOD) [facility] [id number] 15:29:00 Test Item Value Reference Range Interpretation Comments Sed Rate (test code = Sed Rate) 22 [facility] [id number] 15:29:00 Test Item Value Reference Range Interpretation Comments C-REACTIVE PROTEIN (test code = 17.9 C-REACTIVE PROTEIN) [facility] [id number] 15:29:00 Test Item Value Reference Range Interpretation Comments Copper Lvl (test code = Copper Lvl) 97 70-175 [facility] [id number] 15:29:00 Test Item Value Reference Range Interpretation Comments Vitamin B12 Lvl (test code = Vitamin [phone] B12 Lvl) [facility]2022-05-17 15:29:00 Test Item Value Reference Range Interpretation Comments BUN (test code = BUN) 55 7-25 [facility]annMineralRightsWorldwide.com [id number] 15:29:00 Test Item Value Reference Range Interpretation Comments Creatinine Lvl (test code = Creatinine 1.96 0.70-1.11 Lvl) [facility] [id number] 15:29:00 Test Item Value Reference Range Interpretation Comments eGFR NON-AFR. JAPANESE (test code = 31 eGFR NON-AFR. JAPANESE) [facility] [id number] 15:29:00 Test Item Value Reference Range Interpretation Comments eGFR (test code = eGFR 36 ) [facility] [id number] 15:29:00 Test Item Value Reference Range Interpretation Comments B/C Ratio (test code = B/C Ratio) 28 6-22 [facility] [id number] 15:29:00 Test Item Value Reference Range Interpretation Comments VITAMIN B1 (THIAMINE) WHOLE BLOOD (test 153 78-185 code = VITAMIN B1 (THIAMINE) WHOLE BLOOD) [facility] [id number] 15:29:00 Test Item Value Reference Range Interpretation Comments Sed Rate (test code = Sed Rate) 22 [facility] [id number] 15:29:00 Test Item Value Reference Range Interpretation Comments C-REACTIVE PROTEIN (test code = 17.9 C-REACTIVE PROTEIN) [facility] [id number] 15:29:00 Test Item Value Reference Range Interpretation Comments Copper Lvl (test code = Copper Lvl) 97 70-175 [facility][U] XRAY FINGER(S) - 2 VWS MIN. RIGHT [id number] 09:27:00 Images acquired, not reported on this accession number.[facility]
--- NOTE | 2022-12-27 19:29 | EDPHYS ---
Physician Documentation [facility] Name: Dev Olguin Age: 82 yrs Sex: Male : 1940 Arrival Date: 12/27/2022 Time: 18:51 Bed 16 Private MD: ED Physician Gisela Cortez HPI: 12/27 19:22 This 82 yrs old Male presents to ER via EMS with complaints of Chest Pain, Nausea. sd2 19:22 82 yo M presents via EMS with CC of diarrhea. 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 Reports that someone helped him up to do so but then someone else called 911 for unknown reasons. They report they were told that the patient had an elevated HR and low BP but report this was likely due to the patient being upset and that the patient's HR in the 90s and BP now in the 90s-100s is his normal baseline. Reports the diarrhea has been ongoing for months since starting a new medication and his doctors are aware. There has been no change in the diarrhea. The patient has no other complaints at this time and denies ever having any significant chest pain, nausea, lightheadedness, dizziness, vomiting or SOB. . Historical: - Allergies: 18:55 No Known Allergies; kc6 - Home Meds: 18:52 Glipizide Oral [Active]; Fish Oil Oral [Active]; Metformin Oral [Active]; lisinopril 5 kc6 mg Oral tab 1 tab once daily [Active]; - PMHx: 18:52 Diabetes - NIDDM; kc6 18:55 Alzheimer's disease; kc6 - PSHx: 18:52 hernia repair; kc6 - Immunization history:: Client reports receiving the 2nd dose of the Covid vaccine, Flu vaccine is up to date. - Social history:: Smoking status: Patient denies any tobacco usage or history of. ROS: 19:22 Constitutional: Negative for fever, chills, and weight loss, Eyes: Negative for injury, sd2 pain, redness, and discharge, Cardiovascular: Negative for chest pain, palpitations, and edema, Respiratory: Negative for shortness of breath, cough, wheezing. 19:22 MS/Extremity: Negative for injury and deformity, Skin: Negative for injury, rash, and discoloration. 19:22 Abdomen/GI: Positive for diarrhea, Negative for abdominal pain, nausea and vomiting. Exam: 19:22 Constitutional: This is a well developed, well nourished patient who is awake, alert, sd2 and in no acute distress. Head/Face: Normocephalic, atraumatic. Eyes: EOMI, normal conjunctiva bilaterally Chest/axilla: Normal chest wall appearance and motion. Nontender with no deformity. Cardiovascular: Regular rate and rhythm with a normal S1 and S2. No gallops, murmurs, or rubs. 2+ distal pulses. Respiratory: Lungs have equal breath sounds bilaterally, clear to auscultation and percussion. No rales, rhonchi or wheezes noted. No increased work of breathing, no retractions or nasal flaring. Abdomen/GI: Soft, non-tender, with normal bowel sounds. No guarding or rebound. No evidence of tenderness throughout. Skin: Warm, dry with normal turgor. Normal color with no rashes, no lesions, and no evidence of cellulitis. MS/ Extremity: Pulses equal, no cyanosis. Neurovascular intact. Full, normal range of motion. Ambulatory without difficulty. Psych: Awake, alert, with orientation to person, place and time. Behavior, mood, and affect are within normal limits. Vital Signs: 18:51 BP 110 / 60; Pulse 96; Resp 18 S; Temp 98.4(O); Pulse Ox 100% on R/A; Weight 72.57 kg kc6 (R); Height 5 ft. 9 in. (175.26 cm) (R); Pain 0/10; 19:10 BP 109 / 53; Pulse 91; Resp 18; Pulse Ox 98% on R/A; jb4 18:51 Body Mass Index 23.63 (72.57 kg, 175.26 cm) kc6 MDM: 19:06 Patient medically screened. sd2 19:22 Differential diagnosis: medication effect, diarrhea, infection, hypovolemia among sd2 others. Data reviewed: vital signs, nurses notes. Test considered but Not performed: EKG: Pt declined. Labs: pt declined. X-ray: Pt declined. Historians other than the Patient: Spouse/Significant Other: Provided HPI. Care significantly affected by the following chronic conditions: Diabetes. Counseling: I had a detailed discussion with the patient and/or guardian regarding: the historical points, exam findings, and any diagnostic results supporting the discharge/admit diagnosis, the need for outpatient follow up, to return to the emergency department if symptoms worsen or persist or if there are any questions or concerns that arise at home. ED course: Case discussed with patient and at bedside. Further workup was offered but pt declined and reports he feels well and did not want to come to the hospital. He has no complaints at this time. pt otherwise at his baseline VS per report. Report ready and comfortable with plan for discharge at this time. Verbalized understanding of discharge plan and strict return precautions. . 12/27 18:58 Order name: EKG; Complete Time: 18:58 la1 12/27 18:58 Order name: Cardiac monitoring; Complete Time: 18:59 la1 12/27 18:58 Order name: O2 Per Protocol; Complete Time: 18:59 la1 12/27 18:58 Order name: O2 Sat Monitoring; Complete Time: 18:59 la1 Administered Medications: No medications were administered Disposition Summary: 12/27/22 19:28 Discharge Ordered Location: Home sd2 Problem: an ongoing problem sd2 Symptoms: are unchanged sd2 Condition: Stable sd2 Diagnosis - Diarrhea, unspecified sd2 Followup: sd2 - With: Private Physician - When: 2 - 3 days - Reason: Recheck today's complaints, Continuance of care, Re-evaluation by your physician Discharge Instructions: - Discharge Summary Sheet sd2 - Food Choices to Help Relieve Diarrhea, Adult sd2 - Diarrhea, Adult sd2 Forms: - Medication Reconciliation Form sd2 - Thank You Letter sd2 - Antibiotic Education sd2 - Prescription Opioid Use sd2 Signatures: Dispatcher [employer] EDMS [place], CHEMIST STEROIDS-C CHEMIST STEROIDS-Cla1 Gisela Cortez MD MD sd2 Shana Harrison RN RN kc6 Corrections: (The following items were deleted from the chart) 19:14 18:58 EKG - Nurse/Tech ordered. la1 jb4 19:17 18:58 BASIC METABOLIC PANEL+C.LAB.BRZ ordered. EDMS EDMS 19:17 18:58 CBC+H.LAB.BRZ ordered. EDMS EDMS 19:17 18:58 HEPATIC FUNCTION+C.LAB.BRZ ordered. EDMS EDMS 19:17 18:58 MAGNESIUM+C.LAB.BRZ ordered. EDMS EDMS 19:17 18:58 PROBNP+C.LAB.BRZ ordered. EDMS EDMS 19:17 18:58 PROTIME (+INR)+COAG.LAB.BRZ ordered. EDMS EDMS 19:17 18:58 Troponin High Sensitivity+C.LAB.BRZ ordered. EDMS EDMS 19:17 18:58 LIPASE+C.LAB.BRZ ordered. EDMS EDMS 19:18 18:58 IV Saline Lock ordered. la1 jb4 19:18 18:58 Labs collected and sent ordered. la1 jb4 19:28 18:58 Chest Single View+RAD.RAD.BRZ ordered. EDMS EDMS
--- NOTE | 2022-12-27 19:29 | ER ---
Nurse's Notes [facility] Name: Dev Olguin Age: 82 yrs Sex: Male : 1940 Arrival Date: 12/27/2022 Time: 18:51 Bed 16 Private MD: Diagnosis: Diarrhea, unspecified Presentation: 12/27 18:51 Chief complaint: EMS states: nausea and chest pain that started today. Coronavirus kc6 screen: Vaccine status: Patient reports receiving the 2nd dose of the covid vaccine. At this time, the client does not indicate any symptoms associated with coronavirus-19. Ebola Screen: No symptoms or risks identified at this time. Initial Sepsis Screen: Does the patient meet any 2 criteria? No. Patient's initial sepsis screen is negative. Does the patient have a suspected source of infection? No. Patient's initial sepsis screen is negative. Risk Assessment: Do you want to hurt yourself or someone else? Patient reports no desire to harm self or others. Onset of symptoms was December 27, 2022. 18:51 Method Of Arrival: EMS: [facility] kc6 18:51 Acuity: [place] 3 kc6 Triage Assessment: 18:52 General: Appears in no apparent distress. comfortable, Behavior is calm, cooperative, kc6 appropriate for age. Pain: Denies pain. EENT: No signs and/or symptoms were reported regarding the EENT system. Neuro: Ott Agitation-Sedation Scale (RASS): 0 - Alert and Calm Level of Consciousness is awake, alert, obeys commands, Oriented to person, place, time, situation, Appropriate for age. Cardiovascular: Capillary refill < 3 seconds. Respiratory: Airway is patent Trachea midline Respiratory effort is even, unlabored, Respiratory pattern is regular, symmetrical. GI: Reports diarrhea, nausea. : No signs and/or symptoms were reported regarding the genitourinary system. Derm: No signs and/or symptoms reported regarding the dermatologic system. Skin is intact, Skin is pink, warm \\T\\ dry. Musculoskeletal: No signs and/or symptoms reported regarding the musculoskeletal system. Circulation, motion, and sensation intact. Capillary refill < 3 seconds, Range of motion: intact in all extremities. Historical: - Allergies: 18:55 No Known Allergies; kc6 - Home Meds: 18:52 Glipizide Oral [Active]; Fish Oil Oral [Active]; Metformin Oral [Active]; lisinopril 5 kc6 mg Oral tab 1 tab once daily [Active]; - PMHx: 18:52 Diabetes - NIDDM; kc6 18:55 Alzheimer's disease; kc6 - PSHx: 18:52 hernia repair; kc6 - Immunization history:: Client reports receiving the 2nd dose of the Covid vaccine, Flu vaccine is up to date. - Social history:: Smoking status: Patient denies any tobacco usage or history of. Screenin:[facility] ED Fall Risk Assessment (Adult) History of falling in the last 3 months, kc6 including since admission No falls in past 3 months (0 pts) Confusion or Disorientation No (0 pts) Intoxicated or Sedated No (0 pts) Impaired Gait No (0 pts) Mobility Assist Device Used No (0 pt) Altered Elimination No (0 pt) Score/Fall Risk Level 0 - 2 = Low Risk Oriented to surroundings, Maintained a safe environment, Educated pt \\T\\ family on fall prevention, incl call for assistance when getting out of bed, Assessed \\T\\ reinforced patient's understanding of fall precautions, Hourly rounding (assess needs \\T\\ fall precautionary measures) done. Abuse screen: Denies threats or abuse. Denies injuries from another. Nutritional screening: No deficits noted. Tuberculosis screening: No symptoms or risk factors identified. Assessment: 19:22 General: Appears in no apparent distress. comfortable, Behavior is calm, cooperative, jb4 appropriate for age. Pain: Denies pain. Neuro: Level of Consciousness is awake, alert, obeys commands, Oriented to person, place, time, situation. Cardiovascular: Patient's skin is warm and dry. Respiratory: Airway is patent Respiratory effort is even, unlabored, Respiratory pattern is regular, symmetrical. GI: Reports diarrhea. : No signs and/or symptoms were reported regarding the genitourinary system. EENT: No signs and/or symptoms were reported regarding the EENT system. Derm: Skin is intact, Skin is pink, warm \\T\\ dry. Musculoskeletal: Circulation, motion, and sensation intact. Range of motion: intact in all extremities. 19:40 Reassessment: Pt ambulated out of Room, became dizzy while standing, asked pt if he jb4 would like to return to his room and receive treatment, pt states " No I will be fine, I want to go home.". Pt place in wheel chair and assisted to his vehicle with his . Again asked pt if he feels like he needs treatment or wishes to return to his room to receive treatment. Pt states " I have been through worse then this, I will be fine, if I get worse then I will come back." Pt's informed to watch for worsening symptoms and to bring pt back immediately if symptoms worsen. Pt and Pt's verbalized understanding of instructions. Vital Signs: 18:51 BP 110 / 60; Pulse 96; Resp 18 S; Temp 98.4(O); Pulse Ox 100% on R/A; Weight 72.57 kg kc6 (R); Height 5 ft. 9 in. (175.26 cm) (R); Pain 0/10; 19:10 BP 109 / 53; Pulse 91; Resp 18; Pulse Ox 98% on R/A; jb4 18:51 Body Mass Index 23.63 (72.57 kg, 175.26 cm) 6 ED Course: 18:51 Patient arrived in ED. kc6 18:51 Shana Harrison, CHIQUITA is Primary Nurse. 6 18:52 Triage completed. kc6 18:54 Patient has correct armband on for positive identification. Bed in low position. Call [facility] light in reach. Side rails up X 1. Adult w/ patient. 18:55 Arm band placed on. kc6 19:06 Gisela Cortez MD is Attending Physician. sd2 19:06 Maintain EMS IV. Dressing intact. Good blood return noted. Site clean \\T\\ dry. Gauge \\T\\ marybel 6 site: 20G R hand. 19:10 No provider procedures requiring assistance completed. IV discontinued, intact, jb4 bleeding controlled, No redness/swelling at site. Pressure dressing applied. Administered Medications: No medications were administered Medication: 19:10 VIS not applicable for this client. jb4 Outcome: 19:28 Discharge ordered by . sd2 19:44 Discharged to home via wheelchair, with family. jb4 19:44 Condition: stable 19:44 Discharge instructions given to patient, family, Instructed on discharge instructions, follow up and referral plans. Demonstrated understanding of instructions, follow-up care. 19:44 Patient left the ED. jb4 Signatures: Rashel Jeff, CHIQUITA RN jb4 Gisela Cortez MD MD sd2 Shana Harrison RN RN kc6 Corrections: (The following items were deleted from the chart) 18:54 18:52 GI: Reports nausea, kc6 kc6 18:59 18:51 BP 110 / 60; Pulse 96bpm; Resp 18bpm; Spontaneous; Pulse Ox 100% RA; 72.57 kg kc6 Reported; Height 5 ft. 9 in. Reported; BMI: 23.6; Pain 0/10; kc6
[2022-12-27 20:00] VITALS: TEMP 98.4
[2022-12-27 20:01] VITALS: BP 109/53; O2SAT 98
== END 2022-12-27 19:44 | disposition home or self-care (01) ==
LOC: ER 18:48
DX: R19.7 Diarrhea, unspecified (principal); E11.9 Type 2 diabetes mellitus without complications; G30.9 Alzheimer's disease, unspecified; F02.80 Dementia in other diseases classified elsewhere, unspecified severity, without behavioral disturbance, psychotic disturbance, mood disturbance, and anxiety
CPT/HCPCS: 99283

== ENCOUNTER 2023-05-02 03:54 | Emergency (ER) | payer OTHER, MEDICARE ==
--- OUTSIDE RECORDS SUMMARY | 2023-05-02 03:58 | XMS REPORT | Continuity of Care Document ---
:1940 Author Organization [facility] t Address [address] [place] [address] Care Team Providers Name Role Phone Nisa Cedillo DO Primary Care Physician Benjie Salazar Attending Clinician Dominguez BOLDEN, Ladi Landon Attending Clinician NATASHA CLARK M.D. Attending Clinician Unavailable Payers Payer Name Policy Type Policy Number Effective Date Expiration Date S ource Problems Condition Condition Condition Status Onset Resolution Last Treating Co mments Source Name Details Category Date Date Treatment Clinician Date Amnesia Amnesia Problem Active 2023-01-05 Me moria (finding) (finding) 12:21:13 l Active [place] Problem 01/05/2023 [facility] Diabetes Diabetes Problem Active 2023-01-05 Memoria mellitus mellitus 12:21:13 l (disorder) (disorder) [place] Active Problem 01/05/2023 [facility] Dizziness Problem Active 2023-01-05 Me moria (finding) Dizziness 12:21:13 l (finding) [place] Active Problem 01/05/2023 [facility] [place] Headache Headache Problem Active 2023-01-05 Memoria (finding) (finding) 12:21:13 l Active [place] Problem 01/05/[address] [facility] [place] Impaired Impaired Problem Active 2023-01-05 Memoria cognition cognition 12:21:13 l (finding) (finding) Herm kathia Active Problem 01/05/2023 [facility] Pain of Pain of Problem Active [place] [...] Date Stop Date Source Natural father Diabetes [facility] Natural father Heart disease [facility] Natural mother [facility] Social History Social Habit Start Date Stop Date Quantity Comments Source Gender identity [facility] Sexual orientation [facility] History of Social 2022-10-06 2022-10-06 [facility] function 00:00:00 00:00:00 Hospital Alcohol intake 2022-10-06 2022-10-06 Current [facility] 00:00:00 00:00:00 non-drinker of Hospital alcohol (finding) Social History 2022-01-21 2022-01-21 [facility] Lorie holland 20:49:26 20:49:26 Tobacco use and 2018-09-27 2018-09-27 Smokeless [facility] exposure 00:00:00 00:00:00 tobacco non-user Hospital Sex Assigned At [birth year] [facility] 00:00:00 00:00:00 Hospital Smoking Status Start Date Stop Date Source Tobacco smoking status 2023-01-02 21:03:14 2023-01-02 21:03:14 M andrew Segura Never smoked tobacco [facility] Medications Ordered Filled Start Stop Current Ordering Indication Dosage Frequency Signature Comments Components Source Medication Medication Date Date Medication? Clinician (SIG) Name Name Aricept Yes 10 mg = 1 Me moria mg oral 9-30 tab, PO, l tablet 20:19: Daily, # [place] 00 90 tab, 1 Refill(s), Pharmacy: [id number], 175.26, cm, 08/22/22 15:07:00 CDT, Height, 77.273, kg, 08/22/22 15:07:00 CDT, Weight Aricept Yes 10 mg = 1 Me moria mg oral 9-30 tab, PO, l tablet 20:19: Daily, # [place] 00 90 tab, 1 Refill(s), Pharmacy: [facility] #[id number], 175.26, cm, 08/22/22 15:07:00 CDT, Height, 77.273, kg, 08/22/22 15:07:00 CDT, Weight Aricept 10 2021-0 Yes 10 mg = 1 Me moria mg oral 9-30 tab, PO, l tablet 20:19: Daily, # [place] 00 90 tab, 1 Refill(s), Pharmacy: [facility] #[id number], 175.26, cm, 08/22/22 15:07:00 CDT, Height, 77.273, kg, 08/22/22 15:07:00 CDT, Weight gabapentin 2021-0 No 0 Memoria 100 mg oral 9-30 Refill(s) l capsule 20:08: [place] 00 gabapentin 2021-0 No 0 Memoria 100 mg oral 9-30 Refill(s) l capsule 20:08: [place] 00 gabapentin 2021-0 No 0 Memoria 100 mg oral 9-30 Refill(s) l capsule 20:08: [place] 00 Lyrica 75 2-0 Yes 75 mg = 1 Mem oria mg oral 5-04 cap, PO, l capsule 22:36: Bedtime, # Herm kathia 00 30 cap, 2 Refill(s), Pharmacy: [facility] #[id number], 172.72, cm, 02/19/22 15:04:00 CDT, Height, 82.273, kg, 02/19/22 15:04:00 CDT, Weight Lyrica 75 2-0 Yes 75 mg = 1 Mem oria mg oral 5-04 cap, PO, l capsule 22:36: Bedtime, # Herm kathia 00 30 cap, 2 Refill(s), Pharmacy: [facility] #[id number], 172.72, cm, 02/19/22 15:04:00 CDT, Height, 82.273, kg, 02/19/22 15:04:00 CDT, Weight Lyrica 75 2-0 Yes 75 mg = 1 Mem oria mg oral 5-04 cap, PO, l capsule 22:36: Bedtime, # Herm kathia 00 30 cap, 2 Refill(s), Pharmacy: [facility] #[id number], 172.72, cm, 02/19/22 15:04:00 CDT, Height, 82.273, kg, 02/19/22 15:04:00 CDT, Weight Aricept 5 2021-0 Yes 5 mg = 1 Yinka gabriel mg oral 3-31 tab, PO, l tablet 13:28: Bedtime, # Sarha nn 00 90 tab, 3 Refill(s), Pharmacy: [id number], 172.72, cm, 02/19/22 15:04:00 CDT, Height, 82.273, kg, 02/19/22 15:04:00 CDT, Weight Aricept 5 2021-0 Yes 5 mg = 1 Yinka gabriel mg oral 3-31 tab, PO, l tablet 13:28: Bedtime, # Sarah nn 00 90 tab, 3 Refill(s), Pharmacy: [id number], 172.72, cm, 02/19/22 15:04:00 CDT, Height, 82.273, kg, 02/19/22 15:04:00 CDT, Weight Aricept 5 2021-0 Yes 5 mg = 1 Yinka gabriel mg oral 3-31 tab, PO, l tablet 13:28: Bedtime, # Sarah nn 00 90 tab, 3 Refill(s), Pharmacy: [id number], 172.72, cm, 02/19/22 15:04:00 CDT, Height, 82.273, kg, 02/19/22 15:04:00 CDT, Weight Donepezil 2021-0 No 5 mg = 1 Yinka gabriel hydrochlori 3-30 tab, PO, l de 5 MG 20:53: Bedtime, X Herm kathia Oral Tablet 00 30 day, # [Aricept] 30 tab, 3 Refill(s), Pharmacy: [id number], 172.72, cm, 02/19/22 15:04:00 CDT, Height, 82.273, kg, 02/19/22 15:04:00 CDT, Weight Donepezil 2022-0 No 5 mg = 1 Yinka gabriel hydrochlori 3-30 tab, PO, l de 5 MG 20:53: Bedtime, X Herm kathia Oral Tablet 00 30 day, # [Aricept] 30 tab, 3 Refill(s), Pharmacy: [facility] #[id number], 172.72, cm, 02/19/22 15:04:00 CDT, Height, 82.273, kg, 02/19/22 15:04:00 CDT, Weight Donepezil No 5 mg = 1 Yinka gabriel hydrochlori 3-30 tab, PO, l de 5 MG 20:53: Bedtime, X Herm kathia Oral Tablet day, # [Aricept] 30 tab, 3 Refill(s), Pharmacy: [facility] #[id number], 172.72, cm, 02/19/22 15:04:00 CDT, Height, [...] 3-01 TABLETS BY l tablet 20:58: MOUTH [place] 00 TWICE A DAY lisinopril 0 Yes TAKE 1 Memor ia 10 mg oral 3-01 TABLET BY l tablet 20:58: MOUTH [place] 00 EVERY DAY sucralfate 0 Yes 1 gm = 1 Mem oria 1 g oral 3-01 tab, PO, l tablet 20:58: QID-Before Sarah nn 00 Meals, 0 Refill(s) Glipizide 5 Yes TAKE 2 Yinka gabriel MG Oral 3-01 TABLETS BY l Tablet 20:58: MOUTH [place] 00 TWICE A DAY lisinopril 0 Yes TAKE 1 Memor ia 10 mg oral 3-01 TABLET BY l tablet 20:58: MOUTH [place] 00 EVERY DAY sucralfate 0 Yes 1 gm = 1 Mem oria 1 g oral 3-01 tab, PO, l tablet 20:58: QID-Before Sarah nn 00 Meals, 0 Refill(s) pantoprazol Yes 40 mg = 1 M emoria e 40 mg 3-01 tab, PO, l oral 20:58: Daily, # [place] enteric 00 30 tab, 0 coated Refill(s) tablet Glipizide 5 Yes TAKE 2 Yinka gabriel MG Oral 3-01 TABLETS BY l Tablet 20:58: MOUTH [place] 00 TWICE A DAY pantoprazol Yes 40 mg = 1 M emoria e 40 mg 3-01 tab, PO, l oral 20:58: Daily, # [place] enteric 00 30 tab, 0 coated Refill(s) tablet glipiZIDE 5 Yes TAKE 2 Yinka gabriel mg oral 3-01 TABLETS BY l tablet 20:58: MOUTH [place] 00 TWICE A DAY lisinopril Yes TAKE 1 Memor ia 10 mg oral 3-01 TABLET BY l tablet 20:58: MOUTH [place] 00 EVERY DAY sucralfate Yes 1 gm = 1 Mem oria 1 g oral 3-01 tab, PO, l tablet 20:58: QID-Before Sarah nn 00 Meals, 0 Refill(s) Centrum Yes 1 tab, PO, Yinka gabriel Silver oral 3-01 Daily, # l tablet 20:57: 30 tab, 0 Sergey n 00 Refill(s) cetirizine Yes 10 mg = 1 Me moria 10 mg oral 3-01 cap, PO, l capsule 20:57: Daily, 0 Sergey n 00 Refill(s) Centrum 0 Yes 1 tab, PO, Yinka gabriel Silver oral 3-01 Daily, # l tablet 20:57: 30 tab, 0 Sergey n 00 Refill(s) cetirizine Yes 10 mg = 1 Me moria 10 mg oral 3-01 cap, PO, l capsule 20:57: Daily, 0 Sergey n 00 Refill(s) Centrum 0 Yes 1 tab, PO, Yinka gabriel Silver [...] 0 [place] capsule 00 Refill(s) Vitamin D3 0 Yes 25 Memoria 1000 intl 3-01 microgram l units oral 20:56: = 1 cap, Her aly capsule 00 PO, Daily, # 100 cap, 0 Refill(s) Fish Oil 0 Yes 1,200 mg = Mem oria 1200 mg 3-01 1 cap, PO, l oral 20:56: TID, 0 [place] capsule 00 Refill(s) Vitamin D3 Yes 25 Memoria 1000 intl 3-01 microgram l units oral 20:56: = 1 cap, Her aly capsule 00 PO, Daily, # 100 cap, 0 Refill(s) Vitamin D3 Yes 25 Memoria 1000 intl 3-01 microgram l units oral 20:56: = 1 cap, Her aly capsule 00 PO, Daily, # 100 cap, 0 Refill(s) Fish Oil 0 Yes 1,200 mg = Mem oria 1200 mg 3-01 1 cap, PO, l oral 20:56: TID, 0 [place] capsule 00 Refill(s) Vitamin D3 0 Yes 25 Memoria 1000 intl 3-01 microgram l units oral 20:56: = 1 cap, Her aly capsule 00 PO, Daily, # 100 cap, 0 Refill(s) Prevagen 0 Yes 50 Memoria 3-01 microgram, l 20:55: PO, Daily, [place] 00 0 Refill(s) Prevagen 2021-0 Yes 50 Memoria 3-01 microgram, l 20:55: PO, Daily, [place] 00 0 Refill(s) Prevagen 2021-0 Yes 50 Memoria 3-01 microgram, l 20:55: PO, Daily, [place] 00 0 Refill(s) methylPREDN 2021- No [id number] 4mg Take 1 [facility] ISolone 01-20 tablet (4 st (MEDROL 00:00: 05:59 mg total) Hosp mira DOSEPAK) 4 00 :00 by mouth l mg tablet See Admin Instructio ns for 5 days. Use as directed by package instructio ns omega-3 2021-0 Yes Take by [facility] fatty 1-[address] acids-vitam 14:20: Hospit a in E (FISH 55 l OIL) 1,000 mg capsule cholecalcif 0 Yes 1000U QD Take 1,000 [facility] hollie, 1-[address] vitamin D3, 14:20: mouth Hospi ta (VITAMIN 55 daily. l D3) 1,000 unit tablet FOLIC 0 Yes Take by [facility] ACID/MULTIV 1-[address] IT-MIN/LUTE 14:20: Hospit a IN (CENTRUM 55 l SILVER ORAL) omega-3 0 Yes Take by [facility] fatty 1-[address] acids-vitam 14:20: Hospit a in E (FISH 55 l OIL) 1,000 mg capsule cholecalcif 0 Yes 1000U QD Take 1,000 [facility] hollie, 1-[address] vitamin D3, 14:20: mouth Hospi ta (VITAMIN 55 daily. l D3) 1,000 unit tablet FOLIC 0 Yes Take by [facility] ACID/MULTIV 1-[address] IT-MIN/LUTE 14:20: Hospit a IN (CENTRUM 55 l SILVER ORAL) diclofenac 2018-11 Yes [id number] Q.25D Apply [facility] (VOLTAREN) 11-[address] 1 % gel 00:00: 4 (four) Hospit a 00 times a l day. Dispense voltaren 1% or diclofenac 1% gel - apply 2 grams diclofenac 2018-11 Yes [id number] Q.25D Apply [facility] (VOLTAREN) [address] 1 % gel 00:00: 4 (four) Hospit a 00 times a l day. Dispense voltaren 1% or diclofenac 1% gel - apply 2 grams diclofenac Yes [id number] APPLY 2 [facility] (VOLTAREN) 3-[address] 1 % gel 00:00: AFFECTED Hospit a 00 AREA(S) 3 l TIMES A DAY diclofenac Yes [id number] APPLY 2 [facility] (VOLTAREN) 3-[address] 1 % gel 00:00: AFFECTED Hospit a 00 AREA(S) 3 l TIMES A DAY metFORMIN 2015-11 Yes [facility] (GLUCOPHAGE 0-20 st ) 1000 MG 00:00: Hospita tablet 00 l metFORMIN 2015-11 Yes [facility] (GLUCOPHAGE 0-20 st ) 1000 MG 00:00: Hospita tablet 00 l glipiZIDE Yes [facility] (GLUCOTROL) 9-18 st 5 MG tablet 00:00: Hospit a 00 l glipiZIDE Yes [facility] (GLUCOTROL) 9-18 st 5 MG tablet 00:00: Hospit a 00 l lisinopril Yes [facility] (PRINIVIL,Z 9-15 st ESTRIL) 10 00:00: Hospita MG tablet 00 l lisinopril Yes [facility] (PRINIVIL,Z 9-15 st ESTRIL) 10 00:00: Hospita MG tablet 00 l Vital Signs Vital Name Observation Time Observation Value Comments Source Systolic (mm Hg) 2023-01-02 21:02:00 Yinka rial [place] Diastolic (mm Hg) 2023-01-02 21:02:00 Mem orial [place] Heart Rate 2023-01-02 21:02:00 [facility] [place] Height 2023-01-02 21:02:00 5 [ft_i] [facility] [place] Weight 2023-01-02 21:02:00 [facility] [place] BMI Calculated 2023-01-02 21:02:00 Memori al [place] BMI Calculated 2022-11-21 20:46:00 Memori al [place] Systolic (mm Hg) 2022-11-21 20:46:00 Yinka rial [place] Diastolic (mm Hg) 2022-11-21 20:46:00 Mem orial [place] Heart Rate 2022-11-21 20:46:00 [facility] [place] Height 2022-11-21 20:46:00 5 [ft_i] [facility] [place] Weight 2022-11-21 20:46:00 [facility] [place] Systolic (mm Hg) 2022-08-22 19:51:00 Yinka rial [place] Diastolic (mm Hg) 2022-08-22 19:51:00 Mem orial [place] Heart Rate 2022-08-22 19:51:00 [facility] [place] Respitory Rate 2022-08-22 19:51:00 Memori al [place] Height 2022-08-22 19:51:00 175.26 cm [facility] [place] Weight 2022-08-22 19:51:00 [facility] [place] BMI Calculated 2022-08-22 19:51:00 Memori al [place] Systolic (mm Hg) 2022-05-22 20:00:00 Yinka rial [place] Diastolic (mm Hg) 2022-05-22 20:00:00 Mem orial [place] Heart Rate 2022-05-22 20:00:00 [facility] [place] Respitory Rate 2022-05-22 20:00:00 Memori al [place] Height 2022-05-22 20:00:00 172.72 cm [facility] [place] Weight 2022-05-22 20:00:00 [facility] [place] BMI Calculated 2022-05-22 20:00:00 Memori al [place] Systolic (mm Hg) 2022-02-19 20:04:00 Yinka rial [place] Diastolic (mm Hg) 2022-02-19 20:04:00 Mem orial [place] Heart Rate 2022-02-19 20:04:00 [facility] [place] Respitory Rate 2022-02-19 20:04:00 Memori al [place] Height 2022-02-19 20:04:00 172.72 cm [facility] [place] Weight 2022-02-19 20:04:00 [facility] [place] BMI Calculated 2022-02-19 20:04:00 Memori al [place] Height 2022-01-21 20:46:00 172.72 cm [facility] [place] Weight 2022-01-21 20:46:00 [facility] [place] BMI Calculated 2022-01-21 20:46:00 Memori al [place] Systolic (mm Hg) 2022-01-21 20:46:00 Yinka rial [place] Diastolic (mm Hg) 2022-01-21 20:46:00 Mem orial [place] Heart Rate 2022-01-21 20:46:00 [facility] [place] Respitory Rate 2022-01-21 20:46:00 Memori al [place] Procedures Procedure Date / Time Performing Clinician Source Performed XR ANKLE 3+ VW RIGHT 2022-10-06 17:28:06 Ladi Mix [facility] CO ARTHROCENTESIS 2022-10-06 17:00:00 Ladi Mix [facility] ASPIR&/INJ INTERM JT/BURS W/O US XR ANKLE 3+ VW RIGHT 2022-01-20 20:59:56 Ladi Mix [facility] XR FOOT 3+ VW RIGHT 2022-01-20 20:56:36 Ladi Mix [facility] Hernia repair<sup>1</sup> Asya Gustafson Plan of Care Planned Activity Planned Date Details Comments Source Future Scheduled 2023-02-25 SHINGLES VACCINES (1 [facility] Test 05:15:37 of 2) [code = SHINGLES VACCINES (1 of 2)] Future Scheduled 2023-02-25 65+ PNEUMOCOCCAL [facility] Test 05:15:37 VACCINE (1 - PCV) [code = 65+ PNEUMOCOCCAL VACCINE (1 - PCV)] Future Scheduled 2023-02-25 COVID-19 VACCINE (3 - [facility] Test 05:15:37 Booster for Pfizer series) [code = COVID-19 VACCINE (3 - Booster for Pfizer series)] Future Scheduled 2023-02-25 INFLUENZA VACCINE [facility] Test 05:15:37 [code = INFLUENZA VACCINE] Future Scheduled 2022-11-05 SHINGLES VACCINES (1 [facility] Test 04:55:19 of 2) [code = SHINGLES VACCINES (1 of 2)] Future Scheduled 2022-11-05 65+ PNEUMOCOCCAL [facility] Test 04:55:19 VACCINE (1 - PCV) [code = 65+ PNEUMOCOCCAL VACCINE (1 - PCV)] Future Scheduled 2022-11-05 COVID-19 VACCINE (3 - [facility] Test 04:55:19 Booster for Pfizer series) [code = COVID-19 VACCINE (3 - Booster for Pfizer series)] Future Scheduled 2022-11-05 INFLUENZA VACCINE [facility] Test 04:55:19 [code = INFLUENZA VACCINE] Encounters Start End Encounter Admission Attending Care Care Encounter Source Date/Time Date/Time Type Type Clinicians Facility Department ID 2023-08-25 2023-08-25 Outpatient LAURA SANCHEZ [id number] [place] 15:30:00 15:30:00 Cindy Segura 2023-04-29 2023-04-29 Outpatient MHIE MHIE [id number] [facility] 15:30:00 15:30:00 06 andreia Segura 2023-01-02 2023-01-03 Outpatient MHIE MNA [id number] [facility] 21:15:00 05:59:59 Neurology 05 andreia Segura 2023-01-02 2023-01-02 Outpatient ANN SalazarMISCHER MHMISCHER [id number] 15:15:00 23:59:59 Benjie 05 Jignesh 2023-01-02 2023-01-02 Outpatient MHIE MHIE [id number] [facility] 15:15:00 15:15:00 05 andreia Segura 2023-01-02 2023-01-02 Outpatient MHIE MHIE [id number] [facility] 15:15:00 15:15:00 05 andreia Segura 2022-11-21 2022-11-22 Outpatient MHIE MNA [id number] [facility] 21:00:00 05:59:59 Neurology 04 andreia Segura 2022-11-21 2022-11-22 Outpatient MHIE MNA [id number] Memoria 21:00:00 05:59:59 Neurology 04 andreia Segura 2022-11-21 2022-11-21 Outpatient ANN SalazarIASCHER MHMISCHER [id number] 15:00:00 23:59:59 Benjie Tho Egan 2022-11-21 2022-11-21 Outpatient MHIE MHIE [id number] Memoria 15:00:00 15:00:00 04 andreia Segura 2022-10-06 2022-10-06 Office Ladi Mix 1.2.840.1 [id number] [facility] 11:00:00 12:49:49 [place]. [address]189.1.[address] 3.430.2.7 Hospit a .3.764862 l .8 2022-10-06 2022-10-06 Office Ladi Mix 1.2.840.1 [id number] [facility] 11:00:00 12:49:49 [place]. [address]339.1.[address] 3.430.2.7 Hospit a .3.265119 l .8 2022-10-06 2022-10-06 Travel 1.2.840.1 1.2.233.557 [id number] [facility] 00:00:00 00:00:[address] 3.430.2.7 0.2.7.3.698 Ho spita .3.886049 084.8 l .8 2022-10-06 2022-10-06 Outpatient LADI MIX [facility] [id number] [place] 00:00:00 00:00:[address] 2022-10-06 2022-10-06 Travel 1.2.840.1 1.2.955.150 [id number] [facility] 00:00:00 00:00:[address] 3.430.2.7 0.2.7.3.698 Ho spita .3.998947 084.8 l .8 2022-08-22 2022-08-23 Outpatient nullFlavo MNA [id number] Memoria 20:00:00 04:59:59 r Neurology 03 andreia [place] 2022-08-22 2022-08-23 Outpatient nullFlavo MNA [id number] Memoria 20:00:00 04:59:59 r Neurology 03 andreia [place] 2022-08-22 2022-08-22 [id number] 15:00:00 23:59:59 Benjie Helen Egan 2022-08-22 2022-08-22 Outpatient MHIE IE [id number] Memoria 15:00:00 15:00:00 03 andreia [place] 2022-05-22 2022-05-23 Outpatient nullFlavo MNA [id number] [facility]oria 20:00:00 04:59:59 r Neurology 02 andreia [place] 2022-05-22 2022-05-23 Outpatient nullFlavo MNA [id number] Memoria 20:00:00 04:59:59 r Neurology 02 andreia Segura 2022-05-22 2022-05-22 Outpatient Marie DEMETRIA MISCHER [id number] 15:00:00 23:59:59 Benjie Jignesh 2022-05-22 2022-05-22 Outpatient MHIE ANNIE [id number] [facility] 15:00:00 15:00:00 02 andreia [place] 2022-02-19 2022-02-20 Outpatient nullFlavo MNA [id number] [facility] 20:15:00 04:59:59 r Neurology 01 l Srinivasa [place] 2022-02-19 2022-02-20 Outpatient nullFlavo MNA [id number] [facility]oria 20:15:00 04:59:59 r Neurology 01 l Srinivasa [place] 2022-02-19 2022-02-19 Outpatient DEMETRIA Salazar MISCHER [id number] 15:15:00 23:59:59 Benjie Jignesh 2022-02-19 2022-02-19 Outpatient MHIE ANNIE [id number] [facility]oria 15:15:00 15:15:00 01 [facility] 2022-01-21 2022-01-22 Outpatient nullFlavo MNA [id number] [facility] 21:00:00 05:59:59 r Neurology 00 l Srinivasa [place] 2022-01-21 2022-01-22 Outpatient nullFlavo MNA [id number] [facility] 21:00:00 05:59:59 r Neurology 00 l Srinivasa [place] 2022-01-21 2022-01-21 Outpatient DEMETRIA SalazarSCHMILDRED [id number] 15:00:00 23:59:59 Benjie Jignesh 2022-01-21 2022-01-21 Outpatient MHIE ANNIE [id number] [facility] 15:00:00 15:00:00 00 andreia [place] 2022-01-20 2022-01-20 Office Ladi Mix 1.2.840.1 [id number] [facility] 14:50:00 16:47:12 [address]70.1.[address] 3.430.2.7 Hospit a .3.270671 l .8 2022-01-20 2022-01-20 Travel 1.2.840.1 1.2.767.027 [id number] [facility] 00:00:00 00:00:00 13828.1.1 350.1.13.43 4 3.430.2.7 0.2.7.3.698 spita .3.056473 084.8 l .8 2022-01-20 2022-01-20 Outpatient LADI MIX [facility] [id number] [place] 00:00:00 00:00:[address] 2022-01-20 2022-01-20 Outpatient LADI MIX [facility] [id number] [place] 00:00:00 00:00:[address] 2021-12-06 2021-12-06 Outpatient LADI MIX [facility] [id number] [place] 00:00:00 00:00:[address] 2021-12-06 2021-12-06 Outpatient LADI MIX [facility] [id number] [place] 00:00:00 00:00:[address] 2020-09-24 2020-09-24 Outpatient LADI MIX [facility] [id number] [place] 00:00:00 00:00:[address] 2020-09-24 2020-09-24 Outpatient LADI MIX [facility] [id number] [place] 00:00:00 00:00:[address] 2019-03-01 2019-03-01 [facility] 51 [id number] [place] 10:00:00 10:00:00 t; doroteo [facility] Martha Dimas i, M.D. Results Test Description Test Time Test Comments Results Result Comments Source ANEMIA STUDY 2022-04-08 15:29:00 Test Item Value Reference Range Interpretation Comme nts Vitamin B12 Lvl (test code = Vitamin B12 Lvl) 533 877-2153 [facility]2022-05-17 15:29:00 Test Item Value Reference Range Interpretation Comments BUN (test code = BUN) 55 7-25 [facility]2022-05-17 15:29:00 Test Item Value Reference Range Interpretation Comments Creatinine Lvl (test code = Creatinine 1.96 0.70-1.11 Lvl) [facility]2022-05-17 15:29:00 Test Item Value Reference Range Interpretation Comments eGFR NON-AFR. IRANIAN (test code = 31 eGFR NON-AFR. IRANIAN) [facility]2022-05-17 15:29:00 Test Item Value Reference Range Interpretation Comments eGFR (test code = eGFR 36 ) [facility]2022-05-17 15:29:00 Test Item Value Reference Range Interpretation Comments B/C Ratio (test code = B/C Ratio) 28 6-22 [facility]2022-05-17 15:29:00 Test Item Value Reference Range Interpretation Comments Vitamin B12 Lvl (test code = Vitamin 154 [id number] B12 Lvl) [facility]2022-05-17 15:29:00 Test Item Value Reference Range Interpretation Comments BUN (test code = BUN) 55 7-25 [facility]2022-05-17 15:29:00 Test Item Value Reference Range Interpretation Comments Creatinine Lvl (test code = Creatinine 1.96 0.70-1.11 Lvl) [facility]2022-05-17 15:29:00 Test Item Value Reference Range Interpretation Comments eGFR NON-AFR. IRANIAN (test code = 31 eGFR NON-AFR. IRANIAN) [facility]2022-05-17 15:29:00 Test Item Value Reference Range Interpretation Comments eGFR (test code = eGFR 36 ) [facility]2022-05-17 15:29:00 Test Item Value Reference Range Interpretation Comments B/C Ratio (test code = B/C Ratio) 28 6-22 [facility]2022-05-17 15:29:00 Test Item Value Reference Range Interpretation Comments VITAMIN B1 (THIAMINE) WHOLE BLOOD (test 153 78-185 code = VITAMIN B1 (THIAMINE) WHOLE BLOOD) [id number] 15:29:00 Test Item Value Reference Range Interpretation Comments Sed Rate (test code = Sed Rate) 22 [id number] 15:29:00 Test Item Value Reference Range Interpretation Comments C-REACTIVE PROTEIN (test code = 17.9 C-REACTIVE PROTEIN) [id number] 15:29:00 Test Item Value Reference Range Interpretation Comments Copper Lvl (test code = Copper Lvl) 97 70-175 [place] [id number] 15:29:00 Test Item Value Reference Range Interpretation Comments VITAMIN B1 (THIAMINE) WHOLE BLOOD (test 153 78-185 code = VITAMIN B1 (THIAMINE) WHOLE BLOOD) [id number] 15:29:00 Test Item Value Reference Range Interpretation Comments Sed Rate (test code = Sed Rate) 22 [place] [address]-05-17 15:29:00 Test Item Value Reference Range Interpretation Comments C-REACTIVE PROTEIN (test code = 17.9 C-REACTIVE PROTEIN) [id number] 15:29:00 Test Item Value Reference Range Interpretation Comments Copper Lvl (test code = Copper Lvl) 97 70-175 [facility]2022-05-17 15:29:00 Test Item Value Reference Range Interpretation Comments Vitamin B12 Lvl (test code = Vitamin 499 [id number] B12 Lvl) [facility]2022-05-17 15:29:00 Test Item Value Reference Range Interpretation Comments BUN (test code = BUN) 55 7-25 [place] [id number] 15:29:00 Test Item Value Reference Range Interpretation Comments Creatinine Lvl (test code = Creatinine 1.96 0.70-1.11 Lvl) [facility]2022-05-17 15:29:00 Test Item Value Reference Range Interpretation Comments eGFR NON-AFR. IRANIAN (test code = 31 eGFR NON-AFR. IRANIAN) [facility]2022-05-17 15:29:00 Test Item Value Reference Range Interpretation Comments eGFR (test code = eGFR 36 ) [facility] [facility] 15:29:00 Test Item Value Reference Range Interpretation Comments B/C Ratio (test code = B/C Ratio) 28 6-22 [place] [id number] 15:29:00 Test Item Value Reference Range Interpretation Comments VITAMIN B1 (THIAMINE) WHOLE BLOOD (test 153 78-185 code = VITAMIN B1 (THIAMINE) WHOLE BLOOD) [id number] 15:29:00 Test Item Value Reference Range Interpretation Comments Sed Rate (test code = Sed Rate) 22 [place] [id number] 15:29:00 Test Item Value Reference Range Interpretation Comments C-REACTIVE PROTEIN (test code = 17.9 C-REACTIVE PROTEIN) [id number] 15:29:00 Test Item Value Reference Range Interpretation Comments Copper Lvl (test code = Copper Lvl) 97 70-175 [facility][U] XRAY FINGER(S) - 2 VWS MIN. RIGHT [id number] 09:27:00 Images acquired, not reported on this accession number.[facility]
[2023-05-02] MEDS ORDERED: NA CHLORIDE 0.9% 1,000 ML ONE (04:52)
[2023-05-02] MEDS ORDERED: KETOROLAC 30 MG/ML INJ ONE (04:52)
[2023-05-02] MEDS ORDERED: ONDANSETRON 4 MG/2 ML VIAL ONE (04:52)
[2023-05-02 05:03] LABS: Absolute Lymphocytes (CBC) 0.8 K/uL (0.7-4.9); Hematocrit 36.1 % (39.6-49.0); Lymphocytes % 10.5 % (15.3-44.8); MCV 93.9 fL (80-100); RBC Red Blood Cell Count 3.85 M/uL (4.33-5.43)
[2023-05-02 05:21] LABS: Albumin 3.4 g/dL (3.4-5.0); Bilirubin Total 0.4 mg/dL (0.2-1.0); Potassium 5.5 mEq/L (3.5-5.1); Protein, Total 8.3 g/dL (6.4-8.2)
[2023-05-02 05:25] LABS: Specific Gravity 1.018 (1.005-1.030); Urine Bilirubin NEGATIVE (Negative); Urine Blood 3+ (OVER) (Negative); Urine Clarity Extremely Turbid (Clear); Urine Color Light-Orange (Yellow); Urine Glucose NEGATIVE (Negative); Urine Protein 2+ (Negative); Urine Urobilinogen Normal (Normal); Urine pH 5.5 (5.0-7.0)
[2023-05-02 05:27] LABS: Urine Bacteria <20 /HPF (<20); Urine Crystals Unidentified Few /HPF (None Seen); Urine Mucus Slight /HPF (None Seen); Urine RBC >50 /HPF (None Seen)
[2023-05-02 05:28] LABS: Urine WBC Clump Moderate /HPF (None Seen)
[2023-05-02] MEDS ORDERED: NA CHLORIDE 0.9% 100 ML ONE (06:23)
[2023-05-02] MEDS ORDERED: CEFTRIAXONE 1000 MG/VIAL ONE (06:23)
--- NOTE | 2023-05-02 07:12 | RAD REPORT ---
EXAM DESCRIPTION: CTAbdomen Pelvis Wo Contrast - 05/02/2023 5:42 am CLINICAL HISTORY: right flank pain, hx of stone COMPARISON: Head angio dated 05/02/2023Stone Protocol dated 12/12/2021; CTSTONE PROTOCOL dated 06/17/20 12; CT-STONE PROTOCOL dated 12/17/2010; CT-STONE PROTOCOL dated 11/04/2007 TECHNIQUE: CT of the abdomen and pelvis was performed. All CT scans are performed using dose optimization technique as appropriate and may include automated exposure control or mA/KV adjustment according to patient size. FINDINGS: Lower chest: Coronary artery calcifications. Mild circumferential thickened distal esophag us . Liver: No acute abnormality or suspicious lesions. Biliary: Cholecystectomy Stomach: No significant focal abnormality. Duodenum: No significant focal abnormality. Pancreas: No significant abnormality. Spleen: No significant abnormality. Adrenal: No suspicious lesions. Kidney/ureter: Mild right-sided hydronephrosis secondary to a 7 mm stone at the right UPJ. A 9 mm sto willa also present in the right kidney. Left nephrolithiasis is present. Retroperitoneum: No retroperitoneal adenopathy. Vascular: No aneurysm. Atherosclerosis . Bowel: No significant focal abnormality. Diverticulosis. Peritoneum: No ascites or free air. Bladder: Grossly unremarkable. Reproductive: No adnexal masses. Bones: Similar large left paracentral disc protrusion at L4-5. Multilevel degenerative changes are pr esent in the spine. Intramedullary ledy in the right femur. Other: n/a IMPRESSION: Mild right-sided hydronephrosis secondary to a 7 mm stone at the right UPJ.
--- NOTE | 2023-05-02 07:31 | ER ---
Nurse's Notes [facility] Name: Dev Olguin Age: 82 yrs Sex: Male : 1940 Arrival Date: 05/02/2023 Time: 03:54 Bed 15 Private MD: Diagnosis: Hydronephrosis with renal and ureteral calculous obstruction;UTI/ Urinary tract infection, site not specified Presentation: 05/02 04:03 Chief complaint: Patient states: RLQ pain that radiates to right flank pain of 9,onset pf1 tonight at 2200. Patient denies any N/V/D. Patient stated has a history of kidney stones. Coronavirus screen: Vaccine status: Patient reports receiving the 2nd dose of the covid vaccine. Client denies travel out of the [place] in the last 14 days. At this time, the client does not indicate any symptoms associated with coronavirus-19. Ebola Screen: Patient negative for fever greater than or equal to 101.5 degrees Fahrenheit, and additional compatible Ebola Virus Disease symptoms. Initial Sepsis Screen: Does the patient meet any 2 criteria? No. Patient's initial sepsis screen is negative. Does the patient have a suspected source of infection? No. Patient's initial sepsis screen is negative. Risk Assessment: Do you want to hurt yourself or someone else? Patient reports no desire to harm self or others. 04:03 Method Of Arrival: Ambulatory pf1 04:03 Acuity: [place] 3 pf1 06:51 Onset of symptoms was May 02, 2023. kd3 Historical: - PMHx: 04:09 Alzheimer's disease; Diabetes - NIDDM; pf1 - PSHx: 04:09 hernia repair; right ankle repair; right femur surgery; pf1 - Immunization history:: Adult Immunizations up to date, Client reports receiving the 2nd dose of the Covid vaccine, Last tetanus immunization: > 10 years ago Flu vaccine is not up to date. It has been more than one year since last vaccine. - Social history:: Smoking status: Patient denies any tobacco usage or history of. Patient/guardian denies using alcohol, street drugs. Screenin:37 [facility] ED Fall Risk Assessment (Adult) History of falling in the last 3 months, bp including since admission No falls in past 3 months (0 pts). Abuse screen: Denies threats or abuse. Denies injuries from another. Nutritional screening: No deficits noted. Tuberculosis screening: No symptoms or risk factors identified. Assessment: 06:50 General: Appears in no apparent distress. Behavior is calm, cooperative. Pain: kd3 Complains of pain in back. Neuro: Level of Consciousness is awake, alert, obeys commands, Oriented to person, place, time, situation. 06:51 Respiratory: Airway is patent Trachea midline Respiratory effort is even, unlabored, kd3 Respiratory pattern is regular, symmetrical. 07:00 Reassessment: RECD REPORT FROM THIEN PORRAS. 82YO WM P/W R FLANK PAIN. bp 07:30 Reassessment: TRANSFER INITIATED. bp 08:34 Reassessment: PT ZUNILDA WITH EMS. bp Vital Signs: 04:03 BP 158 / 72; Pulse 71; Resp 18; Temp 97.1; Pulse Ox 99% on R/A; Weight 73.48 kg; Height pf1 5 ft. 8 in. ; Pain 9/10; 06:02 BP 138 / 55; Pulse 77; Resp 18; Pulse Ox 99% on R/A; kd3 06:50 BP 133 / 50; Pulse 82; Resp 19; Pulse Ox 98% on R/A; kd3 08:34 BP 117 / 59; Pulse 75; Resp 15; Pulse Ox 96% ; bp 04:03 Body Mass Index 24.63 (73.48 kg, 172.72 cm) pf1 04:03 Pain Scale: Adult pf1 ED Course: 03:55 Patient arrived in ED. kj1 04:05 Lv Connolly MD is Attending Physician. bs3 04:09 Triage completed. pf1 04:48 Marlene Henson RN is Primary Nurse. kd3 04:48 CBC with Diff Sent. kd3 04:48 CMP Sent. kd3 04:48 Lipase Sent. kd3 05:43 CT Abd/Pelvis - Without Contrast In Process Unspecified. EDMS 07:01 Primary Nurse role handed off by Marlene Henson RN bp 07:01 Amarjit Middleton, CHIQUITA is Primary Nurse. bp 07:17 Attending Physician role handed off by Lv Connolly MD rn 07:17 Roni Shaw MD is Attending Physician. rn 07:19 Urine Culture Sent. bp 07:31 initiated a transfer with Christelle from the [facility] transfer center at the request of the eb patient. 07:37 Patient has correct armband on for positive identification. Bed in low position. Call bp light in reach. Side rails up X2. Adult w/ patient. 07:38 administrative approval given by Christelle Penn/ patient has been auto accepted to [facility] ER/ Dr. González Logan has accepted the patient in transfer without conference with Dr. Shaw/report to be called to [phone]. 08:35 No provider procedures requiring assistance completed. Patient transferred, IV remains bp in place. 08:35 Arm band placed on. bp Administered Medications: 04:48 Drug: TORadol - Ketorolac IVP 15 mg Route: IVP; Site: left antecubital; kd3 06:51 Follow up: Response: No adverse reaction; Pain is decreased kd3 04:48 Drug: Ondansetron IVP 4 mg Route: IVP; Site: left antecubital; kd3 06:51 Follow up: Response: No adverse reaction; Nausea is decreased kd3 04:49 Drug: NS 0.9% IV 1000 ml Route: IV; Rate: 1 bolus; Site: left antecubital; kd3 06:52 Follow up: Response: No adverse reaction; IV Status: Completed infusion kd3 06:19 Drug: Rocephin IV 1 grams Route: IV; Rate: bolus; Site: right antecubital; kd3 06:51 Follow up: Response: No adverse reaction kd3 Outcome: 07:30 Discharge ordered by MD. rn 07:31 ER care complete, transfer ordered by MD. rn 08:35 Transferred by ground EMS bp 08:35 Condition: stable 08:35 Instructed on the need for transfer. 08:35 Patient left the ED. bp Signatures: Dispatcher [employer] EDMS Roni Shaw MD MD rn Peltier, Brian RN RN bp Dori Fair Kandis kj1 Marlene Henson RN RN kd3 Lv Connolly MD MD bs3 Lima Gonzalez RN RN pf1
--- NOTE | 2023-05-02 07:31 | EDPHYS ---
Physician Documentation [facility] Name: Dev Olguin Age: 82 yrs Sex: Male : 1940 Arrival Date: 05/02/2023 Time: 03:54 Bed 15 Private MD: ED Physician Roni Shaw HPI: 05/02 07:18 This 82 yrs old Male presents to ER via Ambulatory with complaints of Back bs3 Pain - FLANK PAIN. 07:18 82-year-old male history of [id number] diabetes, kidney stones presents with bs3 right flank pain denies fevers chills chest pain shortness of breath he notes that similar to his prior episodes of kidney stones he took a tramadol which is prescribed to him by his primary care doctor and came in nothing makes the pain better or worse he denies any nausea vomiting denies any dysuria. Historical: - PMHx: 04:09 Alzheimer's disease; Diabetes - NIDDM; pf1 - PSHx: 04:09 hernia repair; right ankle repair; right femur surgery; pf1 - Immunization history:: Adult Immunizations up to date, Client reports receiving the 2nd dose of the Covid vaccine, Last tetanus immunization: > 10 years ago Flu vaccine is not up to date. It has been more than one year since last vaccine. - Social history:: Smoking status: Patient denies any tobacco usage or history of. Patient/guardian denies using alcohol, street drugs. ROS: 07:18 Constitutional: Negative for fever, chills bs3 07:18 All other systems are negative. Exam: 07:18 Constitutional: This is a well developed, well nourished patient who is awake, alert, bs3 and in no acute distress. Head/Face: Normocephalic, atraumatic. Eyes: Pupils equal round and reactive to light, extra-ocular motions intact. Lids and lashes normal. ENT: mmm, no posterior phyarngeal erythema Neck: Trachea midline, no thyromegaly, no neck stiffness Chest/axilla: Normal chest wall appearance and motion. Nontender with no deformity. No lesions are appreciated. Cardiovascular: Regular rate and rhythm with a normal S1 and S2. symmetric pulses in upper extremities Respiratory: Lungs have equal breath sounds bilaterally, clear to auscultation, no respiratory distress Abdomen/GI: Soft, non-tender, no rebound or guarding Back: No spinal tenderness. No costovertebral tenderness. Full range of motion. Right flank tenderness Skin: Warm, dry with normal turgor. Normal color with no rashes, no lesions, and no evidence of cellulitis. MS/ Extremity: Pulses equal, no cyanosis. Neurovascular intact. Full, normal range of motion. Neuro: Awake and alert, GCS 15, oriented to person, place, time, and situation. Cranial nerves II-XII grossly intact. Motor strength 5/5 in all extremities. Sensory grossly intact. Vital Signs: 04:03 BP 158 / 72; Pulse 71; Resp 18; Temp 97.1; Pulse Ox 99% on R/A; Weight 73.48 kg; Height pf1 5 ft. 8 in. ; Pain 9/10; 06:02 BP 138 / 55; Pulse 77; Resp 18; Pulse Ox 99% on R/A; kd3 06:50 BP 133 / 50; Pulse 82; Resp 19; Pulse Ox 98% on R/A; kd3 08:34 BP 117 / 59; Pulse 75; Resp 15; Pulse Ox 96% ; bp 04:03 Body Mass Index 24.63 (73.48 kg, 172.72 cm) pf1 04:03 Pain Scale: Adult pf1 MDM: 04:05 Patient medically screened. bs3 07:18 Data reviewed: vital signs, nurses notes. ED course: Patient with right flank pain will bs3 evaluate for kidney stone if work-up is negative will consider work-up for AAA or dissection although he feels like it is similar to prior stones UA consistent with urinary tract infection given ceftriaxone CT concerning for large proximal kidney stone discussed with patient who is requesting transfer to [facility] as that is where his urologist is will attempt transfer. 07:28 Differential diagnosis: Pyelonephritis Ureterolithiasis calculus. 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 Escalation of care including admission/observation considered. Counseling: I had a detailed discussion with the patient and/or guardian regarding: the historical points, exam findings, and any diagnostic results supporting the discharge/admit diagnosis, lab results, radiology results, the need to transfer to another facility, [facility] does not immediately have the required specialist. Response to treatment: the patient's symptoms have markedly improved after treatment, and as a result, I will admit patient. ED course: Pt States prefers to transfer to [facility], sees Dr. Merritt for urology, has infected proximal 7mm stone. No urology here either.. 05/02 04:09 Order name: CBC with Diff; Complete Time: 06:09 bs3 05/02 04:09 Order name: CMP; Complete Time: 06:09 bs3 05/02 04:09 Order name: Lipase; Complete Time: 06:09 bs3 05/02 04:09 Order name: Urinalysis w/ reflexes; Complete Time: 06:09 bs3 05/02 05:31 Order name: Urine Culture EDMS 05/02 04:09 Order name: CT Abd/Pelvis - Without Contrast; Complete Time: 07:13 bs3 05/02 04:09 Order name: IV Saline Lock; Complete Time: 04:48 bs3 05/02 04:09 Order name: Labs collected and sent; Complete Time: 04:48 bs3 Administered Medications: 04:48 Drug: TORadol - Ketorolac IVP 15 mg Route: IVP; Site: left antecubital; kd3 06:51 Follow up: Response: No adverse reaction; Pain is decreased kd3 04:48 Drug: Ondansetron IVP 4 mg Route: IVP; Site: left antecubital; kd3 06:51 Follow up: Response: No adverse reaction; Nausea is decreased kd3 04:49 Drug: NS 0.9% IV 1000 ml Route: IV; Rate: 1 bolus; Site: left antecubital; kd3 06:52 Follow up: Response: No adverse reaction; IV Status: Completed infusion kd3 06:19 Drug: Rocephin IV 1 grams Route: IV; Rate: bolus; Site: right antecubital; kd3 06:51 Follow up: Response: No adverse reaction kd3 Disposition Summary: 05/02/23 07:31 Transfer Ordered Transfer Location: Other Acute Care Facility rn Reason: Higher level of care rn Condition: Stable(05/02/23 07:31) rn Problem: new(05/02/23 07:31) rn Symptoms: have improved(05/02/23 07:31) rn Accepting Physician: Dr. González Logan [facility](05/02/23 08:35) bp Diagnosis - Hydronephrosis with renal and ureteral calculous obstruction(05/02/23 07:31) rn - UTI/ Urinary tract infection, site not specified(05/02/23 07:31) rn Forms: - Medication Reconciliation Form rn - SBAR form rn Signatures: Dispatcher [employer] EDRoni Wiggins MD MD rn Peltier, Brian, RN RN bp Dori Fair Kyli, RN RN kd3 Lv Connolly MD MD bs3 Lima Gonzalez, RN RN pf1 Corrections: (The following items were deleted from the chart) 07: 07:30 Home rn rn 07: 07:30 new rn rn : 07:30 have improved rn rn : 07:30 Stable rn rn 07: 07:30 Hydronephrosis with renal and ureteral calculous obstruction rn rn 07:31 07:30 UTI/ Urinary tract infection, site not specified rn rn 07:57 07:31 Dr. René roman eb 08:35 07:57 Dr. González Logan [facility]
[2023-05-02 08:41] VITALS: TEMP 97.1
[2023-05-02 08:45] VITALS: BP 117/59; O2SAT 96
== END 2023-05-02 08:35 ==
LOC: ER 03:54
DX: N13.2 Hydronephrosis with renal and ureteral calculous obstruction (principal); N39.0 Urinary tract infection, site not specified; G30.9 Alzheimer's disease, unspecified; F02.80 Dementia in other diseases classified elsewhere, unspecified severity, without behavioral disturbance, psychotic disturbance, mood disturbance, and anxiety
CPT/HCPCS: 87088; 85025; 87086; 36415; 87077; 87186; 81003; 83690; 80053; 74176; 99285; J2405; J7030; J0696

== ENCOUNTER 2023-06-10 17:34 | Emergency (ER) | payer OTHER, MEDICARE ==
--- OUTSIDE RECORDS SUMMARY | 2023-06-10 17:42 | XMS REPORT | Continuity of Care Document ---
:1940 Author Organization [facility] t Address [address] [place] [address] [place] [id number] Care Team Providers Name Role Phone Nisa Cedillo DO Primary Care Physician Srinath Parker Attending Clinician Unavailable Srinath Parker Attending Clinician Unavailable Mauri Ng Attending Clinician Unavailable Benjie aSlazar Attending Clinician Dominguez BOLDEN, Ladi Landon Attending Clinician NATASHA CLARK M.D. Attending Clinician Unavailable Guero Adames Admitting Clinician Unavailable Mauri Ng Admitting Clinician Unavailable Payers Payer Name Policy Type Policy Number Effective Date Expiration Date S ource Problems Condition Condition Condition Status Onset Resolution Last Treating Co mments Source Name Details Category Date Date Treatment Clinician Date Impaired Impaired Problem Active 2023-05-02 Memoria cognition cognition 19:49:41 l (finding) (finding) Herm kathia Active Problem 05/02/2023 [facility] Headache Headache Problem Active 2023-05-02 Memoria (finding) (finding) 19:49:41 l Active [place] Problem 05/02/2023 [facility] Neurology [place] Dizziness Dizziness Problem Active 2023-05-02 Memoria (finding) (finding) 19:49:41 l Active [place] Problem 05/02/2023 [facility] [place] Amnesia Amnesia Problem Active 2023-05-02 M emoria (finding) (finding) 19:49:41 l Active [place] Problem 05/02/2023 [facility] Diabetes Diabetes Problem Active 2023-05-02 Memoria mellitus mellitus 19:49:41 l (disorder) (disorder) He rmann Active Problem 05/02/2023 [facility] Pain of Pain of Problem Active [...] ans hand hand Allergies, Adverse Reactions, Alerts Allergy Allergy Status Severity Reaction(s) Onset Inactive Treating Comm ents Source Name Type Date Date Clinician No Known DA Active [facility] Allergie -10 Clear s 00:00: Pineda 00 [facility] Family History Family Member Diagnosis Comments Start Date Stop Date Source Natural father Diabetes [facility] Natural father Heart disease [facility] mother [facility] Social History Social Habit Start Date Stop Date Quantity Comments Source Gender identity [facility] Sexual orientation [facility] History of Social 2022-10-06 2022-10-06 [facility] function 00:00:00 00:00:00 Hospital Alcohol intake 2022-10-06 2022-10-06 Current [facility] 00:00:00 00:00:00 non-drinker of Hospital alcohol (finding) Tobacco use and 2018-09-27 2018-09-27 Smokeless [facility] exposure 00:00:00 00:00:00 tobacco non-user Hospital Sex Assigned At [birth year] [facility] 00:00:[facility] 00:00:00 Hospital Smoking Status Start Date Stop Date Source Tobacco smoking status 2023-04-29 20:09:57 2023-04-29 20:09:57 Renetta Segura Never smoked tobacco [facility] Medications Ordered Filled Start Stop Current Ordering Indication Dosage Frequency Signature Comments Components Source Medication Medication Date Date Medication? 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 Aricept 10 Yes 10 mg = 1 Me moria mg oral 9-30 tab, PO, l tablet 20:19: Daily, # [place] 00 90 tab, 1 Refill(s), Pharmacy: [facility] #[id number], 175.26, cm, 08/22/22 15:07:00 CDT, Height, 77.273, kg, 08/22/22 15:07:00 CDT, Weight Aricept 10 0 Yes 10 mg = 1 Me moria mg oral 9-30 tab, PO, l tablet 20:19: Daily, # [place] 00 90 tab, 1 Refill(s), Pharmacy: [facility] #[id number], 175.26, cm, 08/22/22 15:07:00 CDT, Height, 77.273, kg, 08/22/22 15:07:00 CDT, Weight Aricept 10 2021-0 Yes 10 mg = 1 Me moria mg oral 9-30 tab, PO, l tablet 20:19: Daily, # [place] 00 90 tab, 1 Refill(s), Pharmacy: [facility] #[id number], 175.26, cm, 08/22/22 15:07:00 CDT, Height, 77.273, kg, 08/22/22 15:07:00 CDT, Weight Aricept 10 2021-0 Yes 10 mg = 1 Me moria mg oral 9-30 tab, PO, l tablet 20:19: Daily, # [place] 00 90 tab, 1 Refill(s), Pharmacy: [facility] #[id number], 175.26, cm, 08/22/22 15:07:00 CDT, Height, 77.273, kg, 08/22/22 15:07:00 CDT, Weight Aricept 10 2021-0 Yes 10 mg = 1 Me moria mg oral 9-30 tab, PO, l tablet 20:19: Daily, # [place] 00 90 tab, 1 Refill(s), Pharmacy: [facility] #[id number], 175.26, cm, 08/22/22 15:07:00 CDT, Height, 77.273, kg, 08/22/22 15:07:00 CDT, Weight gabapentin 2021-0 No 0 Memoria 100 mg oral 9-30 Refill(s) l capsule 20:08: gabapentin 2021-0 No 0 Memoria 100 mg oral 9-30 Refill(s) l capsule 20:08: [place] 00 gabapentin 2021-0 No 0 Memoria 100 mg oral 9-30 Refill(s) l capsule 20:08: [place] 00 gabapentin 2021-0 No 0 Memoria 100 mg oral 9-30 Refill(s) l capsule 20:08: gabapentin 2021-0 No 0 Memoria 100 mg oral 9-30 Refill(s) l capsule 20:08: [place] 00 Lyrica 75 2-0 Yes 75 mg = 1 Mem oria mg oral 5-04 cap, PO, l capsule 22:36: Bedtime, # Herm kathia 00 30 cap, 2 Refill(s), Pharmacy: [facility] #[id number], 172.72, cm, 02/19/22 15:04:00 CDT, Height, 82.273, kg, 02/19/22 15:04:00 CDT, Weight Lyrica 75 2-0 Yes 75 mg = 1 Mem oria mg oral 5-04 cap, PO, l capsule 22:36: Bedtime, # Herm kathia 00 30 cap, 2 Refill(s), Pharmacy: [facility] #[id number], 172.72, cm, 02/19/22 15:04:00 CDT, Height, 82.273, kg, 02/19/22 15:04:00 CDT, Weight Lyrica 75 2022-0 Yes 75 mg = 1 Mem oria mg oral 5-04 cap, PO, l capsule 22:36: Bedtime, # Herm kathia 00 30 cap, 2 Refill(s), Pharmacy: [id number], 172.72, cm, 02/19/22 15:04:00 CDT, Height, 82.273, kg, 02/19/22 15:04:00 CDT, Weight Lyrica 75 2022-0 Yes 75 mg = 1 Mem oria mg oral 5-04 cap, PO, l capsule 22:36: Bedtime, # Herm kathia 00 30 cap, 2 Refill(s), Pharmacy: [facility] #6704, 172.72, cm, 02/19/22 15:04:00 CDT, Height, 82.273, kg, 02/19/22 15:04:00 CDT, Weight Lyrica 75 2022-0 Yes 75 mg = 1 Mem oria mg oral 5-04 cap, PO, l capsule 22:36: Bedtime, # Herm kathia 00 30 cap, 2 Refill(s), Pharmacy: [facility] #6704, 172.72, cm, 02/19/22 15:04:00 CDT, Height, 82.273, kg, 02/19/22 15:04:00 CDT, Weight Aricept 5 2022-0 Yes 5 mg = 1 Yinka gabriel mg oral 3-31 tab, PO, l tablet 13:28: Bedtime, # Sarah nn 00 90 tab, 3 Refill(s), Pharmacy: [facility] #6[facility], 172.72, cm, 02/19/22 15:04:00 CDT, Height, 82.273, kg, 02/19/22 15:04:00 CDT, Weight Aricept 5 2022-0 Yes 5 mg = 1 Yinka gabriel mg oral 3-31 tab, PO, l tablet 13:28: Bedtime, # Sarah nn 00 90 tab, 3 Refill(s), Pharmacy: [facility] #6[facility], 172.72, cm, 02/19/22 15:04:00 CDT, Height, 82.273, kg, 02/19/22 15:04:00 CDT, Weight Aricept 5 2021-0 Yes 5 mg = 1 Yinka gabriel mg oral 3-31 tab, PO, l tablet 13:28: Bedtime, # Sarah nn 00 90 tab, 3 Refill(s), Pharmacy: [facility] #[id number], 172.72, cm, 02/19/22 15:04:00 CDT, Height, 82.273, kg, 02/19/22 15:04:00 CDT, Weight Aricept 5 2021-0 Yes 5 mg = 1 Yinka gabriel mg oral 3-31 tab, PO, l tablet 13:28: Bedtime, # Sarah nn 00 90 tab, 3 Refill(s), Pharmacy: [facility] #[id number], 172.72, cm, 02/19/22 15:04:00 CDT, Height, 82.273, kg, 02/19/22 15:04:00 CDT, Weight Aricept 5 2021-0 Yes 5 mg = 1 Yinka gabriel mg oral 3-31 tab, PO, l tablet 13:28: Bedtime, # Sarah nn 00 90 tab, 3 Refill(s), Pharmacy: [facility] #6[facility], 172.72, cm, 02/19/22 15:04:00 CDT, Height, 82.273, kg, 02/19/22 15:04:00 CDT, Weight Donepezil 2021-0 No 5 mg = 1 Yinka gabriel hydrochlori 3-30 tab, PO, l de 5 MG 20:53: Bedtime, X Herm kathia Oral Tablet 30 day, # [Aricept] 30 tab, 3 Refill(s), Pharmacy: [facility] #[id number], 172.72, cm, 02/19/22 15:04:00 CDT, Height, 82.273, kg, 02/19/22 15:04:00 CDT, Weight Donepezil 2022-0 No 5 mg = 1 Yinka gabriel hydrochlori 3-30 tab, PO, l de 5 MG 20:53: Bedtime, X Herm kathia Oral Tablet 30 day, # [Aricept] 30 tab, 3 Refill(s), Pharmacy: [facility] #[id number], 172.72, cm, 02/19/22 15:04:00 CDT, Height, 82.273, kg, 02/19/22 15:04:00 CDT, Weight Donepezil 0 No 5 mg = 1 Yinka gabriel hydrochlori 3-30 tab, PO, l de 5 MG 20:53: Bedtime, X Herm kathia Oral Tablet day, # [Aricept] 30 tab, 3 Refill(s), Pharmacy: [facility] #[id number], 172.72, cm, 02/19/22 15:04:00 CDT, Height, 82.273, kg, 02/19/22 15:04:00 CDT, Weight Donepezil No 5 mg = 1 Yinka gabriel hydrochlori 3-30 tab, PO, l de 5 MG 20:53: Bedtime, X Herm kathia Oral Tablet day, # [Aricept] 30 tab, 3 Refill(s), Pharmacy: [facility] #[id number], 172.72, cm, 02/19/22 15:04:00 CDT, Height, 82.273, kg, 02/19/22 15:04:00 CDT, Weight Donepezil 0 No 5 mg = 1 Yinka gabriel hydrochlori 3-30 tab, PO, l de 5 MG 20:53: Bedtime, X Herm kathia Oral Tablet , # [Aricept] 30 tab, 3 Refill(s), Pharmacy: [facility] #[id number], 172.72, cm, 02/19/22 15:04:00 CDT, Height, 82.273, kg, 02/19/22 15:04:00 CDT, Weight Glipizide 5 Yes TAKE 2 Yinka gabriel MG Oral 3-01 TABLETS BY l Tablet 20:58: MOUTH [place] 00 TWICE A DAY pantoprazol Yes 40 mg = 1 M emoria e 40 mg 3-01 tab, PO, l oral 20:58: Daily, # [place] enteric 00 30 tab, 0 coated Refill(s) tablet glipiZIDE 5 Yes TAKE 2 Yinka gabriel mg oral 3-01 TABLETS BY l tablet 20:58: MOUTH [place] 00 TWICE A DAY lisinopril Yes TAKE 1 Memor ia 10 mg oral 3-01 TABLET BY l tablet 20:58: MOUTH [place] 00 EVERY DAY sucralfate Yes 1 gm = 1 Mem oria 1 g oral 3-01 tab, PO, l tablet 20:58: QID-Before Sarah Meals, 0 Refill(s) Glipizide 5 Yes TAKE 2 Yinka gabriel MG Oral 3-01 TABLETS BY l Tablet 20:58: MOUTH [place] 00 TWICE A DAY pantoprazol Yes 40 mg = 1 M emoria e 40 mg 3-01 tab, PO, l oral 20:58: Daily, # [place] enteric 00 30 tab, 0 coated Refill(s) tablet glipiZIDE 5 Yes TAKE 2 Yinka gabriel mg oral 3-01 TABLETS BY l tablet 20:58: MOUTH [place] 00 TWICE A DAY lisinopril Yes TAKE 1 Memor ia 10 mg oral 3-01 TABLET BY l tablet 20:58: MOUTH [place] 00 EVERY DAY sucralfate Yes 1 gm = 1 Mem oria 1 g oral 3-01 tab, PO, l tablet 20:58: QID-Before Sarah Meals, 0 Refill(s) Glipizide 5 Yes TAKE 2 Yinka gabriel MG Oral 3-01 TABLETS BY l Tablet 20:58: MOUTH [place] 00 TWICE A DAY lisinopril Yes TAKE 1 Memor ia 10 mg oral 3-01 TABLET BY l tablet 20:58: MOUTH [place] 00 EVERY DAY sucralfate Yes 1 gm = 1 Mem oria 1 g oral 3-01 tab, PO, l tablet 20:58: QID-Before Sarah Meals, 0 Refill(s) pantoprazol Yes 40 mg = 1 M emoria e 40 mg 3-01 tab, PO, l oral 20:58: Daily, # [place] enteric 00 30 tab, 0 coated Refill(s) tablet Glipizide 5 Yes TAKE 2 Yinka gabriel MG Oral 3-01 TABLETS BY l Tablet 20:58: MOUTH [place] 00 TWICE A DAY pantoprazol Yes 40 mg = 1 M emoria e 40 mg 3-01 tab, PO, l oral 20:58: Daily, # [place] enteric 00 30 tab, 0 coated Refill(s) tablet glipiZIDE 5 Yes TAKE 2 Yinka gabriel mg oral 3-01 TABLETS BY l tablet 20:58: MOUTH [place] 00 TWICE A DAY lisinopril Yes TAKE 1 Memor ia 10 mg oral 3-01 TABLET BY l tablet 20:58: MOUTH [place] 00 EVERY DAY sucralfate Yes 1 gm = 1 Mem oria 1 g oral 3-01 tab, PO, l tablet 20:58: QID-Before Sarah nn 00 Meals, 0 Refill(s) Glipizide 5 Yes TAKE 2 Yinka gabriel MG Oral 3-01 TABLETS BY l Tablet 20:58: MOUTH [place] 00 TWICE A DAY pantoprazol Yes 40 [...] 3-01 TABLET BY l tablet 20:58: MOUTH [place] 00 EVERY DAY sucralfate Yes 1 gm [...] Daily, 0 Sergey n 00 Refill(s) Centrum 2021-0 Yes 1 tab, PO, Yinka gabriel Silver oral 3-01 Daily, # l tablet 20:57: 30 tab, 0 Sergey n 00 Refill(s) cetirizine 0 Yes 10 mg = 1 Me moria 10 mg oral 3-01 cap, PO, l capsule 20:57: Daily, 0 Sergey n 00 Refill(s) Centrum 2021-0 Yes 1 tab, PO, Yinka gabriel Silver oral 3-01 Daily, # l tablet 20:57: 30 tab, 0 Sergey n 00 Refill(s) cetirizine 0 Yes 10 mg = 1 Me moria [...] 0 Sergey n 00 Refill(s) Vitamin D3 0 Yes 25 [...] # 100 cap, 0 Refill(s) Vitamin D3 0 Yes 25 Memoria 1000 intl 3-01 microgram l units oral 20:56: = 1 cap, Her aly capsule 00 PO, Daily, # 100 cap, 0 Refill(s) Fish Oil 2021-0 Yes 1,200 mg = Mem oria 1200 mg 3-01 1 cap, PO, l oral 20:56: TID, 0 [place] capsule 00 Refill(s) Vitamin D3 2021-0 Yes 25 Memoria 1000 intl 3-01 microgram l units oral 20:56: = 1 cap, Her aly capsule 00 PO, Daily, # 100 cap, 0 Refill(s) Fish Oil 2021-0 Yes 1,200 mg = Mem oria 1200 mg 3-01 1 cap, PO, l oral 20:56: TID, 0 [place] capsule 00 Refill(s) Vitamin D3 0 Yes 25 Memoria 1000 intl 3-01 microgram l units oral 20:56: = 1 cap, Her aly capsule 00 PO, Daily, # 100 cap, 0 Refill(s) Vitamin D3 0 Yes 25 Memoria 1000 intl 3-01 microgram l units oral 20:56: = 1 cap, Her aly capsule 00 PO, Daily, # 100 cap, 0 Refill(s) Fish Oil 2021-0 Yes 1,200 mg = Mem oria 1200 mg 3-01 1 cap, PO, l oral 20:56: TID, 0 [place] capsule 00 Refill(s) Vitamin D3 0 Yes 25 Memoria 1000 intl 3-01 microgram l units oral 20:56: = 1 cap, Her aly capsule 00 PO, Daily, # 100 cap, 0 Refill(s) Vitamin D3 0 Yes 25 Memoria 1000 intl 3-01 microgram l units oral 20:56: = 1 cap, Her aly capsule 00 PO, Daily, # 100 cap, 0 Refill(s) Fish Oil 2021-0 Yes 1,200 mg = Mem oria 1200 mg 3-01 1 cap, PO, l oral 20:56: TID, 0 [place] capsule 00 Refill(s) Vitamin D3 0 Yes 25 Memoria 1000 intl 3-01 microgram l units oral 20:56: = 1 cap, Her aly capsule 00 PO, Daily, # 100 cap, 0 Refill(s) Prevagen 2021-0 Yes 50 Memoria 3-01 microgram, l 20:55: PO, Daily, [place] 00 0 Refill(s) Prevagen 2021-0 Yes 50 Memoria 3-01 microgram, l 20:55: PO, Daily, [place] 00 0 Refill(s) Prevagen 2021-0 Yes 50 Memoria 3-01 microgram, l 20:55: PO, Daily, [place] 00 0 Refill(s) Prevagen 0 Yes 50 Memoria 3-01 microgram, l 20:55: PO, Daily, [place] 00 0 Refill(s) Prevagen 2021-0 Yes 50 Memoria 3-01 microgram, l 20:55: PO, Daily, [place] 00 0 Refill(s) methylPREDN 2022- No [id number] 4mg Take 1 [facility] ISolone 01-20 29200 tablet (4 st (MEDROL 00:00: 05:59 mg total) [facility] DOSEPAK) 4 00 :00 by mouth l mg tablet See Admin Instructio ns for 5 days. Use as directed by package instructio ns cholecalcif 2021-0 Yes 1000U QD Take 1,000 [facility] hollie, [...] 55 l OIL) 1,000 mg capsule cholecalcif 2021-0 Yes 1000U QD Take 1,000 [facility] hollie, 1-[address] vitamin D3, 14:20: mouth Hospi ta (VITAMIN 55 daily. l D3) 1,000 unit tablet FOLIC 2021-0 Yes Take by [facility] ACID/MULTIV 1-[address] IT-MIN/LUTE 14:20: Hospit a IN (CENTRUM 55 l SILVER ORAL) omega-3 2021-0 Yes Take by [facility] fatty 1-[address] acids-vitam 14:20: Hospit a in E (FISH 55 l OIL) 1,000 mg capsule cholecalcif 2021-0 Yes 1000U QD Take 1,000 [facility] hollie, 1-[address] vitamin D3, 14:20: mouth Hospi ta (VITAMIN 55 daily. l D3) 1,000 unit tablet FOLIC 2021-0 Yes Take by [facility] ACID/MULTIV 1-[address] IT-MIN/LUTE 14:20: Hospit a IN (CENTRUM 55 l SILVER ORAL) omega-3 Yes Take by [facility] fatty 1-14 [...] IN (CENTRUM 55 l SILVER ORAL) omega-3 Yes Take by [facility] fatty 1-[address] acids-vitam 14:20: Hospit a in E (FISH 55 l OIL) 1,000 mg capsule diclofenac 2018-11 Yes [id number] Q.25D Apply [facility] (VOLTAREN) 11-[address] 1 % gel 00:00: 4 (four) Hospit a 00 times a l day. Dispense voltaren 1% or diclofenac 1% gel - apply 2 grams diclofenac 2018-11 Yes [id number] Q.25D Apply [facility] (VOLTAREN) -[address] 1 % gel 00:00: 4 (four) Hospit a 00 times a l day. Dispense voltaren 1% or diclofenac 1% gel - apply 2 grams diclofenac 2018-11 Yes [id number] Q.25D Apply [facility] (VOLTAREN) -[address] 1 % gel 00:00: 4 (four) Hospit a 00 times a l day. Dispense voltaren 1% or diclofenac 1% gel - apply 2 grams diclofenac 2018-11 Yes [id number] Q.25D Apply [facility] (VOLTAREN) [address] 1 % gel 00:00: 4 (four) Hospit a 00 times a l day. Dispense voltaren 1% or diclofenac 1% gel - apply 2 grams diclofenac Yes [id number] APPLY 2 [facility] (VOLTAREN) 3-[address] 1 % gel 00:00: AFFECTED Hospit a 00 AREA(S) 3 l TIMES A DAY diclofenac Yes [id number] APPLY 2 [facility] (VOLTAREN) 3-[address] 1 % gel 00:00: AFFECTED Hospit a 00 AREA(S) 3 l TIMES A DAY diclofenac 2018- Yes [id number] APPLY 2 [facility] (VOLTAREN) 3-[address] 1 % gel 00:00: AFFECTED Hospit a 00 AREA(S) 3 l TIMES A DAY diclofenac Yes [id number] APPLY 2 [facility] (VOLTAREN) 3-25 9102 GRAMS [...] tablet 00:00: Hospit a 00 l glipiZIDE 0 Yes [facility] (GLUCOTROL) 9-18 st 5 MG tablet 00:00: Hospit a 00 l glipiZIDE Yes [facility] (GLUCOTROL) [facility]-18 st 5 MG tablet 00:00: Hospit a 00 l glipiZIDE 0 Yes [facility] (GLUCOTROL) 9-18 st 5 MG tablet 00:00: Hospit a 00 l lisinopril 0 Yes [facility] (PRINIVIL,Z 9-15 st ESTRIL) 10 [...] Observation Value Comments Source Systolic (mm Hg) 2023-04-29 20:09:00 Yinka rial [place] Diastolic (mm Hg) 2023-04-29 20:09:00 Mem orial [place] Heart Rate 2023-04-29 20:09:00 [facility] [place] Height 2023-04-29 20:09:00 5 [ft_i] [facility] [place] Weight 2023-04-29 20:09:00 [facility] [place] BMI Calculated 2023-04-29 20:09:00 Memori al [place] Systolic (mm Hg) 2023-01-02 21:02:00 Yinka rial [place] Diastolic (mm Hg) 2023-01-02 21:02:00 Mem orial [place] Heart Rate 2023-01-02 21:02:00 [facility] [place] Height 2023-01-02 21:02:00 5 [ft_i] [facility] [place] Weight 2023-01-02 21:02:00 [facility] [place] BMI Calculated 2023-01-02 21:02:00 Memori al [place] BMI Calculated 2022-11-21 20:46:00 Memori al [place] Systolic (mm Hg) 2022-11-21 20:46:00 Yinka rial [place] Diastolic (mm Hg) 2022-11-21 20:46:00 Mem orial [place] Heart Rate 2022-11-21 20:46:00 [facility] [place] Height 2022-11-21 20:46:00 5 [ft_i] [facility] [place] Weight 2022-11-21 20:46:00 [facility] [place] Systolic (mm Hg) 2022-08-22 19:51:00 Yinka rial [place] Diastolic (mm Hg) 2022-08-22 19:51:00 Mem orial [place] Heart Rate 2022-08-22 19:51:00 [facility] [place] Respitory Rate 2022-08-22 19:51:00 Memori al [place] Height 2022-08-22 19:51:00 175.26 cm [facility] [place] Weight 2022-08-22 19:51:00 [facility] [place] BMI Calculated 2022-08-22 19:51:00 Memori al [place] Systolic (mm Hg) 2022-05-22 20:00:00 Yinka rial [place] Diastolic (mm Hg) 2022-05-22 20:00:00 Mem orial [place] Heart Rate 2022-05-22 20:00:00 [facility] [place] Respitory Rate 2022-05-22 20:00:00 Memori al [place] Height 2022-05-22 20:00:00 172.72 cm [facility] [place] Weight 2022-05-22 20:00:00 [facility] [place] BMI Calculated 2022-05-22 20:00:00 Memori al [place] Systolic (mm Hg) 2022-02-19 20:04:00 Yinka rial [place] Diastolic (mm Hg) 2022-02-19 20:04:00 Mem orial [place] Heart Rate 2022-02-19 20:04:00 [facility] [place] Respitory Rate 2022-02-19 20:04:00 Memori al [place] Height 2022-02-19 20:04:00 172.72 cm [facility] [place] Weight 2022-02-19 20:04:00 [facility] [place] BMI Calculated 2022-02-19 20:04:00 Memori al [place] Systolic (mm Hg) 2022-01-21 20:46:00 Yinka rial [place] Diastolic (mm Hg) 2022-01-21 20:46:00 Mem orial [place] Heart Rate 2022-01-21 20:46:00 [facility] [place] Respitory Rate 2022-01-21 20:46:00 Memori al [place] Height 2022-01-21 20:46:00 172.72 cm [facility] [place] Weight 2022-01-21 20:46:00 [facility] [place] BMI Calculated 2022-01-21 20:46:00 Memori al [place] Procedures Procedure Date / Time Performing Clinician Source Performed [id number] 2023-05-02 00:00:00 PHABR.01 [facility] [id number] 2023-05-02 00:00:00 PHABR.01 [facility] XR ANKLE 3+ VW RIGHT 2022-10-06 17[facility]28[facility] [place] [facility] 2022-10-06 17:00:00 Ladi Chowdhury [facility] ASPIR&/INJ INTERM JT/BURS W/O US XR ANKLE 3+ VW RIGHT 2022-01-20 20:59:56 Ladi Chowdhury [facility] XR FOOT 3+ VW RIGHT 2022-01-20 [facility]:56[facility]sup>[facility]</sup> Asya Gustafson Plan of Care Planned Activity Planned Date Details Comments Source Future Scheduled 2023-05-13 SHINGLES VACCINES (1 Met [facility] Hospital Test 05:02:58 of 2) [code = SHINGLES VACCINES (1 of 2)] Future Scheduled 2023-05-13 65+ [facility] 05:02[facility]58 VACCINE (1 - PCV) [code = 65+ PNEUMOCOCCAL VACCINE (1 - PCV)] Future Scheduled 2023-05-13 COVID-19 VACCINE (3 - Me formerly [facility] Hospital Test 05:02:58 Pfizer series) [code = COVID-19 VACCINE (3 - Pfizer series)] Future Scheduled 2023-05-13 INFLUENZA VACCINE Method [facility] Hospital Test 05:02:58 [code = INFLUENZA VACCINE] Future Scheduled 2023-05-04 SHINGLES VACCINES (1 Met [facility] Test 05:05:20 of 2) [code = SHINGLES VACCINES (1 of 2)] Future Scheduled 2023-05-04 65+ [facility] 05:05:20 VACCINE (1 - PCV) [code = 65+ PNEUMOCOCCAL VACCINE (1 - PCV)] Future Scheduled 2023-05-04 COVID-19 VACCINE (3 - Me formerly [facility] Hospital Test 05:05:20 Pfizer series) [code = COVID-19 VACCINE (3 - Pfizer series)] Future Scheduled 2023-05-04 INFLUENZA VACCINE Method [facility] Hospital Test 05:05:20 [code = INFLUENZA VACCINE] Future Scheduled 2023-02-25 SHINGLES VACCINES (1 Met [facility] Hospital Test 05:15:37 of 2) [code = SHINGLES VACCINES (1 of 2)] Future Scheduled 2023-02-25 65+ [facility] Test 05:15:37 VACCINE (1 - PCV) [code = 65+ PNEUMOCOCCAL VACCINE (1 - PCV)] Future Scheduled 2023-02-25 COVID-19 VACCINE (3 - Me formerly [facility] Hospital Test 05:15:37 Booster for Pfizer series) [code = COVID-19 VACCINE (3 - Booster for Pfizer series)] Future Scheduled 2023-02-25 INFLUENZA VACCINE Method [facility] Hospital Test 05:15:37 [code = INFLUENZA VACCINE] Future Scheduled 2022-11-05 SHINGLES VACCINES (1 Met [facility] Hospital Test 04:55:19 of 2) [code = SHINGLES VACCINES (1 of 2)] Future Scheduled 2022-11-05 65+ PNEUMOCOCCAL [facility] Hospital Test 04:55:19 VACCINE (1 - PCV) [code = 65+ PNEUMOCOCCAL VACCINE (1 - PCV)] Future Scheduled 2022-11-05 COVID-19 VACCINE (3 - Me formerly [facility] Hospital Test 04:55:19 Booster for Pfizer series) [code = COVID-19 VACCINE (3 - Booster for Pfizer series)] Future Scheduled 2022-11-05 INFLUENZA VACCINE Method [facility] Hospital Test 04:55:19 [code = INFLUENZA VACCINE] Encounters Start End Encounter Admission Attending Care Care Encounter Source Date/Time Date/Time Type Type Clinicians Facility Department ID 2023-08-25 2023-08-25 Outpatient MHIE LAURA [id number] 15:30:00 15:30:00 07 andreia Moclips 2023-08-25 2023-08-25 Outpatient [facility] LAURA [id number] 15:30:00 15:30:00 07 [facility] 2023-05-12 2023-05-12 Outpatient Srinath Parker [facility] [id number] [facility] 12:32:00 12:32:00 33 [facility] 2023-05-12 2023-05-12 Outpatient Srinath Contreras [facility] LA0 [id number] [facility] 06:26:00 06:26:00 39 [facility] [place], [facility] 2023-05-03 2023-05-05 Inpatient EM Hernandez [facility] [id number] [facility] 21:17:00 18:11:00 Mauri 12 [facility] [place] 2023-04-29 2023-04-30 Outpatient [facility] MNA [id number] 20:30:00 04:59:59 Neurology 06 l Srinivasa Segura 2023-04-29 2023-04-30 Outpatient [facility] MNA [id number] 20:30:00 04:59:59 Neurology 06 l Srinivasa Segura 2023-04-29 2023-04-29 Outpatient Marie, MHMISCHER MHMISCHER [id number] 15:30:00 23:59:59 Benjie 06 Jignesh 2023-04-29 2023-04-29 Outpatient [facility]IE MHIE [id number] 15:30:00 15:30:00 06 andreia Segura 2023-01-02 2023-01-03 Outpatient [facility] MNA [id number] 21:15:00 05:59:59 Neurology 05 l Srinivasa Segura 2023-01-02 2023-01-03 Outpatient [facility] MNA [id number] 21:15:00 05:59:59 Neurology 05 l Srinivasa Segura 2023-01-02 2023-01-02 Outpatient Marie, MHMISCHER MHMISCHER [id number] 15:15:00 23:59:59 Benjie 05 Jignesh 2023-01-02 2023-01-02 Outpatient [facility]IE MHIE [id number] 15:15:00 15:15:00 05 andreia Segura 2022-11-21 2022-11-22 Outpatient [facility] MNA [id number] 21:00:00 05:59:59 Neurology 04 l Srinivasa Segura 2022-11-21 2022-11-22 Outpatient MHIE MNA [id number] Memoria 21:00:00 05:59:59 Neurology 04 l Srinivasa Segura 2022-11-21 2022-11-21 Outpatient Marie, ANNMISCHER MHMISCHER [id number] 15:00:00 23:59:59 Benjie 04 Jignesh 2022-11-21 2022-11-21 Outpatient MHIE MHIE [id number] Memoria 15:00:00 15:00:00 04 andreia Segura 2022-10-06 2022-10-06 Office Ladi Chowdhury 1.2.840.1 [id number] Methodi 11:00:00 12:49:49 [place] A. [address]3845.1.[address] 3.430.2.7 Hospit a .3.293535 l .8 2022-10-06 2022-10-06 Office Ladi Chowdhury 1.2.840.1 [id number] Methodi 11:00:00 12:49:49 Visit A. 62557.1.[address] 3.430.2.7 Hospit a .3.602032 l .8 2022-10-06 2022-10-06 Outpatient LADI CHOWDHURY [facility] 2099 [id number] [place] 00:00:00 00:00:[address] 2022-10-06 2022-10-06 Travel 1.2.840.1 1.2.809.938 7419 [id number] Methodi 00:00:00 00:00:[address] 3.430.2.7 0.2.7.3.698 Ho spita .3.955124 084.8 l .8 2022-10-06 2022-10-06 Travel 1.2.840.1 1.2.364.820 4453 [id number] Methodi 00:00:00 00:00:[address] 3.430.2.7 0.2.7.3.698 Ho spita .3.643083 084.8 l .8 2022-08-22 2022-08-23 Outpatient nullFlavo MNA [id number] Memoria 20:00:00 04:59:59 r Neurology 03 l Srinivasa Segura 2022-08-22 2022-08-23 Outpatient nullFlavo MNA [id number] Memoria 20:00:00 04:59:59 r Neurology 03 l Srinivasa Segura 2022-08-22 2022-08-22 Outpatient Marie MISCHER MHMISCHER [id number] 15:00:00 23:59:59 Benjie Egan 2022-08-22 2022-08-22 Outpatient LAURA SANCHEZ [id number] Memoria 15:00:00 15:00:00 Helen andreia Segura 2022-05-22 2022-05-23 Outpatient nullFlavo MNA [id number] [id number] Memoria 20:00:00 04:59:59 r Neurology 02 l Srinivasa Segura 2022-05-22 2022-05-23 Outpatient nullFlavo MNA [id number] Memoria 20:00:00 04:59:59 r Neurology 02 l Srinivasa Moclips 2022-05-22 2022-05-22 [facility]patient [id number] 15:00:00 23:59:59 Benjie [facility] 2022-05-22 2022-05-22 Outpatient MHIE IE [id number] Memoria 15:00:00 15:00:00 02 andreia Moclips 2022-02-19 2022-02-20 Outpatient nullFlavo MNA [id number] Memoria 20:15:00 04:59:59 r Neurology 01 l Srinivasa Moclips 2022-02-19 2022-02-20 Outpatient nullFlavo MNA [id number] [id number] Memoria 20:15:00 04:59:59 r Neurology 01 l Srinivasa Moclips 2022-02-19 2022-02-19 [facility] [id number] 15:15:00 23:59:59 Benjie [facility] 2022-02-19 2022-02-19 Outpatient MHIE IE [id number] Memoria 15:15:00 15:15:00 01 l Moclips 2022-01-21 2022-01-22 Outpatient nullFlavo MNA [id number] Memoria 21:00:00 05:59:59 r Neurology 00 l Srinivasa Colton 2022-01-21 2022-01-22 Outpatient nullFlavo MNA [id number] [id number] Memoria 21:00:00 05:59:59 r Neurology 00 l Srinivasa Moclips 2022-01-21 2022-01-21 [facility] 964 [id number] 15:00:00 23:59:59 Benjie 00 [facility] 2022-01-21 2022-01-21 Outpatient MHIE MHIE [id number] Memoria 15:00:00 15:00:00 00 andreia Moclips 2022-01-20 2022-01-20 Office Ladi Chowdhury 1.2.840.1 [id number] Methodi 14:50:00 16:47:12 [address]168.1.[address] 3.430.2.7 Hospit a .3.200754 l .8 2022-01-20 2022-01-20 Outpatient LADI CHOWDHURY [facility] 2100 [id number] [place] 00:00:00 00:00:[address] 2022-01-20 2022-01-20 Travel 1.2.840.1 1.2.362.459 1087 [id number] Methodi 00:00:00 00:00:[address] 3.430.2.7 0.2.7.3.698 Ho spita .3.631512 084.8 l .8 2022-01-20 2022-01-20 Outpatient LADI CHOWDHURY [facility] 2100 [id number] [place] 00:00:00 00:00:[address] 2021-12-06 2021-12-06 Outpatient LADI CHOWDHURY [facility] 2100 [id number] [place] 00:00:00 00:00:[address] 2021-12-06 2021-12-06 Outpatient LADI CHOWDHURY [facility] 2100 [id number] [place] 00:00:00 00:00:[address] 2020-09-24 2020-09-24 Outpatient LADI CHOWDHURY [facility] 2100 [id number] [place] 00:00:00 00:00:[address] 2020-09-24 2020-09-24 Outpatient LADI CHOWDHURY [facility] 2100 [id number] [place] 00:00:00 00:00:[address] 2019-03-01 2019-03-01 [facility] 51 [id number] [place] 10:00:00 10:00:00 doroteo Avalos [facility] Martha Dimas i, M.D. Results Test Description Test Time Test Comments Results Result Comments Source GLUCOSE BEDSIDE TESTING 2023-05-12 11:12:00 Test Item Value Reference Range Interpretation Comme nts GLUCOSE BEDSIDE TESTING (test code = GLUBED) 304 mg/dL 70-110 H - XR FLUOROSCOPY 0-60 [id number] 10:32:00 [facility] 1940 Sex: M Name: DEV OLGUIN [place] : 1940 Age/S: 83 / M [address] Unit #: [id number] Loc: [place] [address] Phys: Srinath Parker MD Acct: [id number] Dis Date: Status: REG [facility] PHONE #: [phone] Exam Date: 05/12/2023 1020 FAX #: Reason: CYSTO EXAMS: CPT: [id number] XR FLUOROSCOPY 0-60 MIN 00835 Fluoro Time: 5.4 DAP (Gy m2): Air Kerma (mGy): 1.57 EXAM: - XR FLUOROSCOPY 0-60 MIN HISTORY:CYSTO Location code: C3 COMPARISON: None available time of interpretation. FINDINGS: Intraoperative fluoroscopy was provided for Srinath Parker MD. Radiologist was not present for the procedure. 1 fluoroscopy image(s) was/were obtained. Please see surgical report. IMPRESSION: 1. As above. Fluoroscopy time: 5.4 seconds Cumulative dose: 1.57 mGy at 1032 Reported and signed by: Rebekah Aceves M.D. CC: Guero Adames MD; Srinath Parker MD PAGE 1 Signed Report Name: DEV OLGUIN [place] : 1940 Age/S: 83 / M [address] Unit #: [id number] Loc: [place] [address] Phys: Srinath Parker MD Acct: [id number] Dis Date: Status: REG [facility] PHONE #: [phone] Exam Date: 05/12/2023 1020 FAX #: Reason: CYSTO EXAMS: CPT: [id number] XR FLUOROSCOPY 0-60 MIN 40692 Fluoro Time: 5.4 DAP (Gy m2): Air Kerma (mGy): 1.57 (Continued) Technologist: Cyndi Villela Trnscb Date/Time: 05/12/2023 (1032) [email or web address] Orig Print D/T: S: 05/12/2023 (0712) PAGE 2 Signed Report- XR CHEST 1 [id number] 08:00:00[facility] 1940 Sex: M Name: DEV OLGUIN [facility] : 1940 Age/S: 83 / M [address] Unit #: [id number] Loc: [place] [address] Phys: Alondra Esquivel MD Acct: [id number] Dis Date: Status: [facility] PHONE #: [phone] Exam Date: 05/12/2023 0758 FAX #: Reason: PREOP EXAMS: CPT: [id number] XR CHEST 1 [id number] Fluoro Time: DAP (Gy m2): Air Kerma (mGy): EXAMINATION: - XR CHEST 1 V HISTORY: Preop COMPARISON: None. LOCATION CODE: C3 FINDINGS: Single frontal view of the chest is submitted for evaluation. The lungs are clear. The cardiac silhouette, mediastinum and pulmonary vasculature are unremarkable. The regional osseous structures are intact IMPRESSION: No acute radiographic abnormality at 0800 Reported and signed by: Rebekah Aceves M.D.CC: Guero Adames MD; Alondra Esquivel MD; Srinath Parker MD PAGE 1 Signed Report Name: DEV OLGUIN [place] : 1940 Age/S: 83 / M [address] Unit #: [id number] Loc: [place] [address] Phys: Alondra Esquivel MD Acct: [id number] Dis Date: Status: REG SDC PHONE #: [phone] Exam Date: 05/12/2023 1859 FAX #: Reason: PREOP EXAMS: CPT: [id number] XR CHEST 1 V 13065 Fluoro Time: DAP (Gy m2): Air Kerma (mGy): (Continued) Technologist: Rashid Houser Trnscb Date/Time: 05/12/2023 (08) [email or web address] Orig Print D/T: S: 05/12/2023 (0804) PAGE 2 Signed ReportGLUCOSE BEDSIDE [id number] 07:54:00 Test Item Value Reference Range Interpretation Comments GLUCOSE BEDSIDE TESTING (test code 276 mg/dL 70-110 H = GLUBED) CBC W/AUTO [id number] 07:32:00 Test Item Value Reference Range Interpretation Comments WHITE BLOOD CELL (test code = 8.6 K/mm3 3.5-11.0 N WBC) RED BLOOD CELL (test code = 3.48 M/mm3 4.70-6.10 L RBC) HEMOGLOBIN (test code = HGB) 10.5 G/DL 12.3-15.9 L HEMATOCRIT (test code = HCT) 31.3 % 35.8-46.7 L MEAN CELL VOLUME (test code = 89.9 Fl 86.3-98.9 N MCV) MEAN CELL HGB (test code = MCH) 30.2 pg 28.9-34.4 N MEAN CELL HGB CONCETRATION 33.5 G/DL 32.1-34.5 N (test code = MCHC) RED CELL DISTRIBUTION WIDTH 12.5 SD 11.5-14.5 N (test code = RDW) PLATELET COUNT (test code = 159 K/mm3 150-450 N PLT) MEAN PLATELET VOLUME (test code 10.50 fL 7.0-9.6 H = MPV) NEUTROPHIL % (test code = NT%) 66.8 % 40-76 N IMMATURE GRANULOCYTE % (test 0.4 % 0.0-5.0 N code = IG%) LYMPHOCYTE % (test code = LY%) 24.3 % 20.5-51.1 N MONOCYTE % (test code = MO%) 5.5 % 1.7-9.3 N EOSINOPHIL % (test code = EO%) 2.6 % 0.0-6.0 N BASOPHIL % (test code = BA%) 0.4 % 0.0-2.0 N NUCLEATED RBC % (test code = 0.0 /100WBC% 0.0-1.0 N NRBC%) NEUTROPHIL # (test code = NT#) 5.7 K/mm3 1.8-7.6 N IMMATURE GRANULOCYTE # (test 0.03 x10 3/uL 0.00-0.03 N code = IG#) LYMPHOCYTE # (test code = LY#) 2.1 K/mm3 0.6-3.0 N MONOCYTE # (test code = MO#) 0.5 K/mm3 0.2-1.5 N EOSINOPHIL # (test code = EO#) 0.2 K/mm3 0.0-0.4 N BASOPHIL # (test code = BA#) 0.0 K/mm3 0.0-0.2 N NUCLEATED RBC # (test code = 0.0 K/mm3 0.00-0.01 N NRBC#) MANUAL DIFF REQUIRED (test code NO DIFF/SCN CRITERIA = MDIFF) PROTEIN ELECTROPHORESIS [id number] 16:10:00 Test Item Value Reference Range Interpretation Comments TOTAL PROTEIN 5.1 g/dL 6.0-8.5 A (test code = PROTE) ALBUMIN (test 2.3 g/dL 2.9-4.4 A code = ALBE) CNULJ-3-UVPGDRIY 0.3 g/dL 0.0-0.4 (test code = A1G) UDNUD-9-GKZXTDGU 0.9 g/dL 0.4-1.0 (test code = A2G) BETA GLOBULIN 0.8 g/dL 0.7-1.3 (test code = BG) GAMMA GLOBULIN 0.8 g/dL 0.4-1.8 (test code = GG) M-SPIKE,SERUM Not Observed Not Observed (test code = g/dL MSPIKES) GLOBULIN ELECT 2.8 g/dL 2.2-3.9 (test code = GLOBE) ALBUMIN/GLOBULIN 0.8 0.7-1.7 RATIO (test code = AGE) PROT.ELECTROPH.I Comment See_Comment Protein NTERPRETATION electrophoresi s scan (test code = will follow via ELEINT) computer,mail, or class a regional drivers delivery.Perfor med At: HD [facility] [id number] [place], [place] [id number] rhonda Calix MD Ph:[phone] rformed At: DA [facility] [place], [place] [id number] h CN MD Ph:[phone] [Automated mess age] The system ListRunner generated this result transmitted ref erence range: (). The reference range was not used to int erpret this result as normal/abnormal . LACTIC DEHYDROGENASE(LDH)2023-05-07 16:10:00 Test Item Value Reference Range Interpretation Comments LACTIC DEHYDROGENASE(LDH) (test 121 Unit/L 87-241 N code = LDH) TOTAL IRON BINDING [id number] 16:10:00 Test Item Value Reference Range Interpretation Comments TOTAL IRON BINDING CAPACITY (test 219 mcg/dL 260-445 L code = TIBC) KAPPA LAMBDA [id number] 16:10:00 Test Item Value Reference Range Interpretation Comments KAPPA CHAINS (FLOW) (test code = KAPPA) LAMBDA CHAINS (FLOW) (test code = LAMBDA) [id number] 16:10:00 Test Item Value Reference Range Interpretation Comments FERRITIN (test code = MAURICIO) 144.6 ng/mL 23.9-336.2 UR SODIUM [id number] 17:09:00 Test Item Value Reference Range Interpretation Comments UR SODIUM RANDOM 86 MEQ/L See_Comment The Referen ce Range and (test code = VANESSA) Method Per formance specificationsh ave not been established for this fluid. The test result should be correlated into the clinical context forinte rpretation. [Automated mess age] The system which ge nerated this result transmit reese reference range: (). The reference range was not u sed to interpret this result as normal/abnormal . UR POTASSIUM [id number] 17:09:00 Test Item Value Reference Range Interpretation Comments UR POTASSIUM 20.0 MEQ/L See_Comment The Reference R delilah and RANDOM (test code Method Per formance = KU) specificationsh ave not been establishe d for this fluid. The test resultshould be correlated into the clinic al context forinterpretati on. [Automated mess age] The system which ge nerated this result tra nsmitted reference range : (). The reference range was not used to interpr et this result as chastity l/abnormal. UR CHLORIDE [id number] 17:09:00 Test Item Value Reference Range Interpretation Comments UR CHLORIDE RANDOM 76 mmol/L Not Estab. Performed At: HD (test code = CLU) [facility] [address] [id number] rhonda Calix MD Ph:[phone] UR PROTEIN [id number] 17:09:00 Test Item Value Reference Range Interpretation Comments UR PROTEIN TOTAL (test code = 86.9 MG/DL 0.0-12.0 H PROTU) UR CREATININE [id number] 17:09:00 Test Item Value Reference Range Interpretation Comments UR CREATININE RANDOM (test code = 79.1 MG/DL 30-125 N CREATU) UR OSMOLALITY [id number] 17:09:00 Test Item Value Reference Range Interpretation Comments UR OSMOLALITY RANDOM 462 mOsm/KG See_Comment INFCE R esult Units: (test code = OSMOU) mOsmol/k g 24 hr : 300 - 900 Random: 50 - 1400 After 12hr fluid restriction: >850Performed A t: HD [facility] [address] [id number] Kyle L MD Ph:[phone] [Automated mess age] The system ListRunner generated this result transmitted ref erence range: (). The reference range was not used to int erpret this result as normal/abnormal . GLUCOSE BEDSIDE [id number] 16:58:00 Test Item Value Reference Range Interpretation Comments GLUCOSE BEDSIDE TESTING (test code 253 mg/dL 70-110 H = GLUBED) CBC W/AUTO [id number] 15:27:00 Test Item Value Reference Range Interpretation Comments WHITE BLOOD CELL (test code = 6.4 K/mm3 3.5-11.0 N WBC) RED BLOOD CELL (test code = 3.20 M/mm3 4.70-6.10 L RBC) HEMOGLOBIN (test code = HGB) 9.8 G/DL 12.3-15.9 L HEMATOCRIT (test code = HCT) 29.3 % 35.8-46.7 L MEAN CELL VOLUME (test code = 91.6 Fl 86.3-98.9 MCV) MEAN CELL HGB (test code = MCH) 30.6 pg 28.9-34.4 N MEAN CELL HGB CONCETRATION 33.4 G/DL 32.1-34.5 N (test code = MCHC) RED CELL DISTRIBUTION WIDTH 12.4 SD 11.5-14.5 N (test code = RDW) PLATELET COUNT (test code = 49 K/mm3 150-450 L PLT) MEAN PLATELET VOLUME (test code 10.50 fL 7.0-9.6 H = MPV) NEUTROPHIL % (test code = NT%) 76.7 % 40-76 H IMMATURE GRANULOCYTE % (test 0.8 % 0.0-5.0 N code = IG%) LYMPHOCYTE % (test code = LY%) 14.6 % 20.5-51.1 L MONOCYTE % (test code = MO%) 4.9 % 1.7-9.3 N EOSINOPHIL % (test code = EO%) 2.7 % 0.0-6.0 N BASOPHIL % (test code = BA%) 0.3 % 0.0-2.0 N NUCLEATED RBC % (test code = 0.0 /100WBC% 0.0-1.0 N NRBC%) NEUTROPHIL # (test code = NT#) 4.9 K/mm3 1.8-7.6 N IMMATURE GRANULOCYTE # (test 0.05 x10 3/uL 0.00-0.03 H code = IG#) LYMPHOCYTE # (test code = LY#) 0.9 K/mm3 0.6-3.0 N MONOCYTE # (test code = MO#) 0.3 K/mm3 0.2-1.5 N EOSINOPHIL # (test code = EO#) 0.2 K/mm3 0.0-0.4 N BASOPHIL # (test code = BA#) 0.0 K/mm3 0.0-0.2 N NUCLEATED RBC # (test code = 0.0 K/mm3 0.00-0.01 N NRBC#) MANUAL DIFF REQUIRED (test code NO DIFF/SCN CRITERIA = MDIFF) RBC [id number] 15:27:00 Test Item Value Reference Range Interpretation Comments PLATELET ESTIMATE MARKEDLY DECREASED ADEQUATE (test code = THOUSAND PLTEST) PLATELET MORPHOLOGY LARGE PLATELETS TRACE LARGE (test code = PLATELETS PLTMORPH) SED [id number] 11:56:00 Test Item Value Reference Range Interpretation Comments SED RATE (test code = SEDW) 92 mm/hr 0-15 H SED RATE [id number] 11:55:00 Test Item Value Reference Range Interpretation Comments SED RATE WESTERGREN (test code = 92 mm/hr 0-15 H SEDW) BASIC METABOLIC [id number] 11:10:00 Test Item Value Reference Range Interpretation Comments SODIUM (test code = 140 mmol/L 134-147 N NA) POTASSIUM (test 4.0 mmol/L 3.4-5.0 N code = K) CHLORIDE (test code 113 mmol/L 100-108 H = CL) CARBON DIOXIDE 23 mmol/L 21-32 N (test code = CO2) ANION GAP (test 4.0 GAP calc 4.0-15.0 N code = GAP) GLUCOSE (test code 309 MG/DL 70-110 H = GLU) BLOOD UREA NITROGEN 30 MG/DL 7-18 H (test code = BUN) GLOMERULAR 40 estGFR >60 L The Glomerular FILTRATION RATE Filtration R ate is a (test code = GFR) calculated parameterbased on serum Creatinin e, patient age and sex. GFR valuesless than 60 mL/min/1.73 squ are meters are deepak cative ofChronic Kidne y Disease. Values less than 15 mL/min/1.73squa re meters indicate Kidney failure. The calculation for GFR is based on the CK D-EPI (2020) calculat ion. This formulais race indifferent and is the recommended for colette for GFRby the N ational Kidney Foundati on for Adults.The GFR will not calculate i f the sex is unknown or if thepatient's ag e is <18 years. CREATININE (test 1.7 MG/DL 0.8-1.3 H code = CREAT) CALCIUM (test code 8.1 MG/DL 8.5-10.1 L = CA) [id number] 11:05:00 Test Item Value Reference Range Interpretation Comments FERRITIN (test code = MAURICIO) 144.6 ng/mL 23.9-336.2 N TOTAL IRON BINDING [id number] 10:48:00 Test Item Value Reference Range Interpretation Comments TOTAL IRON BINDING CAPACITY (test 219 mcg/dL 260-445 L code = TIBC) GLUCOSE BEDSIDE [id number] 08:53:00 Test Item Value Reference Range Interpretation Comments GLUCOSE BEDSIDE TESTING (test code 202 mg/dL 70-110 H = GLUBED) SERUM [id number] 05:13:00 Test Item Value Reference Range Interpretation Comments SERUM IRON (test code = IRON) 20 mcG/DL 65-175 L RETIC COUNT (AUTOMATED)2023-05-05 05:09:00 Test Item Value Reference Range Interpretation Comments RETIC COUNT (AUTOMATED) (test code = 0.8 % 0.3-2.3 N RETICA) GLUCOSE BEDSIDE [id number] 20:50:00 Test Item Value Reference Range Interpretation Comments GLUCOSE BEDSIDE TESTING (test code 241 mg/dL 70-110 H = GLUBED) GLUCOSE BEDSIDE [id number] 17:22:00 Test Item Value Reference Range Interpretation Comments GLUCOSE BEDSIDE TESTING (test code 263 mg/dL 70-110 H = GLUBED) GLUCOSE BEDSIDE [id number] 12:25:00 Test Item Value Reference Range Interpretation Comments GLUCOSE BEDSIDE TESTING (test code 246 mg/dL 70-110 H = GLUBED) GLUCOSE BEDSIDE [id number] 08:23:00 Test Item Value Reference Range Interpretation Comments GLUCOSE BEDSIDE TESTING (test code 191 mg/dL 70-110 H = GLUBED) GLUCOSE BEDSIDE [id number] 06:51:00 Test Item Value Reference Range Interpretation Comments GLUCOSE BEDSIDE TESTING (test code 187 mg/dL 70-110 H = GLUBED) RBC [id number] 06:31:00 Test Item Value Reference Range Interpretation Comments POLYCHROMASIA (test code TRACE ON SCAN NONE = POLC) TEAR DROP CELLS (test TRACE ON SCAN NONE code = TEAR) OVALOCYTES (test code = TRACE ON SCAN NONE OVAL) PLATELET ESTIMATE (test MARKEDLY DECREASED ADEQUATE code = PLTEST) THOUSAND PLATELET MORPHOLOGY (test NORMAL code = PLTMORPH) CBC W/AUTO [id number] 06:30:00 Test Item Value Reference Range Interpretation Comments WHITE BLOOD CELL (test code = 9.7 K/mm3 3.5-11.0 N WBC) RED BLOOD CELL (test code = 3.48 M/mm3 4.70-6.10 L RBC) HEMOGLOBIN (test code = HGB) 10.7 G/DL 12.3-15.9 L HEMATOCRIT (test code = HCT) 34.1 % 35.8-46.7 L MEAN CELL VOLUME (test code = 98.0 Fl 86.3-98.9 N MCV) MEAN CELL HGB (test code = MCH) 30.7 pg 28.9-34.4 N MEAN CELL HGB CONCETRATION 31.4 G/DL 32.1-34.5 L (test code = MCHC) RED CELL DISTRIBUTION WIDTH 12.8 SD 11.5-14.5 N (test code = RDW) PLATELET COUNT (test code = 47 K/mm3 150-450 L PLT) MEAN PLATELET VOLUME (test code 10.60 fL 7.0-9.6 H = MPV) NEUTROPHIL % (test code = NT%) 81.4 % 40-76 H IMMATURE GRANULOCYTE % (test 0.6 % 0.0-5.0 N code = IG%) LYMPHOCYTE % (test code = LY%) 10.0 % 20.5-51.1 L MONOCYTE % (test code = MO%) 5.7 % 1.7-9.3 N EOSINOPHIL % (test code = EO%) 2.0 % 0.0-6.0 N BASOPHIL % (test code = BA%) 0.3 % 0.0-2.0 N NUCLEATED RBC % (test code = 0.0 /100WBC% 0.0-1.0 N NRBC%) NEUTROPHIL # (test code = NT#) 7.9 K/mm3 1.8-7.6 H IMMATURE GRANULOCYTE # (test 0.06 x10 3/uL 0.00-0.03 H code = IG#) LYMPHOCYTE # (test code = LY#) 1.0 K/mm3 0.6-3.0 N MONOCYTE # (test code = MO#) 0.6 K/mm3 0.2-1.5 N EOSINOPHIL # (test code = EO#) 0.2 K/mm3 0.0-0.4 N BASOPHIL # (test code = BA#) 0.0 K/mm3 0.0-0.2 N NUCLEATED RBC # (test code = 0.0 K/mm3 0.00-0.01 N NRBC#) MANUAL DIFF REQUIRED (test code NO DIFF/SCN CRITERIA = MDIFF) COMPREHENSIVE METABOLIC [id number] 05:33:00 Test Item Value Reference Range Interpretation Comments SODIUM (test code = 144 mmol/L 134-147 N NA) POTASSIUM (test 4.8 mmol/L 3.4-5.0 N code = K) CHLORIDE (test code 120 mmol/L 100-108 H = CL) CARBON DIOXIDE 20 mmol/L 21-32 L (test code = CO2) ANION GAP (test 4.0 GAP calc 4.0-15.0 N code = GAP) GLUCOSE (test code 201 MG/DL 70-110 H = GLU) BLOOD UREA NITROGEN 39 MG/DL 7-18 H (test code = BUN) GLOMERULAR 35 estGFR >60 L The Glomerular FILTRATION RATE Filtration R ate is a (test code = GFR) calculated parameterbased on serum Creatinin e, patient age and sex. GFR valuesless than 60 mL/min/1.73 squ are meters are deepak cative ofChronic Kidne y Disease. Values less than 15 mL/min/1.73squa re meters indicate Kidney failure. The calculation for GFR is based on the CK D-EPI (2020) calculat ion. This formulais race indifferent and is the recommended for colette for GFRby the [facility].The GFR will not calculate i f the sex is unknown or if thepatient's ag e is <18 years. CREATININE (test 1.9 MG/DL 0.8-1.3 H code = CREAT) TOTAL PROTEIN (test 6.1 G/DL 6.4-8.2 L code = PROT) ALBUMIN (test code 2.1 G/DL 3.4-5.0 L = ALB) GLOBULIN (test code 4.0 GM/dL = GLOB) ALBUMIN/GLOBULIN 0.5 RATIO 1.2-2.2 L RATIO (test code = A/G) CALCIUM (test code 7.9 MG/DL 8.5-10.1 L = CA) BILIRUBIN TOTAL 0.30 MG/DL 0.2-1.2 N (test code = BILT) SGOT/AST (test code 10 Unit/L 15-37 L = AST) SGPT/ALT (test code 12 Unit/L 12-78 N = ALT) ALKALINE 51 Unit/L 50-136 N PHOSPHATASE TOTAL (test code = ALKP) PROTHROMBIN [id number] 05:15:00 Test Item Value Reference Range Interpretation Comments PT PATIENT (test 11.7 SECONDS 9.3-12.9 N code = PTP) INTERNATIONAL NORMAL 1.05 INR Unit 0.8-1.2 N TARGE T INR BY RATIO (test code = INDICATIO N Indication INR) INR1. Prophylax is of venous thrombos is 2.0 - 3.0 (orthoped ic surgery), Proph ylaxis of venous throm bosis (other than hig h-risk surgery), Treat ment of Deep Vein Thrombosis/Pulm onary Embolism, Preve ntion of systemic emb olism - Tissue heart va lves, Acute Myocardia l Infarction (to prevent systemic emboli sm), Valvular heart disease, Acute Myocardial Infa rction (to prevent sys temic embolism), Valv ular heart disease, Atrial Fibrillation, Bileaflet mecha nical valve in aortic position.2. Mec hanical prosthetic valv es (high risk), 2. 5 - 3.5 Presence of Lup us Anticoagulant o r Antiphospholipi d Antibodies, Pre vention of systemic emb olism - Acute Myocardia l Infarction (to prevent recurrent infar ct). UR SODIUM [id number] 02:31:00 Test Item Value Reference Range Interpretation Comments UR SODIUM RANDOM 86 MEQ/L The Referen ce Range and (test code = VANESSA) Method Per formance specificationsh ave not been established for this fluid. The test result should be correlated into the clinical context forinte rpretation. UR POTASSIUM [id number] 02:31:00 Test Item Value Reference Range Interpretation Comments UR POTASSIUM 20.0 MEQ/L The Reference R delilah and RANDOM (test code Method Per formance = KU) specificationsh ave not been establishe d for this fluid. The test resultshould be correlated into the clinic al context forinterpretati on. BASIC METABOLIC [id number] 21:00:00 Test Item Value Reference Range Interpretation Comments SODIUM (test code = 145 mmol/L 134-147 N NA) POTASSIUM (test 4.4 mmol/L 3.4-5.0 N code = K) CHLORIDE (test code 119 mmol/L 100-108 H = CL) CARBON DIOXIDE 23 mmol/L 21-32 N (test code = CO2) ANION GAP (test 3.0 GAP calc 4.0-15.0 L code = GAP) GLUCOSE (test code 232 MG/DL 70-110 H = GLU) BLOOD UREA NITROGEN 48 MG/DL 7-18 H (test code = BUN) GLOMERULAR 28 estGFR >60 L The Glomerular FILTRATION RATE Filtration R ate is a (test code = GFR) calculated parameterbased on serum Creatinin e, patient age and sex. GFR valuesless than 60 mL/min/1.73 squ are meters are deepak cative ofChronic Kidne y Disease. Values less than 15 mL/min/1.73squa re meters indicate Kidney failure. The calculation for GFR is based on the CK D-EPI (2020) calculat ion. This formulais race indifferent and is the recommended for colette for GFRby the [facility].The GFR will not calculate i f the sex is unknown or if thepatient's ag e is <18 years. CREATININE (test 2.3 MG/DL 0.8-1.3 H code = CREAT) CALCIUM (test code 7.9 MG/DL 8.5-10.1 L = CA) GLUCOSE BEDSIDE [id number] 20:33:00 Test Item Value Reference Range Interpretation Comments GLUCOSE BEDSIDE TESTING (test code 214 mg/dL 70-110 H = GLUBED) BASIC METABOLIC [id number] 19:14:00 Test Item Value Reference Range Interpretation Comments SODIUM (test code TEST NOT 134-147 H Previously reported = NA) PERFORMED mmol/L result: 150 mmol/LEdited by : DEBBIE on 05/03/23:1913~~ ~~~~ ~~~~~~~~~~~~~~~ ~~~~ ~~~~~~~~~~~~~~~ This is a CORRECTED REPOR T POTASSIUM (test TEST NOT 3.4-5.0 LL Previously r eported code = K) PERFORMED mmol/L result: 2.8 mmol/LEdited by : DEBBIE on 05/03/23:1912~~ ~~~~ ~~~~~~~~~~~~~~~ ~~~~ ~~~~~~~~~~~~~~~ This is a CORRECTED REPOR T CHLORIDE (test TEST NOT 100-108 H Previously re ported code = CL) PERFORMED mmol/L result: 135 mmol/LEdited by : DEBBIE on 05/03/23:1912~~ ~~~~ ~~~~~~~~~~~~~~~ ~~~~ ~~~~~~~~~~~~~~~ This is a CORRECTED REPOR T CARBON DIOXIDE TEST NOT 21-32 L Previously re ported (test code = CO2) PERFORMED mmol/L result : 12 mmol/LEdited by : DEBBIE on 05/03/23:1912~~ ~~~~ ~~~~~~~~~~~~~~~ ~~~~ ~~~~~~~~~~~~~~~ This is a CORRECTED REPOR T ANION GAP (test TEST NOT 4.0-15.0 L Previously r eported code = GAP) PERFORMED GAP result: 3.0 GA P calc calcEdited by: DEBBIE on 05/03/23:1912~~ ~~~~ ~~~~~~~~~~~~~~~ ~~~~ ~~~~~~~~~~~~~~~ This is a CORRECTED REPOR T GLUCOSE (test code TEST NOT 70-110 H Previousl y reported = GLU) PERFORMED MG/DL result: 140 MG/DLEdited by: DEBBIE on 05/03/23:1913~~ ~~~~ ~~~~~~~~~~~~~~~ ~~~~ ~~~~~~~~~~~~~~~ This is a CORRECTED REPOR T BLOOD UREA TEST NOT 7-18 H Previously repo rted NITROGEN (test PERFORMED MG/DL result: 27 code = BUN) MG/DLEdited by: DEBBIE on 05/03/23~~ ~~~~ ~~~~~~~~~~~~~~~ ~~~~ ~~~~~~~~~~~~~~~ This is a CORRECTED REPOR T GLOMERULAR TEST NOT >60 Previously repo rted FILTRATION RATE PERFORMED estGFR result: >=60 max (test code = GFR) estimate estGFREdited by : DEBBIE on 05/03/23~~ ~~~~ ~~~~~~~~~~~~~~~ ~~~~ ~~~~~~~~~~~~~~~ This is a CORRECTED REPOR T CREATININE (test TEST NOT 0.8-1.3 N Previously reported code = CREAT) PERFORMED MG/DL result: 1.1 MG/DLEdited by: DEBBIE on 05/03/23~~ ~~~~ ~~~~~~~~~~~~~~~ ~~~~ ~~~~~~~~~~~~~~~ This is a CORRECTED REPOR T CALCIUM (test code TEST NOT 8.5-10.1 = CA) PERFORMED MG/DL GLUCOSE BEDSIDE [id number] 17:22:00 Test Item Value Reference Range Interpretation Comments GLUCOSE BEDSIDE TESTING (test code 219 mg/dL 70-110 H = GLUBED) GLUCOSE BEDSIDE [id number] 12:12:00 Test Item Value Reference Range Interpretation Comments GLUCOSE BEDSIDE TESTING (test code 253 mg/dL 70-110 H = GLUBED) GLUCOSE BEDSIDE [id number] 07:49:00 Test Item Value Reference Range Interpretation Comments GLUCOSE BEDSIDE TESTING (test code 133 mg/dL 70-110 H = GLUBED) RBC [id number] 05:44:00 Test Item Value Reference Range Interpretation Comments POLYCHROMASIA (test code = TRACE ON SCAN NONE POLC) MACROCYTOSIS (test code = 2+ ON SCAN NONE A MACR) SPHEROCYTES (test code = TRACE ON SCAN NONE SPH) OVALOCYTES (test code = 1+ ON SCAN NONE OVAL) PLATELET ESTIMATE (test DECREASED THOUSAND ADEQUATE code = PLTEST) PLATELET MORPHOLOGY (test NORMAL code = PLTMORPH) CBC W/AUTO [id number] 05:43:00 Test Item Value Reference Range Interpretation Comments WHITE BLOOD CELL (test code = 15.3 K/mm3 3.5-11.0 H WBC) RED BLOOD CELL (test code = 3.36 M/mm3 4.70-6.10 L RBC) HEMOGLOBIN (test code = HGB) 10.4 G/DL 12.3-15.9 L HEMATOCRIT (test code = HCT) 32.9 % 35.8-46.7 L MEAN CELL VOLUME (test code = 97.9 Fl 86.3-98.9 N MCV) MEAN CELL HGB (test code = MCH) 31.0 pg 28.9-34.4 N MEAN CELL HGB CONCETRATION 31.6 G/DL 32.1-34.5 L (test code = MCHC) RED CELL DISTRIBUTION WIDTH 12.7 SD 11.5-14.5 N (test code = RDW) PLATELET COUNT (test code = 59 K/mm3 150-450 L PLT) MEAN PLATELET VOLUME (test code 10.30 fL 7.0-9.6 H = MPV) NEUTROPHIL % (test code = NT%) 91.2 % 40-76 H IMMATURE GRANULOCYTE % (test 0.6 % 0.0-5.0 N code = IG%) LYMPHOCYTE % (test code = LY%) 4.9 % 20.5-51.1 L MONOCYTE % (test code = MO%) 2.8 % 1.7-9.3 N EOSINOPHIL % (test code = EO%) 0.2 % 0.0-6.0 N BASOPHIL % (test code = BA%) 0.3 % 0.0-2.0 N NUCLEATED RBC % (test code = 0.0 /100WBC% 0.0-1.0 N NRBC%) NEUTROPHIL # (test code = NT#) 14.0 K/mm3 1.8-7.6 H IMMATURE GRANULOCYTE # (test 0.09 x10 3/uL 0.00-0.03 H code = IG#) LYMPHOCYTE # (test code = LY#) 0.8 K/mm3 0.6-3.0 N MONOCYTE # (test code = MO#) 0.4 K/mm3 0.2-1.5 N EOSINOPHIL # (test code = EO#) 0.0 K/mm3 0.0-0.4 N BASOPHIL # (test code = BA#) 0.1 K/mm3 0.0-0.2 N NUCLEATED RBC # (test code = 0.0 K/mm3 0.00-0.01 N NRBC#) MANUAL DIFF REQUIRED (test code NO DIFF/SCN CRITERIA = MDIFF) BASIC METABOLIC [id number] 03:31:00 Test Item Value Reference Range Interpretation Comments SODIUM (test code = 141 mmol/L 134-147 N NA) POTASSIUM (test 6.3 mmol/L 3.4-5.0 HH code = K) CHLORIDE (test code 116 mmol/L 100-108 H = CL) CARBON DIOXIDE 23 mmol/L 21-32 N (test code = CO2) ANION GAP (test 2.0 GAP calc 4.0-15.0 L code = GAP) GLUCOSE (test code 176 MG/DL 70-110 H = GLU) BLOOD UREA NITROGEN 52 MG/DL 7-18 H (test code = BUN) GLOMERULAR 19 estGFR >60 L The Glomerular FILTRATION RATE Filtration R ate is a (test code = GFR) calculated parameterbased on serum Creatinin e, patient age and sex. GFR valuesless than 60 mL/min/1.73 squ are meters are deepak cative ofChronic Kidne y Disease. Values less than 15 mL/min/1.73squa re meters indicate Kidney failure. The calculation for GFR is based on the CK D-EPI (2020) calculat ion. This formulais race indifferent and is the recommended for colette for GFRby the N atcritical [facility] on for Adults.The GFR will not calculate i f the sex is unknown or if thepatient's ag e is <18 years. CREATININE (test 3.1 MG/DL 0.8-1.3 H code = CREAT) CALCIUM (test code 8.0 MG/DL 8.5-10.1 L = CA) GLUCOSE BEDSIDE [id number] 22:08:00 Test Item Value Reference Range Interpretation Comments GLUCOSE BEDSIDE TESTING (test code 237 mg/dL 70-110 H = GLUBED) RBC [id number] 22:01:00 Test Item Value Reference Range Interpretation Comments POLYCHROMASIA (test code = TRACE ON SCAN NONE POLC) MICROCYTOSIS (test code = TRACE ON SCAN NONE MICR) SPHEROCYTES (test code = TRACE ON SCAN NONE SPH) OVALOCYTES (test code = TRACE ON SCAN NONE OVAL) PLATELET ESTIMATE (test DECREASED THOUSAND ADEQUATE code = PLTEST) PLATELET MORPHOLOGY (test NORMAL code = PLTMORPH) CBC W/AUTO [id number] 22:00:00 Test Item Value Reference Range Interpretation Comments WHITE BLOOD CELL (test code = 16.8 K/mm3 3.5-11.0 H WBC) RED BLOOD CELL (test code = 3.57 M/mm3 4.70-6.10 L RBC) HEMOGLOBIN (test code = HGB) 11.0 G/DL 12.3-15.9 L HEMATOCRIT (test code = HCT) 33.3 % 35.8-46.7 L MEAN CELL VOLUME (test code = 93.3 Fl 86.3-98.9 N MCV) MEAN CELL HGB (test code = MCH) 30.8 pg 28.9-34.4 N MEAN CELL HGB CONCETRATION 33.0 G/DL 32.1-34.5 N (test code = MCHC) RED CELL DISTRIBUTION WIDTH 12.7 SD 11.5-14.5 N (test code = RDW) PLATELET COUNT (test code = 70 K/mm3 150-450 L PLT) MEAN PLATELET VOLUME (test code 10.40 fL 7.0-9.6 H = MPV) NEUTROPHIL % (test code = NT%) 92.8 % 40-76 H IMMATURE GRANULOCYTE % (test 1.0 % 0.0-5.0 N code = IG%) LYMPHOCYTE % (test code = LY%) 2.4 % 20.5-51.1 L MONOCYTE % (test code = MO%) 3.6 % 1.7-9.3 N EOSINOPHIL % (test code = EO%) 0.0 % 0.0-6.0 N BASOPHIL % (test code = BA%) 0.2 % 0.0-2.0 N NUCLEATED RBC % (test code = 0.0 /100WBC% 0.0-1.0 N NRBC%) NEUTROPHIL # (test code = NT#) 15.6 K/mm3 1.8-7.6 H IMMATURE GRANULOCYTE # (test 0.17 x10 3/uL 0.00-0.03 H code = IG#) LYMPHOCYTE # (test code = LY#) 0.4 K/mm3 0.6-3.0 L MONOCYTE # (test code = MO#) 0.6 K/mm3 0.2-1.5 N EOSINOPHIL # (test code = EO#) 0.0 K/mm3 0.0-0.4 N BASOPHIL # (test code = BA#) 0.0 K/mm3 0.0-0.2 N NUCLEATED RBC # (test code = 0.0 K/mm3 0.00-0.01 N NRBC#) MANUAL DIFF REQUIRED (test code NO DIFF/SCN CRITERIA = MDIFF) GLUCOSE BEDSIDE [id number] 17:55:00 Test Item Value Reference Range Interpretation Comments GLUCOSE BEDSIDE TESTING (test code 187 mg/dL 70-110 H = GLUBED) - XR FLUOROSCOPY 0-60 [id number] 15:02:00 [facility] 1940 Sex: M Name: DEV OLGUIN [facility] : 1940 Age/S: 82 / M [id number] Unit #: [id number] Loc: [place] [address] Phys: Mauri Ng MD Acct: [id number] Dis Date: Status: ADM IN PHONE #: [phone] Exam Date: 05/02/2023 1433 FAX #: Reason: CYSTO EXAMS: CPT: [id number] XR FLUOROSCOPY 0-60 MIN 56784 Fluoro Time: 9.1 DAP (Gy m2): Air Kerma (mGy): 2.42 EXAMINATION: Intraoperative fluoroscopic assistance was provided for cystogram. IMPRESSION: Radiologic interpretation not rendered. Radiologist was not present for procedure. Correlation with intraoperative findings needed. RADIATION EXPOSURE: Fluoroscopy time: 9 seconds, Number of images: 2, reference air kerma 2.4 mGy LOCATION: [facility] at 1502 Reported and signed by: Jan Mcnulty M.D. CC: Guero Adames MD; Mauri Ng MD PAGE 1 Signed Report Name: DEV OLGUIN [place] : 1940 Age/S: 82 / M [address] Unit #: [id number] Loc: [place] [address] Phys: Mauri Ng MD Acct: [id number] Dis Date: Status: ADM IN PHONE #: [phone] Exam Date: 05/02/2023 1433 FAX #: Reason: CYSTO EXAMS: CPT: [id number] XR FLUOROSCOPY 0-60 MIN 50132 Fluoro Time: 9.1 DAP (Gy m2): Air Kerma (mGy): 2.42 (Continued) Technologist: Cyndi Villela Trnscb Bertrand e/Time: 05/02/2023 (1502) [email or web address] Orig Print D/T: S: 05/02/2023 (1115) PAGE 2 Signed ReportANEMIA [id number] 15:29:00 Test Item Value Reference Range Interpretation Comments Vitamin B12 Lvl (test code = Vitamin 258 580-5326 B12 Lvl) [facility]2022-05-17 15:29:00 Test Item Value Reference Range Interpretation Comments BUN (test code = BUN) 55 7-25 [facility]2022-05-17 15:29:00 Test Item Value Reference Range Interpretation Comments Creatinine Lvl (test code = Creatinine 1.96 0.70-1.11 Lvl) [facility]2022-05-17 15:29:00 Test Item Value Reference Range Interpretation Comments eGFR NON-AFR. GUINEAN (test code = 31 eGFR NON-AFR. GUINEAN) [facility]2022-05-17 15:29:00 Test Item Value Reference Range Interpretation Comments eGFR (test code = eGFR 36 ) [facility]2022-05-17 15:29:00 Test Item Value Reference Range Interpretation Comments B/C Ratio (test code = B/C Ratio) 28 6-22 [facility]2022-05-17 15:29:00 Test Item Value Reference Range Interpretation Comments VITAMIN B1 (THIAMINE) WHOLE BLOOD (test 153 78-185 code = VITAMIN B1 (THIAMINE) WHOLE BLOOD) [id number] 15:29:00 Test Item Value Reference Range Interpretation Comments Sed Rate (test code = Sed Rate) 22 [id number] 15:29:00 Test Item Value Reference Range Interpretation Comments C-REACTIVE PROTEIN (test code = 17.9 C-REACTIVE PROTEIN) [id number] 15:29:00 Test Item Value Reference Range Interpretation Comments Copper Lvl (test code = Copper Lvl) 97 70-175 [facility]2022-05-17 15:29:00 Test Item Value Reference Range Interpretation Comments Vitamin B12 Lvl (test code = Vitamin 387 197-6851 B12 Lvl) [facility]2022-05-17 15:29:00 Test Item Value Reference Range Interpretation Comments BUN (test code = BUN) 55 7-25 [facility]2022-05-17 15:29:00 Test Item Value Reference Range Interpretation Comments Creatinine Lvl (test code = Creatinine 1.96 0.70-1.11 Lvl) [facility]2022-05-17 15:29:00 Test Item Value Reference Range Interpretation Comments eGFR NON-AFR. GUINEAN (test code = 31 eGFR NON-AFR. GUINEAN) [facility]2022-05-17 15:29:00 Test Item Value Reference Range Interpretation Comments eGFR (test code = eGFR 36 ) [facility]2022-05-17 15:29:00 Test Item Value Reference Range Interpretation Comments B/C Ratio (test code = B/C Ratio) 28 6-22 [facility]2022-05-17 15:29:00 Test Item Value Reference Range Interpretation Comments VITAMIN B1 (THIAMINE) WHOLE BLOOD (test 153 78-185 code = VITAMIN B1 (THIAMINE) WHOLE BLOOD) [place] [address]-05-17 15:29:00 Test Item Value Reference Range Interpretation Comments Sed Rate (test code = Sed Rate) 22 [place] [id number] 15:29:00 Test Item Value Reference Range Interpretation Comments C-REACTIVE PROTEIN (test code = 17.9 C-REACTIVE PROTEIN) [facility]2022-05-17 15:29:00 Test Item Value Reference Range Interpretation Comments Vitamin B12 Lvl (test code = Vitamin 819 381-1113 B12 Lvl) [place] [id number] 15:29:00 Test Item Value Reference Range Interpretation Comments BUN (test code = BUN) 55 7-25 [place] [id number] 15:29:00 Test Item Value Reference Range Interpretation Comments Creatinine Lvl (test code = Creatinine 1.96 0.70-1.11 Lvl) [facility]2022-05-17 15:29:00 Test Item Value Reference Range Interpretation Comments eGFR NON-AFR. GUINEAN (test code = 31 eGFR NON-AFR. GUINEAN) [facility]2022-05-17 15:29:00 Test Item Value Reference Range Interpretation Comments eGFR (test code = eGFR 36 ) [facility]2022-05-17 15:29:00 Test Item Value Reference Range Interpretation Comments B/C Ratio (test code = B/C Ratio) 28 6-22 [place] [address]-05-17 15:29:00 Test Item Value Reference Range Interpretation Comments Copper Lvl (test code = Copper Lvl) 97 70-175 [place] [id number] 15:29:00 Test Item Value Reference Range Interpretation Comments VITAMIN B1 (THIAMINE) WHOLE BLOOD (test 153 78-185 code = VITAMIN B1 (THIAMINE) WHOLE BLOOD) [place] [id number] 15:29:00 Test Item Value Reference Range Interpretation Comments Sed Rate (test code = Sed Rate) 22 [place] [address]-05-17 15:29:00 Test Item Value Reference Range Interpretation Comments C-REACTIVE PROTEIN (test code = 17.9 C-REACTIVE PROTEIN) [place] [address]-05-17 15:29:00 Test Item Value Reference Range Interpretation Comments Copper Lvl (test code = Copper Lvl) 97 70-175 [facility]2022-05-17 15:29:00 Test Item Value Reference Range Interpretation Comments Vitamin B12 Lvl (test code = Vitamin 986 468-6051 B12 Lvl) [facility]2022-05-17 15:29:00 Test Item Value Reference Range Interpretation Comments BUN (test code = BUN) 55 7-25 [facility]2022-05-17 15:29:00 Test Item Value Reference Range Interpretation Comments Creatinine Lvl (test code = Creatinine 1.96 0.70-1.11 Lvl) [facility]2022-05-17 15:29:00 Test Item Value Reference Range Interpretation Comments eGFR NON-AFR. GUINEAN (test code = 31 eGFR NON-AFR. GUINEAN) [facility]2022-05-17 15:29:00 Test Item Value Reference Range Interpretation Comments eGFR (test code = eGFR 36 ) [facility]2022-05-17 15:29:00 Test Item Value Reference Range Interpretation Comments B/C Ratio (test code = B/C Ratio) 28 6-22 [facility]2022-05-17 15:29:00 Test Item Value Reference Range Interpretation Comments VITAMIN B1 (THIAMINE) WHOLE BLOOD (test 153 78-185 code = VITAMIN B1 (THIAMINE) WHOLE BLOOD) [facility] HospitalJrukjuiGKPTATRMAR5643-88-84 15:29:00 Test Item Value Reference Range Interpretation Comments Sed Rate (test code = Sed Rate) 22 [facility] HospitalFwhdcffCWLDVXEHKI3666-58-02 15:29:00 Test Item Value Reference Range Interpretation Comments C-REACTIVE PROTEIN (test code = 17.9 C-REACTIVE PROTEIN) [place] [address]-05-17 15:29:00 Test Item Value Reference Range Interpretation Comments Copper Lvl (test code = Copper Lvl) 97 70-175 [facility]2022-05-17 15:29:00 Test Item Value Reference Range Interpretation Comments Vitamin B12 Lvl (test code = Vitamin 322 618-2592 B12 Lvl) [facility]2022-05-17 15:29:00 Test Item Value Reference Range Interpretation Comments BUN (test code = BUN) 55 7-25 [place] 939212-05-17 15:29:00 Test Item Value Reference Range Interpretation Comments Creatinine Lvl (test code = Creatinine 1.96 0.70-1.11 Lvl) [facility]CHEM [id number] 15:29:00 Test Item Value Reference Range Interpretation Comments eGFR NON-AFR. GUINEAN (test code = 31 eGFR NON-AFR. GUINEAN) [facility] [id number] 15:29:00 Test Item Value Reference Range Interpretation Comments eGFR (test code = eGFR 36 ) [facility]annCHE[facility] [id number] 15:29:00 Test Item Value Reference Range Interpretation Comments B/C Ratio (test code = B/C Ratio) 28 6- [facility]CHE[facility] [id number] 15:29:00 Test Item Value Reference Range Interpretation Comments VITAMIN B1 (THIAMINE) WHOLE BLOOD (test 153 78-185 code = VITAMIN B1 (THIAMINE) WHOLE BLOOD) [facility] HospitalFyduqneKDSCJVPQAQ2963-50-14 15:29:00 Test Item Value Reference Range Interpretation Comments Sed Rate (test code = Sed Rate) 22 [facility] HospitalNvpatecPFVRKAHQMI1806-69-69 15:29:00 Test Item Value Reference Range Interpretation Comments C-REACTIVE PROTEIN (test code = 17.9 C-REACTIVE PROTEIN) [facility] CenterRrtkrfgFJBYC2294-76-55 15:29:00 Test Item Value Reference Range Interpretation Comments Copper Lvl (test code = Copper Lvl) 97 70-175 [facility][U] XRAY FINGER(S) - 2 VWS MIN. RIGHT [id number] 09:27:00 Images acquired, not reported on this accession number.[place] Physicians Notes Date/Time Note Provider Source 2023-05-12 10:29:00-00:00 [facility] ([facility]) Full Op Note REPORT#:[id number] REPORT STATUS: Signed DATE:05/12/23 TIME:1028 PATIENT: DEV OLGUIN UNIT #: [id number] ROOM/BED: : 41 AGE: 83 SEX: M ATTEND: Srinath Parker MD ADM AUTHOR: Srinath Parker MD * ALL edits or amendments must be made on the el ectronic/computer document * Operative Report Start date: 05/12/23 Start time: 1000 Pre-procedure diagnosis: Right kidney stone Post-procedure diagnosis: Right kidney stone Procedures performed: Cystoscopy, right ureteroscopy with stone extrac tion, right ureteral stent exchange and retrograde pyelogram Technique/Procedure: Dev is a 83 year-old male that previously un derwent right ureteral stent placment for UTI and right kidney stone and pres ents for stone removal. General anesthesia was induced and patient was p repped and draped in dorsal lithtomy. A time out was per formed. A 22F rigid cystoscope was advanced into the bladder. Prostatic urethra was wide open and the re was a mild bladder neck contracture. The right urete ral stent was grasped and brought to the meatus and cystoscope removed. A wire was advanced through the stent and stent removed. A ureteroscope was advanced into the right kidney and retrograde pyelogram revealed moderate hydronephrosis. The calyces we re inspected and there was a signle 7mm upper pole stone. This was grasped with a basket but broke easily so the ureteroscope was removed and a 11/13 F ureteral access sheath advanced into the kidney. The ureteroscope was advance d into the kidney and fragments gently removed with the basket then smaller fragments f lushed out. The calyces were inspected and no fragments 2mm or larger was identified so the ureterscope and sheath were removed and no stones or trauma iden tified. The cystoscope was replaced and a 6x26cm ureteral stent adv anced with good coils. The bladder was drained and cystoscope remov ed and procedure terminated. The string to the stent was taped to the penis with tegaderm. Primary Surgeon: Srinath Parker MD Social Science Instructor(s): none Anesthesia: general anesthesia Operative findings: Right 7mm kidney stone Complications: none Estimated blood loss in ml's: none Specimens removed/altered: none Implant(s): RIght 6x26cm ureteral stent Electronically Signed by Srinath Parker MD on at 1035 [facility] #: [id number] END OF REPORT 2023-05-12 06:43:00-00:00 [id number] [place] [id number] PATIENT NAME: DEV OLGUIN ADMIT DATE: ACCOUNT NO: [id number] ROOM NO: AGE: 83 REPORT TYPE: eELECTROCARDIOGRAM SEX: M ADMITTING PHYSICIAN: ATTENDING PHYSICIAN: Srinath Parker MD Order: [id number] Test Reason : PREOP Test Date/Time Stamp: ThuMay 12 2023 06:43:33 Blood Pressure : / mmHG Vent. Rate : 078 BPM Atrial Rate : 078 BPM P-R Int : 184 ms QRS Dur : 082 ms QT Int : 382 ms P-R-T Axes : 037 038 041 degree s QTc Int : 435 ms Normal sinus rhythm Normal ECG No previous ECGs available Confirmed by Donny Espinosa ([id number]) on 3 8:34:02 PM Referred By: Srinath Parker Confirmed by:Donny miller Electronically Signed by Donny Espinosa MD o n 05/12/23 at 2033 PATIENT NAME: DEV OLGUIN [id number] 2023-05-08 16:38:00-00:00 [facility] ([facility]) Hospitalist Discharge Summary REPORT#:[id number] REPORT STATUS: Signed DATE:05/08/23 TIME:1637 PATIENT: DEV OLGUIN UNIT #: [id number] ROOM/BED: [place] [address] : 41 AGE: 83 SEX: M ATTEND: Lauryn Ng MD ADM AUTHOR: Karena Matute MD * ALL edits or amendments must be made on the el Balloon/computer document * General Information Date of admission: Observation Start Date: 05/02/23 Date of admission: 05/03/23 Discharge date: 05/05/23 Discharge diagnosis: see hospital course Hospital course: This is a 82-year-old gentleman who was transfer red from outside facility for right flank pain. Data from outside hospital WBC 8 hemoglobin 12 hematocrit 36 platelet 112 Sodium 138 potassium 5.5 chloride 109 bicarb 24 BUN 48 creatinine 2.26 AST 14 ALT 21 total bilirubin 0.4 total protein 8.3 caty cium 9.2 albumin 3.4 UA shows light orange blood 3+ protein 2 + leukocyte esterase positive WBC more than 15 RBC more than [address] of the abdomen shows mild right hydro nephrosis with 7 mm stone at the right ureteropelvic junction Free text DxA P notes: Right ureteral nephrolithiasis with mild hydrone phrosis IV antibiotics IV fluids and monitor hemodynamic status closely Symptomatic control Improved after stent was placed by urology UTI UA does appear dirty we will keep him on antibio tics White count is normal patient is afebrile Urine culture Proteus mirabilis sensitive to cef triaxone BANG We do not have any baseline creatinine we will keep him on fluids monitor renal functions avoid nephrotoxic medication Improving Diabetes mellitus insulin sliding scale monitor blood sugars History of Alzheimer's Monitor for delirium Thrombocytopenia Platelets stable seen and examined dc home stable dc time 32 mins Pt. condition on discharge: improved, stable Med Rec Med Rec Discharge meds: Continue taking these medications: OMEGA-3 FATTY ACIDS (FISH OIL) 1,000 MG CAP 1,000 MILLIGRAM ORAL TWICE DAILY. glipiZIDE (GLUCOTROL) (Unknown Strength) TAB 10 MILLIGRAM ORAL TWICE DAILY. CETIRIZINE (CETIRIZINE) 10 MG TAB 15 MILLIGRAM ORAL DAILY. CINNAMON BARK (CINNAMON) 500 MG CAP 1 CAPSULE ORAL TWICE DAILY. LISINOPRIL (ZESTRIL) 10 MG TAB 10 MILLIGRAM ORAL DAILY. DONEPEZIL (ARICEPT) 10 MG TAB 10 MILLIGRAM ORAL DAILY. Start taking the following new medications: CEPHALEXIN (KEFLEX) 500 MG CAP 500 MILLIGRAM ORAL EVERY 12 HOURS. Qty = 10 No Refills Discharge Instructions PCP Discharge to: Home/Self Care Additional Discharge Routines: PCP Follow-Up, Co nsultant Follow-Up Diet: Resume Home Diet/Feeds Activity: As Tolerated Prescriptions: on chart Discharge management: greater than 30 mins Follow-up Appointments PCP follow-up: PCP: Guero Adames MD PCP follow up timeframe: In 3 days Attending Physician: Attending Physician: Mauri Ng MD Consulting provider 1: Provider 1: Roberto Zuluaga MD Specialty: HEMATOLOGY Consult follow up timeframe: In 1-2 weeks Electronically Signed by Karena Matute MD on at 1641 RPT #: [id number] END OF REPORT 2023-05-05 20:40:00-00:00 [facility] ([facility]) Nephrology Progress Note REPORT#:[id number] REPORT STATUS: Signed DATE:05/05/23 TIME:2039 PATIENT: DEV OLGUIN UNIT #: [id number] ROOM/BED: [place] [address] : 41 AGE: 82 SEX: M ATTEND: Lauryn Ng MD ADM AUTHOR: Pramod Blum MD * ALL edits or amendments must be made on the [employer]/computer document * Subjective HPI: 82 yo male with history of diabetes, dementia, a dmitted with flank pain, ureteram obstructive stone. Found to have bang, p lacement. Renaatient underwent ureteral stent placement. Renal is consulted for bang Comments: Seen in the morning. Denies sob. Review of Systems Free Text ROS Notes Free Text ROS Notes: 10 points ROS performed and documented in subjec tive, otherwise negative. Objective General VS/I O: Vital Signs: Date Time Temp Pulse Resp B/P B/P Pulse O2 O2 F low FiO2 Mean Ox Delivery Rate 05/05 1618 36.4 57 16 143/66 91.4 98 Room air 05/05 1102 37.0 65 16 141/64 90.0 97 Room air 05/05 0731 37.3 69 16 159/66 97.1 94 Room air 05/05 0444 37.3 77 16 147/61 89.6 93 05/05 0002 37.5 76 15 150/63 91.9 95 24 hour I O ending at 0700: 05/05 0700 05/04 1900 Intake Total 500 200 Output Total 1100 2400 Balance -600 -2200 Intake, Oral 500 200 Output, Urine 1100 2400 Medications Active Meds + DC'd Last 24 Hrs Glipizide (GLUCOTROL) 10 MG AC BK DIN PO (DCD) Sodium Chloride (0.45% Sodium Chloride) 1,000 ML .[id number] IV (DCD) Acetaminophen (TYLENOL) 650 MG Q6H PRN PRN PO (D CD) Dextrose/Water (DEXTROSE 5% WATER) 10 ML ASDIR P RN IV (DCD) Ceftriaxone Sodium (ROCEPHIN) 1,000 MG Q24H IV ( DCD) Sterile Water (WATER FOR INJECTION) 10 ML Docusate Sodium (COLACE) 100 MG BID PO (DCD) Pregabalin (LYRICA) 75 MG BID PO (DC) Tamsulosin HCl (FLOMAX) 0.4 MG PC DIN PO (DCD) Insulin Human Lispro (HUMALOG) 0 AC HS SUBQ (DCD ) Ondansetron HCl (ZOFRAN) 8 MG Q8H PRN PRN PO (DC D) Ondansetron HCl (ZOFRAN) 8 MG Q8H PRN PRN IV (DC D) Docusate Sodium (COLACE) 100 MG BID PRN PRN PO (DCD) Hydralazine HCl (APRESOLINE) 10 MG Q6H PRN PRN I V (DCD) Ondansetron HCl (ZOFRAN ODT) 4 MG Q4H PRN PRN PO (DCD) Tramadol HCl (ULTRAM) 50 MG Q6H PRN PRN PO (DCD) Physical Exam General appearance: awake Head/eyes: normocephalic ENT: normal nose Neck: no JVD C-Spine clearance: no midli ne tenderness, NI flexion w/o pain, NI extension w/ o pain Cardiovascular: no murmur Respiratory: clear to auscultation Abdomen: soft Genitourinary: no bladder distention Extremities: no edema Musculoskeletal: no tendereness Neuro/TAIL EDGER: awake Results Findings/Data: Laboratory Tests 05/05 05/05 05/05 05/05 05/05 1615 1039 0728 0433 0433 Chemistry Sodium (134 - 147 mmol/L) 140 Potassium (3.4 - 5.0 mmol/L) 4.0 Chloride (100 - 108 mmol/L) 113 H Carbon Dioxide (21 - 32 mmol/L) 23 Anion Gap (4.0 - 15.0 GAP calc) 4.0 BUN (7 - 18 MG/DL) 30 H Creatinine (0.8 - 1.3 MG/DL) 1.7 H Glomerular Filtr Rate (>60 estGFR) 40 L Glucose (70 - 110 MG/DL) 309 H POC Glucose (70 - 110 mg/dL) 253 H 202 H Calcium (8.5 - 10.1 MG/DL) 8.1 L Iron (65 - 175 mcG/DL) 20 L TIBC (260 - 445 mcg/dL) 219 L Ferritin (23.9 - 336.2 ng/mL) 144.6 Lactate Dehydrogenase (87 - 241 Unit/L) 121 05/04 2043 Chemistry POC Glucose (70 - 110 mg/dL) 241 H Laboratory Tests 05/05 05/05 05/05 1039 0433 0433 Hematology WBC (3.5 - 11.0 K/mm3) 6.4 RBC (4.70 - 6.10 M/mm3) 3.20 L Hgb (12.3 - 15.9 G/DL) 9.8 L Hct (35.8 - 46.7 %) 29.3 L MCV (86.3 - 98.9 Fl) 91.6 MCH (28.9 - 34.4 pg) 30.6 MCHC (32.1 - 34.5 G/DL) 33.4 RDW (11.5 - 14.5 SD) 12.4 Plt Count (150 - 450 K/mm3) 49 L MPV (7.0 - 9.6 fL) 10.50 H Neut % (Auto) (40 - 76 %) 76.7 H Lymph % (Auto) (20.5 - 51.1 %) 14.6 L [place] % (Auto) (1.7 - 9.3 %) 4.9 Eos % (Auto) (0.0 - 6.0 %) 2.7 Baso % (Auto) (0.0 - 2.0 %) 0.3 Neut # (Auto) (1.8 - 7.6 K/mm3) 4.9 Lymph # (Auto) (0.6 - 3.0 K/mm3) 0.9 [place] # (Auto) (0.2 - 1.5 K/mm3) 0.3 Eos # (Auto) (0.0 - 0.4 K/mm3) 0.2 Baso # (Auto) (0.0 - 0.2 K/mm3) 0.0 Abs Immat Gran (auto) (0.00 - 0.03 x10 3/uL) 0. 05 H Add Manual Diff (CRITERIA DIFF/SCN) NO Immature Gran % (0.0 - 5.0 %) 0.8 Nucleated RBC % (0.0 - 1.0 /100WBC%) 0.0 Platelet Estimate (ADEQUATE THOUSAND) MARKEDLY DECREASED Plt Morphology Comment LARGE PLATELETS ESR (0 - 15 mm/hr) 92 H Retic Count (auto) (0.3 - 2.3 %) 0.8 Diagnosis, Assessment Plan Free Text A P: 1. Acute kidney injury. Likely acute tubular necrosis. Creat 1.7 2. Hypovolemia. 3. UTI. 4. Dementia. 5. Diabetes mellitus. 6. Ureteral stone, status post stent placement. 7. Hyperkalemia. Improved. Recommendation. 05/05: Oral hydration. Avoid NSAID. 05/04: Change fluids to half-normal salin e 75 mill per hour. Taper off IV fluid once patient tolerate p.o. L asix 40 mg IV push if patient becomes hypervolemic. 05/03: Continue with normal saline 125 mill per h our. Avoid nephrotoxic medication, NSAIDs. Urine studies. Drug dose adjustment to GFR. Thank you for consultation, any question please call [phone] Consultants: urology at 2042 RPT #: [id number] END OF REPORT 2023-05-05 12:55:00-00:00 [facility] ([facility]) Hospitalist Progress Note REPORT#:[id number] REPORT STATUS: Signed DATE:05/05/23 TIME:1255 PATIENT: DEV OLGUIN UNIT #: [id number] ROOM/BED: [place] [address] : 41 AGE: 82 SEX: M ATTEND: Lauryn Ng MD ADM AUTHOR: Karena Matute MD * ALL edits or amendments must be made on the [employer]/computer document * Subjective Chief complaint: Right flank pain resolved Review of Systems Respiratory: Denies: SOB. Cardiovascular: Denies: chest pain. GI: Denies: nausea, vomiting. Objective General VS/I O: Vital Signs: Date Time Temp Pulse Resp B/P B/P Pulse O2 O2 F low FiO2 Mean Ox Delivery Rate 05/05 1102 37.0 65 16 141/64 90.0 97 Room air 05/05 0731 37.3 69 16 159/66 97.1 94 Room air 05/05 0444 37.3 77 16 147/61 89.6 93 05/05 0002 37.5 76 15 150/63 91.9 95 05/04 2003 37.4 82 15 132/64 86.7 94 05/04 1643 37.5 74 16 129/52 77.3 94 Room air 24 hour I O ending at 0700: 05/05 0700 05/04 1900 Intake Total 500 200 Output Total 1100 2400 Balance -600 -2200 Intake, Oral 500 200 Output, Urine 1100 2400 PATIENT WEIGHT: Weight (lb): Weight (oz): Weight (kg): 75.000 Dietitian nutrition assessment The data set between the solid lines has been im ported from the dietitian's assessment. BMI Calculated: 25.1 Nutrition related diagnosis: Nutrition diagnosis details: Nutrition problem: Nutrition etiology: Nutrition signs and symptoms: Nutrition prescription: Dietitian name: Assessment completed: Physical Exam General appearance: alert, awake Cardiovascular: normal capillary refill, regular rate rhythm Respiratory: clear to auscultation, no distress Abdomen: non-tender, normal bowel sounds, soft, no distention Extremities: moves all, normal capillary refill, normal range of motion, no edema Neuro/TAIL EDGER: alert, oriented X 3 Diagnosis, Assessment Plan Free Text DxA P Notes Free text DxA P notes: Right ureteral nephrolithiasis with mild hydrone phrosis Discussed with urology. Planning for stenting. A t this point we will keep him on antibiotics IV fluids and monitor hemodynamic status closely Symptomatic control Improved after stent was placed by urology UTI UA does appear dirty we will keep him on antibio tics White count is normal patient is afebrile Urine culture Proteus mirabilis sensitive to cef triaxone, continue Septra BANG We do not have any baseline creatinine we will keep him on fluids monitor renal functions avoid nephrotoxic medication Improving Diabetes mellitus Patient will be n.p.o. keep on insulin sliding s arturo monitor blood sugars History of Alzheimer's Monitor for delirium Thrombocytopenia Platelets stable Disposition At this time discussed with urology to u pdate the family as they have a lot of questions, and he will call me back if patient i s cleared for discharge later today DVT prophylax with SCDs in anticipation for proc edures Patient is full code patient's Tameka olguin [phone] Electronically Signed by Karena Matute MD on at 1258 RPT #: [id number] END OF REPORT 2023-05-05 10:40:00-00:00 [facility] ([facility]) Benson/Oncology Progress Note REPORT#:[id number] REPORT STATUS: Signed DATE:05/05/23 TIME:1040 PATIENT: DEV OLGUIN UNIT #: [id number] ROOM/BED: [place] [address] : 41 AGE: 82 SEX: M ATTEND: Lauryn Ng MD ADM AUTHOR: Brittaney Nichols MD * ALL edits or amendments must be made on the [employer]/computer document * Subjective Chief Complaint: Events noted No overt bleeding Confused Objective Physical Exam VS: Vital Signs Date Temp Pulse Resp B/P B/P Mean Pulse Ox FiO2 05/04-05/05 99.1-99.5 69-82 15-16 112-159/52-6 6 76.1-97.1 93-99 Last Documented: Result Date Time Pulse Ox 94 05/05 0731 B/P 159/66 05/05 0731 B/P Mean 97.1 05/05 0731 O2 Delivery Room air 05/05 731 Temp 99.1 05/05 0731 Pulse 69 05/05 0731 Resp 16 05/05 0731 O2 Flow Rate 2 05/03 2015 General appearance: confused, alert, awake HEENT: anicteric, atraumatic, pupils reactive to light Cardiovascular: regular rate and rhythm, normal heart sounds Respiratory: aerating well, clear to auscultatio n Abdomen: non-tender, soft, no distention Extremities: moves all, normal temperature Neuro/TAIL EDGER: alert, oriented X 3 Current Medications Medications: Active Meds + DC'd Last 24 Hrs Sodium Chloride (0.45% Sodium Chloride) 1,000 ML .[id number] IV Acetaminophen (TYLENOL) 650 MG Q6H PRN PRN PO Dextrose/Water (DEXTROSE 5% WATER) 10 ML ASDIR P RN IV Ceftriaxone Sodium (ROCEPHIN) 1,000 MG Q24H IV Sterile Water (WATER FOR INJECTION) 10 ML Docusate Sodium (COLACE) 100 MG BID PO Pregabalin (LYRICA) 75 MG BID PO (DC) Tamsulosin HCl (FLOMAX) 0.4 MG PC DIN PO Insulin Human Lispro (HUMALOG) 0 AC HS SUBQ Ondansetron HCl (ZOFRAN) 8 MG Q8H PRN PRN PO Ondansetron HCl (ZOFRAN) 8 MG Q8H PRN PRN IV Docusate Sodium (COLACE) 100 MG BID PRN PRN PO Hydralazine HCl (APRESOLINE) 10 MG Q6H PRN PRN I V Ondansetron HCl (ZOFRAN ODT) 4 MG Q4H PRN PRN PO Tramadol HCl (ULTRAM) 50 MG Q6H PRN PRN PO Results Findings/Data: Laboratory Tests 05/05 05/05 05/05 05/04 05/04 0728 0433 0433 2043 1636 Chemistry POC Glucose (70 - 110 mg/dL) 202 H 241 H 263 H Iron (65 - 175 mcG/DL) 20 L TIBC (260 - 445 mcg/dL) 219 L Lactate Dehydrogenase (87 - 241 Unit/L) 121 05/04 1115 Chemistry POC Glucose (70 - 110 mg/dL) 246 H Laboratory Tests 05/05 0433 Hematology Retic Count (auto) (0.3 - 2.3 %) 0.8 Diagnosis, Assessment Plan Consultants: urology Free Text DxA P Notes Free Text DxA P Notes: Assessment: Acute Thrombocytopenia with recent obstructive u ropathy and fever Plan: Diagnostic heme studies Appreciate abx therapy Noted avoidance of antiplatelet therapy Medications reviewed CBC clinical lead systems developer for any specific platelet transfusion in dication 05/05/2023 Follow up on pending labs Thrombocytopenia most likely due to consumption and medications Monitor CBC and transfuse to keep HB>7, Platelet s >20 Avoid unnecessary medications supportive care Electronically Signed by Brittaney Nichols MD on 05/05 at 1051 RPT #: [id number] END OF REPORT 2023-05-04 11:16:00-00:00 [facility] ([facility]) Hospitalist Progress Note REPORT#:[id number] REPORT STATUS: Signed DATE:05/04/23 TIME:1116 PATIENT: DEV OLGUIN UNIT #: [id number] ROOM/BED: [place] [address] : 41 AGE: 82 SEX: M ATTEND: Lauryn Ng MD ADM AUTHOR: Mauri Ng MD * ALL edits or amendments must be made on the [employer] document * Subjective Chief complaint: Right flank pain Comments: Patient lying on the bed. Feels better. Pleasant ly confused. Objective General VS/I O: Vital Signs: Date Time Temp Pulse Resp B/P B/P Pulse O2 O2 F low FiO2 Mean Ox Delivery Rate 05/04 0724 98.4 74 16 134/65 87.9 98 Nasal cannula 05/04 0436 99.7 101 19 155/74 101.3 99 Room air 05/03 2326 98.8 89 18 138/64 88.8 99 Nasal cannula 05/03 2015 Nasal 2 cannula 05/03 1926 99.1 85 19 111/52 72.1 98 Nasal cannula 05/03 1637 97.9 87 14 96/55 68.4 98 Nasal 2 cannula 05/03 1209 102.2 90 15 114/54 73.7 99 Nasal cannula 24 hour I O ending at 0700: 05/04 0700 05/03 1900 Intake Total 1450.00 Output Total 1050 800 Balance 400.00 -800 Intake, IV 1450.00 Number 1 1 Bowel Movements Output, Urine 1050 800 PATIENT WEIGHT: Weight (lb): Weight (oz): Weight (kg): 75.000 Medications: Active Meds + DC'd Last 24 Hrs Sodium Chloride (0.45% Sodium Chloride) 1,000 ML .[id number] IV Acetaminophen (TYLENOL) 650 MG Q6H PRN PRN PO Dextrose/Water (DEXTROSE 5% WATER) 10 ML ASDIR P RN IV Ceftriaxone Sodium (ROCEPHIN) 1,000 MG Q24H IV Sterile Water (WATER FOR INJECTION) 10 ML Docusate Sodium (COLACE) 100 MG BID PO Pregabalin (LYRICA) 75 MG BID PO Tamsulosin HCl (FLOMAX) 0.4 MG PC DIN PO Insulin Human Lispro (HUMALOG) 0 AC HS SUBQ Ondansetron HCl (ZOFRAN) 8 MG Q8H PRN PRN PO Ondansetron HCl (ZOFRAN) 8 MG Q8H PRN PRN IV Docusate Sodium (COLACE) 100 MG BID PRN PRN PO Hydralazine HCl (APRESOLINE) 10 MG Q6H PRN PRN I V Ondansetron HCl (ZOFRAN ODT) 4 MG Q4H PRN PRN PO Sodium Chloride (0.9% Sodium Chloride) 1,000 ML .Q8H IV (DC) Tramadol HCl (ULTRAM) 50 MG Q6H PRN PRN PO Dietitian nutrition assessment The data set between the solid lines has been im ported from the dietitian's assessment. BMI Calculated: 25.1 Nutrition related diagnosis: Nutrition diagnosis details: Nutrition problem: Nutrition etiology: Nutrition signs and symptoms: Nutrition prescription: Dietitian name: Assessment completed: Review of dietitian's assessment: reviewed and a gree Results Findings/Data: Laboratory Tests 06/12 06/12 06/11 06/11 06/11 0723 0448 2034 2014 163 Chemistry Sodium (134 - 147 mmol/L) 144 145 Potassium (3.4 - 5.0 mmol/L) 4.8 4.4 Chloride (100 - 108 mmol/L) 120 H 119 H Carbon Dioxide (21 - 32 mmol/L) 20 L 23 Anion Gap (4.0 - 15.0 GAP calc) 4.0 3.0 L BUN (7 - 18 MG/DL) 39 H 48 H Creatinine (0.8 - 1.3 MG/DL) 1.9 H 2.3 H Glomerular Filtr Rate (>60 estGFR) 35 L 28 L Glucose (70 - 110 MG/DL) 201 H 232 H POC Glucose (70 - 110 mg/dL) 191 H 214 H 219 H Calcium (8.5 - 10.1 MG/DL) 7.9 L 7.9 L Total Bilirubin (0.2 - 1.2 MG/DL) 0.30 AST (15 - 37 Unit/L) 10 L ALT (12 - 78 Unit/L) 12 Total Alk Phosphatase (50 - 136 Unit/L) 51 Total Protein (6.4 - 8.2 G/DL) 6.1 L Albumin (3.4 - 5.0 G/DL) 2.1 L Globulin (GM/dL) 4.0 Albumin/Globulin Ratio (1.2 - 2.2 RATIO) 0.5 L 05/03 1159 Chemistry POC Glucose (70 - 110 mg/dL) 253 H Laboratory Tests 05/048 Coagulation INR (0.8 - 1.2 INR Unit) 1.05 PT Patient/Control Mix (9.3 - 12.9 SECONDS) 11. 7 Laboratory Tests 05/04 0448 Hematology WBC (3.5 - 11.0 K/mm3) 9.7 RBC (4.70 - 6.10 M/mm3) 3.48 L Hgb (12.3 - 15.9 G/DL) 10.7 L Hct (35.8 - 46.7 %) 34.1 L MCV (86.3 - 98.9 Fl) 98.0 MCH (28.9 - 34.4 pg) 30.7 MCHC (32.1 - 34.5 G/DL) 31.4 L RDW (11.5 - 14.5 SD) 12.8 Plt Count (150 - 450 K/mm3) 47 L MPV (7.0 - 9.6 fL) 10.60 H Neut % (Auto) (40 - 76 %) 81.4 H Lymph % (Auto) (20.5 - 51.1 %) 10.0 L [place] % (Auto) (1.7 - 9.3 %) 5.7 Eos % (Auto) (0.0 - 6.0 %) 2.0 Baso % (Auto) (0.0 - 2.0 %) 0.3 Neut # (Auto) (1.8 - 7.6 K/mm3) 7.9 H Lymph # (Auto) (0.6 - 3.0 K/mm3) 1.0 [place] # (Auto) (0.2 - 1.5 K/mm3) 0.6 Eos # (Auto) (0.0 - 0.4 K/mm3) 0.2 Baso # (Auto) (0.0 - 0.2 K/mm3) 0.0 Abs Immat Gran (auto) (0.00 - 0.03 x10 3/uL) 0 .06 H Add Manual Diff (CRITERIA DIFF/SCN) NO Immature Gran % (0.0 - 5.0 %) 0.6 Nucleated RBC % (0.0 - 1.0 /100WBC%) 0.0 Platelet Estimate (ADEQUATE THOUSAND) MARKEDLY DECREASED Plt Morphology Comment NORMAL Polychromasia (NONE ON SCAN) TRACE Tear Drop Cells (NONE ON SCAN) TRACE Ovalocytes (NONE ON SCAN) TRACE Laboratory Tests 05/03 2035 Urines Ur Random Creatinine (30 - 125 MG/DL) 79.1 U Random Total Protein (0.0 - 12.0 MG/DL) 86.9 H Ur Random Sodium (() MEQ/L) 86 Ur Random Potassium (() MEQ/L) 20.0 Results: labs reviewed, current med profile rev' d Free Text Obj Notes Free Text Obj Notes: Physical examination Patient is a pleasant person lying on the bed does not appear to be in distress confused HEENT pupils equal round reactive light and acco mmodating normocephalic/ atraumatic skull normal oral mucosa Neck supple no JVD Chest clear bilateral entry no wheeze or crackle s CVS S1-S2 no murmur rubs or gallop Abdomen soft nontender bowel sounds positive Extremities no pedal edema pulses palpab le scar for prior surgery on the right ankle TAIL EDGER alert oriented x1-2 moving all 4 extremities no focal deficit identified Psych examination normal mood Diagnosis, Assessment Plan Consultants: urology Free Text DxA P Notes Free text DxA P notes: Right ureteral nephrolithiasis with mild hydrone phrosis Discussed with urology. Planning for stenting. A t this point we will keep him on antibiotics IV fluids and monitor hemodynamic status closely Symptomatic control Delivery n.p.o. UTI UA does appear dirty we will keep him on antibio tics White count is normal patient is afebrile BANG We do not have any baseline creatinine we will keep him on fluids monitor renal functions avoid nephrotoxic medication Diabetes mellitus Patient will be n.p.o. keep on insulin sliding s arturo monitor blood sugars History of Alzheimer's We will try to get home medications and resume t hem avoid unnecessary opioids and benzos. Monitor for delirium DVT prophylax with SCDs in anticipation for proc edures Patient is full code as we cannot confirm the CO DE STATUS Tried to contact patient's w gail Tameka olguin [phone] but nobody picked up. We will ask watch case polisher. 05/04 Right ureteral nephrolithiasis with mild hydrone phrosis Discussed with urology status post stent ing. At this point we will keep him on antibiotics IV fluids and monitor hemodynamic st atus closely Symptomatic control UTI UA does appear dirty we will keep him on antibio tics White count is normal patient is afebrile Urine culture growing Proteus BANG We do not have any baseline creatinine we will keep him on fluids monitor renal functions avoid nephrotoxic medication. Renal functions have started to improve Nephrology on board Hyperkalemia Improved follow-up with nephrology. Diabetes mellitus keep on insulin sliding scale monitor blood sug ars Thrombocytopenia platelet count worsening. Have asked hematology input. Avoid antiplatelets anticoagulation. Could be just rel ated to sepsis History of Alzheimer's We will try to get home medications and resume t hem avoid unnecessary opioids and benzos. Monitor for delirium DVT prophylax with SCDs due to thrombocytopenia Patient is full code as we cannot confirm the CO DE STATUS Updated patient's Tameka olguin [phone] Follow platelet counts and renal functions. Poss ibcarrillo DC next 24 to 48 hours Electronically Signed by Mauri Ng MD on at 1123 [facility] #: [id number] END OF REPORT 2023-05-04 06:36:00-00:00 [facility] Nephrology Progress Note REPORT#:[id number] REPORT STATUS: Signed DATE:05/04/23 TIME:0636 PATIENT: DEV OLGUIN UNIT #: [id number] ROOM/BED: [place] [address] : 41 AGE: 82 SEX: M ATTEND: Lauryn Ng MD ADM AUTHOR: Pramod Blum MD * ALL edits or amendments must be made on the [employer]/computer document * Subjective HPI: 82 yo male with history of diabetes, dementia, a dmitted with flank pain, ureteram obstructive stone. Found to have bang, p lacement. Renaatient underwent ureteral stent placement. Renal is consulted for bang Comments: Sleepy. Review of Systems Unable to obtain due to: Sleepy. Objective General VS/I O: Vital Signs: Date Time Temp Pulse Resp B/P B/P Pulse O2 O2 F low FiO2 Mean Ox Delivery Rate 05/04 0436 37.6 101 19 155/74 101.3 99 Room air 05/03 2326 37.1 89 18 138/64 88.8 99 Nasal cannula 05/03 2015 Nasal 2 cannula 05/03 1926 37.3 85 19 111/52 72.1 98 Nasal cannula 05/03 1637 36.6 87 14 96/55 68.4 98 Nasal 2 cannula 05/03 1209 39.0 90 15 114/54 73.7 99 Nasal cannula 05/03 1045 38.1 98 18 117/58 78.0 99 05/03 0836 37.0 96 15 117/69 84.7 99 Nasal cannula 05/03 0800 Nasal 2 cannula 24 hour I O ending at 0700: 05/04 0700 05/03 1900 Intake Total 1450.00 Output Total 1050 800 Balance 400.00 -800 Intake, IV 1450.00 Number 1 1 Bowel Movements Output, Urine 1050 800 Medications Active Meds + DC'd Last 24 Hrs Sodium Chloride (0.45% Sodium Chloride) 1,000 ML .[id number] IV Acetaminophen (TYLENOL) 650 MG Q6H PRN PRN PO Dextrose/Water (DEXTROSE 5% WATER) 10 ML ASDIR P RN IV Ceftriaxone Sodium (ROCEPHIN) 1,000 MG Q24H IV Sterile Water (WATER FOR INJECTION) 10 ML Docusate Sodium (COLACE) 100 MG BID PO Pregabalin (LYRICA) 75 MG BID PO Sodium Polystyrene Sulfonate (KAYEXELATE) 30 GM ONCE ONE PO (DC) Celecoxib (CeleBREX) 200 MG 0900,2100 PO (DC) Tamsulosin HCl (FLOMAX) 0.4 MG PC DIN PO Insulin Human Lispro (HUMALOG) 0 AC HS SUBQ Ondansetron HCl (ZOFRAN) 8 MG Q8H PRN PRN PO Ondansetron HCl (ZOFRAN) 8 MG Q8H PRN PRN IV Docusate Sodium (COLACE) 100 MG BID PRN PRN PO Hydralazine HCl (APRESOLINE) 10 MG Q6H PRN PRN I V Ondansetron HCl (ZOFRAN ODT) 4 MG Q4H PRN PRN PO Sodium Chloride (0.9% Sodium Chloride) 1,000 ML .Q8H IV (DC) Tramadol HCl (ULTRAM) 50 MG Q6H PRN PRN PO Physical Exam General appearance: sleeping comfortably Head/eyes: normocephalic ENT: normal nose Neck: no JVD C-Spine clearance: no midli ne tenderness, NI flexion w/o pain, NI extension w/ o pain Cardiovascular: no murmur Respiratory: clear to auscultation Abdomen: soft Genitourinary: no bladder distention Extremities: no edema Musculoskeletal: no tendereness Neuro/TAIL EDGER: sleepy Results Findings/Data: Laboratory Tests 05/04 1639 1159 Chemistry Sodium (134 - 147 mmol/L) 144 145 Potassium (3.4 - 5.0 mmol/L) 4.8 4.4 Chloride (100 - 108 mmol/L) 120 H 119 H Carbon Dioxide (21 - 32 mmol/L) 20 L 23 Anion Gap (4.0 - 15.0 GAP calc) 4.0 3.0 L BUN (7 - 18 MG/DL) 39 H 48 H Creatinine (0.8 - 1.3 MG/DL) 1.9 H 2.3 H Glomerular Filtr Rate (>60 estGFR) 35 L 28 L Glucose (70 - 110 MG/DL) 201 H 232 H POC Glucose (70 - 110 mg/dL) 214 H 219 H 253 H Calcium (8.5 - 10.1 MG/DL) 7.9 L 7.9 L Total Bilirubin (0.2 - 1.2 MG/DL) 0.30 AST (15 - 37 Unit/L) 10 L ALT (12 - 78 Unit/L) 12 Total Alk Phosphatase (50 - 136 Unit/L) 51 Total Protein (6.4 - 8.2 G/DL) 6.1 L Albumin (3.4 - 5.0 G/DL) 2.1 L Globulin (GM/dL) 4.0 Albumin/Globulin Ratio (1.2 - 2.2 RATIO) 0.5 L 05/03 05/03 1041 0734 Chemistry Sodium (134 - 147 mmol/L) TNP Potassium (3.4 - 5.0 mmol/L) TNP Chloride (100 - 108 mmol/L) TNP Carbon Dioxide (21 - 32 mmol/L) TNP Anion Gap (4.0 - 15.0 GAP calc) TNP BUN (7 - 18 MG/DL) TNP Creatinine (0.8 - 1.3 MG/DL) TNP Glomerular Filtr Rate (>60 estGFR) TNP Glucose (70 - 110 MG/DL) TNP POC Glucose (70 - 110 mg/dL) 133 H Calcium (8.5 - 10.1 MG/DL) TNP Laboratory Tests 05/04 0448 Coagulation INR (0.8 - 1.2 INR Unit) 1.05 PT Patient/Control Mix (9.3 - 12.9 SECONDS) 11. 7 Laboratory Tests 05/04 0448 Hematology WBC (3.5 - 11.0 K/mm3) 9.7 RBC (4.70 - 6.10 M/mm3) 3.48 L Hgb (12.3 - 15.9 G/DL) 10.7 L Hct (35.8 - 46.7 %) 34.1 L MCV (86.3 - 98.9 Fl) 98.0 MCH (28.9 - 34.4 pg) 30.7 MCHC (32.1 - 34.5 G/DL) 31.4 L RDW (11.5 - 14.5 SD) 12.8 Plt Count (150 - 450 K/mm3) 47 L MPV (7.0 - 9.6 fL) 10.60 H Neut % (Auto) (40 - 76 %) 81.4 H Lymph % (Auto) (20.5 - 51.1 %) 10.0 L [place] % (Auto) (1.7 - 9.3 %) 5.7 Eos % (Auto) (0.0 - 6.0 %) 2.0 Baso % (Auto) (0.0 - 2.0 %) 0.3 Neut # (Auto) (1.8 - 7.6 K/mm3) 7.9 H Lymph # (Auto) (0.6 - 3.0 K/mm3) 1.0 [place] # (Auto) (0.2 - 1.5 K/mm3) 0.6 Eos # (Auto) (0.0 - 0.4 K/mm3) 0.2 Baso # (Auto) (0.0 - 0.2 K/mm3) 0.0 Abs Immat Gran (auto) (0.00 - 0.03 x10 3/uL) 0. 06 H Add Manual Diff (CRITERIA DIFF/SCN) NO Immature Gran % (0.0 - 5.0 %) 0.6 Nucleated RBC % (0.0 - 1.0 /100WBC%) 0.0 Platelet Estimate (ADEQUATE THOUSAND) MARKEDLY DECREASED Plt Morphology Comment NORMAL Polychromasia (NONE ON SCAN) TRACE Tear Drop Cells (NONE ON SCAN) TRACE Ovalocytes (NONE ON SCAN) TRACE Laboratory Tests 05/03 2035 Urines Ur Random Creatinine (30 - 125 MG/DL) 79.1 U Random Total Protein (0.0 - 12.0 MG/DL) 86.9 H Ur Random Sodium (() MEQ/L) 86 Ur Random Potassium (() MEQ/L) 20.0 Diagnosis, Assessment Plan Free Text A P: 1. Acute kidney injury. Likely acute tubular necrosis. Improving. 2. Hypovolemia. 3. UTI. 4. Dementia. 5. Diabetes mellitus. 6. Ureteral stone, status post stent placement. 7. Hyperkalemia. Improved. Recommendation. 05/04: Change fluids to half-normal salin e 75 mill per hour. Taper off IV fluid once patient tolerate p.o. L asix 40 mg IV push if patient becomes hypervolemic. 05/03: Continue with normal saline 125 mill per h our. Avoid nephrotoxic medication, NSAIDs. Urine studies. Drug dose adjustment to GFR. Thank you for consultation, any question please call [id number] Consultants: urology at 0638 RPT #: [id number] END OF REPORT 2023-05-03 18:10:00-00:00 [facility] ([facility]) Urology Progress Note REPORT#:[id number] REPORT STATUS: Signed DATE:05/03/23 TIME:1809 PATIENT: DEV OLGUIN UNIT #: [id number] ROOM/BED: [place] [address] : 41 AGE: 82 SEX: M ATTEND: Lauryn Ng MD ADM AUTHOR: Srinath Parker MD * ALL edits or amendments must be made on the [employer]/computer document * Subjective Chief complaint: Right flank pain HPI: Patient is doing okay. Resting in bed. Objective General VS/I O: Last Documented: Result Date Time Pulse Ox 98 05/03 1637 B/P 96/55 05/03 1637 B/P Mean 68.4 05/03 1637 O2 Delivery Nasal cannula 05/03 1637 O2 Flow Rate 2 05/03 1637 Temp 97.9 05/03 1637 Pulse 87 05/03 1637 Resp 14 05/03 1637 24 hour I O ending at 0700: 05/03 0700 05/02 1900 Intake Total Output Total 450 Balance -450 Output, Urine 450 Patient 75 kg Weight Weight Stated/Reported Measurement Method PATIENT WEIGHT: Weight (lb): Weight (oz): Weight (kg): 75.000 Physical Exam Head/Eyes: atraumatic ENT: normal nose Neck: supple Respiratory: no distress Extremities: moves all Neuro/TAIL EDGER: alert Skin: dry Diagnosis, Assessment Plan Free Text A P: 82 yo M with dementia, UTI a nd right ureteral obstruction from urolithiasis s/p right ureteral stent placement - Can remove acosta in AM unless needed by nephro logy - Plan for right ureteroscopy in 1-2 weeks for s tone removal Consultants: urology Electronically Signed by Srinath Parker MD on at 1811 RPT #: [id number] END OF REPORT 2023-05-03 15:03:00-00:00 [facility]) Hospitalist Progress Note REPORT#:[id number] REPORT STATUS: Signed DATE:05/03/23 TIME:1503 PATIENT: DEV OLGUIN UNIT #: [id number] ROOM/BED: [place] [address] : 41 AGE: 82 SEX: M ATTEND: Lauryn Ng MD ADM AUTHOR: Mauri Ng MD * ALL edits or amendments must be made on the [employer]/computer document * Subjective Chief complaint: Right flank pain Comments: patient lying on the bed, denies any complaints but renal functions are worsening. also hyperkalemic Objective General VS/I O: Vital Signs: Date Time Temp Pulse Resp B/P B/P Pulse O2 O2 F low FiO2 Mean Ox Delivery Rate 05/03 1209 102.2 90 15 114/54 73.7 99 Nasal cannula 05/03 1045 100.6 98 18 117/58 78.0 99 05/03 0836 98.6 96 15 117/69 84.7 99 Nasal cannula 05/03 0800 Nasal 2 cannula 05/03 0316 97.9 76 18 94/52 65.9 98 05/03 0057 Nasal 2 cannula 05/03 0055 91/48 62 05/02 2340 97.5 76 18 85/46 58.9 92 05/02 2100 99.0 90 16 80/34 49.4 90 05/02 1645 100.0 108 18 113/65 80.9 94 24 hour I O ending at 0700: 05/03 0700 05/02 1900 Intake Total Output Total 450 Balance -450 Output, Urine 450 Patient 75 kg Weight Weight Stated/Reported Measurement Method PATIENT WEIGHT: Weight (lb): Weight (oz): Weight (kg): 75.000 Medications: Active Meds + DC'd Last 24 Hrs Acetaminophen (TYLENOL) 650 MG Q6H PRN PRN PO Dextrose/Water (DEXTROSE 5% WATER) 10 ML ASDIR P RN IV Ceftriaxone Sodium (ROCEPHIN) 1,000 MG Q24H IV Sterile Water (WATER FOR INJECTION) 10 ML Docusate Sodium (COLACE) 100 MG BID PO Pregabalin (LYRICA) 75 MG BID PO Sodium Polystyrene Sulfonate (KAYEXELATE) 30 GM ONCE ONE PO (DC) Calcium Gluconate/Sodium Chloride (Calcium Gluco roxann 1GM/100ML) 100 ML NOW ONE IV (DC) Dextrose/Water (Dextrose 50% W SYRINGE) 50 ML NO W ONE IV (DC) Insulin Human Regular (HumuLIN R VIAL) 10 UNIT N OW ONE IV (DC) Sodium Polystyrene Sulfonate (KAYEXELATE) 30 GM ONCE ONE PO (CAN) Sodium Chloride (0.9% Sodium Chloride) 500 ML JO VICKI IV (DC) Celecoxib (CeleBREX) 200 MG 0900,2100 PO (DC) Tamsulosin HCl (FLOMAX) 0.4 MG PC DIN PO Insulin Human Lispro (HUMALOG) 0 AC HS SUBQ Lactated Ringer's (LACTATED RINGERS) 1,000 ML DIR IV (DC) Ondansetron HCl (ZOFRAN) 8 MG Q8H PRN PRN PO Ondansetron HCl (ZOFRAN) 8 MG Q8H PRN PRN IV Docusate Sodium (COLACE) 100 MG BID PRN PRN PO Hydralazine HCl (APRESOLINE) 10 MG Q6H PRN PRN I V Ondansetron HCl (ZOFRAN ODT) 4 MG Q4H PRN PRN PO Sodium Chloride (0.9% Sodium Chloride) 1,000 ML .Q8H IV Tramadol HCl (ULTRAM) 50 MG Q6H PRN PRN PO Hydrocodone Bitart/Acetaminophen (NORCO 5/325) 1 TAB PACU ONCE PRN PO ( DC) Hydrocodone Bitart/Acetaminophen (NORCO 10/325) 1 TAB PACU ONCE PRN PO ( DC) Hydromorphone HCl (DILAUDID) 0.5 MG PACU Q10MIN PRN PRN IV (DC) Insulin Human Lispro (HUMALOG) 0 PACU ONCE PRN S UBQ (DC) Labetalol HCl (TRANDATE) 5 MG PACU Q10MIN PRN TX N IV (DC) Meperidine HCl (DEMEROL) 12.5 MG PACU ONCE PRN IV (DC) Ondansetron HCl (ZOFRAN) 4 MG PACU ONCE PRN IV ( DC) Dietitian nutrition assessment The data set between the solid lines has been im ported from the dietitian's assessment. BMI Calculated: 25.1 Nutrition related diagnosis: Nutrition diagnosis details: Nutrition problem: Nutrition etiology: Nutrition signs and symptoms: Nutrition prescription: Dietitian name: Assessment completed: Results Findings/Data: Laboratory Tests 05/03 05/03 05/03 05/03 05/02 1159 1041 0734 0302 2103 Chemistry Sodium (134 - 147 mmol/L) 150 H 141 Potassium (3.4 - 5.0 mmol/L) 2.8 *L 6.3 *H Chloride (100 - 108 mmol/L) 135 H 116 H Carbon Dioxide (21 - 32 12 L 23 mmol/L) Anion Gap (4.0 - 15.0 GAP 3.0 L 2.0 L calc) BUN (7 - 18 MG/DL) 27 H 52 H Creatinine (0.8 - 1.3 MG/DL) 1.1 3.1 H Glomerular Filtr Rate (>60 >=60 max estimate 19 L estGFR) Glucose (70 - 110 MG/DL) 140 H 176 H POC Glucose (70 - 110 mg/dL) 253 H 133 H 237 H Calcium (8.5 - 10.1 MG/DL) 8.0 L 05/02 1642 Chemistry POC Glucose (70 - 110 mg/dL) 187 H Laboratory Tests 05/03 05/02 0302 2120 Hematology WBC (3.5 - 11.0 K/mm3) 15.3 H 16.8 H RBC (4.70 - 6.10 M/mm3) 3.36 L 3.57 L Hgb (12.3 - 15.9 G/DL) 10.4 L 11.0 L Hct (35.8 - 46.7 %) 32.9 L 33.3 L MCV (86.3 - 98.9 Fl) 97.9 93.3 MCH (28.9 - 34.4 pg) 31.0 30.8 MCHC (32.1 - 34.5 G/DL) 31.6 L 33.0 RDW (11.5 - 14.5 SD) 12.7 12.7 Plt Count (150 - 450 K/mm3) 59 L 70 L MPV (7.0 - 9.6 fL) 10.30 H 10.40 H Neut % (Auto) (40 - 76 %) 91.2 H 92.8 H Lymph % (Auto) (20.5 - 51.1 %) 4.9 L 2.4 L [place] % (Auto) (1.7 - 9.3 %) 2.8 3.6 Eos % (Auto) (0.0 - 6.0 %) 0.2 0.0 Baso % (Auto) (0.0 - 2.0 %) 0.3 0.2 Neut # (Auto) (1.8 - 7.6 K/mm3) 14.0 H 15.6 H Lymph # (Auto) (0.6 - 3.0 K/mm3) 0.8 0.4 L [place] # (Auto) (0.2 - 1.5 K/mm3) 0.4 0.6 Eos # (Auto) (0.0 - 0.4 K/mm3) 0.0 0.0 Baso # (Auto) (0.0 - 0.2 K/mm3) 0.1 0.0 Abs Immat Gran (auto) (0.00 - 0.03 x10 3/uL) 0. 09 H 0.17 H Add Manual Diff (CRITERIA DIFF/SCN) NO NO Immature Gran % (0.0 - 5.0 %) 0.6 1.0 Nucleated RBC % (0.0 - 1.0 /100WBC%) 0.0 0.0 Platelet Estimate (ADEQUATE THOUSAND) DECREASED DECREASED Plt Morphology Comment NORMAL NORMAL Polychromasia (NONE ON SCAN) TRACE TRACE Microcytosis (NONE ON SCAN) TRACE Macrocytosis (NONE ON SCAN) 2+ H Spherocytes (NONE ON SCAN) TRACE TRACE Ovalocytes (NONE ON SCAN) 1+ TRACE Results: labs reviewed, current med profile rev' d Free Text Obj Notes Free Text Obj Notes: Physical examination Patient is a pleasant person lying on the bed does not appear to be in distress confused HEENT pupils equal round reactive light and acco mmodating normocephalic/ atraumatic skull normal oral mucosa Neck supple no JVD Chest clear bilateral entry no wheeze or crackle s CVS S1-S2 no murmur rubs or gallop Abdomen soft nontender bowel sounds positive Extremities no pedal edema pulses palpab le scar for prior surgery on the right ankle TAIL EDGER alert oriented x1-2 moving all 4 extremities no focal deficit identified Psych examination normal mood Diagnosis, Assessment Plan Consultants: urology Free Text DxA P Notes Free text DxA P notes: Right ureteral nephrolithiasis with mild hydrone phrosis Discussed with urology. Planning for stenting. A t this point we will keep him on antibiotics IV fluids and monitor hemodynamic status closely Symptomatic control Delivery n.p.o. UTI UA does appear dirty we will keep him on antibio tics White count is normal patient is afebrile BANG We do not have any baseline creatinine we will keep him on fluids monitor renal functions avoid nephrotoxic medication Diabetes mellitus Patient will be n.p.o. keep on insulin sliding s arturo monitor blood sugars History of Alzheimer's We will try to get home medications and resume t hem avoid unnecessary opioids and benzos. Monitor for delirium DVT prophylax with SCDs in anticipation for proc edures Patient is full code as we cannot confirm the CO DE STATUS Tried to contact patient's w gail olguin [phone] but nobody picked up. We will ask watch case polisher. 05/03 Right ureteral nephrolithiasis with mild hydrone phrosis Discussed with urology. Planning for stenting. A t this point we will keep him on antibiotics IV fluids and monitor hemodynamic status closely Symptomatic control Delivery n.p.o. UTI UA does appear dirty we will keep him on antibio tics White count is normal patient is afebrile BANG We do not have any baseline creatinine we will keep him on fluids monitor renal functions avoid nephrotoxic medication. Renal fu nctions worsening have asked nephrology to evaluate Hyperkalemia Potassium worsened given lila ktail we will repeat the potassium level. Follow-up with nephrology. Diabetes mellitus keep on insulin sliding scale monitor blood sug ars Thrombocytopenia platelet count worsening will c ontinue to monitor might be related to acute illness. If continues t o worsen then will consider hematology input History of Alzheimer's We will try to get home medications and resume t hem avoid unnecessary opioids and benzos. Monitor for delirium DVT prophylax with SCDs due to thrombocytopenia Patient is full code as we cannot confirm the CO DE STATUS Tried to contact patient's w gail Tameka olguin [phone] but nobody picked up. We will try again Electronically Signed by Mauri Ng MD on at 1518 RPT #: [id number] END OF REPORT 2023-05-03 11:20:00-00:00 [facility] ([facility]) Nephrology Consultation Note REPORT#:[id number] REPORT STATUS: Signed DATE:05/03/23 TIME:1120 PATIENT: DEV OLGUIN UNIT #: [id number] ROOM/BED: [place] [address] : 41 AGE: 82 SEX: M ATTEND: Lauryn Ng MD ADM AUTHOR: Pramod Blum MD * ALL edits or amendments must be made on the [employer]/computer document * History of Present Illness Reason for consult: bang HPI: 82 yo male with history of diabetes, dementia, a dmitted with flank pain, ureteram obstructive stone. Found to have bang, p lacement. Renaatient underwent ureteral stent placement. Renal is consulted for bang History - Adult longitudinal Additional medical history: Diabetes mellitus Hypertension Kidney stones Alzheimer's Additional surgical history: Some hernia repair surgery Right ankle and right femur surgery Additional family history: Unable to obtain Smoking status for patients 13 years old or olde r: Never Smoker Allergies: Coded Allergies: No Known Allergies (05/02/23) Review of Systems Free Text ROS Notes Free Text ROS Notes: 10 points ROS performed and documentedin subject shantanu ,otherwise negative Objective General VS/I O: Vital Signs: Date Time Temp Pulse Resp B/P B/P Pulse O2 O2 F low FiO2 Mean Ox Delivery Rate 05/03 1637 36.6 87 14 96/55 68.4 98 Nasal 2 cannula 05/03 1209 39.0 90 15 114/54 73.7 99 Nasal cannula 05/03 1045 38.1 98 18 117/58 78.0 99 05/03 0836 37.0 96 15 117/69 84.7 99 Nasal cannula 05/03 0800 Nasal 2 cannula 05/03 0316 36.6 76 18 94/52 65.9 98 05/03 0057 Nasal 2 cannula 05/03 0055 91/48 62 05/02 2340 36.4 76 18 85/46 58.9 92 05/02 2100 37.2 90 16 80/34 49.4 90 24 hour I O ending at 0700: 05/03 0700 05/02 1900 Intake Total Output Total 450 Balance -450 Output, Urine 450 Patient 75 kg Weight Weight Stated/Reported Measurement Method PATIENT WEIGHT: Weight (lb): Weight (oz): Weight (kg): 75.000 Medications: Active Meds + DC'd Last 24 Hrs Acetaminophen (TYLENOL) 650 MG Q6H PRN PRN PO Dextrose/Water (DEXTROSE 5% WATER) 10 ML ASDIR P RN IV Ceftriaxone Sodium (ROCEPHIN) 1,000 MG Q24H IV Sterile Water (WATER FOR INJECTION) 10 ML Docusate Sodium (COLACE) 100 MG BID PO Pregabalin (LYRICA) 75 MG BID PO Sodium Polystyrene Sulfonate (KAYEXELATE) 30 GM ONCE ONE PO (DC) Calcium Gluconate/Sodium Chloride (Calcium Gluco roxann 1GM/100ML) 100 ML NOW ONE IV (DC) Dextrose/Water (Dextrose 50% W SYRINGE) 50 ML NO W ONE IV (DC) Insulin Human Regular (HumuLIN R VIAL) 10 UNIT N OW ONE IV (DC) Sodium Polystyrene Sulfonate (KAYEXELATE) 30 GM ONCE ONE PO (CAN) Sodium Chloride (0.9% Sodium Chloride) 500 ML JO VICKI IV (DC) Celecoxib (CeleBREX) 200 MG 0900,2100 PO (DC) Tamsulosin HCl (FLOMAX) 0.4 MG PC DIN PO Insulin Human Lispro (HUMALOG) 0 AC HS SUBQ Lactated Ringer's (LACTATED RINGERS) 1,000 ML DIR IV (DC) Ondansetron HCl (ZOFRAN) 8 MG Q8H PRN PRN PO Ondansetron HCl (ZOFRAN) 8 MG Q8H PRN PRN IV Docusate Sodium (COLACE) 100 MG BID PRN PRN PO Hydralazine HCl (APRESOLINE) 10 MG Q6H PRN PRN I V Ondansetron HCl (ZOFRAN ODT) 4 MG Q4H PRN PRN PO Sodium Chloride (0.9% Sodium Chloride) 1,000 ML .Q8H IV Tramadol HCl (ULTRAM) 50 MG Q6H PRN PRN PO Hydrocodone Bitart/Acetaminophen (NORCO 5/325) 1 TAB PACU ONCE PRN PO ( DC) Hydrocodone Bitart/Acetaminophen (NORCO 10/325) 1 TAB PACU ONCE PRN PO ( DC) Hydromorphone HCl (DILAUDID) 0.5 MG PACU Q10MIN PRN PRN IV (DC) Insulin Human Lispro (HUMALOG) 0 PACU ONCE PRN SUBQ (DC) Labetalol HCl (TRANDATE) 5 MG PACU Q10MIN PRN TX N IV (DC) Meperidine HCl (DEMEROL) 12.5 MG PACU ONCE PRN I V (DC) Ondansetron HCl (ZOFRAN) 4 MG PACU ONCE PRN IV ( DC) Physical Exam General appearance: awake Head/eyes: normocephalic ENT: normal nose Neck: no JVD C-Spine clearance: no midlin e tenderness, NI flexion w/o pain, NI extension w/o pain Cardiovascular: no murmur Respiratory: clear to auscultation Abdomen: soft Genitourinary: no bladder distention Extremities: no edema Musculoskeletal: no tendereness Neuro/TAIL EDGER: alert Results Findings/Data: Laboratory Tests 05/03 05/03 05/02 05/02 0734 0302 2103 1642 Chemistry Sodium (134 - 147 mmol/L) 141 Potassium (3.4 - 5.0 mmol/L) 6.3 *H Chloride (100 - 108 mmol/L) 116 H Carbon Dioxide (21 - 32 mmol/L) 23 Anion Gap (4.0 - 15.0 GAP calc) 2.0 L BUN (7 - 18 MG/DL) 52 H Creatinine (0.8 - 1.3 MG/DL) 3.1 H Glomerular Filtr Rate (>60 estGFR) 19 L Glucose (70 - 110 MG/DL) 176 H POC Glucose (70 - 110 mg/dL) 133 H 237 H 187 H Calcium (8.5 - 10.1 MG/DL) 8.0 L Laboratory Tests 05/03 05/02 0302 2120 Hematology WBC (3.5 - 11.0 K/mm3) 15.3 H 16.8 H RBC (4.70 - 6.10 M/mm3) 3.36 L 3.57 L Hgb (12.3 - 15.9 G/DL) 10.4 L 11.0 L Hct (35.8 - 46.7 %) 32.9 L 33.3 L MCV (86.3 - 98.9 Fl) 97.9 93.3 MCH (28.9 - 34.4 pg) 31.0 30.8 MCHC (32.1 - 34.5 G/DL) 31.6 L 33.0 RDW (11.5 - 14.5 SD) 12.7 12.7 Plt Count (150 - 450 K/mm3) 59 L 70 L MPV (7.0 - 9.6 fL) 10.30 H 10.40 H Neut % (Auto) (40 - 76 %) 91.2 H 92.8 H Lymph % (Auto) (20.5 - 51.1 %) 4.9 L 2.4 L [place] % (Auto) (1.7 - 9.3 %) 2.8 3.6 Eos % (Auto) (0.0 - 6.0 %) 0.2 0.0 Baso % (Auto) (0.0 - 2.0 %) 0.3 0.2 Neut # (Auto) (1.8 - 7.6 K/mm3) 14.0 H 15.6 H Lymph # (Auto) (0.6 - 3.0 K/mm3) 0.8 0.4 L [place] # (Auto) (0.2 - 1.5 K/mm3) 0.4 0.6 Eos # (Auto) (0.0 - 0.4 K/mm3) 0.0 0.0 Baso # (Auto) (0.0 - 0.2 K/mm3) 0.1 0.0 Abs Immat Gran (auto) (0.00 - 0.03 x10 3/uL) 0 .09 H 0.17 H Add Manual Diff (CRITERIA DIFF/SCN) NO NO Immature Gran % (0.0 - 5.0 %) 0.6 1.0 Nucleated RBC % (0.0 - 1.0 /100WBC%) 0.0 0.0 Platelet Estimate (ADEQUATE THOUSAND) DECREASED DECREASED Plt Morphology Comment NORMAL NORMAL Polychromasia (NONE ON SCAN) TRACE TRACE Microcytosis (NONE ON SCAN) TRACE Macrocytosis (NONE ON SCAN) 2+ H Spherocytes (NONE ON SCAN) TRACE TRACE Ovalocytes (NONE ON SCAN) 1+ TRACE Radiology data: Recent Impressions: RADIOLOGY - XR FLUOROSCOPY 0-60 MIN 05/02 1433 Report Impression - Status: SIGNED Entered: 05/02/2023 1505 IMPRESSION: Radiologic interpretation not render ed. Radiologist was not present for procedure. Correlation with intr aoperative findings needed. RADIATION EXPOSURE: Fluoroscopy time: 9 seconds, Number of images: 2, reference air kerma 2.4 mGy LOCATION: H96 Impression By: [email or web address] - Jan Mcnulty M.D. Diagnosis, Assessment Plan Consultants: urology Free Text DxA P Notes Free Text DxA P Notes: #1. Acute kidney injury. Likely acute tubular necrosis. 2. Hypovolemia. 3. UTI. 4. Dementia. 5. Diabetes mellitus. 6. Ureteral stone, status post stent placement. Recommendation. Continue with normal saline 125 mill per hour. Avoid nephrotoxic medication, NSAIDs. Urine studies. Drug dose adjustment to GFR. Thank you for consultation, any question please call [phone] at 4087 RPT #: [id number] END OF REPORT 2023-05-02 13:43:00-00:00 [facility] ([facility]) Full Op Note REPORT#:[id number] REPORT STATUS: Signed DATE:05/02/23 TIME:1343 PATIENT: DEV OLGUIN UNIT #: [id number] ROOM/BED: [place] [address] : 41 AGE: 82 SEX: M ATTEND: Lauryn Ng MD ADM AUTHOR: Srinath Parker MD * ALL edits or amendments must be made on the [employer]/computer document * Operative Report Start date: 05/02/23 Start time: 1430 Pre-procedure diagnosis: Right kidney stone, urinary tract infection Post-procedure diagnosis: Right kidney stone, urinary tract infection Procedures performed: cystoscopy, right ureteral stent placement and r etrograde pyelogram Technique/Procedure: Dev is a 82 year-old male with UTI and urete ral obstruction from urolithiasis that presents for stent placement. General anesthesia was induced and patient was p repped and draped in dorsal lithtoomy. A time out was performed. A 2 2 F rigid cystoscope was advanced into the bladder. Bladder and ure thra appeared normal but urine was cloudy so it was sent for culture. A 5F open ended was advanced i nto the right ureter and retrograde pyelogram revealed moderate hydroneph rosis. A wire was advanced through the catheter and cat heter removed. A 6x26cm ureteral stent was advanced into the right kidney with good coils. The cysto scope was removed and a 18F [place] tip catheter was adv anced over a wire into the bladder because prostatic urethra was wide open but there was a bladder ne ck contracture. Proceudre was terminated without complication. Primary Surgeon: Srinath Parker MD Social Science Instructor(s): none Anesthesia: general anesthesia Operative findings: right hydronephrosis, bladder neck contracture Complications: none Estimated blood loss in ml's: none Specimens removed/altered: none Implant(s): 6x26 cm right ureteral stent Electronically Signed by Srinath Parker MD on at 1706 RPT #: [id number] END OF REPORT 2023-05-02 13:40:00-00:00 [facility] Urology Consult Note REPORT#:[id number] REPORT STATUS: Signed DATE:05/02/23 TIME:1340 PATIENT: DEV OLGUIN UNIT #: [id number] ROOM/BED: [place] [id number] : 41 AGE: 82 SEX: M ATTEND: Lauryn Ng MD ADM AUTHOR: Srinath Parker MD * ALL edits or amendments must be made on the [employer]/computer document * History of Present Illness HPI Requesting clinician: Dr. Ng Reason for consult: Right flank pain Chief complaint: Right flank pain PCP: PCP: Guero Adames MD HPI: Dev is a 82 year-old mal e with a history of kidney stones that presents with right flank pain. He was tra nsferred from an OSH ER where he was found to have a right 7-8mm UPJ stone with UTI and transferred f or right ureteral stent placement. He has a history of dementia so information was obtained from chart review. History Additional medical history: Diabetes mellitus Hypertension Kidney stones Alzheimer's Additional surgical history: Some hernia repair surgery Right ankle and right femur surgery Additional family history: Unable to obtain Smoking status for patients 13 years old or olde r: Former Smoker Allergies: Coded Allergies: No Known Allergies (05/02/23) Review of Systems ROS All systems rev neg: except as marked Objective VS/I O: Last Documented: Result Date Time Temp 99.3 05/02 1324 Pulse Ox 94 05/02 1318 B/P 106/56 05/02 1318 B/P Mean 72 05/02 1318 O2 Delivery Room air 05/02 1318 Pulse 104 / 1318 Resp 18 05/02 1318 PATIENT WEIGHT: Weight (lb): Weight (oz): Weight (kg): 75.000 General appearance: awake Head/Eyes: atraumatic ENT: normal nose Neck: supple Respiratory: no distress Extremities: moves all Neuro/TAIL EDGER: alert Skin: dry Diagnosis, Assessment Plan Diagnosis, Assessment Plan Free Text A P: 82 yo M with dementia, ILEANA and right ureteral ob struction from urolithiasis. - Discussed risks and benefits of cystoscopy, ri ght ureteral stent placement with patient and and they want to p roceed; he will be admitted afterwards for abx; he will follow up in 1-2 weeks for sten t and stone removal Consultants: urology Electronically Signed by Srinath Parker MD on at 1343 RPT #: [id number] END OF REPORT 2023-05-02 11:45:00-00:00 [facility] ([facility]) Hospitalist History Physical REPORT#:[id number] REPORT STATUS: Signed DATE:05/02/23 TIME:1145 PATIENT: DEV OLGUIN UNIT #: [id number] ROOM/BED: [place] [id number] : 41 AGE: 82 SEX: M ATTEND: Lauryn Ng MD ADM AUTHOR: Mauri Ng MD * ALL edits or amendments must be made on the [employer]/computer document * See Addendum History of Present Illness HPI Chief complaint: Right flank pain PCP: PCP: Guero Adames MD HPI: This is a 82-year-old gentleman who was transfer red from outside facility for right flank pain. Of note history is obt ained from the ED and outside facility notes as patient has dementia and does not provi de reliable history. Patient keeps saying that he has bee n having pain in the right foot and the right flank for a long time. He denies any burning pain in the urine. He does state that he has had kidney sto willa before and had a surgery long time ago Data from outside hospital WBC 8 hemoglobin 12 hematocrit 36 platelet 112 Sodium 138 potassium 5.5 chloride 109 bicarb 24 BUN 48 creatinine 2.26 AST 14 ALT 21 total bilirubin 0.4 total protein 8.3 caty cium 9.2 albumin 3.4 UA shows light orange blood 3+ protein 2 + leukocyte esterase positive WBC more than 15 RBC more than [address] of the abdomen shows mild right hydro nephrosis with 7 mm stone at the right ureteropelvic junction History Past Medical Surgical Hx Additional medical history: Diabetes mellitus Hypertension Kidney stones Alzheimer's Additional surgical history: Some hernia repair surgery Right ankle and right femur surgery Family History Additional family history: Unable to obtain Medication/Allergy-Vaccine Hx Allergies: Coded Allergies: No Known Allergies (05/02/23) Unable to obtain: social history Review of Systems Unable to obtain due to: due to patient's dementia OBJECTIVE VS/I O: Vital Signs Date Temp Pulse Resp B/P B/P Mean Pulse Ox FiO2 05/02 98.5 89-102 16-18 136-139/89-121 104-127 95-99 Last Documented: Result Date Time Pulse Ox 95 05/02 1013 B/P 136/89 05/02 1013 B/P Mean 104 05/02 1013 O2 Delivery Room air 05/02 1013 Pulse 89 05/02 1013 Resp 16 05/02 1013 Temp 98.5 05/02 0941 Patient Weight and BMI Weight (kg): 75.000 BMI: 25.1 Medications: Active Meds + DC'd Last 24 Hrs Ceftriaxone Sodium (ROCEPHIN) 1,000 MG Q24H IV ( UNV) Sterile Water (WATER FOR INJECTION) 10 ML Docusate Sodium (COLACE) 100 MG BID PRN PRN PO ( UNV) Hydralazine HCl (APRESOLINE) 10 MG Q6H PRN PRN I V (UNV) Ondansetron HCl (ZOFRAN ODT) 4 MG Q4H PRN PRN PO (UNV) Sodium Chloride (0.9% Sodium Chloride) 1,000 ML .[id number] IV (UNV) Tramadol HCl (ULTRAM) 50 MG Q6H PRN PRN PO (UNV) Sodium Chloride (0.9% Sodium Chloride) 1,000 ML .[id number] IV Results Results: labs reviewed, current med profile rev' d Free Text PE Notes Free Text PE Notes: Physical examination Patient is a pleasant person lying on the bed does not appear to be in distress confused HEENT pupils equal round reactive light and acco mmodating normocephalic/ atraumatic skull normal oral mucosa Neck supple no JVD Chest clear bilateral entry no wheeze or crackle s CVS S1-S2 no murmur rubs or gallop Abdomen soft nontender bowel sounds positive Extremities no pedal edema pulses palpab le scar for prior surgery on the right ankle TAIL EDGER alert oriented x1-2 moving all 4 extremities no focal deficit identified Psych examination normal mood Diagnosis, Assessment Plan Free Text A P: Right ureteral nephrolithiasis with mild hydrone phrosis Discussed with urology. Planning for stenting. A t this point we will keep him on antibiotics IV fluids and monitor hemodynamic status closely Symptomatic control Delivery n.p.o. UTI UA does appear dirty we will keep him on antibio tics White count is normal patient is afebrile BANG We do not have any baseline creatinine we will keep him on fluids monitor renal functions avoid nephrotoxic medication Diabetes mellitus Patient will be n.p.o. keep on insulin sliding s arturo monitor blood sugars History of Alzheimer's We will try to get home medications and resume t hem avoid unnecessary opioids and benzos. Monitor for delirium DVT prophylax with SCDs in anticipation for proc edures Patient is full code as we cannot confirm the CO DE STATUS Tried to contact patient's w gail olguin [phone] but nobody picked up. We will ask watch case polisher. Consultants: urology Plan discussed with: patient, consultants, nurse , interdisc care team Electronically Signed by Mauri Ng MD on at 1153 Addendum 1: 05/02/23 1153 by Mauri Ng MD Thrombocytopenia patient's platelet counts are s lightly low not sure of the baseline continue to monitor no obvious bleeding at this point. Electronically Signed by Mauri Ng MD on at 1153 RPT #: [id number] END OF REPORT 2023-05-02 09:41:00-00:00 [facility] ([facility]) EMERGENCY PROVIDER REPORT REPORT#:[id number] REPORT STATUS: Signed DATE:05/02/23 TIME:940 PATIENT: DEV OLGUIN UNIT #: [id number] ROOM/BED: [place] [id number] : 41 AGE: 82 SEX: M PCP PHYS: Celeste Adames MD SERVICE AUTHOR: González Merritt DO * ALL edits or amendments must be made on the [employer]/computer document * HPI-General Illness General Confirmed Patient Yes Initial Greet Date/Time 05/02/23 0930 Presentation Chief Complaint __ (kidney stone) Hx Obtained From Patient, Prior medical records Sudden in Onset? No Onset Occurred Today Symptom Duration Since onset Progression since Onset improved after treatment at transfering ER Caused by No trauma by history Location flank Quality Same as prior, Painful Radiation Does not radiate. Pain/Sev: Onset Moderate Pain/Sev: Current Mild Associated with Denies: Chest pain, Dizziness, Fever, Headache. Exacerbated by Nothing Relieved by Nothing Free Text HPI Notes Free Text HPI Notes Patient transferred from [facility] in [place] with diagnosis of 7 mm ureter calculus and UTI. Patient states he has had frequent kidney stones in the past. States he was in pain however the pain is much improved at this time he does not want any pain medication. Me dical chart from transferring facility reviewed. Patient received Rocephin today prior to arrival. Review of Systems ROS Statements Complete sys rev neg except as marked. Review of Systems Constitutional Reports: Chills. Denies: Fever. GI Denies: Abdominal pain, Nausea, Vomiting. Male Reports: Flank pain. Denies: Hematuria. Skin Denies: Rash, Swelling. Past Medical History - Adult Stated Complaint INFECTED KIDNEYSTONE Allergies Coded Allergies: No Known Allergies (05/02/23) Physical Exam Vital Signs Vital Signs First Documented: Result Date Time Pulse Ox 99 / 0941 B/P 139/121 / 0941 B/P Mean 127 / 0941 O2 Delivery Room air 05/02 941 Temp 98.5 05/02 0941 Pulse 102 05/02 0941 Resp 18 05/02 0941 Last Documented: Result Date Time Pulse Ox 99 / 0941 B/P 139/121 / 0941 B/P Mean 127 / 0941 O2 Delivery Room air 05/02 941 Temp 98.5 05/02 0941 Pulse 102 05/02 0941 Resp 18 05/02 0941 Review of Vital Signs Reviewed Physical Exam General/Const General/Const Awake, Alert, No acute distress, Not toxic appearing MS Head Head Normocephalic Eyes Eyes PERRL Ears/Nose/Throat Ears/Nose/Throat Airway patent, Mucous membrane s moist, Pharynx NL MS Neck Neck Supple, No meningismus, Full range of ney on, No swelling, Non-tender, No masses Resp/Chest Respiratory/Chest Breath sounds NL, Breath soun ds = bilat, No respiratory distress, No rales, No rhonchi, No wheezing Cardiovascular Cardiovascular Heart rate NL, Regular r hythm, Heart sounds NL, Cap refill not delayed, Peripheral circulation NL Abdomen/GI Abdomen/GI Soft, Non-tender, No guarding, No re bound MS Back Back Inspection NL, Painless range of motion, N on-tender, No CVA tenderness MS Upper Extrem Upper Extremity/MS Inspection NL, No swelling, Non-tender, No erythema, No deformity, Neurologic intact, Vascular intact, N o clubbing/cyanosis MS Wrist/Hand Wrist/Hand Inspection NL, No swelling, No erythema, Non-tender, No deformity, Neurologic intact, Vascular intact, No clubbing/ cyanosis Skin Skin Color NL, Warm, Dry, Turgor NL Neurologic Neurologic Oriented X3, Speech NL, No motor def icits, No sensory deficits Interpretation Diagnostics Lab Results Interpretation Considerations Reviewed prior records Results Microbiology: Date/Time Procedure - Status Source Growth 05/02 944 MRSA Screen - ORD NASAL Re-Evaluation MDM ED Course Medication(s) Ordered Medication(s) Ordered: Electrolytic, Caloric, And Kayla Sig/Marium Start time Last Medication Dose Route Stop Time Status Admin Sodium Chloride 1,000 ML .[id number] 05/02 945 AC 05/02 IV 05/03 0844 1119 MDM-Complexity Differential Diagnosis Ureterolithiasis Kidney stone UTI Pyelonephritis Severity/Chronicity Evaluation Acute Moderate Patient Discharge Departure Vital Signs/Condition Vital Signs First Documented: Result Date Time Pulse Ox 99 05/02 0941 B/P 139/121 / 0941 B/P Mean 127 05/02 0941 O2 Delivery Room air 05/02 941 Temp 98.5 05/02 0941 Pulse 102 05/02 0941 Resp 18 05/02 0941 Last Documented: Result Date Time Pulse Ox 99 05/02 0941 B/P 139/121 / 0941 B/P Mean 127 05/02 0941 O2 Delivery Room air 05/02 941 Temp 98.5 05/02 0941 Pulse 102 05/02 0941 Resp 18 05/02 0941 All vital signs available at the time of this en try have been reviewed. Clinical Impression Clinical Impression Primary Impression: Ureteral calculus, right Secondary Impressions: BANG ( acute kidney injury), UTI (urinary tract infection) Disposition Decision Hospitalize Hosp Physician Name Mauri Ng MD Hosp Physician Hospitalist Request Time 941 Request Date 05/02/23 )( Accepts Hospitalization Yes )( Reason for Hospitalization UTI/kidney stone )( Accepted Time 941 )( Accepted Date 05/02/23 Call Information will see patient, agrees with eval, agrees with plan Discharge/Care Plan Counseled Regarding Diagnosi s, Lab results, Imaging studies, Need for admission Electronically Signed by González Merritt DO on at 1205 RPT #: [id number] END OF REPORT
[2023-06-10 18:48] LABS: Hematocrit 33.3 % (39.6-49.0); Lymphocytes % 25.9 % (15.3-44.8); MPV 7.7 fL (7.6-11.3); RBC Red Blood Cell Count 3.61 M/uL (4.33-5.43)
[2023-06-10] MEDS ORDERED: ONDANSETRON 4 MG/2 ML VIAL ONE (18:55)
[2023-06-10] MEDS ORDERED: FENTANYL CITR 100 MCG/2 ML ONE ×2 (18:55→19:58)
[2023-06-10] MEDS ORDERED: NA CHLORIDE 0.9% 500 ML ONE (18:55)
[2023-06-10 19:25] LABS: Albumin 2.8 g/dL (3.4-5.0); Bilirubin Total 0.5 mg/dL (0.2-1.0); Potassium 4.7 mEq/L (3.5-5.1); Protein, Total 7.8 g/dL (6.4-8.2)
--- NOTE | 2023-06-10 19:27 | RAD REPORT ---
EXAM DESCRIPTION: CT - Stone Protocol - 06/10/2023 7:12 pm CLINICAL HISTORY: Abdominal pain. Right flank pain COMPARISON: April 2023 TECHNIQUE: Computed axial tomography of the abdomen pelvis was obtained without oral or IV contrast. Lack of IV and oral contrast limits evaluation of solid organs, appendix, bowel, and vessels. Crane l reformatted images were obtained and reviewed. All CT scans are performed using dose optimization technique as appropriate and may include automated exposure control or mA/KV adjustment according to patient size. FINDINGS: Mild right hydronephrosis. Right renal pelvic wall appears thickened. Right ureter is dila reese. A renal calculus is not seen. No ureteral calculus. A bladder calculus is not present. No left hydronephrosis. Left renal calculus is not seen The liver, spleen, pancreas and adrenals appear grossly normal. Cholecystectomy. There is no evidence of diverticulitis. The appendix appears normal Moderate left paracentral disc herniation L4-5 IMPRESSION: Mild right hydronephrosis and right hydroureter may be secondary to a recently passed ca lculus. Wall of the right renal pelvis appears thickened which may indicate inflammation/infection
[2023-06-10 20:32] LABS: Urine Bacteria 20-50 /HPF (<20); Urine Crystals Unidentified Few /HPF (None Seen); Urine Mucus 1+ /HPF (None Seen); Urine RBC >50 /HPF (None Seen); Urine WBC Clump Many /HPF (None Seen)
[2023-06-10] MEDS ORDERED: MORPHINE 2 MG/ML SYR ONE (20:52)
[2023-06-10] MEDS ORDERED: CIPROFLOXACIN HCL 500 MG TAB ONE (21:12)
[2023-06-10] MEDS ORDERED: NA CHLORIDE 0.9% 50 ML ONE (21:13)
[2023-06-10] MEDS ORDERED: CEFTRIAXONE 1000 MG/VIAL ONE (21:13)
--- NOTE | 2023-06-10 21:14 | EDPHYS ---
Physician Documentation [facility] Name: Dev Olguin Age: 83 yrs Sex: Male : 1940 Arrival Date: 06/10/2023 Time: 17:34 Bed 16 Private MD: ED Physician Roni Shaw HPI: 06/10 18:30 This 83 yrs old Male presents to ER via Ambulatory with complaints of Possible Kidney cp Stone. Historical: - Allergies: 17:51 No Known Allergies; ph - PMHx: 17:51 Alzheimer's disease; Diabetes - NIDDM; ph - PSHx: 17:51 hernia repair; right ankle repair; right femur surgery; ph - Immunization history:: Adult Immunizations unknown. - Social history:: Smoking status: unknown. ROS: 18:35 Constitutional: Negative for body aches, chills, fever, poor PO intake. cp 18:35 Eyes: Negative for injury, pain, redness, and discharge. cp 18:35 ENT: Negative for drainage from ear(s), ear pain, sore throat, difficulty swallowing, difficulty handling secretions. 18:35 Cardiovascular: Negative for chest pain, edema, palpitations. 18:35 Respiratory: Negative for cough, shortness of breath, wheezing. 18:35 Abdomen/GI: Negative for vomiting, diarrhea, constipation, black/tarry stool, rectal bleeding. 18:35 Back: Positive for flank pain, on the right. 18:35 : Positive for urinary symptoms, Negative for testicular pain 18:35 Neuro: Negative for altered mental status, dizziness, headache, numbness, weakness. 18:35 All other systems are negative. Exam: 18:40 Constitutional: The patient appears in no acute distress, alert, awake, cp non-diaphoretic, non-toxic, well developed, well nourished, uncomfortable. 18:40 Head/Face: Normocephalic, atraumatic. cp 18:40 Eyes: Periorbital structures: appear normal, Conjunctiva: normal, no exudate, no injection, Sclera: no appreciated abnormality, Lids and lashes: appear normal, bilaterally. 18:40 ENT: External ear(s): are unremarkable, Nose: is normal, Mouth: Lips: moist, Oral mucosa: pink and intact, moist, Posterior pharynx: is normal, airway is patent, no erythema, no exudate. 18:40 Neck: ROM/movement: is normal, is supple, without pain, no range of motions limitations. 18:40 Chest/axilla: Inspection: normal. 18:40 Cardiovascular: Rate: bradycardic, Rhythm: regular. 18:40 Respiratory: the patient does not display signs of respiratory distress, Respirations: normal, no use of accessory muscles, no retractions, labored breathing, is not present, Breath sounds: are clear throughout, no decreased breath sounds, no stridor, no wheezing. 18:40 Abdomen/GI: Inspection: abdomen appears normal, Bowel sounds: active, all quadrants, Palpation: soft, in all quadrants, mild abdominal tenderness, in the right upper quadrant and right lower quadrant, rebound tenderness, is not appreciated. 18:40 Back: CVA tenderness, that is moderate, is noted on the right. 18:40 Skin: no rash present. 18:40 Neuro: Orientation: to person, place \T\ time. Mentation: is normal, Motor: moves all fours, strength is normal. Vital Signs: 17:49 BP 108 / 75; Pulse 58; Resp 18; Temp 97.9; Pulse Ox 100% on R/A; Weight 68.95 kg; ph Height 5 ft. 8 in. ; 20:05 BP 142 / 66; Pulse 62; Resp 18; Pulse Ox 99% on R/A; nj1 21:00 BP 134 / 68; Pulse 61; Resp 17; Pulse Ox 98% on R/A; Pain 0/10; nj1 21:15 BP 135 / 66; Pulse 65; Resp 16; Pulse Ox 99% on R/A; cm10 21:27 Pain 0/10; nj1 17:49 Body Mass Index 23.11 (68.95 kg, 172.72 cm) ph 21:00 Pain Scale: Adult nj1 21:27 Pain Scale: Adult nj1 MDM: 17:58 Patient medically screened. cp 19:00 Differential diagnosis: nephrolithiasis, pyelonephritis, UTI, pancreatitis, cp cholelithiasis. 21:13 Data reviewed: vital signs, nurses notes, lab test result(s), radiologic studies, CT cp scan. 21:13 Consideration of Admission/Observation Escalation of care including cp admission/observation considered. I considered the following discharge prescriptions or medication management in the emergency department Medications were administered in the Emergency Department. See MAR. Care significantly affected by the following chronic conditions: Diabetes. Counseling: I had a detailed discussion with the patient and/or guardian regarding: the historical points, exam findings, and any diagnostic results supporting the discharge/admit diagnosis, lab results, radiology results. ED course: VSS. Discussed admission for IV antibiotics but patient would like to try outpatient treatment and will return if symptoms worsen. 06/10 17:58 Order name: Urine Microscopic Only; Complete Time: 20:45 cp 06/10 20:46 Interpretation: Normal except: UWBC >50; URBC >50; UBACT 20-50; UWBC Clump Many. 06/10 18:17 Order name: CBC with Diff; Complete Time: 19:27 cp 06/10 19:36 Interpretation: Normal except: RBC 3.61; HGB 11.0; HCT 33.3; PLT 120. 06/10 18:17 Order name: CMP; Complete Time: 19:27 06/10 19:27 Interpretation: Normal except: NA 133; CL 108; GLUC 256; BUN 42; CRE 1.93; GFR 34; AST cp 14; ALB 2.8; GLOB 5.0; A/G 0.6. 06/10 18:17 Order name: Lipase; Complete Time: 19:27 06/10 19:36 Interpretation: Reviewed. 06/10 20:38 Order name: Urine Culture EDIA 06/10 18:17 Order name: CT Stone Protocol; Complete Time: 19:35 cp 06/10 18:17 Order name: IV Saline Lock; Complete Time: 18:51 06/10 18:17 Order name: Labs collected and sent; Complete Time: 18:51 06/10 20:53 Order name: PO challenge; Complete Time: 21:26 cp Administered Medications: 18:44 Drug: NS 0.9% IV 500 ml Route: IV; Rate: 125 ml/hr; Site: left antecubital; nj1 19:52 Follow up: Response: No adverse reaction; IV Status: Completed infusion; IV Intake: nj1 500ml 18:44 Drug: Ondansetron IVP 4 mg Route: IVP; Site: left antecubital; nj1 19:52 Follow up: Response: No adverse reaction nj1 18:46 Drug: fentaNYL (PF) IVP 25 mcg Route: IVP; Site: left antecubital; nj1 19:53 Follow up: Response: No adverse reaction nj1 19:50 Drug: fentaNYL (PF) IVP 25 mcg Route: IVP; Site: left antecubital; nj1 20:10 Follow up: Response: No adverse reaction; Pain is unchanged, physician notified nj1 20:45 Drug: morphine IVP or IV 2 mg Route: IVP; Infused Over: 4 mins; Site: left antecubital; nj1 21:27 Follow up: Pain 0/10 Adult; Response: No adverse reaction; Pain is decreased nj1 21:10 Drug: Ciprofloxacin PO 500 mg Route: PO; nj1 21:27 Follow up: Response: No adverse reaction nj1 21:12 Drug: Rocephin IV 1 grams Route: IV; Rate: calculated rate; Site: left antecubital; nj1 21:27 Follow up: Response: No adverse reaction; IV Status: Completed infusion; IV Intake: [id number] 21:28 Not Given (Duplicate Order): morphine IVP or IV 2 mg IVP once over 4 mins nj1 Disposition Summary: 06/10/23 21:14 Discharge Ordered Location: Home cp Problem: new cp Symptoms: have improved cp Condition: Stable cp Diagnosis - Pyelonephritis acute cp Followup: cp - With: Private Physician - When: 1 - 2 days - Reason: Recheck today's complaints Discharge Instructions: - Discharge Summary Sheet cp - Pyelonephritis, Adult cp Forms: - Medication Reconciliation Form cp - Thank You Letter cp - Antibiotic Education cp - Prescription Opioid Use cp - Patient Portal Instructions cp Prescriptions: - cefpodoxime 200 mg Oral Tablet - take 1 tablet by ORAL route every 12 hours for 10 days with food; 20 tablet; cp Refills: 0, Product Selection Permitted Signatures: Dispatcher [employer] Gabrielle Heller RN RN Andrew Driver PA PA cp Maria L Fuentes RN RN nj1 Analisa Marcos RN RN cm10
--- NOTE | 2023-06-10 21:14 | ER ---
Nurse's Notes [facility] Name: Dev Olguin Age: 83 yrs Sex: Male : 1940 Arrival Date: 06/10/2023 Time: 17:34 Bed 16 Private MD: Diagnosis: Pyelonephritis acute Presentation: 06/10 17:49 Chief complaint: Patient states: R low back and flank pain that started today, hx of ph kidney stones, states that this feels similar. Coronavirus screen: Vaccine status: Patient reports receiving the 2nd dose of the covid vaccine. Ebola Screen: No symptoms or risks identified at this time. Initial Sepsis Screen: Does the patient meet any 2 criteria? No. Patient's initial sepsis screen is negative. Does the patient have a suspected source of infection? No. Patient's initial sepsis screen is negative. Risk Assessment: Do you want to hurt yourself or someone else? Patient reports no desire to harm self or others. Onset of symptoms was June 10, 2023. 17:49 Method Of Arrival: Ambulatory ph 17:49 Acuity: [place] 3 ph Historical: - Allergies: 17:51 No Known Allergies; ph - PMHx: 17:51 Alzheimer's disease; Diabetes - NIDDM; ph - PSHx: 17:51 hernia repair; right ankle repair; right femur surgery; ph - Immunization history:: Adult Immunizations unknown. - Social history:: Smoking status: unknown. Screenin:36 [facility] ED Fall Risk Assessment (Adult) History of falling in the last 3 months, cm10 including since admission No falls in past 3 months (0 pts) Confusion or Disorientation No (0 pts) Intoxicated or Sedated No (0 pts) Impaired Gait Yes (1 pt) Mobility Assist Device Used Yes (1 pt) Altered Elimination No (0 pt) Score/Fall Risk Level 0 - 2 = Low Risk Oriented to surroundings, Maintained a safe environment. Abuse screen: Denies threats or abuse. Denies injuries from another. Nutritional screening: No deficits noted. Tuberculosis screening: No symptoms or risk factors identified. Assessment: 18:30 General: Appears in no apparent distress. uncomfortable, Behavior is calm, cooperative, nj1 appropriate for age. 18:30 Pain: Complains of pain in flank, right Pain radiates to abdomen Pain currently is 10 nj1 out of 10 on a pain scale. Neuro: Level of Consciousness is awake, alert, obeys commands, Oriented to person, place, situation. Cardiovascular: Patient's skin is warm and dry. Respiratory: Airway is patent Respiratory effort is even, unlabored. GI: Reports. : Reports pain flank(s). 19:50 Reassessment: Patient appears in no apparent distress at this time. No changes from banner previously documented assessment. Patient and/or family updated on plan of care and expected duration. Pain level reassessed. Pain: Complains of pain in flank, left Pain radiates to abdomen Pain currently is 10 out of 10 on a pain scale. 21:00 Reassessment: Patient appears in no apparent distress at this time. Patient and/or nj1 family updated on plan of care and expected duration. Pain level reassessed. Patient denies pain at this time. Patient states feeling better. Patient states symptoms have improved. Vital Signs: 17:49 BP 108 / 75; Pulse 58; Resp 18; Temp 97.9; Pulse Ox 100% on R/A; Weight 68.95 kg; ph Height 5 ft. 8 in. ; 20:05 BP 142 / 66; Pulse 62; Resp 18; Pulse Ox 99% on R/A; nj1 21:00 BP 134 / 68; Pulse 61; Resp 17; Pulse Ox 98% on R/A; Pain 0/10; nj1 21:15 BP 135 / 66; Pulse 65; Resp 16; Pulse Ox 99% on R/A; cm10 21:27 Pain 0/10; nj1 17:49 Body Mass Index 23.11 (68.95 kg, 172.72 cm) ph 21:00 Pain Scale: Adult nj1 21:27 Pain Scale: Adult nj1 ED Course: 17:39 Patient arrived in ED. kj1 17:40 Andrew Portillo PA is PHCP. cp 17:40 Roni Shaw MD is Attending Physician. cp 17:51 Triage completed. ph 17:52 Arm band placed on Patient placed in an exam room. ph 17:57 Prashanth Landeros, CHIQUITA is Primary Nurse. ll1 18:40 Inserted saline lock: 20 gauge in left antecubital area, using aseptic technique. Blood nj1 collected. 19:14 CT Stone Protocol In Process Unspecified. EDMS 21:37 Patient has correct armband on for positive identification. Call light in reach. Side cm10 rails up X2. Provided Education on: n/a. 21:37 No provider procedures requiring assistance completed. IV discontinued, intact, cm10 bleeding controlled, No redness/swelling at site. Pressure dressing applied. Administered Medications: 18:44 Drug: NS 0.9% IV 500 ml Route: IV; Rate: 125 ml/hr; Site: left antecubital; nj1 19:52 Follow up: Response: No adverse reaction; IV Status: Completed infusion; IV Intake: nj1 500ml 18:44 Drug: Ondansetron IVP 4 mg Route: IVP; Site: left antecubital; nj1 19:52 Follow up: Response: No adverse reaction nj1 18:46 Drug: fentaNYL (PF) IVP 25 mcg Route: IVP; Site: left antecubital; nj1 19:53 Follow up: Response: No adverse reaction nj1 19:50 Drug: fentaNYL (PF) IVP 25 mcg Route: IVP; Site: left antecubital; nj1 20:10 Follow up: Response: No adverse reaction; Pain is unchanged, physician notified nj1 20:45 Drug: morphine IVP or IV 2 mg Route: IVP; Infused Over: 4 mins; Site: left antecubital; nj1 21:27 Follow up: Pain 0/10 Adult; Response: No adverse reaction; Pain is decreased nj1 21:10 Drug: Ciprofloxacin PO 500 mg Route: PO; nj1 21:27 Follow up: Response: No adverse reaction nj1 21:12 Drug: Rocephin IV 1 grams Route: IV; Rate: calculated rate; Site: left antecubital; nj1 21:27 Follow up: Response: No adverse reaction; IV Status: Completed infusion; IV Intake: [id number] 21:28 Not Given (Duplicate Order): morphine IVP or IV 2 mg IVP once over 4 mins nj1 Medication: 21:38 VIS not applicable for this client. cm10 Intake: 19:52 IV: 500ml; Total: 500ml. nj1 21:27 IV: 50ml; Total: 550ml. nj1 Outcome: 21:14 Discharge ordered by . cp 21:37 Discharged to home ambulatory, with significant other. cm10 21:37 Condition: good 21:37 Discharge instructions given to patient, significant other, Instructed on discharge instructions, follow up and referral plans. medication usage, Demonstrated understanding of instructions, follow-up care, medications, Prescriptions given X 1. 21:38 Patient left the ED. cm10 Signatures: Dispatcher [employer] EDGabrielle Cuellar, RN RN Andrew Driver PA PA cp Jackson, Kandis kj1 Prashanth Landeros RN RN ll1 Maria L Fuentes RN RN nj1 Analisa Marcos RN RN cm10
[2023-06-10 22:40] VITALS: TEMP 97.9
[2023-06-10 22:44] VITALS: BP 135/66; O2SAT 99
== END 2023-06-10 21:38 | disposition home or self-care (01) ==
LOC: ER 17:34
DX: N10 Acute pyelonephritis (principal); G30.9 Alzheimer's disease, unspecified; F02.80 Dementia in other diseases classified elsewhere, unspecified severity, without behavioral disturbance, psychotic disturbance, mood disturbance, and anxiety
CPT/HCPCS: 87088; 85025; 87086; 36415; 81015; 83690; 80053; 76377; 74176; J3010 ×2; J2270; J2405; J7040; J0696